=== PATIENT | female | born 1970 | race Caucasian/White ===

== ENCOUNTER 2018-08-15 09:43 | Outpatient (CLI) | payer BC, SELFPAY ==
[2018-08-15 10:06] LABS: HCT 43.2 % (36.0-46.0); HGB 13.8 g/dL (12.0-15.5); Mean Corp. HGB Concentration 31.9 g/dL (32.0-36.0); Mean Corpuscular Hemoglobin 27.9 pg (27.0-33.0); Mean Corpuscular Volume 87.3 fL (80-95); Mean Platelet Volume 9.8 fL (8.0-11.0); Platelet Count 294 x1000/uL (130-400); RBC 4.95 m/cumm (4.00-5.20); RBC Distribution Width 14.2 % (11.7-14.6); White Blood Cell Count 8.32 k/cumm (4.4-10.8)
[2018-08-15 11:05] LABS: TSH (W/Ref FT4) 0.53 uIU/mL (0.358-3.74)
[2018-08-16 06:18] LABS: Hemoglobin A1C 6.2 % (4.5-6.2)
[2018-08-16 16:43] LABS: ALT 24 U/L (12-78); AST 12 U/L (15-37); Albumin 3.7 g/dL (3.4-5.0); Alkaline Phosphatase 119 U/L (46-116); Anion Gap 8.4 mmol/L (3-11); BUN 14 mg/dL (7-18); Bilirubin, Total 0.4 mg/dL (0.2-1.0); CO2 31.6 mmol/L (21.0-32.0); CREATININE 0.66 mg/dL (0.55-1.02); Calcium 9.3 mg/dL (8.5-10.1); Chloride 101 mmol/L (98-107); Glucose 100 mg/dL (70-100); Potassium 4.5 mmol/L (3.5-5.1); Sodium 141 mmol/L (136-145); Total Protein 7.5 g/dL (6.4-8.2)
== END 2018-08-15 10:03 ==
PROVIDERS: PCP Family Medicine; Visit Provider Family Medicine
DX: N92.1 Excessive and frequent menstruation with irregular cycle (principal); E03.9 Hypothyroidism, unspecified; E88.81 Metabolic syndrome and other insulin resistance
CPT/HCPCS: 36415; 80053; 85027; 83036; 84443

== ENCOUNTER 2018-08-25 13:15 | Outpatient (CLI) | payer BC, SELFPAY ==
--- NOTE | 2018-08-25 14:44 | DI.MAMMO_ITS ---
SYMPTOMS/DIAGNOSIS: SCREENING, PERSONAL H/O HODGKIN'S DISEASE MAMMOGRAMS: Mammograms were interpreted according to the usual protocol including computer analysis with CAD system, tomosynthesis and C view imaging. The breast tissue is primarily of fatty radiodensity. There is no dominant mass. There are no suspicious calcifications and there has been no significant interval change when compared with the prior images. SUMMARY: No evidence of malignancy, category 1. Yearly screening mammography is recommended. Breast density category A. MQSA ASSESSMENT OF FINDINGS: Negative. Category 1. Patient will receive a letter notifying them of these results. BI-RAD category A. The breasts are almost entirely fatty.
--- NOTE | 2018-08-25 14:58 | DI.RAD_ITS ---
SYMPTOMS/DIAGNOSIS: RIGHT HIP PAIN, H/O HODGKIN'S DISEASE S/P CHEMO, Z85.71 PA AND LATERAL CHEST: The heart is normal in size. The lungs are clear. The mediastinal structures and pleura appear intact. CONCLUSION: Normal chest. RIGHT HIP AND PELVIS: Two views were obtained. There are mild degenerative changes of both hips. There is a question of a very subtle, poorly defined lucency of the right femoral head and neck, possible cortical abnormality noted on the AP view. The patient reportedly has a history of Hodgkin's disease and chemotherapy. The possibility of a neoplastic lesion or avascular necrosis not excluded on the basis of this examination. Additional evaluation with right hip MRI recommended. No other significant findings.
== END 2018-08-25 13:35 ==
PROVIDERS: PCP Family Medicine; Visit Provider Family Medicine
DX: M25.551 Pain in right hip (principal); M16.0 Bilateral primary osteoarthritis of hip; Z92.21 Personal history of antineoplastic chemotherapy; Z85.71 Personal history of Hodgkin lymphoma; Z12.31 Encounter for screening mammogram for malignant neoplasm of breast
CPT/HCPCS: 77063; 77067; 71046; 73502

== ENCOUNTER 2019-08-25 09:04 | Outpatient (CLI) | payer BC, SELFPAY ==
[2019-08-25 09:58] LABS: HCT 42.6 % (36.0-46.0); HGB 13.6 g/dL (12.0-15.5); Mean Corp. HGB Concentration 31.9 g/dL (32.0-36.0); Mean Corpuscular Hemoglobin 28.5 pg (27.0-33.0); Mean Corpuscular Volume 89.1 fL (80-95); Mean Platelet Volume 9.8 fL (8.0-11.0); Platelet Count 319 x1000/uL (130-400); RBC 4.78 m/cumm (4.00-5.20); RBC Distribution Width 14.4 % (11.7-14.6); White Blood Cell Count 8.08 k/cumm (4.4-10.8)
[2019-08-25 10:32] LABS: ALT 36 U/L (14-59); AST 16 U/L (15-37); Albumin 3.8 g/dL (3.4-5.0); Alkaline Phosphatase 124 U/L (46-116); Anion Gap 7.5 mmol/L (3-11); BUN 14 mg/dL (7-18); Bilirubin, Total 0.6 mg/dL (0.2-1.0); CO2 31.5 mmol/L (21.0-32.0); Calcium 9.1 mg/dL (8.5-10.1); Chloride 103 mmol/L (98-107); Glucose 94 mg/dL (74-106); Potassium 4.7 mmol/L (3.5-5.1); Sodium 142 mmol/L (136-145); Total Protein 7.4 g/dL (6.4-8.2)
[2019-08-27 10:20] LABS: TSH (W/Ref FT4) 0.81 uIU/mL (0.36-3.74)
== END 2019-08-25 09:24 ==
PROVIDERS: PCP Family Medicine; Visit Provider Family Medicine
DX: E88.81 Metabolic syndrome and other insulin resistance (principal); E03.9 Hypothyroidism, unspecified; Z85.71 Personal history of Hodgkin lymphoma; R73.03 Prediabetes
CPT/HCPCS: 36415; 80053; 85027; 83036; 84443

== ENCOUNTER 2019-08-30 01:21 | Outpatient (CLI) | payer BC, SELFPAY ==
--- NOTE | 2019-08-30 12:40 | DI.RAD_ITS ---
EXAM: XR CHEST 2V PA LATERAL CLINICAL HISTORY: HX HODGKINS DISEASE STAGE S/P CHEMO 2Z85.71 TECHNIQUE: COMPARISON: CHEST 2 VIEWS PA,LAT from 05/18/2017 XR CHEST 2V PA LATERAL from 08/25/2018 FINDINGS: Patient reportedly has a history Hodgkin's disease. There are multiple calcified mediastinal lymph nodes. Lungs are grossly clear and well expanded. No pleural effusion seen. IMPRESSION: No evidence of acute change.
--- NOTE | 2019-08-30 13:00 | DI.MAMMO_ITS ---
EXAM: MAMMO SCREENING CLINICAL HISTORY: SCREENING Z12.31 TECHNIQUE: Mammograms were interpreted according to the usual protocol including computer analysis w [employer] CAD system, tomosynthesis and C-view imaging. COMPARISON: Current examination is compared with previous examinations including July 2018 FINDINGS: The breasts are of moderate density with fairly symmetrical distribution of fibroglandular tissue. N o dominant mass or clumped microcalcification is identified in either breast. Current examination is compared with previous examinations including July 2018 and there has been no gross interval taryn nge in appearance in comparison with previous studies. IMPRESSION: No specific evidence of malignancy at this time. Routine screening examinations are suggested at year ly intervals in this age group according the ACS/ACR guidelines. Category 1, breast density category B. BI-RADS Cat 1 - Negative Breast Density - Category B - Scattered areas of fibroglandular density
== END 2019-08-30 01:41 ==
PROVIDERS: PCP Family Medicine; Visit Provider Family Medicine
DX: Z12.31 Encounter for screening mammogram for malignant neoplasm of breast (principal); R59.0 Localized enlarged lymph nodes; Z85.71 Personal history of Hodgkin lymphoma; Z92.21 Personal history of antineoplastic chemotherapy
CPT/HCPCS: 77063; 77067; 71046

== ENCOUNTER 2019-10-13 02:22 | Outpatient (CLI) | payer BC, SELFPAY ==
--- NOTE | 2019-10-13 07:30 | DI.US_ITS ---
APPROVED REPORT EXAM: Comprehensive 2D, Doppler, and color-flow Echocardiogram Patient Location: Out-Patient Personal Care Worker: Sarahi Kerr RDCS (AE) Rhythm: NSR Indications: mitral valve regurgitation I34.0 aortic valve regurgitation ( MOD) and I35.1 Conclusion Left Ventricle : The left ventricle is normal size. The left ventricular systolic function is normal. The left ventricular ejection fraction is within the normal range. There is normal left ventricular wall thickness. There is normal LV segmental wall motion. There is grade 2 diastolic dysfunction. LVE F is estimated to be 60-65%. Right Ventricle : The right ventricle appears normal size. The right ventricular systolic function ap pears normal. Atria : Left atrium is mildly dilated. The right atrium size is normal. Aortic Valve : The Aortic valve is sclerotic. Aortic valve appears trileaflet. Aortic valve has calci fied nodular thickening. Mild to moderate aortic stenosis. Moderate aortic regurgitation. Mitral Valve : Mitral valve leaflets are mildly thickened. Mild mitral annular calcification. Mild to moderate mitral regurgitation. No evidence of mitral valve stenosis. IVC: IVC is normal in size and collapses >50% with inspiration. Estimated RVSP is 15-20 mmHg. Compared to echocardiogram dated 08/13/2017: There is no significant change. Wall motion Left Ventricle The left ventricle is normal size. The left ventricular systolic function is normal. The left ventric ular ejection fraction is within the normal range. There is normal left ventricular wall thickness. T here is normal LV segmental wall motion. There is grade 2 diastolic dysfunction. LVEF is estimated to be 60-65%. Right Ventricle The right ventricle appears normal size. The right ventricular systolic function appears normal. Atria Left atrium is mildly dilated. The right atrium size is normal. Aortic Valve The Aortic valve is sclerotic. Aortic valve appears trileaflet. Aortic valve has calcified nodular th ickening. Mild to moderate aortic stenosis. Moderate aortic regurgitation. Mitral Valve Mitral valve leaflets are mildly thickened. Mild mitral annular calcification. No evidence of mitral valve stenosis. Mild to moderate mitral regurgitation. Tricuspid Valve Tricuspid valve is not well visualized. Mild tricuspid regurgitation. Pulmonic Valve Pulmonic valve is not well visualized. Mild pulmonic regurgitation. Great Vessels The aortic root is normal in size. The ascending aorta is normal in size. IVC is normal in size and c ollapses >50% with inspiration. Estimated RVSP is 15-20 mmHg. Pericardium There is no pericardial effusion. 2D Dimensions IVSD d PLAX 0.99 cm F: 0.6-1.0 LV Vol A2C d MOD 114.5 mL LVPW d PLAX 0.89 cm F: 0.6 - 1.0 LV Vol A4C d MOD 100.1 mL LVID d PLAX 4.67 cm F: 3.8 - 5.2 LA vol/ BSA A2C s A-L 29.5 mL/m2 LVDs 2.80 cm F: 2.2 - 3.5 LA vol/ BSA A4C s A-L 39.2 mL/m2 Ao Root d 3.21 cm F: 2.7 - 3.3 LA Vol/ BSA Biplane s A-L 34.9 mL/m2 RA Area A4C 13.07 cm2 LA Area A4C s MOD 23.24 cm2 RA Vol/ BSA A4C s A-L 15.2 mL/m2 LA Area A2C s MOD 19.67 cm2 Ao Asc Diam d 3.19 cm F: 2.3 - 3.1 LV EF A4C MOD 63.1 % LV EF Teichholz 69.5 % LV EF A2C MOD 64.5 % LVEF (Alonzo's) 64.20 % F: 54 - 74 LV EF Biplane MOD 64.2 % LV Volume 84.12 mL F: 46 - 106 IVC Diam exp d SLAX 1.40 cm LV Volume Index 39.49 mL/m2 F: 29 - 61 LV Vol Biplane MOD 114.6 mL FS 39.05 % M-Mode TAPSE 2.71 cm (M/F) <1.7 LV Diastology MV E' medial 0.064 (>0.07 m/s) E/A Ratio 1.2 LV E/e MED 25.30 (<14) PV S/D Ratio 0.80 MV E' lateral 0.055 (>0.1 m/s) MV E Vmax 1.63 (0.4-1.3 m/s) LV E/e LAT 29.70 (<14) MV A Vmax 1.40 (0.4-1.3 m/s) MV E/E' medial 25.32 MV E/A Ratio 1.13 MV E/E' lateral 29.70 Aortic Valve LVOT Area 3.05 cm2 AoV Area Vmax 1.14 cm2 LVOT Vmax 0.91 m/s AoV Area/ BSA (Vmax) 0.53 cm2/m2 LVOT Mean Artis. 0.69 m/s VALARIE Mean Artis. 1.15 cm2 LVOT Peak Grad 3.3 mmHg VALARIE Mean Artis. Index 0.54 cm2/m2 LVOT Mean Grad 2.0 mmHg AR DT 838 msec LVOT VTI 0.212 m AR PHT 243 msec LVOT Diam s 1.95 cm (M/F) 1.5-2.5 AoV Vmax 2.44 (0.5-1.3 m/s) Velocity Ratio 0.37 AoV Mean Artis. 1.81 m/s AoV Peak Grad 23.9 mmHg LVOT SV 64.65 mL AoV Mean Grad 14.4 (<5 mmHg) AoV VTI 0.568 (0.18-0.25 m) VTI Ratio 0.37 AoV Area VTI 1.14 (2.5-4.5 cm2) AoV Area/ BSA (VTI) 0.53 cm/m2 Mitral Valve MV DT 215 (160-240 msec) MR Vmax 5.61 m/s MV PHT 62 msec MR VTI 1.746 m MV Area PHT 3.53 cm2 MR Peak Grad 125.7 mmHg MV VTI 0.129 m MR Mean Grad 84.0 mmHg MV VTI Annulus 0.129 m MV Regurg Vol 57.67 mL MV Area VTI 4.97 (4.0-6.0 cm2) MV RF 47.15 % MV Diam AP 3.48 cm MR VC 0.41 (0-0.3 cm) MV SV 122.31 mL RUPV S Vmax 0.60 m/s Pulm Vein s 0.60 m/s RUPV D Vmax 0.76 m/s Pulm Vein d 0.76 m/s Pulmonary Valve PV Vmax 1.07 (0.5-1.5 m/s) RVOT Peak Gr. 2.17 mmHg PV Peak Grad 4.6 mmHg RVOT Mean Gr. 1.30 mmHg PV Mean Grad 2.7 mmHg RVOT VTI 0.172 m PV VTI 0.217 m RVOT Vmax 0.74 m/s Tricuspid Valve TR Peak Grad 15.8 mmHg TR Vmax 1.99 m/s RA Pressure 3.00 mmHg RVSP (TR) 18.8 mmHg
== END 2019-10-13 02:42 ==
PROVIDERS: PCP Family Medicine; Visit Provider Family Medicine
DX: I34.0 Nonrheumatic mitral (valve) insufficiency (principal); I35.2 Nonrheumatic aortic (valve) stenosis with insufficiency; I50.1 Left ventricular failure, unspecified; E03.9 Hypothyroidism, unspecified; E88.81 Metabolic syndrome and other insulin resistance
CPT/HCPCS: 93306

== ENCOUNTER 2020-08-20 19:11 | Outpatient (REF) | payer BC, SELFPAY ==
[2020-08-20 13:54] LABS: HCT 40.8 % (36.0-46.0); HGB 13.2 g/dL (11.2-15.7); MCH 28.6 pg (27.0-33.0); MCHC 32.4 % (32.0-36.0); MCV 88.5 fL (80-95); MPV 10.8 fL (8.0-11.0); Platelet Count 319 10^3/uL (130-400); RBC 4.61 10^6/uL (3.93-5.22); RDW 13.6 % (11.7-14.6); RDW-SD 43.8 fL; WBC 8.53 10^3/uL (4.4-10.8)
[2020-08-20 14:18] LABS: TSH (W/Ref FT4) 0.33 uIU/mL (0.36-3.74)
[2020-08-20 14:37] LABS: FREE T4 1.46 ng/dL (0.76-1.46)
[2020-08-20 14:40] LABS: Hemoglobin A1C 5.9 % (<5.7)
== END 2020-08-20 19:31 ==
LOC: NCHCN 19:11
PROVIDERS: PCP Family Medicine; Visit Provider Family Medicine
DX: E03.9 Hypothyroidism, unspecified (principal); R73.03 Prediabetes
CPT/HCPCS: 85027; 83036; 84439; 84443

== ENCOUNTER 2020-09-13 01:15 | Outpatient (CLI) | payer BC, SELFPAY ==
--- NOTE | 2020-09-13 | DI.MAMMO_ITS ---
EXAM: MAMMO SCREENING CLINICAL HISTORY: SCREENING, Z12.31 TECHNIQUE: Mammograms were interpreted according to the usual protocol including computer analysis w [employer] system, tomosynthesis and C-view imaging. COMPARISON: FINDINGS: Breasts are of moderate density with fairly symmetrical distribution of fibroglandular tissue. No do minant mass or clumped microcalcification is identified in either breast. Current examination is com pared with previous examinations including July 2019 and there has been no gross interval change in appearance in comparison with the prior studies. IMPRESSION: No specific evidence of malignancy at this time. Routine screening examinations are suggested at yea rly intervals in this age group according to the ACS ACR guidelines. BI-RADS Category 1 - Negative Breast Density - Category B - Scattered areas of fibroglandular density
== END 2020-09-13 01:35 ==
PROVIDERS: PCP Family Medicine; Visit Provider Family Medicine
DX: Z12.31 Encounter for screening mammogram for malignant neoplasm of breast (principal)
CPT/HCPCS: 77063; 77067

== ENCOUNTER 2020-11-22 22:38 | Outpatient (REF) | payer BC, SELFPAY ==
[2020-11-22 18:49] LABS: TSH (W/Ref FT4) 0.51 uIU/mL (0.36-3.74)
== END 2020-11-22 22:39 | disposition home or self-care (01) ==
LOC: NCHCN 22:38
PROVIDERS: PCP Family Medicine; Visit Provider Family Medicine
DX: E03.9 Hypothyroidism, unspecified (principal)
CPT/HCPCS: 84443

== ENCOUNTER 2021-07-10 20:52 | Outpatient (REF) | payer BC, SELFPAY ==
[2021-07-10 21:35] LABS: Abs Immature Grans 0.04 10^3/uL (0.0-0.06); Absolute Basophil Count 0.05 10^3/uL (0.0-0.2); Absolute Eosinophil Count 0.11 10^3/uL (0.0-0.7); Absolute Lymphocyte Count 1.46 10^3/uL (1.2-3.4); Absolute Neutrophil Count 7.95 10^3/uL (1.2-6.7); Basophils % 0.5; Eosinophils % 1.1; HCT 42.6 % (36.0-46.0); HGB 13.3 g/dL (11.2-15.7); Immature Grans % 0.4; MCH 28.5 pg (27.0-33.0); MCHC 31.2 % (32.0-36.0); MCV 91.2 fL (80-95); MPV 11.1 fL (8.0-11.0); Monocytes % 7.7; Neutrophils % 76.3; Nucleated RBC 0 %; Platelet Count 345 10^3/uL (130-400); RBC 4.67 10^6/uL (3.93-5.22); RDW 13.8 % (11.7-14.6); RDW-SD 46.5 fL; WBC 10.41 10^3/uL (4.4-10.8)
[2021-07-11 00:44] LABS: Hemoglobin A1C 5.8 % (<5.7)
[2021-07-11 08:42] LABS: TSH (W/Ref FT4) 1.07 uIU/mL (0.36-3.74)
== END 2021-07-10 20:53 | disposition home or self-care (01) ==
LOC: NCHCN 20:52
PROVIDERS: PCP Family Medicine; Visit Provider Family Medicine
DX: R73.03 Prediabetes (principal); E03.9 Hypothyroidism, unspecified; Z00.00 Encounter for general adult medical examination without abnormal findings
CPT/HCPCS: 83036; 84443; 85025

== ENCOUNTER 2021-09-20 00:36 | Outpatient (CLI) | payer BC, SELFPAY ==
--- NOTE | 2021-09-20 08:49 | DI.MAMMO_ITS ---
Exam(s) MAMMO SCREENING EXAM: MAMMO SCREENING CLINICAL HISTORY: SCREENING, Z12.31 TECHNIQUE: Mammograms were interpreted according to the usual protocol including computer analysis w [employer] CAD system, tomosynthesis and C-view imaging. COMPARISON: 2011 through 2020 FINDINGS: The breasts are composed of scattered fibroglandular densities, Breast Density category B. No suspicious masses or suspicious microcalcifications are seen. No skin thickening or abnormal axillary lymph nodes are seen. There has been no significant change from prior exams. IMPRESSION: BI-RADS Category 1, Negative mammogram Yearly screening mammography is recommended. Breast Density - Category B, scattered fibroglandular densities. A negative radiographic report should not delay biopsy if a dominant or clinically suspicious mass is present. Up to ten percent of cancers are not identified on mammography. A negative report may reinforce clinical impression. Adenosis and dense breasts may obscure an underlying neoplasm. False positive reports average 6 to 10%. Patient will receive a letter notifying them of these results.
== END 2021-09-20 00:56 ==
PROVIDERS: PCP Family Medicine; Visit Provider Family Medicine
DX: Z12.31 Encounter for screening mammogram for malignant neoplasm of breast (principal)
CPT/HCPCS: 77063; 77067

== ENCOUNTER 2022-03-18 10:48 | Emergency (ER) | payer BC, SELFPAY ==
--- NOTE | 2022-03-18 11:00 | RT.EKG_ITS ---
APPROVED REPORT Exam: Resting ECG Reason for Exam: chest pressure for last week Patient Location: E HR:96 bpm ECG Measurements Heart Rate 96 AXIS MO 144 P 33 QRSd 92 QRS 38 QT 372 T 69 QTc 471 Conclusion Sinus rhythm...normal P axis, V-rate 60- 99. Sinus. Normal axis. No STEMI. I have reviewed and interpreted ECG and agree with software generated interpretation.
[2022-03-18 11:06] VITALS: BP 156/53; PULSE 100; RESP 18; TEMP 37.1; O2SAT 96
--- NOTE | 2022-03-18 11:50 | ED.GENADUL_ITS ---
Discharge Plan Disposition Patient Disposition: HOME Condition: Improving Discharge Details Clinical Impression: Left upper lobe pneumonia Primary Care Provider: Any Pennington ED Provider: Shun Bryant Home Meds and New Rx's Prescriptions: New doxycycline hyclate 100 mg capsule 100 mg PO BID Qty: 20 0RF Continued fluticasone propion-salmeterol [Advair Diskus] 1 EACH blister with device 1 puff Inhalation DAILY levothyroxine [Synthroid] 200 MCG tablet 200 mcg PO DAILY montelukast 10 mg tablet 10 tab PO DAILY Label Comments: TAKE 1 TABLET BY MOUTH EVERY DAY Discharge Instructions Instructions: Pneumonia (ED) Additional Instructions: Doxycycline as directed. Continue using your inhalers as directed. Please watch for new or worsening symptoms and return to the ER for any concerns. Lastly, please contact your primary care provider later today or tomorrow to discuss your ER visit and need for outpatient reevaluation. Medical Decision Making 51-year-old female, never a smoker, past medical history of asthma presents to the ER for cough, sore throat, chest tightness over the past few days, positive COVID exposure about 1 week ago. Clinically she appears well, nontoxic, afebrile, O2 sat 96% on room air. Plan is to obtain a CBC and CMP in case she requires antiviral. Will obtain x-ray as well as a COVID swab. White blood cell count of 13.07 electrolytes unremarkable COVID-negative Chest x-ray reveals a left upper lobe infiltrate. Patient reports mild improvement with DuoNeb, she has no butyryl inhaler at home already. We will provide first dose of doxycycline now and provide a prescription Standard discharge and return precautions were provided. Patient understands, is agreeable to this plan, and has no additional questions or concerns upon discharge. This documentation was generated using [employer] system, please disregard any oddities of phrase or misspellings. Medical Records Medical records reviewed: Yes I reviewed the patient's medical records. Imaging Data Radiologic Study: Attestation: I personally reviewed and interpreted this imaging study as follows: Imaging: X-Ray Radiologist's impression: This report is currently processing and HAS NOT BEEN OFFICIALLY SIGNED BY THE PHYSICIAN - ESTIMATED TIME OF APPROVAL IS 03/18/2022 13:28. Exam(s) XR CHEST 2V PA LATERAL EXAM: XR CHEST 2V PA LATERAL CLINICAL HISTORY: cough. TECHNIQUE: 2D digital imaging was performed. COMPARISON: No exams were available for comparison FINDINGS: 2 views: Heart size is normal. The mediastinum is not widened. Calcified lymph nodes are noted on the left side Right lung is clear. There is some infiltrate in the left upper lobe, specifically in the apical posterior segment.. No pleural effusions. IMPRESSION: Left upper lobe infiltrate. Lab Data Lab results reviewed: Yes I reviewed the patient's lab results. Labs: 03/18/22 11:52 Tonsil - Not Specified Group A Streptococcus Culture - Pending Laboratory Tests Range/Units 03/18/22 03/18/22 03/18/22 11:57 11:57 11:57 WBC (4.4-10.8) 10^3/uL 13.07 H RBC (3.93-5.22) 10^6/uL 4.66 Hgb (11.2-15.7) g/dL 13.0 Hct (36.0-46.0) % 41.0 MCV (80-95) fL 88 MCH (27.0-33.0) pg 27.9 MCHC (32.0-36.0) % 31.7 L RDW (11.7-14.6) % 14.0 Plt Count (130-400) 10^3/uL 346 MPV (8.0-11.0) fL 10.1 Immature Gran % 0.7 Neutrophils % 75.6 Lymphocytes % 12.4 Monocytes % 10.5 Eosinophils % 0.3 Basophils % 0.5 Nucleated RBC % (0.0-0.3) % 0.0 Absolute Neutrophils (1.2-6.7) 10^3/uL 9.88 H Absolute Lymphocytes (1.2-3.4) 10^3/uL 1.62 Absolute Monocytes (0.1-0.8) 10^3/uL 1.37 H Absolute Eosinophils (0.0-0.7) 10^3/uL 0.04 Absolute Basophils (0.0-0.2) 10^3/uL 0.07 Sodium (136-145) mmol/L 137 Potassium (3.5-5.1) mmol/L 3.7 Chloride (98-107) mmol/L 98 Carbon Dioxide (21.0-32.0) mmol/L 31.0 Anion Gap (3-11) mmol/L 8.0 BUN (7-18) mg/dL 8 Creatinine (0.55-1.02) mg/dL 0.8 Estimated GFR/1.73 m2 (mL/min/1.73m2) >= 60.00 Glucose (74-106) mg/dL 93 Calcium (8.5-10.1) mg/dL 9.2 Total Bilirubin (0.2-1.0) mg/dL 0.9 AST (15-37) U/L 10 L ALT (14-59) U/L 23 Alkaline Phosphatase (46-116) U/L 107 Total Protein (6.4-8.2) g/dL 8.2 Albumin (3.4-5.0) g/dL 3.6 COVID-19 Source Nasal/Nares SARS-CoV-2 (PCR) (Negative) Negative HPI General Mode of arrival: ambulatory . Date/Time Provider Initiated Documentation: 03/18/22 11:15 . Limitations to Documentation: no limitations . Information obtained by: patient . HPI Narrative: This is a 51-year-old female, past medical history of asthma, thyroid disease, presenting to the ER for evaluation of a cough with green sputum, sore throat, chest tightness over the past 4 days, positive COVID exposure 7 or 8 days ago. Patient denies smoking or history of smoking. She has not taken any [id number] medication for her symptoms. She denies any headache, neck pain, chest pain, fever, abdominal pain, nausea, vomiting, pain or swelling in her legs. She has not taken any lagk-cgm-[id number] medications for her symptoms. She does state that she is vaccinated against COVID. Related Data Home Medications Medication Instructions Recorded Confirmed fluticasone 250 mcg-salmeterol 50 1 puff inhalation DAILY 04/14/13 03/18/22 mcg/dose blistr powdr for inhalation (Advair Diskus) levothyroxine 200 mcg tablet 200 mcg PO DAILY 04/14/13 03/18/22 (Synthroid) doxycycline hyclate 100 mg capsule 100 mg PO BID #20 caps 03/18/22 montelukast 10 mg tablet 10 tab PO DAILY 03/18/22 03/18/22 Previous Rx's Medication Instructions Recorded doxycycline hyclate 100 mg capsule 100 mg PO BID #20 caps 03/18/22 Allergies Allergy/AdvReac Type Severity Reaction Status Date / Time Sulfa (Sulfonamide AdvReac Intermediate upset Unverified 03/18/22 11:10 Antibiotics) stomach General Stated Complaint: Sorethroat SUSAN: 3 Review of Systems Constitutional Constitutional: Denies fatigue, Denies fever(s) and Denies headache(s) ENT Ears, Nose, Mouth, and Throat: Denies headache(s) and Reports sore throat Cardiovascular Cardiovascular: Denies chest pain and Reports other (Tightness with coughing) Respiratory Respiratory: Reports cough Gastrointestinal Gastrointestinal: Denies abdominal pain, Denies nausea and Denies vomiting Musculoskeletal Musculoskeletal: Denies back pain Integumentary/Breasts Skin/Breast: Denies rash Neurologic Neurologic: Denies headache(s) Endocrine Endocrine: Denies fatigue PFSH All Active Problems (Updated 03/18/22 @ 13:45 by ASHIA Petersen) Left upper lobe pneumonia (Acute) Trochanteric bursitis of right hip (Acute) Abnormal uterine bleeding (Acute 07/25/15) Acquired hypothyroidism (Acute 07/25/15) BMI 40.0-44.9, adult (Acute 07/25/15) Hx of Hodgkins lymphoma (Acute 07/25/15) Metabolic syndrome (Acute 07/25/15) Mild persistent asthma without complication (Acute 07/25/15) Obstructive sleep apnea syndrome (Acute 07/25/15) Unspecified slipped upper femoral epiphysis (nontraumatic), right hip (Acute 07/25/15) Medical History (Updated 03/18/22 @ 13:45 by ASHIA Petersen) Abnormal uterine bleeding Rx with DepoProvera x9yrs. Resumed after stopping Depo in 2003. Worsening in 2013. 10/2015 Mirena IUD. Asthma, mild persistent BMI 40.0-44.9, adult Hx of Hodgkins lymphoma Hypothyroidism Metabolic syndrome Obstructive sleep apnea Unspecified slipped upper femoral epiphysis (nontraumatic), right hip Family History Mother Heart disease heart beats too fast Son Personal history of malignant neoplasm Social History Smoking/Tobacco Use Status: Never Smoking risk assessment performed?: Yes Alcohol Intake: never Drug use: Never Substance use type: does not use Do you feel safe at home: Yes Do you feel safe in your relationship?: Yes Exam Const General: cooperative, healthy appearing, comfortable and no acute distress Orientation: alert, awake and oriented x3 HENMT Head: normal to inspection, normocephalic and atraumatic General nose exam: external nose normal Face and sinus: normal facial exam Mouth: moist mucous membranes Eyes Visual Allen: normal visual allen by confrontation Conjunctivae: conjunctivae normal Neck Neck: normal visual inspection, full ROM, no lymphadenopathy, no meningeal signs, trachea midline, supple and nontender Resp Effort & Inspection: normal respiratory effort, able to speak in complete sent ences and cough Auscultation: wheezes scattered wheezes (Primary left upper lobe, partially clear with cough) Cardio Rate: regular rate Rhythm: regular rhythm GI Palpation: soft and nontender Back/Spine/Pelvis Back: no CVA tenderness and No back tenderness Skin General skin exam: no rashes or lesions noted Neuro General: patient alert, patient awake, moves all extremities and no focal motor deficits Sensory Exam: no sensory deficits noted Extrem General: normal to inspection, full ROM, capillary refill normal, no pedal edema and no calf tenderness Psych Appearance: grossly normal Mental Status: mental status grossly normal Course Vital Signs Vital signs: Vital Signs Temperature 37.1 C 03/18/22 11:06 Pulse 100 H 03/18/22 11:06 Respiratory Rate 18 03/18/22 11:06 Blood Pressure 156/53 H 03/18/22 11:06 Pulse Oximetry 96 03/18/22 11:06 Temperature 37.1 C 03/18/22 11:06 Pulse 100 H 03/18/22 11:06 Respiratory Rate 18 03/18/22 11:06 Respiratory Effort Non-Labored 03/18/22 11:18 Blood Pressure 156/53 H 03/18/22 11:06 Pulse Oximetry 96 03/18/22 11:06 Pain Level 5 03/18/22 11:06
[2022-03-18 12:04] LABS: Source Nasal/Nares
[2022-03-18 12:08] LABS: Abs Immature Grans 0.09 10^3/uL (0.0-0.06); Absolute Eosinophil Count 0.04 10^3/uL (0.0-0.7); Absolute Lymphocyte Count 1.62 10^3/uL (1.2-3.4); Absolute Monocyte Count 1.37 10^3/uL (0.1-0.8); Basophils % 0.5; Eosinophils % 0.3; Immature Grans % 0.7; Lymphocytes % 12.4; MCH 27.9 pg (27.0-33.0); MCHC 31.7 % (32.0-36.0); MCV 88 fL (80-95); MPV 10.1 fL (8.0-11.0); Monocytes % 10.5; Neutrophils % 75.6; Platelet Count 346 10^3/uL (130-400); RBC 4.66 10^6/uL (3.93-5.22); RDW-SD 45.1 fL; WBC 13.07 10^3/uL (4.4-10.8)
[2022-03-18 12:10] LABS: Absolute Basophil Count 0.07 10^3/uL (0.0-0.2); Absolute Neutrophil Count 9.88 10^3/uL (1.2-6.7)
[2022-03-18 12:24] LABS: ALT 23 U/L (14-59); AST 10 U/L (15-37); Albumin 3.6 g/dL (3.4-5.0); Alkaline Phosphatase 107 U/L (46-116); BUN 8 mg/dL (7-18); Bilirubin, Total 0.9 mg/dL (0.2-1.0); CREATININE 0.8 mg/dL (0.55-1.02); Calcium 9.2 mg/dL (8.5-10.1); Chloride 98 mmol/L (98-107); Glucose 93 mg/dL (74-106); Potassium 3.7 mmol/L (3.5-5.1); Sodium 137 mmol/L (136-145); Total Protein 8.2 g/dL (6.4-8.2)
[2022-03-18 12:57] LABS: COVID-19 PCR Negative (Negative)
--- NOTE | 2022-03-18 13:00 | DI.RAD_ITS ---
Exam(s) XR CHEST 2V PA LATERAL EXAM: XR CHEST 2V PA LATERAL CLINICAL HISTORY: cough. TECHNIQUE: 2D digital imaging was performed. COMPARISON: No exams were available for comparison FINDINGS: 2 views: Heart size is normal. The mediastinum is not widened. Calcified lymph nodes are noted on the left side Right lung is clear. There is some infiltrate in the left upper lobe, specifically in the apical pos terior segment.. No pleural effusions. IMPRESSION: Left upper lobe infiltrate. DATA REPOSITORY: RADIATION DOSE DELIVERED:
[2022-03-18 13:33] VITALS: RESP 8
[2022-03-18] MEDS: Albuterol/Ipratropium 3 ML UPD VIAL UPD (13:33)
[2022-03-18 13:47] VITALS: BP 149/65; PULSE 98; RESP 16; TEMP 37.6; O2SAT 95
[2022-03-18] MEDS: Doxycycline Hyclate 100 MG CAP PO (13:52)
[2022-03-18 14:00] VITALS: BP 149/65; PULSE 98; RESP 16; TEMP 37.6; O2SAT 95
== END 2022-03-18 13:58 | disposition home or self-care (01) ==
PROVIDERS: Emergency Provider Physician Assistant; PCP Family Medicine
DX: J18.9 Pneumonia, unspecified organism (principal); Z20.822 Contact with and (suspected) exposure to COVID-19; R07.89 Other chest pain; R05.1 Acute cough
CPT/HCPCS: 36415; 80053; 87635; 87880; 93005; 94640; 99284; 71046; 85025; 87081; 93010; J7620

== ENCOUNTER → 2022-04-08 21:46 | Outpatient (CLI) | payer BC, SELFPAY ==
--- NOTE | 2022-04-08 | DI.RAD_ITS ---
Exam(s) XR CHEST 2V PA LATERAL EXAM: XR CHEST 2V PA LATERAL CLINICAL HISTORY: UPPER RESPIRATORY SYMPTOMS, R09.89 TECHNIQUE: 2D digital imaging was performed. COMPARISON: CR CHEST 2 VIEWS PA,LAT from 06/21/2014 CR XR CHEST 2V PA LATERAL from 08/25/2018 CR XR CHEST 2V PA LATERAL from 08/30/2019 CR XR CHEST 2V PA LATERAL from 03/18/2022 FINDINGS: Heart size is within normal limits. Calcification is again noted at the aorta. There are calcified mediastinal lymph nodes related to prior granulomatous infection. There is a new patchy infiltrate s een at the left lower lobe, above the diaphragm. There is also question of a additional smaller infi ltrate above the right diaphragm. No effusion or pneumothorax is seen. There is a stable area of no dularity in the posterior left upper lobe. This could represent an area of scarring versus mass. A chest CT is recommended following treatment for pneumonia. IMPRESSION: Bilateral lower lobe infiltrates. Question of a 8 area of atelectasis versus mass in the posterior l eft upper lobe. CT recommended for further evaluation. DATA REPOSITORY: RADIATION DOSE DELIVERED:
== END ==
PROVIDERS: PCP Family Medicine; Visit Provider Nurse Practitioner Family
DX: R91.8 Other nonspecific abnormal finding of lung field (principal); R09.89 Other specified symptoms and signs involving the circulatory and respiratory systems
CPT/HCPCS: 71046

== ENCOUNTER 2022-05-11 09:43 | Outpatient (REF) | payer BC, SELFPAY | END 2022-05-11 09:44 | disposition home or self-care (01) | LOC: NCHCN 09:43 | PROVIDERS: PCP Family Medicine; Visit Provider Family Medicine | DX: J18.9 Pneumonia, unspecified organism (principal) | CPT/HCPCS: 87077; 87070; 87205 ==

== ENCOUNTER 2022-06-02 17:48 | Outpatient (REF) | payer BC, SELFPAY | END 2022-06-02 17:49 | disposition home or self-care (01) | LOC: LBN 17:48 | PROVIDERS: PCP Family Medicine; Visit Provider Nurse Practitioner Family | DX: N39.0 Urinary tract infection, site not specified (principal) | CPT/HCPCS: 87086 ==

== ENCOUNTER → 2022-06-09 15:04 | Outpatient (CLI) | payer BC, SELFPAY ==
--- NOTE | 2022-06-09 | DI.RAD_ITS ---
Exam(s) XR CHEST 2V PA LATERAL EXAM: XR CHEST 2V PA LATERAL CLINICAL HISTORY: COMMUNITY ACQUIRED PNEUMONIA--J18.9 TECHNIQUE: 2D digital imaging was performed. COMPARISON: CR XR CHEST 2V PA LATERAL from 03/18/2022 CR XR CHEST 2V PA LATERAL from 04/08/[address] CHEST WO from 05/08/2022 FINDINGS: HEART: Normal size. Aorta: Calcified. PULMONARY VASCULATURE: Main pulmonary arteries prominent. LUNGS: Small focus is scarring or atelectasis is noted in the posterior left upper lobe. This appear s similar to prior. No new infiltrate. Calcified AP window lymph nodes are again noted. PLEURAL SPACE: No pleural effusion or pneumothorax. BONE:Unremarkable for age. IMPRESSION: Focal density in the posterior left upper lobe presumably represents scarring. Mass not and excluded on this exam.. DATA REPOSITORY: RADIATION DOSE DELIVERED:
== END ==
PROVIDERS: PCP Family Medicine; Visit Provider Family Medicine
DX: J18.9 Pneumonia, unspecified organism (principal); R91.8 Other nonspecific abnormal finding of lung field
CPT/HCPCS: 71046

== ENCOUNTER 2022-06-09 15:06 | Outpatient (REF) | payer BC, SELFPAY ==
[2022-06-09 18:28] LABS: Hemoglobin A1C 5.8 % (<5.7)
[2022-06-09 18:55] LABS: Calculated LDL 89 mg/dL (<100); Cholesterol 155 mg/dL (<200); HDL Cholesterol 50 mg/dL (40-60); Triglyceride 84 mg/dL (<150)
== END 2022-06-09 15:07 | disposition home or self-care (01) ==
LOC: NCHCN 15:06
PROVIDERS: PCP Family Medicine; Visit Provider Family Medicine
DX: R73.03 Prediabetes (principal); E66.01 Morbid (severe) obesity due to excess calories; Z00.00 Encounter for general adult medical examination without abnormal findings
CPT/HCPCS: 80061; 83036

== ENCOUNTER 2022-07-02 15:38 | Outpatient (REF) | payer BC, SELFPAY ==
--- OUTSIDE RECORDS SUMMARY | 2022-07-02 15:40 | XMS_ITS | Encounter Summary ---
:1970 Author Organization [facility] [place] [address] Care Team Providers Name Role Phone Any Pennington MD Primary Care Provider Encounter Details Date Type Department Care Team Description 06/30/2022 Travel Social History Tobacco Use Types Packs/Day Years Used Date Never Assessed Sex Assigned at Date Recorded Not on file documented as of this encounter Plan of Treatment Not on filedocumented as of this encounter Visit Diagnoses Not on filedocumented in this encounter Care Teams Spike Maker Relationship Specialty Start Date End Date Any Pennington MD PCP - General 07/23/10 Darrel [address] [place] [address] documented as of this encounter
--- OUTSIDE RECORDS SUMMARY | 2022-07-02 15:40 | XMS_ITS | Clinical Summary ---
:1970 Author Organization [facility] [place] [address] Care Team Providers Name Role Phone Any Pennington MD Primary Care Provider Allergies No known active allergies Medications Medication Sig Dispensed Refills Start Date End Date Status CIS Free Text Med - 0 10/12/2006 Active Albuterol levothyroxine (SYNTHROID) 200mcg, PO, QD 0 7 Active 175 mcg tablet FLUTICASONE/SALMETEROL 0 10/12/2006 Active (ADVAIR DISKUS INHL) Encounters Date Type Specialty Care Team Description 06/30/2022 Hospital Encounter Radiology Any Pennington MD Arri jose 06/30/2022 Hospital Encounter Radiology Any Pennington MD Aide tarkeysha pulmonary nodule; Personal histor y of Hodgkin's disease 06/30/2022 Travel from Last 3 Months Social History Tobacco Use Types Packs/Day Years Used Date Never Assessed Sex Assigned at Date Recorded Not on file Plan of Treatment Health Maintenance Due Date Last Done Comments Covid-19 Vaccine (#1) 06/06/1970 HIV screen 12/06/1987 Hepatitis C Screening 12/06/1987 Tdap adult 1988 Tetanus vaccine 1988 HPV test 12/06/1999 PAP Smear 12/06/1999 Breast Cancer Share Decision Needed 2009 Colonoscopy 2014 Breast Cancer screening 12/06/2019 Zoster vaccine (1 of 2) 12/06/2019 Influenza (Flu) vaccine (1 of 1 - Influenza standard 05/01/2022 series) Procedures Procedure Name Priority Date/Time Associated Diagnosis Comme nts NM PET CT SKULL Routine 06/30/2022 10:35 AM Solitary pulmonary Results for this BASE TO MID-THIGH EDT nodule procedure are in (LCSR) Personal history of the resu lts Hodgkin's disease section. POCT GLUCOSE Routine 06/30/2022 9:05 AM Results f or this EDT procedure are i n the results section. ORDS - PROVIDER 05/22/2022 12:00 AM Resul ts for this CARE SCAN EDT procedure are i n the results section. ORDS - PROVIDER 05/14/2022 12:00 AM Resul ts for this CARE SCAN EDT procedure are i n the results section. from Last 3 Months Results NM PET CT Skull Base to Mid-thigh (06/30/2022 10:35 AM EDT) Anatomical Region Laterality Modality Positron Emission To mography (PET) Specimen (Source) Anatomical Location Collection Method / Collectio n Time Received Time / Laterality Volume Impressions 07/01/2022 9:59 AM EDT 1. ??No evidence of active lymphoma. No pulmonary mass identified. 2. ??Calcified axillary, mediastinal, le ft hilar adenopathy most consistent with treated lymphoma. 3. ??Enlarged pulmonary artery (4.5 cm). This can be seen in pulmonary artery hypertension. Preliminary report signed by: Chelle Lozano at 07/01/2022 9:17 AM I have personally reviewed the image(s) and the resident's interpretation and agree with the findings, Isidro Martini MD at 07/01/2022 9:59 AM Thank you for letting us participate in the care of this patient. ??If you are a health care provider and have any questi ons regarding this report, please contact the number below. ??For patients who have questions please contact the health acute care physician that requested your imaging first. ? Narrative 07/01/2022 9:59 AM EDT EXAMINATION: NM PET CT STANDARD SKULL BASE TO MID-THIGH CLINICAL HISTORY: pt with h/o hodkins s/p chemo/radiation 1995 - clarify if pulmonary mass is benign TECHNIQUE: Following IV injection of 18- sevqsr-2-eypuivqtyfhm (FDG) a standard uptake of approximately 60 minutes, a no ncontrast CT scan followed by a PET scan were acquired from the base of the skull to mid thighs. The noncontrast CT was used for anatomic localization and photo n attenuation correction of the PET scan. Blood glucose level: 87 (mg/dL) FDG dose: 15.9 mCi COMPARISON: Chest radiograph 10/12/2006 FINDINGS: HEAD/NECK: Normal activity in all soft tissue regio ns of the neck and visualized lower head. No adenopathy. CHEST: Normal activity in all soft tissue regio ns. Calcified lymph nodes in the left axilla , anterior mediastinum, and left hilum. No nodules identified. Scarring versus a telectasis of the left lower lobe. Moderate to severe coronary artery and a ortic arch calcifications. The pulmonary artery measures approximately 4.5 cm in diameter. Small pericardial effusion. ABDOMEN/PELVIS: Normal activity in all soft tissue regio ns. No FDG avid lymph nodes. Several small p eriaortic and aortocaval lymph nodes, the largest of these is an 8 mm lymph no de in the region of the left common iliac artery (axial series 4, image 156) , favored to be benign based on morphology and degree of metabolic activ ity. Status post cholecystectomy. Accessory s plenule is noted. SKELETON/EXTREMITIES: Normal activity in all regions of the ax ial and visualized appendicular skeleton. Procedure Note Isidro Martini MD - 07/01/2022 EXAMINATION: NM PET CT STANDARD SKULL BA SE TO MID-THIGH CLINICAL HISTORY: pt with h/o hodkins s/p chemo/radiation 1995 - clarify if pulmonary mass is benign TECHNIQUE: Following IV injection of 18- lbofid-7-fhnhqbhguhog (FDG) a standard uptake of approximately 60 minutes, a no ncontrast CT scan followed by a PET scan were acquired from the base of the skull to mid thighs. The noncontrast CT was used for anatomic localization and photo n attenuation correction of the PET scan. Blood glucose level: 87 (mg/dL) FDG dose: 15.9 mCi COMPARISON: Chest radiograph 10/12/2006 FINDINGS: HEAD/NECK: Normal activity in all soft tissue regio ns of the neck and visualized lower head. No adenopathy. CHEST: Normal activity in all soft tissue regio ns. Calcified lymph nodes in the left axilla , anterior mediastinum, and left hilum. No nodules identified. Scarring versus a telectasis of the left lower lobe. Moderate to severe coronary artery and a ortic arch calcifications. The pulmonary artery measures approximately 4.5 cm in diameter. Small pericardial effusion. ABDOMEN/PELVIS: Normal activity in all soft tissue regio ns. No FDG avid lymph nodes. Several small p eriaortic and aortocaval lymph nodes, the largest of these is an 8 mm lymph no de in the region of the left common iliac artery (axial series 4, image 156) , favored to be benign based on morphology and degree of metabolic activ ity. Status post cholecystectomy. Accessory s plenule is noted. SKELETON/EXTREMITIES: Normal activity in all regions of the ax ial and visualized appendicular skeleton. IMPRESSION 1. No evidence of active lymphoma. No pu lmonary mass identified. 2. Calcified axillary, mediastinal, left hilar adenopathy most consistent with treated lymphoma. 3. Enlarged pulmonary artery (4.5 cm). T his can be seen in pulmonary artery hypertension. Preliminary report signed by: Chelle Lozano at 07/01/2022 9:17 AM I have personally reviewed the image(s) and the resident's interpretation and agree with the findings, Isidro Martiin MD at 07/01/2022 9:59 AM Thank you for letting us participate in the care of this patient. If you are a health care provider and have any questi ons regarding this report, please contact the number below. For patients w ho have questions please contact the health acute care physician that requested your imaging first. Any Pennington MD IMG PET ORDERABLES POCT Glucose (06/30/2022 9:05 AM EDT) P athologist Signature POC Glucose 87 65 - 199 EZEQUIEL HAWKINS mg/dL [facility] Comment: Supplemental ranges: <140 mg/dL before meals <180 mg/dL all other times of the day Specimen Anatomical Collection Method Collection Time Receive d Time (Source) Location / / Volume Laterality Blood 06/30/2022 9:05 AM 9:05 EDT AM EDT Any Pennington MD POINT OF CARE TEST ORDERABLE S Performing Organization Address City/State/ZIP Code Phon e Number [facility] [place] [address] SCAN DOC: ORDS - PROVIDER CARE (05/22/2022 12:00 AM EDT)Only the most recent of2 resultswithin the time period is included. Narrative 05/22/2022 12:00 AM EDT This result has an attachment that is no t available. Ordered by an unspecified provider. Scanning Provider MEDIA MGR SCAN EXT ORDR/RSLT from Last 3 Months Insurance Payer Benefit Plan / Subscriber ID Effective Dates Phone Addre ss Type Group [facility] [id number] 2013-Presen [phone] [address] [facility] OOS PPO t 3 [place], [place] [address] Care Teams Machine Preservative Filler Relationship Specialty Start Date End Date Any Pennington MD PCP - General 07/23/10 [address] [place], [place] [id number]
--- OUTSIDE RECORDS SUMMARY | 2022-07-02 15:40 | XMS_ITS | Encounter Summary ---
:1970 Author Organization [facility] [place] [address] Care Team Providers Name Role Phone Any Pennington MD Primary Care Provider Reason for Referral Diagnostic Test (Routine) - Closed Specialty Diagnoses / Procedures Referred By Contact Refer red To Contact Radiology Diagnoses Solitary pulmonary nodule Personal history of Hodgkin's disease Any Pennington MD [facility] Rad Nuclear Med Procedures NM PET CT Skull Base to Mid-thigh [address] [place] [id number] Referral ID Status Reason Start Date Expiration Date Visits V isits Requested Authorized [id number] Closed Specialty 05/14/2022 07/12/2022 1 1 Service Requested Reason for Visit Diagnostic Test (Routine) - Closed Specialty Diagnoses / Procedures Referred By Contact Refer red To Contact Radiology Diagnoses Solitary pulmonary nodule Personal history of Hodgkin's disease Any Pennington MD [facility] Rad Nuclear Med Procedures NM PET CT Skull Base to Mid-thigh [address] [place] [id number] Referral ID Status Reason Start Date Expiration Date Visits V isits Requested Authorized [id number] Closed Specialty 05/14/2022 07/12/2022 1 1 Service Requested Encounter Details Date Type Department Care Team Description 06/30/2022 Hospital Encounter Nuclear Medicine at [facility], Any Avelar, Solitary pulmonary nodule; Teresa Mchugh MD Personal history of Hodgkin's disease [address] [place], [place], [address] [place] [address] Social History Tobacco Use Types Packs/Day Years Used Date Never Assessed Sex Assigned at Date Recorded Not on file documented as of this encounter Medications at Time of Discharge Medication Sig Dispensed Refills Start Date End Date CIS Free Text Med - Albuterol 0 2006 levothyroxine (SYNTHROID) 175 200mcg, PO, QD 0 mcg tablet FLUTICASONE/SALMETEROL (ADVAIR 0 10/12 DISKUS INHL) documented as of this encounter Plan of Treatment Not on filedocumented as of this encounter Procedures Procedure Name Priority Date/Time Associated Diagnosis Comme nts NM PET CT SKULL Routine 06/30/2022 10:35 AM Solitary pulmonary Results for this BASE TO MID-THIGH EDT nodule procedure are in (LCSR) Personal history of the resu lts Hodgkin's disease section. documented in this encounter Results NM PET CT Skull Base to [...] who have questions please contact the health director day care center that requested your imaging first. ? Narrative 07/01/2022 9:59 AM EDT EXAMINATION: NM PET CT STANDARD SKULL BASE TO MID-THIGH CLINICAL HISTORY: pt with h/o hodkins s/p chemo/radiation 1995 - clarify if pulmonary mass is benign TECHNIQUE: Following IV injection of 18- ylnhqm-3-zdbahhfhdeeq (FDG) a standard uptake of approximately 60 [...] benign TECHNIQUE: Following IV injection of 18- twvxya-2-vbzaaoaaestr (FDG) a standard uptake of approximately 60 [...] ho have questions please contact the health director day care center that requested your imaging first. Any Pennington MD IMG PET ORDERABLES documented in this encounter Visit Diagnoses Diagnosis Solitary pulmonary nodule Personal history of Hodgkin's disease documented in this encounter Administered Medications Inactive Administered Medications - up to 3 most recent administrations Medication Order MAR Action Action Date Dose Rate Site fludeoxyglucose (F-18) FDG Given 06/30/2022 9:20 AM 15.9 mCi Right Arm injection 0-20 mCi EDT 0-20 mCi, Intravenous, ONCE PRN, 1 dose, Starting on Thu06/30/22 at 0932, Until Thu06/30/22 at 0920, Per Protocol, Radiology Contrast, Routine documented in this encounter Care Teams Content Development Specialist Relationship Specialty Start Date End Date Any Pennington MD PCP - General 07/23/10 [address] [place] [address] documented as of this encounter
--- OUTSIDE RECORDS SUMMARY | 2022-07-02 15:40 | XMS_ITS | Encounter Summary ---
:1970 Author Organization [facility] [place] [address] Care Team Providers Name Role Phone Any Pennington MD Primary Care Provider Reason for Visit Diagnostic Test (Routine) - Closed Specialty Diagnoses / Procedures Referred By Contact Refer red To Contact Radiology Diagnoses Solitary pulmonary nodule Personal history of Hodgkin's disease Any Pennington MD [facility] Rad Nuclear Med Procedures NM PET CT Skull Base to Mid-thigh [address] [place] [id number] Referral ID Status Reason Start Date Expiration Date Visits V isits Requested Authorized [id number] Closed Specialty 05/14/2022 07/12/2022 1 1 Service Requested Encounter Details Date Type Department Care Team Description 06/30/2022 Hospital Encounter Nuclear Medicine at [facility] Pennington MD [facility] [address] [facility] [address] [place] [address] [phone] Social History Tobacco Use Types Packs/Day Years [...] procedure are i n the results section. documented in this encounter Results POCT Glucose (06/30/2022 9:05 AM EDT) athologist Signature POC Glucose 87 65 - 199 [facility] mg/dL [facility] Comment: Supplemental ranges: <140 mg/dL before meals <180 mg/dL all other times of the day Specimen Anatomical Collection Method Collection Time Receive d Time (Source) Location / / Volume Laterality Blood 06/30/2022 9:05 AM 9:05 EDT AM EDT Any Pennington MD POINT OF CARE TEST ORDERABLE S Performing Organization Address City/State/[place] [address] documented in this encounter Visit Diagnoses Not on filedocumented in this encounter Care Teams Salesperson Surgical Appliances Relationship Specialty Start Date End Date Any Pennington MD PCP - General 07/23/10 [address] [place] [address] documented as of this encounter
== END 2022-07-02 15:39 | disposition home or self-care (01) ==
LOC: LBN 15:38
PROVIDERS: PCP Family Medicine; Visit Provider Student in an Organized Health Care Education/Training Program
DX: R93.89 Abnormal findings on diagnostic imaging of other specified body structures (principal)
CPT/HCPCS: 87070; 87205

== ENCOUNTER → 2022-07-04 16:40 | Outpatient (CLI) | payer BC, SELFPAY ==
--- NOTE | 2022-07-04 | DI.RAD_ITS ---
Exam(s) XR ANKLE LT COMPLETE EXAM: XR ANKLE LT COMPLETE CLINICAL HISTORY: LEFT ANKLE PAIN-M25.572. TECHNIQUE: 2D digital imaging was performed. COMPARISON: No exams were available for comparison FINDINGS: 3 views Prominent soft tissue swelling both sides of the ankle. No evidence acute fracture nor diastasis the ankle mortise. Talar dome appears unremarkable. Os trigonum incidentally noted. Small inferior ca lcaneal spur noted. Bone density normal. No osseous lesions. Incidentally noted is calcification in the subcutaneous soft tissues. IMPRESSION: No significant osseous findings. Multilevel soft tissue calcifications. DATA REPOSITORY: RADIATION DOSE DELIVERED:
== END ==
PROVIDERS: PCP Family Medicine; Visit Provider Nurse Practitioner Family
DX: M25.572 Pain in left ankle and joints of left foot (principal); M79.89 Other specified soft tissue disorders
CPT/HCPCS: 73610

== ENCOUNTER 2022-07-14 15:30 | Outpatient (REF) | payer BC, SELFPAY ==
[2022-07-14 11:37] LABS: Source Nasal/Nares
[2022-07-14 12:19] LABS: COVID-19 PCR Negative (Negative)
== END 2022-07-14 15:31 | disposition home or self-care (01) ==
LOC: LBN 15:30
PROVIDERS: PCP Family Medicine; Visit Provider Student in an Organized Health Care Education/Training Program
DX: Z11.52 Encounter for screening for COVID-19 (principal)
CPT/HCPCS: 87635

== ENCOUNTER 2022-07-15 06:55 | Day surgery (SDC) | payer BC, SELFPAY ==
[2022-07-15] VITALS (10 sets, daily range): BP systolic 114–190; BP diastolic 32–74; PULSE 87–108; RESP 18–26; TEMP 36.4–36.8; O2SAT 91–98; BMI 41.2
--- NOTE | 2022-07-15 07:12 | W.ANESPRE ---
General Info Date of Service Date Performed: 07/15/22 Height: 5 ft 2.5 in Weight: 104 kg Body Mass Index (BMI): 41.2 Surgical Procedure: Operation Date: 07/15/22 08:10 Proposed Procedure Side Surgeon p Bronchoscopy w/BAL Tierra Khalil MD Meds Allergies and Home Medications Allergies Allergy/AdvReac Type Severity Reaction Status Date / Time Sulfa (Sulfonamide AdvReac Intermediate upset Unverified 07/15/22 07:38 Antibiotics) stomach Home Medication Medication Instructions Recorded fluticasone 250 mcg-salmeterol 50 1 puff inhalation DAILY 04/14/13 mcg/dose blistr powdr for inhalation (Advair Diskus) levothyroxine 200 mcg tablet 200 mcg PO DAILY 04/14/13 (Synthroid) albuterol sulfate 90 mcg/actuation 2 puff inhalation Q4H PRN 06/13/22 aerosol inhaler ketoconazole 2 % topical cream 1 applic topical BID PRN 06/13/22 montelukast 10 mg tablet 10 mg PO DAILY 06/13/22 Current Visit Medications: Current Medications Generic Name Dose Route Start Last Admin Trade Name Freq PRN Reason Stop Dose Admin Ringer's Solution 1,000 mls @ 30 mls/hr 07/15/22 06:00 IV 07/15/22 16:00 [facility] Active Problems Active Problems: Problem Status Onset Code Unspecified slipped upper femoral epiphysis (nontraumatic), right hip 07/25/15 M93.001 Obstructive sleep apnea syndrome 07/25/15 G47.33 Mild persistent asthma without complication 07/25/15 J45.30 Metabolic syndrome 07/25/15 E88.81 Hx of Hodgkins lymphoma 07/25/15 Z85.71 BMI 40.0-44.9, adult 07/25/15 Z68.41 Acquired hypothyroidism 07/25/15 E03.9 Abnormal uterine bleeding 07/25/15 N93.9 Trochanteric bursitis of right hip M70.[address] R93.89 Left leg swelling M79.89 Encounter for screening for COVID-19 Z11.52 Medical History Medical History (Updated 07/02/22 @ 14:55 by Tierra Khalil MD) Abnormal uterine bleeding Rx with DepoProvera x9yrs. Resumed after stopping Depo in 2003. Worsening in 2013. 10/2015 Mirena IUD. Asthma, mild persistent BMI 40.0-44.9, adult Hx of Hodgkins lymphoma Hypothyroidism Metabolic syndrome Obstructive sleep apnea Unspecified slipped upper femoral epiphysis (nontraumatic), right hip Surgical History Surgical History (Updated 07/14/22 @ 09:28 by Georgette Pastrana RN) History of cholecystectomy History of hip surgery pin placement History of removal of Port-a-Cath placement and removal Tobacco Smoking/Tobacco Use Status: Never Alcohol Alcohol Intake: never Substance Use Substance use: Never Substance use type: does not use Vital Signs and Lab Results Vital Signs Most Recent Vital Signs in EMR: Temp Pulse Resp BP Pulse Ox 36.8 C 87 22 146/74 H 98 07/15/22 07:33 07/15/22 07:33 07/15/22 07:33 07/15/22 07:33 07/15/22 07:33 Lab Results Blood Type / Crossmatch: No Data to Display Complete Blood Count: No Data to Display Complete Metabolic Panel: No Data to Display Liver Function Panel: No Data to Display Coagulation Panel: No Data to Display Cardiac Panel: No Data to Display Arterial Blood Gas: No Data to Display Venous Blood Gas: No Data to Display Pancreas Panel: No Data to Display Thyroid Panel: No Data to Display Infectious Disease: Coronavirus (COVID-19)(PCR) Negative (Negative) 07/14/22 10:12 Coronavirus 2019 Source Nasal/Nares 07/14/22 10:12 Blood Cultures: No Data to Display Toxicology Panel: No Data to Display Panel: No Data to Display Imaging and Studies Imaging and Studies Study information below may be from another EMR and interpreted by another provider. Please see original notes in EMR for more complete details. EKG Summary: DATE/TIME OF SERVICE: 03/18/22 1115 : 1970PERFORMING LOCATION: ER APPROVED REPORT Exam: Resting ECG Reason for Exam: chest pressure for last week Patient Location: E HR:96 bpm ECG Measurements Heart Rate 96 AXIS SD 144 P 33 QRSd 92 QRS 38 QT 372 T69 QTc 471 Conclusion Sinus rhythm...normal P axis, V-rate 60- 99. Sinus. Normal axis. No STEMI. Echocardiogram Summary: Date of Exam: 10/13/19ex: F Admission Date: 10/13/19 : 1970 Age: 48 Exam(s) a US:US echocardiogram APPROVED REPORT EXAM: Comprehensive 2D, Doppler, and color-flow Echocardiogram Patient Location: Out-Patient Food Photographer: Sarahi Kerr RDCS (AE) Rhythm: NSR Indications: mitral valve regurgitation I34.0 aortic valve regurgitation ( MOD) and I35.1 Conclusion Left Ventricle : The left ventricle is normal size. The left ventricular systolic function is normal. The left ventricular ejection fraction is within the normal range. There is normal left ventricular wall thickness. There is normal LV segmental wall motion. There is grade 2 diastolic dysfunction. LVEF is estimated to be 60-65%. Right Ventricle : The right ventricle appears normal size. The right ventricular systolic function appears normal. Atria : Left atrium is mildly dilated. The right atrium size is normal. Aortic Valve : The Aortic valve is sclerotic. Aortic valve appears trileaflet. Aortic valve has calcified nodular thickening. Mild to moderate aortic stenosis. Moderate aortic regurgitation. Mitral Valve : Mitral valve leaflets are mildly thickened. Mild mitral annular calcification. Mild to moderate mitral regurgitation. No evidence of mitral valve stenosis. IVC: IVC is normal in size and collapses >50% with inspiration. Estimated RVSP is 15-20 mmHg. Compared to echocardiogram dated 08/13/2017: There is no significant change. Anesthesia Assessment and Plan Anesthesia History Personal History: No History of Anesthesia Complications Family History: No Family History of Anesthesia Complications Exercise Tolerance Exercise Tolerance: Metabolic Equivalents>4 Pertinent Negatives Pertinent Negatives: No Symptoms of GERD Cardiac & Pulmonary Exam Cardiac Exam: Heart Murmur Present Pulmonary Exam: Clear Bilateral Breath Sounds Implantable Cardiac Device Does patient have a Pacemaker or an ICD?: No Airway Exam Known Difficult Airway: No Mallampati Class: 2 Mouth Opening: Normal (> 3cm) Thyromental Distance: Greater than 3 cm Neck Range of Motion: Full ROM Neck Circumference: Normal Teeth Condition: Normal Dentition ASA Classification ASA Score: ASA 3 Emergency Case?: No NPO Status NPO Status: NPO Clears >2 hours, Solids >8 hours Status Status: Negative HCG Anesthesia Plan Resuscitation Status: Full Code Anesthesia Technique: General Anesthesia Airway Planned: Endotracheal Tube Monitors Used: Standard Monitors
[2022-07-15] MEDS: Lactated Ringers 1,000 ML 30 ML IV (07:54)
--- NOTE | 2022-07-15 08:50 | PAPNONF_PTH ---
PATIENT: Karla Quiles LOC: [facility] U#:[id number] AGE/SX: 51/F ROOM: RE07/15/[address]: Tierra Khalil MD : 1970 BED: DIS: 07/15/2022 SPEC #: [id number] RECD: 07/15/22 12:51 STATUS: YAJAIRA REQ #: [id number] [place]: 07/15/22 08:[address]: Tierra Khalil DEPT: [facility] Cytology RECD BY: Renetta Bosch ENTERED: 07/15/22 12:52 SP TYPE: KARRIE POLO DR: Any Pennington Tissues: 1 - BODY FLUID CYTO(NOT S/U/N/EM)[facility] Procedures: BODY FLUID CYTO(NOT SPU/UR/NIP/ENDOM)[facility] Comments: [id number] (TOTAL VOLUME = <10 ml) (REFRIDERATED)
[2022-07-15] MEDS: Lidocaine 1% Pres-Free 5 ML VIAL (09:00)
[2022-07-15] MEDS: Albuterol 2.5 MG/3 ML INH SOLN VIAL UPD (10:13)
--- NOTE | 2022-07-15 10:24 | W.PM.OP ---
Date of service: 07/15/22 Time of Service: 08:15 Operative Note Operative Note PRE-OP DIAGNOSIS: Abnormal Chest CT Refer to Anesthesia Record Procedure Description: Bronchoscopy Date:07/15/22 Time:814 Indication:Abnormal chest CT Procedure performed: Flexible bronchoscopy with BAL and bronchial washings Sedation plan: General Medications used: see anesthesia record Informed consent was obtained after the risks and benefits or the procedure were discussed. Anesthesia provided anesthesia. I intubated the patient using Glydescope 3 and an 8.0 ETT. First attempt intubation with redundant soft tissue and narrow upper airway observed. A proper and complete OR compliant time out was performed. The therapeutic 6.2mm Olympus bronchoscope was inserted through the endotracheal tube. The bronchoscope was inserted into the airways, where 3cc in total of 1% topical lidocaine was used the anesthetize the airways. The trachea was midline and without lesion or injury. The tracheal mucosa appeared normal. The suad was sharp. All bronchial subsegments were visualized within each lobe and showed white, thick secretions in the left main bronchus that were suctioned. The left upper take off and lingula was narrowed with signs of chronic irritation/inflammation in the way of erythema. A bronchoalveolar lavage was performed in the ELOY. A total of 120cc of saline was administered with a return of 5cc due to highly collapsible airways with application of any degree of negative pressure. The fluid was clear in appearance. I then obtained bronchial washings in this area given the poor return on the BAL. There was irritation to the airway mucosa following this with a mild amount of bleeding which was self limited. The bronchoscope was then removed and the case terminated. The patient was taken to PACU in stable condition. Samples collected:ELOY BAL, bronchial washings Testing ordered:Cell diff, bacterial, fungal, AFB cultures, cytology Complications:None Tierra Khalil MD Pulmonary & Critical Care Medicine
[2022-07-15] MEDS: Acetaminophen 500 MG TAB 1000 MG PO (10:58)
--- NOTE | 2022-07-15 16:14 | W.ANESPOSTOP ---
Postoperative Evaluation Date, Time and Location Date Performed: 07/15/22 Time Performed: 16:15 Patient Location: Day Surgery Unit (earlier in the day. ) Vital Signs Most Recent Imported Vital Signs: Most Recent Vital Signs Temp Pulse Resp BP Pulse Ox 36.4 C L 93 H 18 131/71 96 07/15/22 11:05 07/15/22 11:05 07/15/22 11:05 07/15/22 11:05 07/15/22 11:05 Pain Score Most Recent Pain Score: Most Recent Pain Score Pain Level 5 07/15/22 11:05 Assessment Mental Status: Awake (Alert & Oriented to Patient Baseline) Airway and Respiratory Function: Patent airway with normal (patient baseline) respiratory exam Cardiovascular Function: Hemodynamically Stable Hydration Status: Adequately Hydrated Nausea & Vomiting: No Nausea or Vomiting Pain: Pain is tolerable per patient Peripheral Nerve Block: Patient did not receive a nerve block
[2022-07-17 14:35] LABS: Lymphocytes Fluid Relative 15 %; Mono/Macrophage Fluid Relative 41 %; Neutrophils Fluid Relative 32 %
[2022-07-17 14:36] LABS: Other Cells Fluid Relative 12 %
[2022-08-12 12:02] LABS: Fungus Smear No Fungi Seen
== END 2022-07-15 12:00 | disposition home or self-care (01) ==
PROVIDERS: PCP Family Medicine; Visit Provider Student in an Organized Health Care Education/Training Program
PROC: 0BJ08ZZ Inspection of Tracheobronchial Tree, Via Natural or Artificial Opening Endoscopic (ICD-10-PCS; CPT 31622; principal; 2022-07-15 08:00)
DX: R91.8 Other nonspecific abnormal finding of lung field (principal); J45.30 Mild persistent asthma, uncomplicated; Z85.72 Personal history of non-Hodgkin lymphomas; Z79.899 Other long term (current) drug therapy
CPT/HCPCS: 31624; 80162; 81025; 87070; 87102; 87116; 87205; 87206; 88104; J2405; J2704; J7613

== ENCOUNTER 2022-07-24 19:07 | Inpatient (IN) | payer BC, SELFPAY ==
[2022-07-24] VITALS (10 sets, daily range): BP systolic 132–160; BP diastolic 58–73; PULSE 98–134; RESP 18–31; TEMP 36.7; O2SAT 92–96
--- NOTE | 2022-07-24 19:15 | DI.CT_ITS ---
Exam(s) CT CHEST PE CTA EXAM: CT CHEST PE CTA CLINICAL HISTORY: Shortness of breath, hemoptysis. TECHNIQUE: Imaging Protocol: Axial CT angiography was performed with multi-slice acquisition and mu lti-planar and/or 3D reconstructions. CONTRAST MATERIAL: Intravenous: Omnipaque 350 Contrast volume:structured data in ml COMPARISON: CT CT CHEST WO from 05/08/2022 FINDINGS: CT angiography of the chest was performed with intravenous infusion of 100 cc of Omnipaque 350. Note is made of coronary artery calcification. There are areas of consolidation predominantly involving left lower lobe but also present to lesser d egree in right lower lobe and left upper lobe. Small left pleural effusion noted. Tracheobronchial tree appears intact. No evidence of pulmonary embolic disease. Central pulmonary arterial vessels are enlarged consistent with chronic pulmonary artery hypertension thoracic aorta is of normal diameter, no thoracic aortic aneurysm or dissection, major branch vessels appear intact. No mediastinal or hilar adenopathy. Images obtained through the upper abdomen show probable hepatic steatosis and a prior cholecystectomy . Visualized portions of spleen, pancreas, adrenals, and kidneys are unremarkable.. IMPRESSION: Multifocal pneumonia predominantly involving left lower lobe. No evidence of pulmonary embolic disea se. RADIATION DOSE DELIVERED: Total DLP Total DLP DATA REPOSITORY: All CT scans at this facility are submitted to the National Radiology Data Registry (NRDR) Dose Index Registry (DIR) with the [employer] (A[employer]). RADIATION OPTIMIZATION: All CT scans at this facility use at least one of these dose optimization te chniques: automated exposure control; mA and/or kV adjustment per patient size (includes targeted exa ms where dose is matched to clinical indication); or iterative reconstruction.
--- NOTE | 2022-07-24 19:15 | RT.EKG_ITS ---
APPROVED REPORT Exam: Resting ECG Reason for Exam: shortnest of Breath Patient Location: E HR:122 bpm ECG Measurements Heart Rate 122 AXIS CO 145 P 34 QRSd 85 QRS 39 QT 315 T 122 QTc 449 Conclusion Sinus tachycardia...rate> 99 Abnormal T, consider ischemia, lateral leads...T <-0.20mV, I aVL V5 V6 sinus tachycardia, normal axis, normal intervals
--- NOTE | 2022-07-24 19:32 | ED.GENADUL_ITS ---
Discharge Plan Disposition Patient Disposition: Admit to [facility] Condition: Stable Discharge Details Clinical Impression: Pneumonia, Abnormal chest CT Admit Date/Time: 07/24/22 22:28 Admit Provider: Mukesh Gordon Attending Provider: Mukesh Gordon Primary Care Provider: Any [facility] ED Provider: Ihsan Gu Discharge Data Discharge Date/Time-TO BE ENTERED AT DEPARTURE: 07/25/22 00:20 Medical Decision Making Patient presenting to the emergency department for chief complaint of shortness of breath and hemoptysis. She states she has had mild little blood-tinged streaking since she had a bronchoscopy on 07/15 but today she had acute worsening of symptoms, shortness of breath, perceived wheezing, and difficulty breathing. She did try use of her home inhalers but is not getting any better. She attributes symptoms to her asthma exacerbations which she has had in the past. States chills but denies any fever or other cold symptoms. Patient also denies any chest pain or discomfort. Physical exam shows 51-year-old female patient with mild respiratory distress and tachypnea with diffuse rhonchi on auscultation and not moving a lot of air making it difficult to appreciate wheezing at this time. Patient is on antibiotics for lung infection that was sensitive to clindamycin that was found during her bronchoscopy. Exam is otherwise unremarkable. Patient is tachycardic with slight hypoxia of O2 satting of 92% on room air. We will plan on checking labs and performing CT imaging given that patient is tachycardic, having hemoptysis, and slight hypoxia otherwise we will treat patient for her perceived asthma exacerbation with steroids and DuoNeb. Please see physician interpretation for full interpretation of EKG. Upon my review patient appears to be in sinus tachycardia and does not meet acute criter ia for STEMI. Review of labs show a significant elevation of WBC with white count of 18.31, also elevated neutrophils at 16.26, lymphocytes low at 0.79 and monocytes high at 1.6. CMP is overall unremarkable with noted slight elevation of glucose at 140, AST is low at 12, alk phos is slightly elevated at 137, initial troponin is negative. Patient is negative for COVID flu and RSV and viral pathogen panel. CT imaging shows no pulmonary embolism but there is a presumed left lower pneumonia with trace parapneumonic effusion. There is right basilar opacity that is very minimal. I did review these imaging versus recent PET scan that occurred on at the end of May. It does seem like the left lower lobe infiltrate is significantly worsened. Given white count that is significant elevated along with worsening findings on CT scan I do feel that patient should be admitted for IV antibiotics and further consultation with pulmonology on a urgent basis. We will perform blood cultures, ESR CRP and procalcitonin. will start on broad-spectrum antibiotics to cover for hospital acquired pneumonia possibly secondary to procedure or antibiotic failure. Spoke with hospitalist who agreed to have patient admitted for continuation of IV antibiotics and monitoring along with pulmonary consultation. Sign Out No HPI General Mode of arrival: ambulatory . Date/Time Provider Initiated Documentation: 07/24/22 19:10 . Limitations to Documentation: no limitations . Information obtained by: patient, family and RN notes reviewed . History of Present Illness 51 year old F presents to the emergency department with the chief complaint of Hemoptysis, difficulty breathing/shortness of breath, described as moderate and similar to prior episodes, Quality is described as other (Denies pain or discomfort), and is localized to the chest. Patient started experiencing this hour(s) (6) and it has been constant. No relieving factors improve symptom(s), No exacerbating factors reported . Patient did receive the following treatments prior to arrival, other (Home inhalers) Related Data Home Medications Medication Instructions Recorded Confirmed ketoconazole 2 % topical cream 1 applic topical BID PRN 06/13/22 07/15/22 montelukast 10 mg tablet 10 mg PO DAILY 06/13/22 07/24/22 albuterol sulfate 90 mcg/actuation 2 puff inhalation Q6H PRN 07/15/22 aerosol inhaler (Proventil HFA) shortness of breath or wheezing #8.5 grams levothyroxine 175 mcg tablet 175 mcg PO DAILY 07/27/22 07/27/22 albuterol sulfate 2.5 mg/3 mL 2.5 mg (3 mL) UPD Q6H PRN PRN #90 07/28/22 (0.083 %) solution for nebulization mL clindamycin HCl 300 mg capsule 300 mg PO TID #15 caps 07/28/22 fluticasone propionate 230 2 puff inhalation BID #12 grams 07/28/22 mcg-salmeterol 21 mcg/actuation HFA inhaler (Advair HFA) prednisone 10 mg tablet See Taper PO DAILY #81 tabs 07/28/22 Previous Rx's Medication Instructions Recorded albuterol sulfate 90 mcg/actuation 2 puff inhalation Q6H PRN 07/15/22 aerosol inhaler (Proventil HFA) shortness of breath or wheezing #8.5 grams albuterol sulfate 2.5 mg/3 mL 2.5 mg (3 mL) UPD Q6H PRN PRN #90 07/28/22 (0.083 %) solution for nebulization mL clindamycin HCl 300 mg capsule 300 mg PO TID #15 caps 07/28/22 fluticasone propionate 230 2 puff inhalation BID #12 grams 07/28/22 mcg-salmeterol 21 mcg/actuation HFA inhaler (Advair HFA) prednisone 10 mg tablet See Taper PO DAILY #81 tabs 07/28/22 Allergies Allergy/AdvReac Type Severity Reaction Status Date / Time Sulfa (Sulfonamide AdvReac Intermediate upset Unverified 07/15/22 07:38 Antibiotics) stomach General Stated Complaint: [facility]Medical SUSAN: 3 Review of Systems Constitutional Constitutional: Reports chills, Denies fever(s), Denies headache(s) and Reports malaise ENT Ears, Nose, Mouth, and Throat: Denies headache(s), Denies nasal congestion and Denies sore throat Cardiovascular Cardiovascular: Denies chest pain, Denies syncope and Reports dyspnea Respiratory Respiratory: Reports as per HPI, Reports chest congestion, Reports cough, Reports hemoptysis, Reports dyspnea and Reports wheezing Gastrointestinal Gastrointestinal: Denies abdominal pain, Denies diarrhea, Denies nausea and Denies vomiting Genitourinary Genitourinary: Reports system reviewed and no additional complaints, except as documented Musculoskeletal Musculoskeletal: Denies back pain Integumentary/Breasts Skin/Breast: Denies rash Neurologic Neurologic: Denies syncope and Denies headache(s) Allergic/Immunologic Allergic/Immunologic: Reports wheezing PFSH All Active Problems (Updated 07/29/22 @ 00:08 by MIGUEL ANGEL OLIVAS) Hypothyroidism (Chronic) Unspecified slipped upper femoral epiphysis (nontraumatic), right hip (Acute 07/25/15) Obstructive sleep apnea syndrome (Chronic 07/25/15) Mild persistent asthma without complication (Chronic 07/25/15) Metabolic syndrome (Acute 07/25/15) Hx of Hodgkins lymphoma (Acute 07/25/15) BMI 40.0-44.9, adult (Acute 07/25/15) Acquired hypothyroidism (Acute 07/25/15) Abnormal uterine bleeding (Acute 07/25/15) Trochanteric bursitis of right hip (Acute) Left leg swelling (Acute) Encounter for screening for COVID-19 (Acute) Medical History Abnormal uterine bleeding Rx with DepoProvera x9yrs. Resumed after stopping Depo in 2003. Worsening in 2013. 10/2015 Mirena IUD. Asthma, mild persistent BMI 40.0-44.9, adult Hx of Hodgkins lymphoma Hypothyroidism Metabolic syndrome Obstructive sleep apnea Unspecified slipped upper femoral epiphysis (nontraumatic), right hip Surgical History History of cholecystectomy History of hip surgery pin placement History of removal of Port-a-Cath placement and removal Family History Mother Heart disease heart beats too fast Asthma Allergies Son Personal history of malignant neoplasm Father COPD (chronic obstructive pulmonary disease) Social History Smoking/Tobacco Use Status: Never Smoking risk assessment performed?: Yes Alcohol Intake: never Drug use: Never Substance use type: does not use Do you feel safe at home: Yes (unable to assess privately) Do you feel safe in your relationship?: Yes Exam Const General: cooperative, acute distress respiratory, not diaphoretic and ill appearing acutely Nutritional Appearance: average body habitus Orientation: alert, awake and oriented x3 Limitations: mental status not altered Neck Neck: normal visual inspection, full ROM, trachea midline, supple and no anterior neck swelling Resp Effort & Inspection: labored, respiratory distress (mild) and tachypneic Auscultation: rhonchi (Diffuse) Cardio Jugular venous pressure: no JVD Palpation: normal PMI Rate: tachycardic Rhythm: regular rhythm Heart Sounds: S1 normal, S2 normal, no murmurs and no rubs Pulses: radial pulses present bilaterally 2+ Skin General skin exam: no rashes or lesions noted Neuro General: patient alert, patient awake, patient oriented x3, tone normal and moves all extremities Course Vital Signs Vital signs: Vital Signs Temperature 36.7 C 07/24/22 19:11 Pulse 134 H 07/24/22 19:11 Respiratory Rate 24 07/24/22 19:11 Blood Pressure 160/73 H 07/24/22 19:11 Pulse Oximetry 96 07/24/22 19:11 Temperature 36.7 C 07/24/22 19:11 Temperature Source Tympanic 07/24/22 19:11 Pulse 134 H 07/24/22 19:11 Respiratory Rate 24 07/24/22 19:22 Respiratory Effort 07/24/22 19:22 Respiratory Depth Normal 07/24/22 19:22 Respiratory Pattern Normal 07/24/22 19:22 Blood Pressure 160/73 H 07/24/22 19:11 Blood Pressure Position Sitting 07/24/22 19:11 Pulse Oximetry 96 07/24/22 19:11 Oxygen Delivery Method Room Air 07/24/22 19:11 Oxygen Flow Rate 0 07/24/22 19:11 Pain Level 0 07/24/22 19:11
[2022-07-24 19:40] LABS: Abs Immature Grans 0.07 10^3/uL (0.0-0.06); Absolute Basophil Count 0.07 10^3/uL (0.0-0.2); Absolute Eosinophil Count 0.05 10^3/uL (0.0-0.7); Basophils % 0.4; Eosinophils % 0.3; HCT 43.1 % (36.0-46.0); Immature Grans % 0.4; Lymphocytes % 4.3; MCH 28.4 pg (27.0-33.0); MCHC 32.5 % (32.0-36.0); MCV 87 fL (80-95); Monocytes % 5.8; Neutrophils % 88.8; Platelet Count 340 10^3/uL (130-400); RBC 4.93 10^6/uL (3.93-5.22); RDW 13.6 % (11.7-14.6); RDW-SD 43.8 fL; WBC 18.31 10^3/uL (4.4-10.8)
[2022-07-24 19:42] LABS: Absolute Lymphocyte Count 0.79 10^3/uL (1.2-3.4); Absolute Monocyte Count 1.06 10^3/uL (0.1-0.8); Absolute Neutrophil Count 16.26 10^3/uL (1.2-6.7)
[2022-07-24] MEDS: Albuterol/Ipratropium 3 ML UPD VIAL UPD ×2 (19:52→21:37)
[2022-07-24] MEDS: methylPREDNISolone SUCC 125 MG VIAL IVP (19:53)
[2022-07-24] MEDS: Normal Saline 1,000 ML 1000 ML IV (19:53)
[2022-07-24 19:55] LABS: PTT Activated 27.9 sec (21.0-27.5); Prothrombin Time 10.1 sec (9.3-11.0)
[2022-07-24 19:56] LABS: ALT 30 U/L (14-59); AST 12 U/L (15-37); Albumin 3.8 g/dL (3.4-5.0); Alkaline Phosphatase 137 U/L (46-116); Anion Gap 6.5 mmol/L (3-11); BUN 15 mg/dL (7-18); Bilirubin, Total 0.4 mg/dL (0.2-1.0); CO2 30.5 mmol/L (21.0-32.0); Calcium 9.1 mg/dL (8.5-10.1); Chloride 99 mmol/L (98-107); Estimated GFR 67.78 (mL/min/1.73m2); Glucose 140 mg/dL (74-106); Sodium 136 mmol/L (136-145); Total Protein 8.2 g/dL (6.4-8.2)
[2022-07-24] MEDS: Normal Saline - Diluent 50 ML VIAL IJ (20:01)
[2022-07-24 20:02] LABS: Magnesium 1.9 mg/dL (1.8-2.4); NT-proBNP 162 pg/mL (<300); Troponin I < 50 ng/L (<or=60)
[2022-07-24] MEDS: Normal Saline Flush 10 ML SYR IVP (20:02)
[2022-07-24] MEDS: Omnipaque 350 MG/ML 100 ML BTL IJ (20:02)
--- NOTE | 2022-07-24 20:17 | DI.VRAD_ITS ---
PROCEDURE INFORMATION: Exam: CTA Chest With Contrast Exam date and time: 07/24/2022 7:54 PM Age: 51 years old Clinical indication: Other: Shortness of breath, hemoptysis TECHNIQUE: Imaging protocol: Computed tomographic angiography of the chest with contrast. 3D rendering (Not supervised by radiologist): MIP and/or 3D reconstructed images were created by the technologist. Contrast material: OMNIPAQUE 350; Contrast volume: 100 ml; Contrast route: INTRAVENOUS (IV); COMPARISON: OT NM PET CT STANDARD SKULL BASE TO MID-THIGH 06/30/2022 9:29 AM FINDINGS: Pulmonary arteries: Enlarged main pulmonary arteries No pulmonary emboli. Aorta: No aortic aneurysm. No aortic dissection. Lungs: Dense consolidation left lower lobe and mild interstitial thickening. Minimal right lower lobe opacities Small blebs on the right. Pleural spaces: No pneumothorax. Minimal left pleural effusion. Heart: Mild cardiomegaly. No pericardial effusion. Lymph nodes: No enlarged lymph nodes. Calcified mediastinal lymph nodes Bones/joints: Unremarkable. No acute fracture. Soft tissues: Unremarkable. Fatty infiltration of the liver. Prior cholecystectomy IMPRESSION: No pulmonary emboli. Question pulmonary arterial hypertension Presumed left lower lobe pneumonia and trace left parapneumonic effusion. Minimal right basilar opacity presumed infectious/inflammatory. Follow-up with plain films to resolution is recommended. Dictated and Authenticated by: Giovanny Mann MD. Ordering:OVIDIO Champagne MD
[2022-07-24 20:23] LABS: COVID-19 PCR Negative (Negative); Influenza A PCR Negative (Negative); Influenza B PCR Negative (Negative); RSV PCR Negative (Negative)
[2022-07-24 20:25] LABS: Source Nasopharynx
[2022-07-24 21:08] LABS: Lactate 1.7 mmol/L (0.6-1.4)
[2022-07-24 21:16] LABS: ESR 38 mm/hr (0-30)
[2022-07-24 21:22] LABS: C-Reactive Protein 1.32 mg/dL (0.0-0.3)
[2022-07-24] MEDS: CEFEPIME 2 GM in Normal Saline 100 ML IVPB (21:44)
[2022-07-24 21:48] LABS: Procalcitonin 0.1 ng/mL
[2022-07-24] MEDS: AZITHROMYCIN 500 MG in Normal Saline 250 ML 250 MG IVPB (22:11)
--- NOTE | 2022-07-24 22:26 | HPE_ITS ---
Date of service: 07/24/22 Time of Service: 22:26 Assessment and Plan Assessment and plan (1) Pneumonia: Start date: 07/24/22 Status: Acute Assessment and plan: This is a 51-year-old lady with persistent left lower lobe pneumonia now worsening by imaging and symptoms. She also has history of asthma. She was started on Solu-Medrol which will be continued along with aggressive nebulizer treatments and expansion of IV antibiotic therapy from oral clindamycin. She will be placed on vancomycin, Zithromax and cefepime. Consider pulmonary consultation status post bronchoscopy to review imaging and treatment plan. She is having slight increase peripheral edema with standing and this may be right- sided heart failure with her pulmonary process. Consider updating echocardiogram. (2) Mild persistent asthma without complication: Status: Chronic Assessment and plan: Continue outpatient medical therapy and more aggressive nebulizer treatments as well as IV Solu-Medrol. Pulmonary consultation as mentioned. Physical exam upon admission did not reveal significant expiratory wheeze though in the ED that were more findings of asthma exacerbation. (3) Obstructive sleep apnea: Assessment and plan: Patient did not mention wearing CPAP at night but she is obese and does have a history of obstructive sleep apnea which needs to be monitored and treated. Update outpatient treatment and continue inpatient if needed. (4) Hypothyroidism: Assessment and plan: Check lab and adjust supplement as needed. History of Present Illness History of Present Illness Chief Complaint: Increasing shortness of breath and cough with blood-tinged sputum Narrative: This is a 51-year-old female patient has been treated for pneumonia in the left lower lobe now status post bronchoscopy with culture revealing Staph aureus and patient on clindamycin. She did feel somewhat better on oral therapy and states that she has been fighting this for weeks and not clearing. She does also have bronchospasm at times and in the ED had bronchospasm prompting initiation of IV Solu-Medrol and more aggressive nebulizer treatments. She did have an elevated WBC with progressive changes on CT of the chest prompting expansion of IV antibiotic therapy to vancomycin, Zithromax and cefepime for possible hospital- acquired pneumonia being status post recent procedure. She stated that she was having increased cough and shortness of breath for at least 1 day if not 3 days. She is on IV normal saline for hydration and is tolerating this well. At the time I saw the patient she was comfortable and not coughing. She was not tachypneic and not tachycardic. She did not complain of shortness of breath or chest discomfort at rest. Review of Systems Narrative: 13 point review of systems otherwise unrevealing or stable. Patient denies any weight lossand is obese chronically, slight increased peripheral edema with standing all day at work. She does have a history of asthma. PFSH All Active Problems (Updated 07/25/22 @ 17:11 by Mukesh Gordon) Unspecified slipped upper femoral epiphysis (nontraumatic), right hip (Acute 07/25/15) Obstructive sleep apnea syndrome (Acute 07/25/15) Mild persistent asthma without complication (Chronic 07/25/15) Metabolic syndrome (Acute 07/25/15) Hx of Hodgkins lymphoma (Acute 07/25/15) BMI 40.0-44.9, adult (Acute 07/25/15) Acquired hypothyroidism (Acute 07/25/15) Abnormal uterine bleeding (Acute 07/25/15) Trochanteric bursitis of right hip (Acute) Abnormal chest CT (Acute) Left leg swelling (Acute) Encounter for screening for COVID-19 (Acute) Pneumonia (Acute) Medical History Abnormal uterine bleeding Rx with DepoProvera x9yrs. Resumed after stopping Depo in 2003. Worsening in 2013. 10/2015 Mirena IUD. Asthma, mild persistent BMI 40.0-44.9, adult Hx of Hodgkins lymphoma Hypothyroidism Metabolic syndrome Obstructive sleep apnea Unspecified slipped upper femoral epiphysis (nontraumatic), right hip Surgical History History of cholecystectomy History of hip surgery pin placement History of removal of Port-a-Cath placement and removal Family History Mother Heart disease heart beats too fast Asthma Allergies Son Personal history of malignant neoplasm Father COPD (chronic obstructive pulmonary disease) Social History Smoking/Tobacco Use Status: Never Smoking risk assessment performed?: Yes Alcohol Intake: never Drug use: Never Substance use type: does not use Do you feel safe at home: Yes (unable to assess privately) Do you feel safe in your relationship?: Yes Meds Allergies and Home Medications Allergies Allergy/AdvReac Type Severity Reaction Status Date / Time Sulfa (Sulfonamide AdvReac Intermediate upset Unverified 07/15/22 07:38 Antibiotics) stomach Home Medications Medication Instructions Recorded Confirmed Type levothyroxine 200 mcg tablet 200 mcg PO DAILY 04/14/13 07/24/22 History (Synthroid) albuterol sulfate 90 mcg/actuation 2 puff inhalation Q4H PRN 06/13/22 07/24/22 History aerosol inhaler ketoconazole 2 % topical cream 1 applic topical BID PRN 06/13/22 07/15/22 History montelukast 10 mg tablet 10 mg PO DAILY 06/13/22 07/24/22 History albuterol sulfate 90 mcg/actuation 2 puff inhalation Q6H PRN 07/15/22 Rx aerosol inhaler (Proventil HFA) shortness of breath or wheezing #8.5 grams Saccharomyces boulardii 250 mg 20,000 mmu cells PO DAILY #10 caps 07/18/22 07/18/22 Rx capsule (Daily Probiotic (S. boulardii)) clindamycin HCl 300 mg capsule 300 mg PO TID #21 caps 07/18/22 07/24/22 Rx fluticasone 100 mcg-salmeterol 50 1 inh inhalation BID 07/25/22 07/25/22 History mcg/dose blistr powdr for inhalation (Advair Diskus) Exam Narrative Exam Narrative: General: Patient appears slightly older than stated age, moderately obese with pannus but able to move in bed comfortably. She is in no acute distress. She is not tachypneic. She is alert and oriented x3. HEENT: Normocephalic, slightly coarsened facial features. Eyes with pupils equal and react to light symmetrically, extraocular movement tact and sclera anicteric. Oropharynx with moist mucosa. Neck: Supple without JVD. Back: Stooped posture without CVA tenderness. Lungs: Bronchovesicular breath sounds diffusely with fair aeration and no focalizing rales or rhonchi. Slightly decreased aeration of the left base without dullness to percussion. No egophony. Breast: Exam deferred. Heart: Regular rate and rhythm with no appreciable murmur or gallop. Abdomen: Obese contour, soft and nontender to palpation with no palpable hepatosplenomegaly. Genitalia/rectal: Exam deferred. Extremities: Without clubbing, cyanosis or grossly pitting edema with some nonp itting edema both lower extremities. No ulcerations over the legs. Skin: Normal color, warm and dry. Neuro: Cranial nerves II through XII gross intact, no focalized motor deficits. No tremor. Psych: Flattened affect with depressed mood. No abnormal thought processes. Remote and recent memory grossly intact. Results Imaging Imaging Studies: Exam: CTA Chest With Contrast Exam date and time: 07/24/2022 7:54 PM Age: 51 years old Clinical indication: Other: Shortness of breath, hemoptysis TECHNIQUE: Imaging protocol: Computed tomographic angiography of the chest with contrast. 3D rendering (Not supervised by radiologist): MIP and/or 3D reconstructed images were created by the technologist. Contrast material: OMNIPAQUE 350; Contrast volume: 100 ml; Contrast route: INTRAVENOUS (IV);? COMPARISON: OT NM PET CT STANDARD SKULL BASE TO MID-THIGH 06/30/2022 9:29 AM FINDINGS: Pulmonary arteries:? Enlarged main pulmonary arteries No pulmonary emboli. Aorta: No aortic aneurysm. No aortic dissection. Lungs:? Dense consolidation left lower lobe and mild interstitial thickening.? Minimal right lower lobe opacities Small blebs on the right. Pleural spaces: No pneumothorax.? Minimal left pleural effusion. Heart:? Mild cardiomegaly. No pericardial effusion. Lymph nodes:? No enlarged lymph nodes.? Calcified mediastinal lymph nodes Bones/joints: Unremarkable. No acute fracture. Soft tissues: Unremarkable. Fatty infiltration of the liver.? Prior cholecystectomy IMPRESSION: No pulmonary emboli.? Question pulmonary arterial hypertension Presumed left lower lobe pneumonia and trace left parapneumonic effusion.? Minimal right basilar opacity presumed infectious/inflammatory.? Follow-up with plain films to resolution is recommended. Labs Result diagrams: 07/25/22 06:01 07/25/22 06:01 Labs: Laboratory Results - last 24 hr 07/24/22 07/24/22 07/24/22 19:30 19:30 19:30 WBC RBC Hgb Hct MCV MCH MCHC RDW Plt Count MPV Immature Gran % Neutrophils % Lymphocytes % Monocytes % Eosinophils % Basophils % Nucleated RBC % Absolute Neutrophils Absolute Lymphocytes Absolute Monocytes Absolute Eosinophils Absolute Basophils ESR PT 10.1 INR 1.0 APTT 27.9 H VBG Lactate Sodium 136 Potassium 4.0 Chloride 99 Carbon Dioxide 30.5 Anion Gap 6.5 BUN 15 Creatinine 1.0 Est GFR (CKD-EPI 2020) 67.78 Glucose 140 H Calcium 9.1 Magnesium 1.9 Total Bilirubin 0.4 AST 12 L ALT 30 Alkaline Phosphatase 137 H Troponin I < 50 C-Reactive Protein NT-Pro-B Natriuret Pep 162 Total Protein 8.2 Albumin 3.8 Procalcitonin COVID-19 Source SARS-CoV-2 (PCR) Influenza Type A (PCR) Influenza Type B (PCR) RSV (PCR) 07/24/22 07/24/22 07/24/22 19:30 19:40 21:03 WBC 18.31 H RBC 4.93 Hgb 14.0 Hct 43.1 MCV 87 MCH 28.4 MCHC 32.5 RDW 13.6 Plt Count 340 MPV 10.0 Immature Gran % 0.4 Neutrophils % 88.8 Lymphocytes % 4.3 Monocytes % 5.8 Eosinophils % 0.3 Basophils % 0.4 Nucleated RBC % 0.0 Absolute Neutrophils 16.26 H Absolute Lymphocytes 0.79 L Absolute Monocytes 1.06 H Absolute Eosinophils 0.05 Absolute Basophils 0.07 ESR PT INR APTT VBG Lactate Sodium Potassium Chloride Carbon Dioxide Anion Gap BUN Creatinine Est GFR (CKD-EPI 2020) Glucose Calcium Magnesium Total Bilirubin AST ALT Alkaline Phosphatase Troponin I C-Reactive Protein 1.32 H NT-Pro-B Natriuret Pep Total Protein Albumin Procalcitonin COVID-19 Source Nasopharynx SARS-CoV-2 (PCR) Negative Influenza Type A (PCR) Negative Influenza Type B (PCR) Negative RSV (PCR) Negative 07/24/22 07/24/22 07/24/22 21:03 21:03 21:03 WBC RBC Hgb Hct MCV MCH MCHC RDW Plt Count MPV Immature Gran % Neutrophils % Lymphocytes % Monocytes % Eosinophils % Basophils % Nucleated RBC % Absolute Neutrophils Absolute Lymphocytes Absolute Monocytes Absolute Eosinophils Absolute Basophils ESR 38 H PT INR APTT VBG Lactate 1.7 H Sodium Potassium Chloride Carbon Dioxide Anion Gap BUN Creatinine Est GFR (CKD-EPI 2020) Glucose Calcium Magnesium Total Bilirubin AST ALT Alkaline Phosphatase Troponin I C-Reactive Protein NT-Pro-B Natriuret Pep Total Protein Albumin Procalcitonin 0.1 COVID-19 Source SARS-CoV-2 (PCR) Influenza Type A (PCR) Influenza Type B (PCR) RSV (PCR) Last Vital Signs Temp 36.7 C 07/24/22 19:11 Pulse 98 H 07/24/22 21:55 Resp 18 07/24/22 21:55 BP 132/64 07/24/22 21:55 Pulse Ox 94 07/24/22 21:55
[2022-07-25] VITALS (13 sets, daily range): BP systolic 105–151; BP diastolic 55–68; PULSE 96–113; RESP 4–20; TEMP 36.3–37.1; O2SAT 91–99
[2022-07-25] MEDS: Benzonatate 100 MG CAP (01:23)
[2022-07-25] MEDS: Normal Saline 1,000 ML 125 ML IV (01:33)
[2022-07-25] MEDS: VANCOMYCIN 1,500 MG in Normal Saline 250 ML 166.667 MG IVPB (02:20)
[2022-07-25] MEDS: methylPREDNISolone SUCC 125 MG VIAL 80 MG IVP (03:58)
[2022-07-25] MEDS: CEFEPIME 2 GM in Normal Saline 100 ML IVPB ×3 (05:27→21:54)
[2022-07-25] MEDS: Albuterol/Ipratropium 3 ML UPD VIAL UPD ×4 (05:53→20:26)
[2022-07-25 06:12] LABS: BE (Venous) -2 mmol/L (-2-3); HCO3 (Venous) 24 mmol/L (23-28); O2 Sat (Venous) 93 %; TCO2 (Venous) 22 mmol/L (24-29); pCO2 (Venous) 44 mmHg (41-51); pH (Venous) 7.34 (7.31-7.41); pO2 (Venous) 66 mmHg
[2022-07-25] MEDS: Levothyroxine 200 MCG TAB PO (06:12)
[2022-07-25 06:22] LABS: HCT 41.5 % (36.0-46.0); HGB 13.3 g/dL (11.2-15.7); MCH 27.9 pg (27.0-33.0); MCV 87 fL (80-95); MPV 10.4 fL (8.0-11.0); Platelet Count 331 10^3/uL (130-400); RBC 4.77 10^6/uL (3.93-5.22); RDW 13.8 % (11.7-14.6); RDW-SD 44.2 fL
[2022-07-25 06:26] LABS: WBC 25.53 10^3/uL (4.4-10.8)
[2022-07-25 06:53] LABS: ALT 24 U/L (14-59); AST 13 U/L (15-37); Albumin 3.5 g/dL (3.4-5.0); Alkaline Phosphatase 106 U/L (46-116); Anion Gap 9.8 mmol/L (3-11); BUN 12 mg/dL (7-18); Bilirubin, Total 0.6 mg/dL (0.2-1.0); CO2 23.2 mmol/L (21.0-32.0); Calcium 8.7 mg/dL (8.5-10.1); Chloride 102 mmol/L (98-107); Estimated GFR 67.78 (mL/min/1.73m2); Glucose 214 mg/dL (74-106); Magnesium 1.9 mg/dL (1.8-2.4); Potassium 3.8 mmol/L (3.5-5.1); Sodium 135 mmol/L (136-145); Total Protein 7.9 g/dL (6.4-8.2)
[2022-07-25 06:55] LABS: TSH (W/Ref FT4) 0.04 uIU/mL (0.36-3.74)
[2022-07-25 07:16] LABS: FREE T4 1.44 ng/dL (0.76-1.46)
[2022-07-25] MEDS: predniSONE 20 MG TAB 60 MG PO (08:37)
[2022-07-25] MEDS: Montelukast 10 MG TAB PO (08:37)
[2022-07-25] MEDS: Enoxaparin 40 MG/0.4 ML SYR SC (08:37)
[2022-07-25] MEDS: Budesonide/Formoterol 80/4.5 6.9 GM 60 PUFF INH IH ×2 (09:09→20:26)
--- NOTE | 2022-07-25 09:47 | RESPIRATORY ---
RT spoke with patient concerning listed history of TUCKER to see if she uses a device to sleep at night. Patient stated she has a recalled Respironic's device and believes it's the SystemOne which has not yet been replaced due to it being recalled. RT instructed her if the device is over five years old, her best option might be to get a new RX for a difference device. Patient believes she's used this same device for over ten years now and feels she really likes it but it may also be time for a new device. Patient was instructed if she stays the night tonight in the hospital, to see if anyone can bring the device in. Patient is going to work on getting the device into hospital sometime today.
--- NOTE | 2022-07-25 10:26 | PDOC.CMIN ---
- If Service Date Differs Date of service: 07/25/22 Time of Service: 10:26 Care Management Initial Assess REASON FOR HOSPITALIZATION:: Pneumonia and asthma PAST MEDICAL HISTORY/PAST SURGICAL HISTORY:: All Active Problems (Updated 07/24/22 @ 21:30 by Ihsan Gu NP). Unspecified slipped upper femoral epiphysis (nontraumatic), right hip (Acute 07/25/15). Obstructive sleep apnea syndrome (Acute 07/25/15). Mild persistent asthma without complication (Acute 07/25/15). Metabolic syndrome (Acute 07/25/15). Hx of Hodgkins lymphoma (Acute 07/25/15). BMI 40.0-44.9, adult (Acute 07/25/15). Acquired hypothyroidism (Acute 07/25/15). Abnormal uterine bleeding (Acute 07/25/15). Trochanteric bursitis of right hip (Acute). Abnormal chest CT (Acute). Left leg swelling (Acute). Encounter for screening for COVID-19 (Acute). Pneumonia (Acute). Medical History . Abnormal uterine bleeding. Rx with DepoProvera x9yrs. Resumed after stopping Depo in 2003. Worsening in 2013. 10/2015 Mirena IUD. Asthma, mild persistent. BMI 40.0-44.9, adult. Hx of Hodgkins lymphoma. Hypothyroidism. Metabolic syndrome. Obstructive sleep apnea. Unspecified slipped upper femoral epiphysis (nontraumatic), right hip. Surgical History . History of cholecystectomy. History of hip surgery. pin placement. History of removal of Port-a-Cath. placement and removal PREVIOUS FUNCTIONAL STATUS/SOCIAL/FAMILY SUPPORTS:: Karla lives in a single family farmhouse in [place] with her Ranjit. She and Ranjit had 5 sons but one 3 years ago from cancer. One son lives with them at home two of the others live in [place] and her oldest lives in [facility]. 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 She is independent at baseline. CURRENT FUNCTIONAL STATUS:: Michelle was sitting up in bed visiting with her when CM met with her. She was pleasant in interaction and agreeable to conversation. Michelle stated that she was feeling much better this morning and felt like she could go home but as the day progressed, began coughing more and felt really drained. She does not anticipate the need for any services at discharge. ADVANCE DIRECTIVES:: none on file Has patient been provided with info about the portal/API?: Yes Did the patient sign up for the portal?: No CODE STATUS:: Full Code INSURANCE COVERAGE / FINANCIAL ISSUES:: [employer] CURRENT HOME/COMMUNITY SERVICES/EQUIPMENT:: none PRIMARY CARE PHYSICIAN:: Any [place] POTENTIAL DISCHARGE NEEDS:: follow up with PCP and plan of care PATIENT/FAMILY EDUCATION NEEDS:: Review of discharge instructions, activity, limitations, medications, follow up plan, Ask Me Three TRANSPORTATION:: via private vehicle with family PLAN:: Anticipate Karla will be discharged home with no new services. She will follow up with her community providers and plan of care and transport with family. CM will support Karla and her discharge needs.
[2022-07-25 13:07] LABS: HCG Qual (Urine) Negative
--- NOTE | 2022-07-25 13:56 | CHAPLAIN ---
Karla was resting in bed when I visit. Her , Ranjit, was with her. She came to the ED yesterday evening but didn't get admitted until after midnight, she said. She spent yesterday hosting Thanksgiving dinner. I left as Karla was getting ready to take a shower. Her father, Darrin Olivares, here about a month ago.
[2022-07-25] MEDS: VANCOMYCIN/WATER (PEG) 1.25 GM/250 ML BAG IV (14:41)
[2022-07-25] MEDS: Albuterol 2.5 MG/3 ML INH SOLN VIAL UPD (14:54)
--- NOTE | 2022-07-25 16:51 | W.PM.PROGNOT ---
Date of Service Date of service: 07/25/22 Time of Service: 16:51 Assessment and Plan Assessment and plan (1) Pneumonia: Status: Acute Assessment and plan: continue day 2 vanco, cefepime and azithromycin and steroid burst add mucinex and continue pulmonary toileting, acapella pulmonary consult, followed by Dr Khalil and s/p bronchoscopy (2) Obstructive sleep apnea syndrome: Status: Acute Assessment and plan: home cpap (3) Hypothyroidism: Status: Chronic Assessment and plan: TSH 0.04 (4) DVT prophylaxis: Status: Acute Assessment and plan: continue enoxaparin (5) Discharge planning issues: Status: Acute Assessment and plan: home with no services once medically stable discussed with DR Nunes Subjective Subjective Patient reports: no new complaints, feels better, tolerating liquids well, tolerating a regular diet, voiding w/o difficulty, shortness of breath (with activity but improved. ) and afebrile Interval history since last seen: speaking in full sentences. oxygenating well on room air Exam Const General: cooperative, comfortable, no acute distress and ill appearing (older appearing than stated age) chronically Nutritional Appearance: obese Orientation: alert, awake and oriented x3 HENMT Head: normal to inspection, normocephalic and atraumatic Mouth: oral mucosae normal Resp Effort & Inspection: normal respiratory effort and able to speak in complete sentences Auscultation: rhonchi left lower and no wheezes Cardio Rate: regular rate Rhythm: regular rhythm GI Inspection: normal to inspection and obesity Palpation: soft Skin General skin exam: no rashes or lesions noted Neuro General: patient alert, patient awake, patient oriented x3 and no focal motor deficits Extrem General: normal to inspection and full ROM Psych Appearance: disheveled Mental Status: mental status grossly normal Speech and Movement: speech and movement normal Affect: sad (appears depressed, negative outlook) Attitude: cooperative Thought Process: normal Thought Content: normal Insight: limited Judgment: limited Objective Last Vital Signs Temp 36.6 C 07/25/22 15:34 Pulse 112 H 07/25/22 15:34 Resp 16 07/25/22 15:34 BP 151/68 H 07/25/22 15:34 Pulse Ox 95 07/25/22 15:34 Laboratory Results - last 24 hr 07/24/22 07/24/22 07/24/22 19:30 19:30 19:30 WBC RBC Hgb Hct MCV MCH MCHC RDW Plt Count MPV Immature Gran % Neutrophils % Lymphocytes % Monocytes % Eosinophils % Basophils % Nucleated RBC % Absolute Neutrophils Absolute Lymphocytes Absolute Monocytes Absolute Eosinophils Absolute Basophils ESR PT 10.1 INR 1.0 APTT 27.9 H VBG pH VBG pCO2 VBG pO2 VBG HCO3 VBG Total CO2 VBG O2 Saturation VBG Base Excess VBG Lactate Sodium 136 Potassium 4.0 Chloride 99 Carbon Dioxide 30.5 Anion Gap 6.5 BUN 15 Creatinine 1.0 Est GFR (CKD-EPI 2020) 67.78 Glucose 140 H Calcium 9.1 Magnesium 1.9 Total Bilirubin 0.4 AST 12 L ALT 30 Alkaline Phosphatase 137 H Troponin I < 50 C-Reactive Protein NT-Pro-B Natriuret Pep 162 Total Protein 8.2 Albumin 3.8 Procalcitonin TSH Free T4 Urine HCG, Qual COVID-19 Source SARS-CoV-2 (PCR) Influenza Type A (PCR) Influenza Type B (PCR) RSV (PCR) 07/24/22 07/24/22 07/24/22 19:30 19:40 21:03 WBC 18.31 H RBC 4.93 Hgb 14.0 Hct 43.1 MCV 87 MCH 28.4 MCHC 32.5 RDW 13.6 Plt Count 340 MPV 10.0 Immature Gran % 0.4 Neutrophils % 88.8 Lymphocytes % 4.3 Monocytes % 5.8 Eosinophils % 0.3 Basophils % 0.4 Nucleated RBC % 0.0 Absolute Neutrophils 16.26 H Absolute Lymphocytes 0.79 L Absolute Monocytes 1.06 H Absolute Eosinophils 0.05 Absolute Basophils 0.07 ESR PT INR APTT VBG pH VBG pCO2 VBG pO2 VBG HCO3 VBG Total CO2 VBG O2 Saturation VBG Base Excess VBG Lactate Sodium Potassium Chloride Carbon Dioxide Anion Gap BUN Creatinine Est GFR (CKD-EPI 2020) Glucose Calcium Magnesium Total Bilirubin AST ALT Alkaline Phosphatase Troponin I C-Reactive Protein 1.32 H NT-Pro-B Natriuret Pep Total Protein Albumin Procalcitonin TSH Free T4 Urine HCG, Qual COVID-19 Source Nasopharynx SARS-CoV-2 (PCR) Negative Influenza Type A (PCR) Negative Influenza Type B (PCR) Negative RSV (PCR) Negative 07/24/22 07/24/22 07/24/22 21:03 21:03 21:03 WBC RBC Hgb Hct MCV MCH MCHC RDW Plt Count MPV Immature Gran % Neutrophils % Lymphocytes % Monocytes % Eosinophils % Basophils % Nucleated RBC % Absolute Neutrophils Absolute Lymphocytes Absolute Monocytes Absolute Eosinophils Absolute Basophils ESR 38 H PT INR APTT VBG pH VBG pCO2 VBG pO2 VBG HCO3 VBG Total CO2 VBG O2 Saturation VBG Base Excess VBG Lactate 1.7 H Sodium Potassium Chloride Carbon Dioxide Anion Gap BUN Creatinine Est GFR (CKD-EPI 2020) Glucose Calcium Magnesium Total Bilirubin AST ALT Alkaline Phosphatase Troponin I C-Reactive Protein NT-Pro-B Natriuret Pep Total Protein Albumin Procalcitonin 0.1 TSH Free T4 Urine HCG, Qual COVID-19 Source SARS-CoV-2 (PCR) Influenza Type A (PCR) Influenza Type B (PCR) RSV (PCR) 07/25/22 07/25/22 07/25/22 06:01 06:01 06:01 WBC 25.53 H* RBC 4.77 Hgb 13.3 Hct 41.5 MCV 87 MCH 27.9 MCHC 32.0 RDW 13.8 Plt Count 331 MPV 10.4 Immature Gran % Neutrophils % Lymphocytes % Monocytes % Eosinophils % Basophils % Nucleated RBC % Absolute Neutrophils Absolute Lymphocytes Absolute Monocytes Absolute Eosinophils Absolute Basophils ESR PT INR APTT VBG pH VBG pCO2 VBG pO2 VBG HCO3 VBG Total CO2 VBG O2 Saturation VBG Base Excess VBG Lactate Sodium 135 L Potassium 3.8 Chloride 102 Carbon Dioxide 23.2 Anion Gap 9.8 BUN 12 Creatinine 1.0 Est GFR (CKD-EPI 2020) 67.78 Glucose 214 H Calcium 8.7 Magnesium 1.9 Total Bilirubin 0.6 AST 13 L ALT 24 Alkaline Phosphatase 106 Troponin I C-Reactive Protein NT-Pro-B Natriuret Pep Total Protein 7.9 Albumin 3.5 Procalcitonin TSH 0.04 L Free T4 1.44 Urine HCG, Qual COVID-19 Source SARS-CoV-2 (PCR) Influenza Type A (PCR) Influenza Type B (PCR) RSV (PCR) 07/25/22 07/25/22 06:01 12:46 WBC RBC Hgb Hct MCV MCH MCHC RDW Plt Count MPV Immature Gran % Neutrophils % Lymphocytes % Monocytes % Eosinophils % Basophils % Nucleated RBC % Absolute Neutrophils Absolute Lymphocytes Absolute Monocytes Absolute Eosinophils Absolute Basophils ESR PT INR APTT VBG pH 7.34 VBG pCO2 44 VBG pO2 66 VBG HCO3 24 VBG Total CO2 22 L VBG O2 Saturation 93 VBG Base Excess -2 VBG Lactate Sodium Potassium Chloride Carbon Dioxide Anion Gap BUN Creatinine Est GFR (CKD-EPI 2020) Glucose Calcium Magnesium Total Bilirubin AST ALT Alkaline Phosphatase Troponin I C-Reactive Protein NT-Pro-B Natriuret Pep Total Protein Albumin Procalcitonin TSH Free T4 Urine HCG, Qual Negative COVID-19 Source SARS-CoV-2 (PCR) Influenza Type A (PCR) Influenza Type B (PCR) RSV (PCR)
[2022-07-25] MEDS: AZITHROMYCIN 500 MG in Normal Saline 250 ML 250 MG IVPB (21:54)
[2022-07-25] MEDS: Normal Saline Flush 10 ML SYR IVP (21:55)
[2022-07-26] VITALS (7 sets, daily range): BP systolic 126–165; BP diastolic 66–74; PULSE 90–118; RESP 1–20; TEMP 35.6–37.6; O2SAT 90–96
[2022-07-26] MEDS: Albuterol/Ipratropium 3 ML UPD VIAL UPD ×6 (00:12→23:48)
[2022-07-26] MEDS: VANCOMYCIN/WATER (PEG) 1.25 GM/250 ML BAG IV ×3 (02:15→22:28)
[2022-07-26] MEDS: Levothyroxine 200 MCG TAB PO (05:20)
[2022-07-26] MEDS: CEFEPIME 2 GM in Normal Saline 100 ML IVPB ×3 (05:21→22:27)
[2022-07-26] MEDS: Normal Saline Flush 10 ML SYR IVP ×2 (05:21→22:27)
[2022-07-26] MEDS: Enoxaparin 40 MG/0.4 ML SYR SC (07:57)
[2022-07-26] MEDS: Montelukast 10 MG TAB PO (07:57)
[2022-07-26] MEDS: predniSONE 20 MG TAB 60 MG PO (07:57)
[2022-07-26] MEDS: Budesonide/Formoterol 80/4.5 6.9 GM 60 PUFF INH IH ×2 (08:07→20:20)
--- NOTE | 2022-07-26 10:37 | W.PM.PROGNOT ---
Date of Service Date of service: 07/26/22 Time of Service: 10:37 Assessment and Plan Assessment and plan (1) Pneumonia: Status: Acute Assessment and plan: continue day 3 vanco, cefepime and azithromycin and steroid burst add mucinex and continue pulmonary toileting, acapella pulmonary consult, followed by Dr Khalil and s/p bronchoscopy (2) Obstructive sleep apnea syndrome: Status: Acute Assessment and plan: home cpap (3) Hypothyroidism: Status: Chronic Assessment and plan: TSH 0.04 reduce synthroid dose after holding 2 days, will need recheck in 6 weeks. (4) DVT prophylaxis: Status: Acute Assessment and plan: continue enoxaparin (5) Discharge planning issues: Status: Acute Assessment and plan: home with no services once medically stable discussed with DR Nunes Subjective Subjective Patient reports: tolerating liquids well, shortness of breath (coughing non prod, ) and afebrile; denies feels better (reports feeling worse today), tolerating a regular diet (reports poor appetite) or nausea Interval history since last seen: is oxygenating in the low to mid 90's on room air Exam Const General: cooperative, comfortable, no acute distress and ill appearing (older appearing than stated age) chronically Nutritional Appearance: obese Orientation: alert, awake and oriented x3 HENMT Head: normal to inspection, normocephalic and atraumatic Mouth: oral mucosae normal Resp Effort & Inspection: normal respiratory effort and able to speak in complete sentences Auscultation: rhonchi left lower and no wheezes Cardio Rate: regular rate Rhythm: regular rhythm GI Inspection: normal to inspection and obesity Palpation: soft Skin General skin exam: no rashes or lesions noted Neuro General: patient alert, patient awake, patient oriented x3 and no focal motor deficits Extrem General: normal to inspection and full ROM Psych Appearance: disheveled Mental Status: mental status grossly normal Speech and Movement: speech and movement normal Affect: sad (appears depressed, negative outlook) Attitude: cooperative Thought Process: normal Thought Content: normal Insight: limited Judgment: limited Objective Last Vital Signs Temp 37.1 C 07/26/22 07:00 Pulse 102 H 07/26/22 08:10 Resp 15 07/26/22 08:10 BP 151/74 H 07/26/22 07:00 Pulse Ox 96 07/26/22 08:10 Laboratory Results - last 24 hr 11/25/22 12:46 Urine HCG, Qual Negative
[2022-07-26 11:21] LABS: Abs Immature Grans 0.23 10^3/uL (0.0-0.06); Absolute Basophil Count 0.05 10^3/uL (0.0-0.2); Basophils % 0.2; HCT 40.7 % (36.0-46.0); HGB 12.9 g/dL (11.2-15.7); Immature Grans % 0.9; Lymphocytes % 3.7; MCHC 31.7 % (32.0-36.0); MCV 88 fL (80-95); MPV 10.4 fL (8.0-11.0); Monocytes % 4.9; Neutrophils % 90.3; Platelet Count 383 10^3/uL (130-400); RBC 4.61 10^6/uL (3.93-5.22); RDW-SD 44.9 fL; WBC 24.62 10^3/uL (4.4-10.8)
[2022-07-26] MEDS: guaiFENesin 600 MG TABCR PO ×2 (11:26→20:20)
[2022-07-26 11:32] LABS: Absolute Lymphocyte Count 0.91 10^3/uL (1.2-3.4); Absolute Monocyte Count 1.21 10^3/uL (0.1-0.8); Absolute Neutrophil Count 22.23 10^3/uL (1.2-6.7)
[2022-07-26 11:35] LABS: Anion Gap 8.4 mmol/L (3-11); BUN 14 mg/dL (7-18); CO2 26.6 mmol/L (21.0-32.0); CREATININE 0.9 mg/dL (0.55-1.02); Chloride 102 mmol/L (98-107); Estimated GFR 76.92 (mL/min/1.73m2); Glucose 165 mg/dL (74-106); Potassium 3.8 mmol/L (3.5-5.1); Sodium 137 mmol/L (136-145)
[2022-07-26 11:46] LABS: Diff Comment Agrees w/ Instrument; RBC Morphology Normal
[2022-07-26 13:18] LABS: Vancomycin, Trough 9.7 ug/mL (10.0-20.0)
[2022-07-26] MEDS: AZITHROMYCIN 500 MG in Normal Saline 250 ML 250 MG IVPB (22:28)
[2022-07-27] VITALS (10 sets, daily range): BP systolic 116–161; BP diastolic 56–78; PULSE 97–110; RESP 4–20; TEMP 36.1–37.2; O2SAT 91–100
[2022-07-27] MEDS: Albuterol/Ipratropium 3 ML UPD VIAL UPD ×5 (04:14→19:59)
[2022-07-27] MEDS: Acetaminophen 325 MG TAB PO (05:35)
[2022-07-27] MEDS: CEFEPIME 2 GM in Normal Saline 100 ML IVPB ×3 (05:36→22:01)
[2022-07-27] MEDS: Normal Saline Flush 10 ML SYR IVP ×2 (05:36→22:01)
[2022-07-27] MEDS: VANCOMYCIN/WATER (PEG) 1.25 GM/250 ML BAG IV (06:15)
[2022-07-27 06:50] LABS: Abs Immature Grans 0.24 10^3/uL (0.0-0.06); Absolute Basophil Count 0.05 10^3/uL (0.0-0.2); Absolute Eosinophil Count 0.03 10^3/uL (0.0-0.7); Absolute Lymphocyte Count 2.19 10^3/uL (1.2-3.4); Absolute Neutrophil Count 12.58 10^3/uL (1.2-6.7); Basophils % 0.3; Eosinophils % 0.2; HGB 11.9 g/dL (11.2-15.7); Immature Grans % 1.5; Lymphocytes % 13.4; MCH 28.1 pg (27.0-33.0); MCHC 31.3 % (32.0-36.0); MCV 90 fL (80-95); MPV 10.6 fL (8.0-11.0); Monocytes % 7.6; Platelet Count 339 10^3/uL (130-400); RBC 4.24 10^6/uL (3.93-5.22); RDW 14.2 % (11.7-14.6); RDW-SD 46.1 fL; WBC 16.34 10^3/uL (4.4-10.8)
[2022-07-27 06:52] LABS: Absolute Monocyte Count 1.24 10^3/uL (0.1-0.8)
[2022-07-27] MEDS: Budesonide/Formoterol 80/4.5 6.9 GM 60 PUFF INH IH ×2 (07:20→19:59)
[2022-07-27 07:28] LABS: ALT 46 U/L (14-59); AST 26 U/L (15-37); Albumin 3.2 g/dL (3.4-5.0); Alkaline Phosphatase 94 U/L (46-116); Anion Gap 6.4 mmol/L (3-11); BUN 11 mg/dL (7-18); Bilirubin, Total 0.9 mg/dL (0.2-1.0); CO2 27.6 mmol/L (21.0-32.0); CREATININE 0.7 mg/dL (0.55-1.02); Calcium 8.6 mg/dL (8.5-10.1); Chloride 103 mmol/L (98-107); Glucose 117 mg/dL (74-106); Potassium 3.4 mmol/L (3.5-5.1); Sodium 137 mmol/L (136-145); Total Protein 7.3 g/dL (6.4-8.2)
[2022-07-27] MEDS: predniSONE 20 MG TAB 60 MG PO (09:13)
[2022-07-27] MEDS: Montelukast 10 MG TAB PO (09:14)
[2022-07-27] MEDS: Enoxaparin 40 MG/0.4 ML SYR SC (09:14)
[2022-07-27] MEDS: guaiFENesin 600 MG TABCR PO ×2 (09:14→19:59)
[2022-07-27] MEDS: Potassium Chloride 20 MEQ TABCR 40 MEQ PO (09:14)
--- NOTE | 2022-07-27 09:53 | PGE_ITS ---
Date of Service Date of service: 07/27/22 Time of Service: 09:54 Assessment and Plan Assessment and plan (1) Pneumonia: Status: Acute Assessment and plan: continue day 4 vanco, cefepime and azithromycin and steroid burst add mucinex and continue pulmonary toileting, acapella SPO2 90-97% on 1 LPM [place] pulmonary consult, followed by Dr Khalil and s/p bronchoscopy Dr Khalil to see 07/28/2022 in pt (2) Obstructive sleep apnea syndrome: Status: Chronic Assessment and plan: home cpap (3) Hypothyroidism: Status: Chronic Assessment and plan: TSH 0.04 dose was incorrect when reconciled, however should not have affected result - will continue home dose of 175 mcg and have PCP manage outpt (4) DVT prophylaxis: Status: Acute Assessment and plan: continue enoxaparin (5) Discharge planning issues: Status: Acute Assessment and plan: home with no services once medically stable discussed with Dr Nunes Subjective Subjective Patient reports: no new complaints, voiding w/o difficulty, bowel movement and afebrile; denies diarrhea, nausea or vomiting Exam Const General: cooperative, comfortable, no acute distress and ill appearing (older appearing than stated age) chronically Nutritional Appearance: obese Orientation: alert, awake and oriented x3 HENMT Head: normal to inspection, normocephalic and atraumatic Mouth: oral mucosae normal Resp Effort & Inspection: normal respiratory effort and able to speak in complete sentences Auscultation: rhonchi left lower and no wheezes Cardio Rate: regular rate Rhythm: regular rhythm GI Inspection: normal to inspection and obesity Palpation: soft Skin General skin exam: no rashes or lesions noted Neuro General: patient alert, patient awake, patient oriented x3 and no focal motor d eficits Extrem General: normal to inspection and full ROM Psych Appearance: disheveled Mental Status: mental status grossly normal Speech and Movement: speech and movement normal Affect: sad (appears depressed, negative outlook) Attitude: cooperative Thought Process: normal Thought Content: normal Insight: limited Judgment: limited Objective Last Vital Signs Temp 36.6 C 07/27/22 07:22 Pulse 101 H 07/27/22 07:22 Resp 20 07/27/22 07:22 BP 143/78 H 07/27/22 07:22 Pulse Ox 95 07/27/22 07:22 Laboratory Results - last 24 hr 07/26/22 07/26/22 07/26/22 11:08 11:08 12:55 WBC 24.62 H RBC 4.61 Hgb 12.9 Hct 40.7 MCV 88 MCH 28.0 MCHC 31.7 L RDW 14.0 Plt Count 383 MPV 10.4 Immature Gran % 0.9 Neutrophils % 90.3 Lymphocytes % 3.7 Monocytes % 4.9 Eosinophils % 0.0 Basophils % 0.2 Nucleated RBC % 0.0 Absolute Neutrophils 22.23 H Absolute Lymphocytes 0.91 L Absolute Monocytes 1.21 H Absolute Eosinophils 0.00 Absolute Basophils 0.05 RBC Morphology Normal Sodium 137 Potassium 3.8 Chloride 102 Carbon Dioxide 26.6 Anion Gap 8.4 BUN 14 Creatinine 0.9 Est GFR (CKD-EPI 2020) 76.92 Glucose 165 H Calcium 9.0 Total Bilirubin AST ALT Alkaline Phosphatase C-Reactive Protein Total Protein Albumin Vancomycin Trough 9.7 L 07/27/22 07/27/22 06:15 06:15 WBC 16.34 H RBC 4.24 Hgb 11.9 Hct 38.0 MCV 90 MCH 28.1 MCHC 31.3 L RDW 14.2 Plt Count 339 MPV 10.6 Immature Gran % 1.5 Neutrophils % 77.0 Lymphocytes % 13.4 Monocytes % 7.6 Eosinophils % 0.2 Basophils % 0.3 Nucleated RBC % 0.0 Absolute Neutrophils 12.58 H Absolute Lymphocytes 2.19 Absolute Monocytes 1.24 H Absolute Eosinophils 0.03 Absolute Basophils 0.05 RBC Morphology Sodium 137 Potassium 3.4 L Chloride 103 Carbon Dioxide 27.6 Anion Gap 6.4 BUN 11 Creatinine 0.7 Est GFR (CKD-EPI 2020) 104.00 Glucose 117 H Calcium 8.6 Total Bilirubin 0.9 AST 26 ALT 46 Alkaline Phosphatase 94 C-Reactive Protein 6.10 H Total Protein 7.3 Albumin 3.2 L Vancomycin Trough
[2022-07-27 13:33] LABS: Vancomycin, Trough 20.6 ug/mL (10.0-20.0)
[2022-07-27] MEDS: VANCOMYCIN 1,250 MG in Normal Saline 250 ML 166.667 MG IV (14:33)
[2022-07-27] MEDS: AZITHROMYCIN 500 MG in Normal Saline 250 ML 250 MG IVPB (22:01)
[2022-07-28] MEDS: VANCOMYCIN 1,250 MG in Normal Saline 250 ML 166.6 MG IV (00:01)
[2022-07-28] MEDS: Albuterol/Ipratropium 3 ML UPD VIAL UPD ×3 (00:58→08:35)
[2022-07-28 03:54] VITALS: BP 114/64; PULSE 98; RESP 18; TEMP 37.1; O2SAT 97
[2022-07-28] MEDS: Levothyroxine 175 MCG TAB PO (05:54)
[2022-07-28] MEDS: CEFEPIME 2 GM in Normal Saline 100 ML IVPB (05:54)
[2022-07-28] MEDS: Normal Saline Flush 10 ML SYR IVP ×2 (05:54→10:55)
[2022-07-28 06:29] LABS: Anion Gap 8.2 mmol/L (3-11); BUN 9 mg/dL (7-18); CO2 28.8 mmol/L (21.0-32.0); CREATININE 0.6 mg/dL (0.55-1.02); Calcium 8.9 mg/dL (8.5-10.1); Chloride 103 mmol/L (98-107); Estimated GFR 107.93 (mL/min/1.73m2); Glucose 100 mg/dL (74-106); Potassium 3.4 mmol/L (3.5-5.1); Sodium 140 mmol/L (136-145)
--- NOTE | 2022-07-28 07:03 | PUCON_ITS ---
General Date Of Service Date of service: 07/28/22 Time of Service: 07:03 Reason for Consult: Staph Aureus Pneumonia Asthma Exacerbation Assessment and Plan Assessment and plan (1) Mild persistent asthma without complication: Status: Chronic (2) Pneumonia: Status: Acute Assessment and plan: This is a 51 yo woman with asthma who has staph aureus pneumonia diagnosed by bronchoscopy who failed outpatient clindamycin therapy. She has been on vancomycin, cefepime and azithromycin since being admitted on 07/24/22 out of concern for a possible HAP. She is also being treated for an asthma exacerbation. She has improved with these therapies. I think the infection should be cleared by now, however it is possible she now has an organizing pneumonia due to the subacute infection. She can be given clinda on discharge and complete a total 10 day course (including vanco days). I will recommend a steroid taper and will repeat a chest CT in 6 weeks to assess for improvement in the LLL. I will also increase her Symbicort while she is admitted and will send Advair 230 to her pharmacy. I will ask the hospitalist team to work on getting her a nebulizer with albuterol meds for it. Staph aureus pneumonia - can D/C azithromycin and cefepime - has received 5 days of vancomycin - can discharge on clindamycin to complete a 10 day total course (including in hospital vanc) - will get Chest CT in 6 weeks to follow up infiltrate Asthma Exacerbation - decreased prednisone to 50mg today and complete the following taper: - 50mg for 7 days, 40mg for 5 days, 30mg for 5 days, 20mg for 3 days, 10mg for 3 days, 5mg for 3 days - recommend increasing Symbicort to 160 2 puff bid while admitted and will change her outpatient inhaler to Advair 230 HFA 2 puff bid - recommend getting a nebulizer with albuterol only for neb - already has f/u with me in early Aug - f/u PCP in 2 weeks History of Present Illness Narrative: This is a 51 yo woman whom I see as an outpatient for asthma as well as a lung mass that was found to be a staph aureus pneumonia by bronchoscopy. She had a negative PET/CT completed and no malignant cells were seen on bronchoscopy cytopath. I started her on clindamycin as she has a Bactrim allergy. She had been improving initially, however her respiratory symptoms worsened so she presented to the ER. A CT scan was completed that did show worsening of the infiltrate and so she was admitted for IV antibiotics given her outpatient treatment failure. She has been on vancomycin, cefepime and azithromycin out of concern for a possible HAP. She is not requiring oxygen and her white count has improved dramatically. She is also being treated for an asthma exacerbation with 60mg prednisone. BAL results 07/15/22: Neutrophils 32%, Lymphs 15%, Daggett/Macro 41%, bronchial lining cells 12% Cytology: rare alveolar macrophages, rare small groups with crush artifact Culture: Few staph aureus, reduced sensitivity against cefazolin, susceptible to: clindamycin, erythromycin, oxacillin, tetracycline, Bactrim, vancomycin Today she says she is feeling better than when she first came in, but is quite anxious about going home for a few reasons including a who is sick as well as not having a nebulizer. She is tired of feeling sick. Review of Systems All systems reviewed & are unremarkable except as noted in HPI and below PFSH All Active Problems (Updated 07/27/22 @ 13:58 by Cata Hoffman NP) Discharge planning issues (Acute) DVT prophylaxis (Acute) Hypothyroidism (Chronic) Unspecified slipped upper femoral epiphysis (nontraumatic), right hip (Acute 07/25/15) Obstructive sleep apnea syndrome (Chronic 07/25/15) Mild persistent asthma without complication (Chronic 07/25/15) Metabolic syndrome (Acute 07/25/15) Hx of Hodgkins lymphoma (Acute 07/25/15) BMI 40.0-44.9, adult (Acute 07/25/15) Acquired hypothyroidism (Acute 07/25/15) Abnormal uterine bleeding (Acute 07/25/15) Trochanteric bursitis of right hip (Acute) Abnormal chest CT (Acute) Left leg swelling (Acute) Encounter for screening for COVID-19 (Acute) Pneumonia (Acute) Medical History Abnormal uterine bleeding Rx with DepoProvera x9yrs. Resumed after stopping Depo in 2003. Worsening in 2013. 10/2015 Mirena IUD. Asthma, mild persistent BMI 40.0-44.9, adult Hx of Hodgkins lymphoma Hypothyroidism Metabolic syndrome Obstructive sleep apnea Unspecified slipped upper femoral epiphysis (nontraumatic), right hip Surgical History History of cholecystectomy History of hip surgery pin placement History of removal of Port-a-Cath placement and removal Family History Mother Heart disease heart beats too fast Asthma Allergies Son Personal history of malignant neoplasm Father COPD (chronic obstructive pulmonary disease) Social History Smoking/Tobacco Use Status: Never Smoking risk assessment performed?: Yes Alcohol Intake: never Drug use: Never Substance use type: does not use Do you feel safe at home: Yes (unable to assess privately) Do you feel safe in your relationship?: Yes Visit Medication and Allergies Active Medications Generic Name Dose Route Start Last Admin Trade Name Freq PRN Reason Stop Dose Admin Acetaminophen 325 - 650 mg 07/24/22 22:33 07/27/22 05:35 Acetaminophen 325 Mg Tab PO 650 mg Q4H PRN PRN Administration Al Hydrox/Mg Hydrox/Simethicone 30 ml 07/24/22 22:33 Mylanta Suspension 30 Ml Cup PO Q2H PRN PRN Albuterol Sulfate 2.5 mg 07/24/22 22:27 07/25/22 14:54 Albuterol 2.5 Mg/3 Ml Inh Soln Vial UPD 2.5 mg Q2H PRN PRN Administration Albuterol/Ipratropium 3 ml 07/25/22 20:00 07/28/22 04:05 Albuterol/Ipratropium 3 Ml Upd Vial UPD 3 ml Q4H LIN Administration Budesonide/Formoterol Fumarate 0 puff 07/25/22 08:30 07/27/22 19:59 Budesonide/Formoterol 80/4.5 6.9 Gm 60 Puff Inh IH 2 puffs BID LIN Administration Dimethicone/Zinc Oxide 0 gm 07/24/22 22:27 Manjula Protect Cream 142 Gm Tube TP PRN PRN Docusate Sodium 100 mg 07/24/22 22:27 Docusate Sodium 100 Mg Cap PO TID PRN PRN Enoxaparin Sodium 40 mg 07/25/22 08:00 07/27/22 09:14 Enoxaparin 40 Mg/0.4 Ml Syr SC 40 mg Q24H LIN Administration Guaifenesin 600 mg 07/26/22 10:35 07/27/22 19:59 Guaifenesin 600 Mg Tabcr PO 600 mg BID LIN Administration Sodium Chloride 500 mls @ 0 mls/hr 07/24/22 22:27 Saline 500ml Bag IV PRN PRN As Directed Cefepime HCl 2 gm/ Sodium 100 mls @ 200 mls/hr 07/25/22 06:00 07/28/22 05:54 Chloride IVPB 200 mls/hr Q8H LIN Administration Azithromycin 500 mg/ Sodium 250 mls @ 250 mls/hr 07/25/22 22:00 07/27/22 22 :01 Chloride IVPB 250 mls/hr Q24H LIN Administration Vancomycin HCl 1,250 mg/ 250 mls @ 166.667 mls/hr 07/27/22 14:00 07/28/22 00:01 Sodium Chloride IV 166.6 mls/hr Q10H LIN Administration Protocol IV Miscellaneous Supplies 1 each 07/24/22 22:30 Iv Access IV DIRECTED LIN Levothyroxine Sodium 175 mcg 07/28/22 06:00 07/28/22 05:54 Levothyroxine 175 Mcg Tab PO 175 mcg DAILY@0600 LIN Administration Magnesium Hydroxide 30 ml 07/24/22 22:33 Milk Of Magnesia 30 Ml Cup PO DAILY PRN PRN Montelukast Sodium 10 mg 07/25/22 08:30 07/27/22 09:14 Montelukast 10 Mg Tab PO 10 mg DAILY LIN Administration Pt's Own S. 1 each 07/25/22 08:30 07/27/22 09:15 Boulardii [Probiotic PO Not Given ] Capsule DAILY LIN Polyethylene Glycol 17 gm 07/24/22 22:27 Polyethylene Glycol 3350 17 Gm Packet PO DAILY PRN PRN Constipation Prednisone 60 mg 07/25/22 08:30 07/27/22 09:13 Prednisone 20 Mg Tab PO 60 mg DAILY LIN Administration Sodium Chloride 0 ml 07/24/22 22:27 07/28/22 05:54 Normal Saline Flush 10 Ml Syr IVP 10 ml PRN PRN Administration Allergies Sulfa (Sulfonamide Antibiotics) Adverse Reaction (Intermediate, Unverified 07/15/22 07:38) upset stomach Exam Narrative Exam Narrative: Gen: NAD, normal respiratory effort, well-nourished HENT: PERRL, nasal turbinates normal without erythema or inflammation, moist oral mucosa, Mallampati 2, No LAD or JVD Chest: No respiratory distress, normal appearance of chest, clear to auscultation bilaterally, left basilar crackles, no wheezes, normal inspiratory effort Heart: regular rate and rhythym, no murmurs, rubs or gallops Abdomen: Non-distended, soft, non tender Extremities: No clubbing, edema, cyanosis, rashes Neuro: AAOx3 , non focal Psych: cooperative, appropriate mental affect Results Last Vital Signs Temp 37.1 C 07/28/22 03:54 Pulse 98 H 07/28/22 03:54 Resp 18 07/28/22 03:54 BP 114/64 07/28/22 03:54 Pulse Ox 97 07/28/22 03:54 Labs Result diagrams: 07/27/22 06:15 07/28/22 05:53 Labs: Laboratory Results - last 24 hr 07/27/22 07/27/22 07/28/22 06:15 13:00 05:53 Sodium 137 140 Potassium 3.4 L 3.4 L Chloride 103 103 Carbon Dioxide 27.6 28.8 Anion Gap 6.4 8.2 BUN 11 9 Creatinine 0.7 0.6 Est GFR (CKD-EPI 2020) 104.00 107.93 Glucose 117 H 100 Calcium 8.6 8.9 Total Bilirubin 0.9 AST 26 ALT 46 Alkaline Phosphatase 94 C-Reactive Protein 6.10 H Total Protein 7.3 Albumin 3.2 L Vancomycin Trough 20.6 H*
[2022-07-28 07:14] VITALS: BP 148/76; PULSE 94; RESP 16; TEMP 36.9; O2SAT 94
[2022-07-28] MEDS: predniSONE 20 MG TAB 60 MG PO (08:30)
[2022-07-28] MEDS: Montelukast 10 MG TAB PO (08:30)
[2022-07-28] MEDS: Enoxaparin 40 MG/0.4 ML SYR SC (08:30)
[2022-07-28] MEDS: guaiFENesin 600 MG TABCR PO (08:30)
[2022-07-28 08:35] VITALS: PULSE 99; RESP 1; RESP 12; RESP 8; O2SAT 95
[2022-07-28] MEDS: Budesonide/Formoterol 80/4.5 6.9 GM 60 PUFF INH IH (08:43)
[2022-07-28 08:45] VITALS: PULSE 93; RESP 1; RESP 12; RESP 4; O2SAT 99
[2022-07-28] MEDS: Potassium Chloride Liquid 20 MEQ PKT 40 MEQ PO (10:21)
[2022-07-28] MEDS: Normal Saline 500 ML 30 ML IV (10:54)
[2022-07-28] MEDS: VANCOMYCIN 1,250 MG in Normal Saline 250 ML 166.67 MG IV (10:55)
[2022-07-28 11:23] VITALS: BP 129/67; PULSE 103; RESP 20; TEMP 36.6; O2SAT 92
--- NOTE | 2022-07-28 14:28 | DSE_ITS ---
Date of service: 08/27/22 Time of Service: 15:00 DS: Diagnosis Discharge Diagnosis (1) Mild persistent asthma without complication: Status: Chronic (2) Pneumonia: Status: Resolved Discharge Plan Disposition Patient Disposition: Home Condition: Good Discharge Details Reason For Visit: Left Lower Lobe Pneumonia,Failed Outpatient,Asthma Admit Date/Time: 07/24/22 22:28 Admit Provider: Mukesh Gordon Attending Provider: Mukesh Gordon Primary Care Provider: Any [facility] Course Hospital Course: This is a 51-year-old female patient with past medical history of asthma that was treated for pneumonia in the left lower lobe now status post bronchoscopy with culture revealing Staph aureus and patient on clindamycin.? She did feel somewhat better on oral therapy and states she has been fighting this for weeks and not clearing.? She does also have bronchospasm at times and in the ED had bronchospasm prompting initiation of IV Solu-Medrol and more aggressive nebulizer treatments.? She did have an elevated WBC with progressive changes on CT of the chest prompting expansion of IV antibiotic therapy to vancomycin, Zithromax and cefepime for possible hospital-acquired pneumonia being status post recent procedure.? She stated that she was having increased cough and shortness of breath for at least 1 day if not 3 days.? She was put on IV normal saline for hydration. She was not short of breath and denied chest pain. She was admitted to the hospital on the med floor for IV antibiotics to be treated for pneumonia. She had a small amount of peripheral edema. She was seen by pulmonology and discharged to home on clindamycin to complete a 10 day total course, prednisone taper, and recommendation for a nebulizer at home. She will have a follow up chest CT in [address] Posada Home Meds and New Rx's Prescriptions: New albuterol sulfate 2.5 mg /3 mL (0.083 %) Solution For Nebulization 2.5 mg UPD Q6H PRN PRNQty: 90 0RF prednisone 10 mg tablet See Taper PO DAILY Qty: 81 0RF Taper: Prednisone 10mg taper 50 mg Daily for 7 Days and 0 Hour 40 mg Daily for 5 Days and 0 Hour 30 mg Daily for 5 Days and 0 Hour 20 mg Daily for 3 Days and 0 Hour 10 mg Daily for 3 Days and 0 Hour 5 mg Daily for 3 Days clindamycin HCl 300 mg capsule 300 mg PO TID Qty: 15 0RF Continued ketoconazole 2 % cream 1 applic topical BID PRN montelukast 10 mg tablet 10 mg PO DAILY albuterol sulfate [Proventil HFA] 90 mcg/actuation HFA aerosol inhaler 2 puff inhalation Q6H PRN (Reason: shortness of breath or wheezing) Qty: 8.5 12RF Advair HFA 230-21 mcg/actuation HFA aerosol inhaler 2 puff inhalation BID Qty: 12 12RF Rx Instructions: administer with spacer levothyroxine 175 mcg tablet 175 mcg PO DAILY Label Comments: TAKE 1 TABLET BY MOUTH EVERY DAY Discontinued clindamycin HCl 300 mg capsule 300 mg PO TID Qty: 21 0RF Saccharomyces boulardii [Daily Probiotic (S. boulardii)] 250 mg capsule 20,000 mmu cells PO DAILY Qty: 10 0RF albuterol sulfate 90 mcg/actuation HFA aerosol inhaler 2 puff inhalation Q4H PRN Discharge Instructions Instructions: Clindamycin (By mouth), Albuterol (By breathing), Probiotic (By mouth), How to Use a Nebulizer (DC) Additional Instructions: Take Clindamycin three times a day for 5 days. Start a probiotic. Stand Alone Forms: Nursing Discharge Form Referrals: Tierra Khalil MD [ [facility]FF [facility]YSICIAN] - 09/02/22 11:30 am (Follow up as planned in early August) Any Pennington MD [Primary Care Provider] - 08/15/22 10:40 am (1-2 weeks) Activity:: Activity as Tolerated Equipment/Supplies:: Nebulizer Diet:: As Tolerated Discharge Orders Discharge Orders: Discharge Order (Routine); Ordered 07/28/22 Ordered By: Cata Hoffman Other Ambulatory Orders: TSH (W/Ref FT4) (Routine) Timeframe: 6 Weeks Location: None Selected Ordered By: Bambi Salter Discharge Data Discharge Date/Time-TO BE ENTERED AT DEPARTURE: 07/28/22 16:18 DS: Summary Time Spent with Patient providing and/or coordinating discharge services: Greater than 30 minutes Status at Discharge Functional status at discharge: independent ambulation Overall status at discharge: patient is back to baseline Mental Status: mental status grossly normal Speech and Movement: speech and movement normal Mood: congruent mood Affect: normal affect Exam Psych Mental Status: mental status grossly normal Speech and Movement: speech and movement normal Mood: congruent mood Affect: normal affect DS: Data Vitals/I&O Vitals and I&O: Vital Signs Temperature 36.6 C 07/28/22 11:23 Temperature Source Tympanic 07/28/22 11:23 Pulse 103 H 07/28/22 11:23 Pulse Rhythm Regular 07/28/22 07:45 Pulse 121 H 07/24/22 19:50 Respiratory Rate 20 07/28/22 11:23 Respiratory Effort Non-Labored 07/28/22 07:45 Respiratory Depth Normal 07/28/22 07:45 Respiratory Pattern Normal 07/28/22 07:45 Blood Pressure 129/67 07/28/22 11:23 Blood Pressure Mean 78 07/24/22 19:46 Blood Pressure Position Sitting 07/24/22 19:11 Pulse Oximetry 92 07/28/22 11:23 Oxygen Delivery Method Room Air 07/28/22 08:35 Oxygen Flow Rate 0 07/28/22 08:35 Fraction of Inspired Oxygen (FIO2) 25 07/27/22 12:32 Pain Level 0 07/28/22 03:54 Intake & Output 07/27/22 07/28/22 07/28/22 23:59 11:59 23:59 Intake Total 450 / 1750 1213.891 / 1213.891 Output Total 400 / 700 2250 / 3150 900 / 3150 Balance 50 / 1050 -1036.109 / -1936.109 -900 / -1936.109 Intake: IV 450 / 1050 713.891 / 713.891 Oral 500 / 500 Output: Urine 400 / 700 2250 / 3150 900 / 3150 Other: Urine Color Yellow Yellow Pale Urine Appearance Clear Clear Clear Urine Odor Normal Normal None Stool Size Moderate Stool Characteristics Formed Voiding Methods Toilet Toilet Data Completed and Pending Labs on day of discharge: Labs from last 24 hours 07/28/22 05:53 Sodium 140 Potassium 3.4 L Chloride 103 Carbon Dioxide 28.8 Anion Gap 8.2 BUN 9 Creatinine 0.6 Est GFR (CKD-EPI 2020) 107.93 Glucose 100 Calcium 8.9 Preliminary micro results at discharge 07/26/22 14:30 Sputum Culture - Preliminary Sputum - Expectorated Karolina Albicans Normal Rose 07/24/22 21:22 Blood Culture - Preliminary Blood NO GROWTH 72 HOURS 07/24/22 21:15 Blood Culture - Preliminary Blood NO GROWTH 72 HOURS PFSH All Active Problems (Updated 07/29/22 @ 00:08 by MIGUEL ANGEL OLIVAS) Hypothyroidism (Chronic) Unspecified slipped upper femoral epiphysis (nontraumatic), right hip (Acute 07/25/15) Obstructive sleep apnea syndrome (Chronic 07/25/15) Mild persistent asthma without complication (Chronic 07/25/15) Metabolic syndrome (Acute 07/25/15) Hx of Hodgkins lymphoma (Acute 07/25/15) BMI 40.0-44.9, adult (Acute 07/25/15) Acquired hypothyroidism (Acute 07/25/15) Abnormal uterine bleeding (Acute 07/25/15) Trochanteric bursitis of right hip (Acute) Left leg swelling (Acute) Encounter for screening for COVID-19 (Acute) Medical History Abnormal uterine bleeding Rx with DepoProvera x9yrs. Resumed after stopping Depo in 2003. Worsening in 2013. 10/2015 Mirena IUD. Asthma, mild persistent BMI 40.0-44.9, adult Hx of Hodgkins lymphoma Hypothyroidism Metabolic syndrome Obstructive sleep apnea Unspecified slipped upper femoral epiphysis (nontraumatic), right hip Surgical History History of cholecystectomy History of hip surgery pin placement History of removal of Port-a-Cath placement and removal Family History Mother Heart disease heart beats too fast Asthma Allergies Son Personal history of malignant neoplasm Father COPD (chronic obstructive pulmonary disease) Social History Smoking/Tobacco Use Status: Never Smoking risk assessment performed?: Yes Alcohol Intake: never Drug use: Never Substance use type: does not use Do you feel safe at home: Yes (unable to assess privately) Do you feel safe in your relationship?: Yes
--- NOTE | 2022-07-28 17:51 | PDOC.CMDIS ---
- If Service Date Differs Date of service: 07/28/22 Time of Service: 17:51 LACE Index Scoring Tool - Questions: Length of Stay (in days): 4 - 6 Acuity (Admit via E.D.?): Yes Comorbidities: Any Tumor E.D. Visits: 2 - Answers: Total Score: 11 Risk of Readmission: High Risk Care Management Discharge Reason for Hospitalization: Pneumonia and asthma Discharge Plan: Karla returned home today with no new services. She was driven home via private vehicle by a friend. She will follow up with her PCP, Pulmonology, and discharge plan of care. Patient/Family Education Needs: Review discharge instructions and limitations, discussion of self care needs including ask me three.
== END 2022-07-28 16:18 | disposition home or self-care (01) | DRG 202 ==
LOC: ER 21:30 → MS 07-25 00:26
PROVIDERS: Internal Medicine; Nurse Practitioner Acute Care; Nurse Practitioner Family; Admitting Provider Family Medicine; Emergency Provider Nurse Practitioner Family; PCP Family Medicine; Visit Provider Family Medicine
DX: J45.31 Mild persistent asthma with (acute) exacerbation (principal); J18.9 Pneumonia, unspecified organism; Z68.41 Body mass index [BMI] 40.0-44.9, adult; G47.33 Obstructive sleep apnea (adult) (pediatric); E03.9 Hypothyroidism, unspecified; E88.81 Metabolic syndrome and other insulin resistance; E66.9 Obesity, unspecified; Z85.71 Personal history of Hodgkin lymphoma
CPT/HCPCS: 36410; 36415; 71275; 80048; 80053; 82805; 84145; 85027; 85652; 87040; 87637; 93005; 94640; 96361; 96365; 96375; 99285; J1650; 80202; 81025; 83605; 83735; 83880; 84439; 84443; 84484; 85025; 85610; 85730; 86140; 87070; 87205; 93010; 94667; 99223; 99232; 99233; 99239; J0456; J2930; J3490; J7512; J7613; J7620

== ENCOUNTER → 2022-08-12 01:18 | Outpatient (CLI) | payer BC, SELFPAY ==
--- NOTE | 2022-08-12 10:30 | DI.US_ITS ---
APPROVED REPORT EXAM: Comprehensive 2D, Doppler, and color-flow Echocardiogram Patient Location: Out-Patient Ug Designer: She Valdovinos RDCS (AE) Indications: MVR Other Information Study Quality: Adequate Conclusion Normal left ventricular wall thickness and chamber size. Estimated ejection fraction is 55 to 60%. Wall motion is normal Right ventricle is normal in size and systolic function Both atria are normal in size Aortic valve is calcified and probably trileaflet. There is mild to moderate aortic stenosis. Peak gradient is 32, mean is 21 mmHg calculated aortic valve area is 1.7 cm??. There is moderate aortic r egurgitation Thickened mitral leaflets. Mitral annular calcification. Mild to moderate mitral regurgitation Normal tricuspid valve with trace regurgitation. Estimated right ventricular systolic pressure is 26 mmHg Wall motion Left Ventricle The left ventricle is normal size. The left ventricular systolic function is normal. The left ventric ular ejection fraction is within the normal range. Mild to moderate concentric left ventricular hyper trophy. There is normal LV segmental wall motion. There is no ventricular septal defect visualized. L VEF is 57%. Right Ventricle The right ventricle is normal size. The right ventricular systolic function is normal. The RVSP is 26 .0mmHg. Atria The left atrium size is normal. The right atrium size is normal. The interatrial septum is intact wit h no evidence for an atrial septal defect. Aortic Valve Aortic valve is calcified. Aortic valve is probably trileaflet. Mild to moderate aortic stenosis. Pe ak aortic valve gradient is 32.4mmHg. Highest mean aortic valve gradient is20.9mmHg. Calculated VALARIE b y the continuity equation is 1.7cm2. Moderate aortic regurgitation. Mitral Valve Mitral valve leaflets are thickened. Mild mitral annular calcification. No evidence of mitral valve s tenosis. Mild to moderate mitral regurgitation. Tricuspid Valve The tricuspid valve is normal in structure. There is no tricuspid valve stenosis. Trace tricuspid reg urgitation. Pulmonic Valve The pulmonary valve is normal in structure. There is no pulmonic valvular stenosis. Mild pulmonic reg urgitation. Great Vessels The aortic root is normal in size. The ascending aorta is normal in size. Aortic arch is normal in ca liber. IVC is normal in size and collapses >50% with inspiration. Pericardium There is no pericardial effusion. 2D Dimensions IVSD d PLAX 1.33 cm F: 0.6-1.0 LV Vol A2C d MOD 147.0 mL LVPW d PLAX 1.30 cm F: 0.6 - 1.0 LV Vol A4C d MOD 139.7 mL LVID d PLAX 4.11 cm F: 3.8 - 5.2 LA vol/ BSA A2C s A-L 29.1 mL/m2 LVDs 2.85 cm F: 2.2 - 3.5 LA vol/ BSA A4C s A-L 23.7 mL/m2 Ao Root d 2.90 cm F: 2.7 - 3.3 LA Vol/ BSA Biplane s A-L 26.6 mL/m2 RA Area A4C 15.68 cm2 LA Area A4C s MOD 16.86 cm2 RA Vol/ BSA A4C s A-L 21.9 mL/m2 LA Area A2C s MOD 18.91 cm2 Ao Asc Diam d 3.08 cm F: 2.3 - 3.1 LV EF A4C MOD 57.3 % LV EF Teichholz 57.8 % LV EF A2C MOD 55.3 % LVEF (Alonzo's) 56.27 % F: 54 - 74 LV EF Biplane MOD 56.3 % LV Volume 108.77 mL F: 46 - 106 SV 82.56 mL LV Volume Index 52.54 mL/m2 F: 29 - 61 SV Index 39.86 mL/m2 LV Vol Biplane MOD 146.7 mL FS 30.05 % M-Mode TAPSE 2.64 cm (M/F) >1.7 LV Diastology MV E' medial 0.052 (>0.07 m/s) E/A Ratio 1.1 LV E/e MED 33.85 (<14) MV E Vmax 1.76 (0.4-1.3 m/s) MV E' lateral 0.056 (>0.1 m/s) MV A Vmax 1.65 (0.4-1.3 m/s) LV E/e LAT 31.45 (<14) MV E/A Ratio 1.06 MV E/E' medial 33.87 MV E/E' lateral 31.49 Aortic Valve LVOT Area 3.41 cm2 AoV Area Vmax 1.71 cm2 LVOT Vmax 1.42 m/s AoV Area/ BSA (Vmax) 0.82 cm2/m2 LVOT Mean Artis. 1.09 m/s VALARIE Mean Artis. 1.69 cm2 LVOT Peak Grad 8.1 mmHg VALARIE Mean Artis. Index 0.81 cm2/m2 LVOT Mean Grad 5.0 mmHg AR DT 1083 msec LVOT VTI 0.281 m AR PHT 314 msec LVOT Diam s 2.05 cm AoV Vmax 2.85 m/s Velocity Ratio 0.50 AoV Mean Artis. 2.22 m/s AoV Peak Grad 32.4 mmHg LVOT SV 95.97 mL AoV Mean Grad 20.9 mmHg AoV VTI 0.580 m AoV Area VTI 1.65 cm2 AoV Area/ BSA (VTI) 0.80 cm/m2 Mitral Valve MV DT 253 (160-240 msec) MV PHT 73 msec MV Area PHT 3.00 cm2 MV VTI 0.534 m MV Area VTI 1.80 (4.0-6.0 cm2) Pulmonary Valve PV Vmax 0.96 (0.5-1.5 m/s) RVOT Peak Gr. 2.49 mmHg PV Peak Grad 3.7 mmHg RVOT Mean Gr. 1.25 mmHg PV Mean Grad 1.9 mmHg RVOT VTI 0.155 m PV VTI 0.172 m RVOT Vmax 0.79 m/s Tricuspid Valve TR Peak Grad 22.9 mmHg TR Vmax 2.40 m/s RA Pressure 3.00 mmHg RVSP (TR) 26.0 mmHg
== END ==
PROVIDERS: PCP Family Medicine; Visit Provider Family Medicine
DX: I34.0 Nonrheumatic mitral (valve) insufficiency (principal)
CPT/HCPCS: 93306

== ENCOUNTER 2022-08-15 13:02 | Outpatient (REF) | payer BC, SELFPAY ==
[2022-08-15 19:08] LABS: Abs Immature Grans 0.15 10^3/uL (0.0-0.06); Absolute Eosinophil Count 0.03 10^3/uL (0.0-0.7); Absolute Lymphocyte Count 1.16 10^3/uL (1.2-3.4); Absolute Monocyte Count 0.59 10^3/uL (0.1-0.8); Basophils % 0.5; Eosinophils % 0.2; HCT 45.7 % (36.0-46.0); HGB 14.3 g/dL (11.2-15.7); Lymphocytes % 7.5; MCH 28.1 pg (27.0-33.0); MCHC 31.3 % (32.0-36.0); MCV 90 fL (80-95); MPV 10.1 fL (8.0-11.0); Monocytes % 3.8; Platelet Count 306 10^3/uL (130-400); RBC 5.09 10^6/uL (3.93-5.22); RDW 14.6 % (11.7-14.6); RDW-SD 48.2 fL
[2022-08-15 19:13] LABS: Absolute Basophil Count 0.08 10^3/uL (0.0-0.2); Absolute Neutrophil Count 13.49 10^3/uL (1.2-6.7)
[2022-08-15 19:28] LABS: Anion Gap 10.2 mmol/L (3-11); BUN 16 mg/dL (7-18); CO2 29.8 mmol/L (21.0-32.0); CREATININE 0.7 mg/dL (0.55-1.02); Calcium 9.5 mg/dL (8.5-10.1); Chloride 99 mmol/L (98-107); Glucose 133 mg/dL (74-106); Potassium 4.8 mmol/L (3.5-5.1); Sodium 139 mmol/L (136-145); TSH (W/Ref FT4) 0.14 uIU/mL (0.36-3.74)
[2022-08-15 19:46] LABS: FREE T4 1.45 ng/dL (0.76-1.46)
== END 2022-08-15 13:03 | disposition home or self-care (01) ==
LOC: NCHCN 13:02
PROVIDERS: PCP Family Medicine; Visit Provider Family Medicine
DX: R05.8 Other specified cough (principal); J18.9 Pneumonia, unspecified organism; R06.02 Shortness of breath; E03.9 Hypothyroidism, unspecified; Z85.71 Personal history of Hodgkin lymphoma; Z92.21 Personal history of antineoplastic chemotherapy
CPT/HCPCS: 80048; 84439; 84443; 85025; 87070; 87205

== ENCOUNTER 2022-09-12 01:38 | Outpatient (CLI) | payer BC, SELFPAY ==
[2022-09-15 08:57] LABS: IgE 115 IU/mL (<158)
[2022-09-15 10:03] LABS: IgA 374 mg/dL (85-499); IgG 1014 mg/dL (610-1616); IgM 293 mg/dL (35-242)
[2022-09-15 10:51] LABS: HIV-1/2 Ag & Ab Screen Negative (Negative)
[2022-09-16 12:38] LABS: Fungitell Qualitative Negative (Negative); Fungitell Quantitative Value <31 pg/mL (<60 pg/mL)
[2022-09-17 15:02] LABS: Blastomyces Ag Result Not Detected; Blastomyces Ag Value Not Detected
== END 2022-09-12 01:39 | disposition home or self-care (01) ==
LOC: LBO 01:38
PROVIDERS: PCP Family Medicine; Visit Provider Student in an Organized Health Care Education/Training Program
DX: R93.89 Abnormal findings on diagnostic imaging of other specified body structures (principal)
CPT/HCPCS: 36415; 82784; 87389; 87449; 82785; 82787; 87070; 87205; 87385

== ENCOUNTER 2022-09-19 15:58 | Outpatient (REF) | payer BC, SELFPAY ==
--- NOTE | 2022-09-19 15:30 | PAPFT_PTH ---
PATIENT: Karla Quiles LOC: [facility]#:[id number] AGE/SX: 51/F ROOM: RE09/19/[address]: Any Pennington : 1970 BED: DIS: 09/19/2022 SPEC #: [id number] RECD: 09/19/22 18:17 STATUS: YAJAIRA REQ #: [id number] [place]: 09/19/22 15:[address]: Any Pennington DEPT: COUNT INCLUDES THE [facility] Cytology RECD BY: Renetta Bosch Tissues: 1 - CX/ENDOCX FOR PAP SMEARS Procedures: PAP THIN PREP/UVM Screening HPV DNA PROBE Comments: [id number]
== END 2022-09-19 15:59 | disposition home or self-care (01) ==
LOC: NCHCN 15:58
PROVIDERS: PCP Family Medicine; Visit Provider Family Medicine
DX: Z12.4 Encounter for screening for malignant neoplasm of cervix (principal); Z11.51 Encounter for screening for human papillomavirus (HPV)
CPT/HCPCS: 88142; 87624

== ENCOUNTER 2022-09-22 01:30 | Outpatient (CLI) | payer BC, SELFPAY ==
--- NOTE | 2022-09-22 | DI.MAMMO_ITS ---
Exam(s) MAMMO SCREENING EXAM: MAMMO SCREENING CLINICAL HISTORY: SCREENING MAMMO FOR BREAST CANCER Z12.31 TECHNIQUE: Mammograms were interpreted according to the usual protocol including computer analysis w [employer] CAD system, tomosynthesis and C-view imaging. COMPARISON: 2012 through 2021 FINDINGS: The breasts are composed of mainly fatty density , Breast Density category A. No suspicious masses or suspicious microcalcifications are seen. No skin thickening or abnormal axillary lymph nodes are seen. There has been no significant change from prior exams. IMPRESSION: BI-RADS Category 1, Negative mammogram Yearly screening mammography is recommended. Breast Density - Category A, fatty density. A negative radiographic report should not delay biopsy if a dominant or clinically suspicious mass is present. Up to ten percent of cancers are not identified on mammography. A negative report may reinforce clinical impression. Adenosis and dense breasts may obscure an underlying neoplasm. False positive reports average 6 to 10%. Patient will receive a letter notifying them of these results.
== END 2022-09-22 01:50 ==
PROVIDERS: PCP Family Medicine; Visit Provider Family Medicine
DX: Z12.31 Encounter for screening mammogram for malignant neoplasm of breast (principal); R92.8 Other abnormal and inconclusive findings on diagnostic imaging of breast
CPT/HCPCS: 77063; 77067

== ENCOUNTER 2022-11-10 03:25 | Outpatient (CLI) | payer BC, SELFPAY ==
[2022-11-10] MEDS: Albuterol HFA 18 GM 200 PUFF INH IH (15:13)
[2022-11-10] MEDS: Inhaler, Assist Device 1 EACH MC (15:13)
--- NOTE | 2022-11-19 12:17 | W.PFT ---
Date of service: 11/10/22 Time of Service: 13:19 Pulmonary Function Test Result Requesting Provider Simran Indications: Asthma Interpretation Spirometry: There is no airflow limitation. No bronchodilator response. Lung Volumes: Normal lung volumes Diffusion Capacity: Normal diffusion Airway Pressure: Increased resistance Impression Increased airways resistance that may be consistent with asthma. Clinical Correlation therefore is recommended.
== END 2022-11-10 03:26 | disposition home or self-care (01) ==
LOC: RT 03:25
PROVIDERS: PCP Family Medicine; Visit Provider Student in an Organized Health Care Education/Training Program
DX: J45.30 Mild persistent asthma, uncomplicated (principal); R93.89 Abnormal findings on diagnostic imaging of other specified body structures
CPT/HCPCS: 94060; 94726; 94729

== ENCOUNTER 2022-11-21 18:41 | Outpatient (REF) | payer BC, SELFPAY ==
[2022-11-21 19:42] LABS: HCT 44.2 % (36.0-46.0); HGB 13.8 g/dL (11.2-15.7); MCHC 31.2 % (32.0-36.0); MCV 90 fL (80-95); MPV 10.8 fL (8.0-11.0); Platelet Count 339 10^3/uL (130-400); RBC 4.92 10^6/uL (3.93-5.22); RDW 14.1 % (11.7-14.6); RDW-SD 46.3 fL; WBC 10.56 10^3/uL (4.4-10.8)
[2022-11-21 20:38] LABS: Anion Gap 5.5 mmol/L (3-11); BUN 10 mg/dL (7-18); CO2 34.5 mmol/L (21.0-32.0); CREATININE 0.9 mg/dL (0.55-1.02); Calcium 9.3 mg/dL (8.5-10.1); Chloride 98 mmol/L (98-107); Estimated GFR 76.92 (mL/min/1.73m2); Glucose 158 mg/dL (74-106); Potassium 3.8 mmol/L (3.5-5.1); Sodium 138 mmol/L (136-145); TSH (W/Ref FT4) 0.81 uIU/mL (0.36-3.74)
== END 2022-11-21 18:42 | disposition home or self-care (01) ==
LOC: NCHCN 18:41
PROVIDERS: PCP Family Medicine; Visit Provider Family Medicine
DX: E03.9 Hypothyroidism, unspecified (principal); I10 Essential (primary) hypertension; R06.00 Dyspnea, unspecified
CPT/HCPCS: 80048; 85027; 84443

== ENCOUNTER 2022-12-02 14:00 | Outpatient (REF) | payer BC, SELFPAY ==
[2022-12-02 22:18] LABS: Rheumatoid Factor <8.6 IU/mL (<12.0)
[2022-12-03 09:13] LABS: Cyclic Citrullinated Peptide <2.5 U/mL (<5.0)
[2022-12-03 13:19] LABS: ANA Interpretation Positive (Negative); ANA Titer Pattern 1:160 Speckled
[2022-12-03 17:30] LABS: Myeloperoxidase Ab IgG <0.2 U; Proteinase 3 Ab (PR3) <0.2 U
== END 2022-12-02 14:01 | disposition home or self-care (01) ==
LOC: LBN 14:00
PROVIDERS: PCP Family Medicine; Visit Provider Student in an Organized Health Care Education/Training Program
DX: R91.8 Other nonspecific abnormal finding of lung field (principal); J45.30 Mild persistent asthma, uncomplicated
CPT/HCPCS: 86200; 83516; 86038; 86431

== ENCOUNTER 2023-02-12 15:00 | Outpatient (REF) | payer BC, SELFPAY ==
[2023-02-12 19:35] LABS: Hemoglobin A1C 5.9 % (<5.7)
[2023-02-12 19:58] LABS: BUN 10 mg/dL (7-18); Chloride 104 mmol/L (98-107); Estimated GFR 67.36 (mL/min/1.73m2); Glucose 122 mg/dL (74-106); NT-proBNP 295 pg/mL (<300); Potassium 4.3 mmol/L (3.5-5.1); Sodium 144 mmol/L (136-145)
[2023-02-13 12:44] LABS: HCT 40.2 % (36.0-46.0); HGB 12.9 g/dL (11.2-15.7); MCH 28.4 pg (27.0-33.0); MCHC 32.1 % (32.0-36.0); MCV 89 fL (80-95); MPV 11.3 fL (8.0-11.0); Platelet Count 338 10^3/uL (130-400); RBC 4.54 10^6/uL (3.93-5.22); RDW 14.6 % (11.7-14.6); RDW-SD 47.3 fL; WBC 10.95 10^3/uL (4.4-10.8)
[2023-02-17 13:28] LABS: dsDNA Ab, IgG <12.3 IU/mL (<30.0)
[2023-02-17 14:50] LABS: RNP Ab, IgG 1.4 Units (<20.0); SS-A Antibody 1.2 Units (<20.0); SS-B (La) Ab, IgG 2.3 Units (<20.0); Sm (Smith) Ab, IgG 1.9 Units (<20.0)
== END 2023-02-12 15:01 | disposition home or self-care (01) ==
LOC: NCHCN 15:00
PROVIDERS: PCP Family Medicine; Visit Provider Family Medicine
DX: R91.8 Other nonspecific abnormal finding of lung field (principal); R79.89 Other specified abnormal findings of blood chemistry; I10 Essential (primary) hypertension; R73.03 Prediabetes; B19.20 Unspecified viral hepatitis C without hepatic coma
CPT/HCPCS: 80048; 85027; 83036; 83880; 86225; 86235

== ENCOUNTER 2023-10-09 15:44 | Outpatient (REF) | payer BC, SELFPAY ==
[2023-10-09 15:58] LABS: ALT 19 U/L (14-59); AST 10 U/L (15-37); Albumin 3.8 g/dL (3.4-5.0); Alkaline Phosphatase 116 U/L (46-116); Anion Gap 5.6 mmol/L (3-11); BUN 12 mg/dL (7-18); Bilirubin, Total 1.6 mg/dL (0.2-1.0); CO2 34.4 mmol/L (21.0-32.0); CREATININE 0.7 mg/dL (0.55-1.02); Calcium 9.8 mg/dL (8.5-10.1); Chloride 97 mmol/L (98-107); Estimated GFR 103.35 (mL/min/1.73m2); Glucose 111 mg/dL (74-106); Potassium 4.1 mmol/L (3.5-5.1); Sodium 137 mmol/L (136-145); TSH (W/Ref FT4) 1.24 uIU/mL (0.36-3.74); Total Protein 8.1 g/dL (6.4-8.2)
[2023-10-09 16:51] LABS: Hemoglobin A1C 5.8 % (<5.7)
== END 2023-10-09 15:45 | disposition home or self-care (01) ==
LOC: NCHCN 15:44
PROVIDERS: PCP Family Medicine; Visit Provider Family Medicine
DX: I10 Essential (primary) hypertension (principal); E03.9 Hypothyroidism, unspecified; R73.03 Prediabetes
CPT/HCPCS: 80053; 83036; 84443

== ENCOUNTER → 2023-11-18 02:43 | Outpatient (CLI) | payer BC, SELFPAY ==
--- NOTE | 2023-11-18 | DI.MAMMO_ITS ---
Exam(s) MAMMO SCREENING EXAM: MAMMO SCREENING CLINICAL HISTORY: SCREENING,Z12.31 TECHNIQUE: Mammograms were interpreted according to the usual protocol including computer analysis w [employer] CAD system, tomosynthesis and C-view imaging. COMPARISON: 2013 through 2022 FINDINGS: The breasts are composed of mainly fatty density , Breast Density category A. No suspicious masses or suspicious microcalcifications are seen. No skin thickening or abnormal axillary lymph nodes are seen. There has been no significant change from prior exams. IMPRESSION: BI-RADS Category 1, Negative mammogram Yearly screening mammography is recommended. Breast Density - Category A, fatty density. A negative radiographic report should not delay biopsy if a dominant or clinically suspicious mass is present. Up to ten percent of cancers are not identified on mammography. A negative report may reinforce clinical impression. Adenosis and dense breasts may obscure an underlying neoplasm. False positive reports average 6 to 10%. Patient will receive a letter notifying them of these results.
--- NOTE | 2023-11-18 08:30 | DI.US_ITS ---
APPROVED REPORT EXAM: Comprehensive 2D, Doppler, and color-flow Echocardiogram Patient Location: Out-Patient Toy Painter: She Valdovinos RDCS (AE) Indications: Aortic Valve regurgitation, Nonrheumatic aortic insufficiency Other Information Study Quality: Adequate. Technically limited study due to body habitus, patient unable to tolerate co mpression with probe. Conclusion Mild concentric left ventricular hypertrophy. EF is 55%. Wall motion is normal Normal right ventricular size and function Mildly enlarged left atrium. Right atrial size is normal Aortic valve is sclerotic, may be bicuspid. There is moderate aortic stenosis with a peak gradient o f 39, mean of 30 mmHg. calculated aortic valve area is 1 cm??. There is mild aortic regurgitation Thickened mitral leaflets, calcified mitral annulus, moderate mitral regurgitation Normal tricuspid valve with mild regurgitation. Estimated right ventricular systolic pressure is 30 mmHg Wall motion Left Ventricle The left ventricle is normal size. The left ventricular systolic function is normal. The left ventric ular ejection fraction is within the normal range. Mild concentric left ventricular hypertrophy. Ther e is normal LV segmental wall motion. There is no ventricular septal defect visualized. LVEF is 55%. Right Ventricle Right ventricle is grossly normal in size. Right ventricular systolic function is grossly normal. Atria The left atrium is mildly dilated The right atrium size is normal. The interatrial septum is intact w ith no evidence for an atrial septal defect. Aortic Valve Aortic valve is calcified. Aortic valve may be bicuspid Moderate aortic stenosis. Peak aortic valve g radient is 38.62mmHg. Highest mean aortic valve gradient is 30.32mmHg. Calculated VALARIE by the continui ty equation is 1.0cm2. Mild aortic regurgitation. Mitral Valve Mitral valve leaflets are moderately thickened. There is mitral annular calcification. Mitral valve l eaflets have restricted excursion. No evidence of mitral valve stenosis. Moderate mitral regurgitatio n. Mitral regurgitation jet is eccentrically directed. Tricuspid Valve The tricuspid valve is normal in structure. There is no tricuspid valve stenosis. Mild tricuspid regu rgitation. The RVSP is 30.1mmHg. Pulmonic Valve The pulmonary valve is normal in structure. There is no pulmonic valvular stenosis. Mild pulmonic reg urgitation. Great Vessels The aortic root is normal in size. The ascending aorta is normal in size. Aortic arch is normal in ca liber. IVC is normal in size and collapses >50% with inspiration. Pericardium Trace to mild pericardial effusion. 2D Dimensions IVSD d PLAX 1.20 cm F: 0.6-1.0 Ao Root d 3.13 cm F: 2.7 - 3.3 LVPW d PLAX 1.20 cm F: 0.6 - 1.0 Ao Asc Diam d 2.96 cm F: 2.3 - 3.1 LVID d PLAX 4.36 cm F: 3.8 - 5.2 LVDs 3.12 cm F: 2.2 - 3.5 LV EF Teichholz 55.2 % FS 28.48 % LV EDV (Teich) 85.6 mL LV ESV (Teich) 38.4 mL M-Mode TAPSE 2.38 cm (M/F) >1.7 Auto EF LV EDV A4C 116.1 mL LV EDV A2C 130.4 mL LV EDV BP 122.8 mL LV ESV A4C 52.0 mL LV ESV A2C 58.7 mL LV ESV BP 56.7 mL LVEF(%) A4C 55.2 % LVEF(%) A2C 55.0 % LVEF(%) BP 53.8 % LV SV A4C 64.0 ml LV SV A2C 71.7 ml LV SV BP 66.1 ml LV CO A4C 5.0 L/min LV CO A2C 5.8 L/min LV CO BP 5.4 L/min HR A4C 78.78 BPM HR A2C 80.72 BPM LV EDV Index (BP) LA Volume LA Length A4C 5.0 cm LA Length A2C 4.8 cm LA Area A4C s 17.55 cm2 LA Area A2C s 16.72 cm2 LA Vol A4C A-L 52.31 mL LA Vol A2C A-L 49.98 mL LA Vol Biplane A-L 52.4 mL LA Vol/BSA A4C A-L LA Vol/BSA A2C A-L LA Vol/BSA BP A-L 25.6 mL/m2 LA Vol A4C MOD 50.1 mL LA Vol A2C MOD 47.4 mL LA Vol BP MOD 49.8 mL LV Diastology MV E' medial 0.062 (>0.07 m/s) MV E Vmax 1.63 (0.4-1.3 m/s) MV E/E' MED 26.48 (<14) MV A Vmax 1.60 (0.4-1.3 m/s) MV E' lateral 0.056 (>0.1 m/s) E/A Ratio 1.0 MV E/E' LAT 29.00 (<14) MV E' Average 0.059 m/s MV E/E'(average) 27.68 Aortic Valve AoV Vmax 3.11 m/s LVOT Vmax 0.92 m/s AoV Peak Grad 57.5 mmHg LVOT Peak Grad 3.4 mmHg AoV Area (Vmax) 0.90 cm2 LVOT VTI 0.234 m AoV VTI 0.704 m LVOT Mean Grad 2.0 mmHg AoV Mean Artis. 2.68 m/s LVOT SV 71.17 mL AoV Mean Grad 30.3 mmHg LVOT Diam s 1.95 cm AoV Area (VTI) 1.01 cm2 AV Regurg Peak Gr. 76.45 mmHg Velocity Ratio 0.[address] [place] 4.3m/sec2 AR DT 1027 msec AR PHT 298 msec AR Vmax 4.37 m/s Mitral Valve MV DT 419 (160-240 msec) MV Vmax TIPS 2.28 m/s MV Mean Grad 9.9 (<2mmHg) MV PHT 67 msec MV Area PHT 3.28 cm2 MV VTI 0.575 m Pulmonary Valve PV Vmax 0.93 (0.5-1.5 m/s) RVOT Vmax 0.65 m/s PV Peak Grad 3.5 mmHg RVOT Peak Gr. 1.7 mmHg PV Mean Artis 0.59 m/s RVOT VTI 0.148 m PV Mean Grad 1.6 mmHg RVOT Mean Gr. 1.1 mmHg Tricuspid Valve RA Pressure 3.00 mmHg TR Vmax 2.60 m/s TV S' 0.14 m/s TR Peak Grad 27.1 mmHg RVSP (TR) 30.1 mmHg
== END ==
PROVIDERS: PCP Family Medicine; Visit Provider Family Medicine
DX: Z12.31 Encounter for screening mammogram for malignant neoplasm of breast (principal); I35.1 Nonrheumatic aortic (valve) insufficiency
CPT/HCPCS: 77063; 77067; 93306

== ENCOUNTER 2024-04-14 12:49 | Outpatient (REF) | payer BC, SELFPAY ==
[2024-04-14 16:10] LABS: Anion Gap 6.6 mmol/L (3-11); BUN 10 mg/dL (7-18); CO2 32.4 mmol/L (21.0-32.0); CREATININE 0.7 mg/dL (0.55-1.02); Calcium 9.5 mg/dL (8.5-10.1); Chloride 103 mmol/L (98-107); Estimated GFR 102.71 (mL/min/1.73m2); Glucose 91 mg/dL (74-106); Magnesium 2.2 mg/dL (1.8-2.4); NT-proBNP 338 pg/mL (<300); Potassium 4.9 mmol/L (3.5-5.1); Sodium 142 mmol/L (136-145)
== END 2024-04-14 12:50 | disposition home or self-care (01) ==
LOC: NCHCN 12:49
PROVIDERS: PCP Family Medicine; Visit Provider Family Medicine
DX: I10 Essential (primary) hypertension (principal); E03.9 Hypothyroidism, unspecified
CPT/HCPCS: 80048; 83735; 83880; 84443

== ENCOUNTER 2024-07-21 14:07 | Outpatient (CLI) | payer BC, SELFPAY ==
[2024-07-21 14:22] LABS: Ferritin 132 ng/mL (8-252)
[2024-07-21 14:43] LABS: Iron 49 ug/dL (50-170); Total Iron Binding Capacity 333 ug/dL (250-450); Transferrin Sat 15 % (15-50)
== END 2024-07-21 14:08 | disposition home or self-care (01) ==
LOC: LBO 14:09
PROVIDERS: PCP Family Medicine; Visit Provider Family Medicine
DX: D64.9 Anemia, unspecified (principal)
CPT/HCPCS: 36415; 82728; 83540; 83550

== ENCOUNTER 2024-08-15 18:39 | Outpatient (REF) | payer BC, SELFPAY ==
[2024-08-15 16:59] LABS: Abs Immature Grans 0.14 10^3/uL (0.0-0.06); Absolute Eosinophil Count 0.05 10^3/uL (0.0-0.7); Absolute Lymphocyte Count 1.11 10^3/uL (1.2-3.4); Absolute Monocyte Count 0.79 10^3/uL (0.1-0.8); Absolute Neutrophil Count 10.35 10^3/uL (1.2-6.7); Basophils % 0.6 %; Eosinophils % 0.4 %; HCT 40.7 % (36.0-46.0); HGB 13.1 g/dL (11.2-15.7); Immature Grans % 1.1 %; Lymphocytes % 8.9 %; MCH 28.4 pg (27.0-33.0); MCHC 32.2 % (32.0-36.0); MCV 88 fL (80-95); MPV 10.6 fL (8.0-11.0); Monocytes % 6.3 %; Neutrophils % 82.7 %; Platelet Count 407 10^3/uL (130-400); RBC 4.62 10^6/uL (3.93-5.22); RDW 14.4 % (11.7-14.6); RDW-SD 45.7 fL; WBC 12.51 10^3/uL (4.4-10.8)
[2024-08-15 17:03] LABS: Absolute Basophil Count 0.08 10^3/uL (0.0-0.2)
[2024-08-15 17:21] LABS: ALT 18 U/L (14-59); AST 12 U/L (15-37); Albumin 3.6 g/dL (3.4-5.0); Alkaline Phosphatase 130 U/L (46-116); Anion Gap 9.2 mmol/L (3-11); BUN 15 mg/dL (7-18); Bilirubin, Total 0.44 mg/dL (0.2-1.0); CO2 31.8 mmol/L (21.0-32.0); CREATININE 0.9 mg/dL (0.55-1.02); Calcium 9.3 mg/dL (8.5-10.1); Chloride 100 mmol/L (98-107); Estimated GFR 75.97 (mL/min/1.73m2); Glucose 121 mg/dL (74-106); NT-proBNP 726 pg/mL (<300); Potassium 4.2 mmol/L (3.5-5.1); Sodium 141 mmol/L (136-145); Total Protein 7.7 g/dL (6.4-8.2)
== END 2024-08-15 18:40 | disposition home or self-care (01) ==
LOC: LBN 18:39
PROVIDERS: PCP Family Medicine; Visit Provider Physician Assistant Surgical
DX: J45.909 Unspecified asthma, uncomplicated (principal); R91.8 Other nonspecific abnormal finding of lung field; I27.20 Pulmonary hypertension, unspecified
CPT/HCPCS: 80053; 83880; 85025; 87070; 87205

== ENCOUNTER 2024-08-29 10:08 | Emergency (ER) | payer BC, SELFPAY ==
[2024-08-29 10:23] VITALS: BP 155/81; PULSE 102; RESP 24; TEMP 37.1; O2SAT 94
--- NOTE | 2024-08-29 12:00 | RT.EKG_ITS ---
APPROVED REPORT Exam: Resting ECG Reason for Exam: sob Patient Location: E HR:96 bpm ECG Measurements Heart Rate 96 AXIS [place] 154 P 53 QRSd 102 QRS 75 QT 368 T 18 QTc 466 Conclusion Sinus rhythm...normal P axis, V-rate 60- 99 Ventricular premature complex...V complex w/ short R-R interval Probable left ventricular hypertrophy...multiple LVH criteria I have reviewed and interpreted ECG and agree with software generated interpretation.
--- NOTE | 2024-08-29 12:00 | DI.RAD_ITS ---
Exam(s) XR CHEST 2V PA LATERAL EXAM: XR CHEST 2V PA LATERAL CLINICAL HISTORY: SOB, right lower crackles. TECHNIQUE: 2D digital imaging was performed. COMPARISON: CR XR CHEST 2V PA LATERAL from 06/09/[address] CHEST WO from 11/18/2023 FINDINGS: 2 views: Heart size is normal. The mediastinum is not widened. Multiple calcified lymph nodes are noted in the left upper mediastinum, similar to previous and also seen on prior CT scan of 11/18/2023. Again noted is difference in density of the lung wilson but this is unchanged from at least June 01. There are no new focal left lung findings no new focal right lung findings. No pleural effusio ns. No pulmonary edema. No pneumothorax. No fractures. IMPRESSION: Findings as above but with minimal if any significant change compared to prior studies. DATA REPOSITORY: RADIATION DOSE DELIVERED:
[2024-08-29 12:18] LABS: BE (Venous) 11 mmol/L (-2-3); HCO3 (Venous) 35 mmol/L (23-28); O2 Sat (Venous) 58 %; TCO2 (Venous) 32 mmol/L (24-29); pCO2 (Venous) 57 mmHg (41-51); pO2 (Venous) 31 mmHg
[2024-08-29 12:19] LABS: Abs Immature Grans 0.07 10^3/uL (0.0-0.06); Absolute Basophil Count 0.06 10^3/uL (0.0-0.2); Absolute Monocyte Count 0.88 10^3/uL (0.1-0.8); Basophils % 0.5 %; Eosinophils % 0.6 %; HCT 43.1 % (36.0-46.0); HGB 13.6 g/dL (11.2-15.7); Immature Grans % 0.6 %; Lymphocytes % 7.7 %; MCH 28.3 pg (27.0-33.0); MCHC 31.6 % (32.0-36.0); MCV 90 fL (80-95); MPV 9.8 fL (8.0-11.0); Monocytes % 7.1 %; Neutrophils % 83.5 %; Platelet Count 390 10^3/uL (130-400); RDW 14.6 % (11.7-14.6); RDW-SD 47.6 fL; WBC 12.39 10^3/uL (4.4-10.8)
[2024-08-29 12:21] LABS: Absolute Eosinophil Count 0.07 10^3/uL (0.0-0.7); Absolute Lymphocyte Count 0.95 10^3/uL (1.2-3.4); Absolute Neutrophil Count 10.35 10^3/uL (1.2-6.7)
[2024-08-29] MEDS: methylPREDNISolone SUCC 125 MG VIAL IVP (12:28)
[2024-08-29] MEDS: Albuterol/Ipratropium 3 ML UPD VIAL UPD (12:28)
[2024-08-29 12:31] VITALS: BP 119/63; PULSE 97; RESP 18; O2SAT 94
[2024-08-29 12:51] LABS: ALT 17 U/L (14-59); AST 11 U/L (15-37); Albumin 3.8 g/dL (3.4-5.0); Alkaline Phosphatase 127 U/L (46-116); Anion Gap 7.6 mmol/L (3-11); BUN 15 mg/dL (7-18); Bilirubin, Total 0.91 mg/dL (0.2-1.0); CO2 33.4 mmol/L (21.0-32.0); CREATININE 0.8 mg/dL (0.55-1.02); Calcium 9.4 mg/dL (8.5-10.1); Chloride 97 mmol/L (98-107); Glucose 97 mg/dL (74-106); NT-proBNP 680 pg/mL (<300); Potassium 4.3 mmol/L (3.5-5.1); Sodium 138 mmol/L (136-145); TSH (W/Ref FT4) 1.51 uIU/mL (0.36-3.74); Total Protein 8.9 g/dL (6.4-8.2); Troponin I 14 ng/L (<or=51)
[2024-08-29 12:55] LABS: Procalcitonin < 0.10 ng/mL
[2024-08-29 13:05] LABS: COVID-19 PCR Negative (Negative); Influenza A PCR Negative (Negative); Influenza B PCR Negative (Negative); RSV PCR Negative (Negative); Source Nasopharynx
[2024-08-29 13:18] VITALS: BP 119/63; PULSE 94; RESP 18; TEMP 37.1; O2SAT 94
[2024-08-29 13:39] LABS: Troponin I 14 ng/L (<or=51)
--- NOTE | 2024-08-29 13:39 | ED.GENADUL_ITS ---
Discharge Plan Disposition Patient Disposition: Home Condition: Good Discharge Details Clinical Impression: Dyspnea Primary Care Provider: Any Pennington ED Provider: Tamir Hernandez Home Meds and New Rx's Prescriptions: New prednisone 50 mg tablet 50 mg PO DAILY Qty: 4 0RF ipratropium-albuterol 0.5 mg-3 mg(2.5 mg base)/3 mL solution for nebulization 3 ml IH Q6H Qty: 180 0RF No Action furosemide 20 mg tablet 20 mg PO DAILY Patient Comments: currently taking 40mg hydrochlorothiazide 25 mg tablet 25 mg PO DAILY albuterol sulfate 2.5 mg /3 mL (0.083 %) solution for nebulization 2.5 mg UPD Q6H PRN PRN (Reason: shortness of breath or wheezing) Qty: 90 6RF ketoconazole 2 % cream 1 applic topical BID PRN albuterol sulfate [Proventil HFA] 90 mcg/actuation HFA aerosol inhaler 2 puff inhalation Q6H PRN (Reason: shortness of breath or wheezing) Qty: 8.5 12RF fluticasone propion-salmeterol [Advair HFA] 230-21 mcg/actuation HFA aerosol inhaler 2 puff inhalation BID Qty: 12 12RF Rx Instructions: administer with spacer montelukast 10 mg tablet 10 mg PO DAILY Qty: 60 6RF levothyroxine 150 mcg capsule 150 mcg PO DAILY Tezspire 210 mg/1.91 mL (110 mg/mL) pen injector 210 mg subcut Q4W Qty: 1.91 6RF Discharge Instructions Instructions: Shortness of Breath, Adult ED Additional Instructions: At this time your laboratory workup has returned relatively stable. There are no signs of significant heart attack, new pneumonia, or severe acute respiratory disease. However as we discussed together I am concerned that there is continued mild reactivity in your lungs causing your persistent mild hypoxemia and oxygen need. For the next 5 days please take the nebulizer every 6 hours. I have sent refills to your pharmacy. Please continue to take your normal Advair inhaler as prescribed. For the next 4 days please take the steroid as prescribed. Is been sent to your pharmacy on file. If you still do not have an improvement of your symptoms after this conservative therapy, or you develop worsening symptoms you may need further evaluation with pulmonary function testing and CT imaging as we had previously discussed. Please continue to avoid any salty foods in the meantime to help reduce your fluid burden. If you notice any worsening of your symptoms, or any new symptoms such as vomiting, diarrhea, fever, chills, shortness of breath, chest pain, numbness, weakness, or fainting , please return immediately to the emergency department for reevaluation. Please follow up with your primary care provider as soon as possible for reassessment and reevaluation. As always, it was a pleasure participating in your medical care today. Referrals: Any Pennington MD [Primary Care Provider] - Discharge Data Discharge Date/Time-TO BE ENTERED AT DEPARTURE: 08/29/24 14:54 HPI General Date/Time Provider Initiated Documentation: 08/29/24 10:28 . HPI Narrative: This is a very pleasant 53-year-old female with a past medical history of pulmonary nodules, on a baseline of 1 to 2 L of oxygen at night or as needed diabetes, severe asthma, severe pulmonary hypertension, severe aortic stenosis, mitral regurgitation, hypothyroidism, previous history of Hodgkin's lymphoma with subsequent chemotherapy years ago, sleep apnea, who presents today for evaluation of shortness of breath. Patient states that on the 10th of this month which was 20 days ago she went to [facility] emergency department was diagnosed with suspicion for potential pneumonia. She was started on doxycycline and completed a 10-day treatment of this. She has been taking her Advair as prescribed and occasional nebulizer treatments. After she completed the 10-day course she had slight improvement for a day or so after that, but then her oxygen need and symptoms continued so that she is continuously using the 2 L of oxygen at most all times with any activity. She notes that her oxygen will get down to the 80s if she stops using her supplemental O2. She has been doubled up on her furosemide taking 40 mg daily for the last week or so per recommendations by her medical providers. She has had some weight gain recently. She denies any pleuritic chest pain. She denies any hemoptysis. She denies any focal acute cough. No other complaints at this time. No recent long trips surgeries or procedures. No current fever or chills. Related Data Home Medications ?Medication ?Instructions ?Recorded ?Confirmed ketoconazole 2 % topical cream 1 applic topical BID PRN 06/13/22 08/29/24 albuterol sulfate 90 mcg/actuation 2 puff inhalation Q6H PRN 07/15/22 08/29/24 aerosol inhaler (Proventil HFA) shortness of breath or wheezing #8.5 grams hydrochlorothiazide 25 mg tablet 25 mg PO DAILY 12/02/22 08/29/24 fluticasone propionate 230 2 puff inhalation BID #12 grams 12/08/22 08/29/24 mcg-salmeterol 21 mcg/actuation HFA inhaler (Advair HFA) montelukast 10 mg tablet 10 mg PO DAILY #60 tabs 09/22/23 08/29/24 levothyroxine 150 mcg capsule 150 mcg PO DAILY 11/23/23 08/29/24 albuterol sulfate 2.5 mg/3 mL 2.5 mg (3 mL) UPD Q6H PRN PRN 03/15/24 08/29/24 (0.083 %) solution for nebulization shortness of breath or wheezing #90 mL tezepelumab-ekko 210 mg/1.91 mL 210 mg (1.91 mL) subcut Q4W #1.91 05/10/24 08/29/24 (110 mg/mL) subcutaneous pen mL injector (Tezspire) furosemide 20 mg tablet 20 mg PO DAILY 08/15/24 08/29/24 ipratropium 0.5 mg-albuterol 3 mg 3 ml inhalation Q6H #180 mL 08/29/24 (2.5 mg base)/3 mL nebulization soln prednisone 50 mg tablet 50 mg PO DAILY #4 tabs 08/29/24 Previous Rx's ?Medication ?Instructions ?Recorded albuterol sulfate 90 mcg/actuation 2 puff inhalation Q6H PRN 07/15/22 aerosol inhaler (Proventil HFA) shortness of breath or wheezing #8.5 grams fluticasone propionate 230 2 puff inhalation BID #12 grams 12/08/22 mcg-salmeterol 21 mcg/actuation HFA inhaler (Advair HFA) montelukast 10 mg tablet 10 mg PO DAILY #60 tabs 09/22/23 albuterol sulfate 2.5 mg/3 mL 2.5 mg (3 mL) UPD Q6H PRN PRN 03/15/24 (0.083 %) solution for nebulization shortness of breath or wheezing #90 mL tezepelumab-ekko 210 mg/1.91 mL 210 mg (1.91 mL) subcut Q4W #1.91 05/10/24 (110 mg/mL) subcutaneous pen mL injector (Tezspire) ipratropium 0.5 mg-albuterol 3 mg 3 ml inhalation Q6H #180 mL 08/29/24 (2.5 mg base)/3 mL nebulization soln prednisone 50 mg tablet 50 mg PO DAILY #4 tabs 08/29/24 Allergies Allergy/AdvReac Type Severity Reaction Status Date / Time Sulfa (Sulfonamide AdvReac Intermediate upset Unverified 08/29/24 10:25 Antibiotics) stomach General Stated Complaint: RespSymp SUSAN: 3 Exam Narrative Exam Narrative: 1.Const: Well-nourished, Well-developed, appearing stated age 2.Eyes: PERRL, no conjunctival injection, and symmetrical lids. 3.ENT: Atraumatic external nose and ears. Moist MM. Neck: Symmetric, trachea midline, No thyromegaly. 4.CVS: +S1/S2, Peripheral pulses 2+ and equal in all extremities. Brisk capillary refill in all extremities. 5.RESP: Unlabored respiratory effort. Clear to auscultation bilaterally. No wheezes rales or rhonchi 6.GI: Soft, Nontender/Nondistended, No hepatosplenomegaly. No guarding or rebound. 7.MSK: Normocephalic/Atraumatic, Extremities w/o deformity or ttp No cyanosis or clubbing, Normal movement of all extremities. Trace pitting edema is noted bilaterally. No calf tenderness. 8.Skin: Warm, Dry. No rashes or lesions. 9.Neuro: family law paralegal II-XII grossly intact. Sensation grossly intact, no focal neurologic deficits. 10.Psych: (AAO) x3. Appropriate mood and affect Course Vital Signs Vital signs: Vital Signs Temperature 37.1 C 08/29/24 10:23 Pulse 102 H 08/29/24 10:23 Respiratory Rate 24 08/29/24 10:23 Blood Pressure 155/81 H 08/29/24 10:23 Pulse Oximetry 94 08/29/24 10:23 Temperature 37.1 C 08/29/24 13:18 Temperature Source Oral 08/29/24 13:18 Pulse 94 H 08/29/24 13:18 Respiratory Rate 18 08/29/24 13:18 Respiratory Effort Short of Breath 08/29/24 13:19 Respiratory Depth Normal 08/29/24 13:19 Blood Pressure 119/63 08/29/24 13:18 Blood Pressure Mean 81 08/29/24 12:31 Blood Pressure Position Sitting 08/29/24 10:23 Pulse Oximetry 94 08/29/24 13:18 Oxygen Delivery Method Nasal Cannula 08/29/24 13:18 Oxygen Flow Rate 2 08/29/24 13:18 Lab/Test Results Lab/Test Results: Laboratory Tests Range/Units 08/29/24 08/29/24 12:10 12:19 WBC (4.4-10.8) 10^3/uL 12.39 H RBC (3.93-5.22) 10^6/uL 4.80 Hgb (11.2-15.7) g/dL 13.6 Hct (36.0-46.0) % 43.1 MCV (80-95) fL 90 MCH (27.0-33.0) pg 28.3 MCHC (32.0-36.0) % 31.6 L RDW (11.7-14.6) % 14.6 Plt Count (130-400) 10^3/uL 390 MPV (8.0-11.0) fL 9.8 Immature Gran % % 0.6 Neutrophils % % 83.5 Lymphocytes % % 7.7 Monocytes % % 7.1 Eosinophils % % 0.6 Basophils % % 0.5 Nucleated RBC % (0.0-0.3) % 0.0 Absolute Neutrophils (1.2-6.7) 10^3/uL 10.35 H Absolute Lymphocytes (1.2-3.4) 10^3/uL 0.95 L Absolute Monocytes (0.1-0.8) 10^3/uL 0.88 H Absolute Eosinophils (0.0-0.7) 10^3/uL 0.07 Absolute Basophils (0.0-0.2) 10^3/uL 0.06 VBG pH (7.31-7.41) 7.40 VBG pCO2 (41-51) mmHg 57 H VBG pO2 mmHg 31 VBG HCO3 (23-28) mmol/L 35 H VBG Total CO2 (24-29) mmol/L 32 H VBG O2 Saturation % 58 VBG Base Excess (-2-3) mmol/L 11 H Sodium (136-145) mmol/L 138 Potassium (3.5-5.1) mmol/L 4.3 Chloride (98-107) mmol/L 97 L Carbon Dioxide (21.0-32.0) mmol/L 33.4 H Anion Gap (3-11) mmol/L 7.6 BUN (7-18) mg/dL 15 Creatinine (0.55-1.02) mg/dL 0.8 Est GFR (CKD-EPI 2020) (mL/min/1.73m2) 87.50 Glucose (74-106) mg/dL 97 Calcium (8.5-10.1) mg/dL 9.4 Total Bilirubin (0.2-1.0) mg/dL 0.91 AST (15-37) U/L 11 L ALT (14-59) U/L 17 Alkaline Phosphatase (46-116) U/L 127 H Troponin I (<or=51) ng/L 14 NT-Pro-B Natriuret Pep (<300) pg/mL 680 H Total Protein (6.4-8.2) g/dL 8.9 H Albumin (3.4-5.0) g/dL 3.8 Procalcitonin ng/mL < 0.10 TSH (0.36-3.74) uIU/mL 1.51 COVID-19 Source Nasopharynx SARS-CoV-2 (PCR) (Negative) Negative Influenza Type A (PCR) (Negative) Negative Influenza Type B (PCR) (Negative) Negative RSV (PCR) (Negative) Negative Medical Decision Making This is a very pleasant 53-year-old female with a past medical history of pulmonary nodules, on a baseline of 1 to 2 L of oxygen at night or as needed diabetes, severe asthma, severe pulmonary hypertension, severe aortic stenosis, mitral regurgitation, hypothyroidism, previous history of Hodgkin's lymphoma with subsequent chemotherapy years ago, sleep apnea, who presents today for evaluation of shortness of breath. Patient states that on the 10th of this month which was 20 days ago she went to [facility] emergency department was diagnosed with suspicion for potential pneumonia. She was started on doxycycline and completed a 10-day treatment of this. She has been taking her Advair as prescribed and occasional nebulizer treatments. After she completed the 10-day course she had slight improvement for a day or so after that, but then her oxygen need and symptoms continued so that she is continuously using the 2 L of oxygen at most all times with any activity. She notes that her oxygen will get down to the 80s if she stops using her supplemental O2. She has been doubled up on her furosemide taking 40 mg daily for the last week or so per recommendations by her medical providers. She has had some weight gain recently. She denies any pleuritic chest pain. She denies any hemoptysis. She denies any focal acute cough. No other complaints at this time. No recent long trips surgeries or procedures. No current fever or chills. Physical exam demonstrates a well-appearing female, lung sounds are relatively clear. Trace pitting edema of the lower extremities. Symptoms appear inconsistent for PE, no pleuritic chest pain, no recent long trips surgeries or procedures. Cardiac etiology/ACS is unlikely. CHF is on the differential. Chronic COPD/asthma is highest. Persistent pneumonia is of concern as well. Will evaluate for these etiologies, given breathing treatment and Solu-Medrol, monitor closly reassess 4 PM Laboratory workup has returned, minimal white count, no bandemia. VBG demonstrates stability with pH of 7.4, and a mildly elevated pCO2 of 57. Electrolytes are stable, renal function normal. Troponins are normal/stable. proBNP mildly elevated at 680. Thyroid function normal, procalcitonin less than 0.1, symptoms appear inconsistent with sepsis or severe pneumonia. COVID flu and RSV negative. Chest x-ray shows no acute change, certain densities are noted throughout but these appear consistent with prior imaging. After the breathing treatment, patient continues to remain hemodynamically stable. On her 2 L of home oxygen she demonstrates no acute hypoxemia. We did discuss CT imaging and further evaluation, which the patient has politely declined at this time. Symptoms appear inconsistent with PE or ACS. Suspect continued chronic lung disease with perhaps a mild component of heart failure and potential volume excess may be a component of the persistent respiratory oxygen demand. Patient did request discharge home, which I do feel is reasonable however I do feel that slight alteration in therapy is indicated. We will recommend serial DuoNebs every 6 hours for the next 5 days while on the prednisone. Will do a short 5- day course of prednisone with first dose given here. We will recommend her continued inhaled Advair as prescribed. I discussed the case with Dr. Quan as well, and she will be transitioning the patient from her Lasix to turosemide and will call in a prescription from that. If the patient does not have clinical improvement after 5 to 6 days of conservative therapy she will require further evaluation, potential further pulmonary function testing, and potential further CT imaging. Patient understands this. Dr. Quan will be following up closely with the patient. At this time there is no evidence of significant pneumonia requiring antibiotic therapy. I have extensively reviewed the treatment plan and discharge instructions with the patient and their family. I have addressed all patient concerns at this time. The patient and family was made aware of what symptoms to monitor for that would warrant a return to the emergency department. Discussed the plan with the patient and family, they demonstrate verbal understanding and agreement with our assessment and plan at this time. The documentation in this chart was dictated using ERN dictation software. Ple ase excuse any dictation errors. FINDINGS: 2 views: Heart size is normal. The mediastinum is not widened. Multiple calcified lymph nodes are noted in the left upper mediastinum, similar to previous and also seen on prior CT scan of 11/18/2023. Again noted is difference in density of the lung wilson but this is unchanged from at least May 2022. There are no new focal left lung findings no new focal right lung findings. No pleural effusions. No pulmonary edema. No pneumothorax. No fractures. IMPRESSION: Findings as above but with minimal if any significant change compared to prior studies. Quality:SDOH Health Related Social Needs: No Data to Display PFSH All Active Problems (Updated 08/29/24 @ 14:41 by Tamir Hernandez DO) Dyspnea (Acute) Severe pulmonary hypertension (Acute) Prediabetes (Acute) Severe asthma (Acute) Pulmonary nodules (Acute) Hypothyroidism (Chronic) Unspecified slipped upper femoral epiphysis (nontraumatic), right hip (Acute 07/25/15) Obstructive sleep apnea syndrome (Chronic 07/25/15) Metabolic syndrome (Acute 07/25/15) Hx of Hodgkins lymphoma (Acute 07/25/15) BMI 40.0-44.9, adult (Acute 07/25/15) Acquired hypothyroidism (Acute 07/25/15) Abnormal uterine bleeding (Acute 07/25/15) Trochanteric bursitis of right hip (Acute) Left leg swelling (Acute) Encounter for screening for COVID-19 (Acute) Medical History (Updated 08/29/24 @ 14:41 by Tamir Hernandez DO) Abnormal chest CT Mild persistent asthma without complication (07/25/15) Abnormal uterine bleeding Rx with DepoProvera x9yrs. Resumed after stopping Depo in 2003. Worsening in 2013. 10/2015 Mirena IUD. Unspecified slipped upper femoral epiphysis (nontraumatic), right hip Metabolic syndrome Asthma, mild persistent Hx of Hodgkins lymphoma BMI 40.0-44.9, adult Obstructive sleep apnea Surgical History History of hip surgery pin placement History of removal of Port-a-Cath placement and removal History of cholecystectomy Family History Mother Heart disease heart beats too fast Asthma Allergies Son Personal history of malignant neoplasm Father COPD (chronic obstructive pulmonary disease) Social History Smoking/Tobacco Use Status: Never Smoking risk assessment performed?: Yes Alcohol Intake: never Drug use: Never Substance use type: does not use Do you feel safe at home: Yes (unable to assess privately) Do you feel safe in your relationship?: Yes
[2024-08-29 14:29] LABS: Troponin I 14 ng/L (<or=51)
[2024-08-29 14:43] VITALS: BP 112/56; PULSE 94; RESP 18; TEMP 36.7; O2SAT 94
== END 2024-08-29 14:54 | disposition home or self-care (01) ==
PROVIDERS: Emergency Provider Student in an Organized Health Care Education/Training Program; PCP Family Medicine
DX: R06.09 Other forms of dyspnea (principal); I27.20 Pulmonary hypertension, unspecified; E11.9 Type 2 diabetes mellitus without complications; Z79.84 Long term (current) use of oral hypoglycemic drugs; Z85.72 Personal history of non-Hodgkin lymphomas
CPT/HCPCS: 36415; 80053; 82805; 84145; 87637; 93005; 94640; 96374; 99285; 71046; 83880; 84443; 84484; 85025; 93010; J2919; J7620

== ENCOUNTER 2024-09-14 16:05 | Outpatient (REF) | payer BC, SELFPAY ==
[2024-09-14 15:48] LABS: BUN 15 mg/dL (7-18); Calcium 9.1 mg/dL (8.5-10.1); Chloride 99 mmol/L (98-107); Estimated GFR 66.95 (mL/min/1.73m2); Glucose 129 mg/dL (74-106); NT-proBNP 558 pg/mL (<300); Potassium 3.8 mmol/L (3.5-5.1); Sodium 140 mmol/L (136-145)
== END 2024-09-14 16:06 | disposition home or self-care (01) ==
LOC: NCHCN 16:05
PROVIDERS: PCP Family Medicine; Visit Provider Family Medicine
DX: I50.9 Heart failure, unspecified (principal)
CPT/HCPCS: 80048; 83880

== ENCOUNTER 2024-09-16 07:16 | Inpatient (IN) | payer BC, SELFPAY ==
[2024-09-16] VITALS (94 sets, daily range): BP systolic 62–143; BP diastolic 26–117; PULSE 13–135; RESP 3–43; TEMP 36.1–39.1; O2SAT 79–98
--- NOTE | 2024-09-16 07:00 | RT.EKG_ITS ---
APPROVED REPORT Exam: Resting ECG Reason for Exam: SOB Patient Location: E HR:117 bpm ECG Measurements Heart Rate 117 AXIS VA 151 P 57 QRSd 94 QRS 69 QT 313 T -89 QTc 436 Conclusion Sinus tachycardia...rate> 99 Probable left atrial enlargement...P >50mS, <-0.10mV V1 Probable inferior infarct, old...Q>35mS, II III aVF Nonspecific T abnormalities, lateral leads...T <-0.10mV, I aVL V5 V6 There are no significant changes compared to prior EKG performed on 08/29/2024 at 12:17. LVH strain pattern
--- NOTE | 2024-09-16 07:15 | DI.RAD_ITS ---
Exam(s) XR PORTABLE CHEST AP EXAM: XR PORTABLE CHEST AP CLINICAL HISTORY: sob TECHNIQUE: 2D digital imaging was performed. COMPARISON: CR XR CHEST 2V PA LATERAL from 08/29/2024 FINDINGS: The exam is limited by patient body habitus. LUNGS: Patchy infiltrate is noted in the right upper lobe. Basilar infiltrates are not excluded due to under penetration. No pleural abnormality seen. HEART: Normal size. Calcified mediastinal lymph nodes. AORTA: Normal diameter. Calcified. Prominent main pulmonary artery. BONES: Unremarkable for age. Soft tissues: Unremarkable. IMPRESSION: Right upper lobe infiltrate. DATA REPOSITORY: RADIATION DOSE DELIVERED:
--- NOTE | 2024-09-16 07:19 | W.ED.GENAD ---
Discharge Plan Disposition Patient Disposition: Admit to [facility] Condition: Fair Discharge Details Clinical Impression: Pneumonia, Sepsis, Aortic stenosis, severe Primary Care Provider: Any [facility] Provider: Blas Trujillo Home Meds and New Rx's Prescriptions: No Action albuterol sulfate 2.5 mg /3 mL (0.083 %) solution for nebulization 2.5 mg UPD Q6H PRN PRN (Reason: shortness of breath or wheezing) Qty: 90 6RF ketoconazole 2 % cream 1 applic topical BID PRN albuterol sulfate [Proventil HFA] 90 mcg/actuation HFA aerosol inhaler 2 puff inhalation Q6H PRN (Reason: shortness of breath or wheezing) Qty: 8.5 12RF fluticasone propion-salmeterol [Advair HFA] 230-21 mcg/actuation HFA aerosol inhaler 2 puff inhalation BID Qty: 12 12RF Rx Instructions: administer with spacer montelukast 10 mg tablet 10 mg PO DAILY Qty: 60 6RF levothyroxine 150 mcg capsule 150 mcg PO DAILY Tezspire 210 mg/1.91 mL (110 mg/mL) pen injector 210 mg subcut Q4W Qty: 1.91 6RF ipratropium-albuterol 0.5 mg-3 mg(2.5 mg base)/3 mL solution for nebulization 3 ml IH Q6H Qty: 180 0RF metoprolol tartrate 37.5 mg tablet 37.5 mg PO BID atorvastatin 80 mg tablet 80 mg PO DAILY spironolactone 25 mg tablet 25 mg PO DAILY Patient Comments: TAKE 1 TABLET BY MOUTH DAILY aspirin 81 mg tablet,delayed release (DR/EC) 81 mg PO DAILY clopidogrel 75 mg tablet 75 mg PO DAILY Discharge Data Discharge Physician: Blas Trujillo HPI General Date/Time Provider Initiated Documentation: 09/16/24 07:19. HPI Narrative: Patient presents emergency department complaining of increased shortness of breath for last 2 days some orthopnea who has severe aortic stenosis and recently discharged from [facility] where they did a transesophageal echocardiogram showing an aortic valve with a aortic valve area of 0.9 cm? and a mean gradient of 35 mmHg. Patient also has pulmonary fibrosis. Patient states that her physician told her to increase her furosemide but she has been also using albuterol for her lungs. Patient came by EMS who gave her another albuterol treatment the patient is only tachycardic and states that she is still short of breath. Oxygen saturation in the ambulance is 93% on 0.5 L nasal cannula which he uses regularly. Denies any chest pain reports mild cough denies any fever denies any chills. Patient is a candidate for TAVR procedure and will go back to [facility] for that procedure soon. Patient states that she has been short of breath for the last 3 days and has been restricting her fluids and they told her to increase her torsemide. Yesterday she started getting short of breath but she has been coughing for the last 3 days now is productive yellow sputum. Denies any fever denies any chills denies lower extremity swelling Related Data Home Medications ?Medication ?Instructions ?Recorded ?Confirmed ketoconazole 2 % topical cream 1 applic topical BID PRN 06/13/22 09/16/24 albuterol sulfate 90 mcg/actuation 2 puff inhalation Q6H PRN 07/15/22 08/29/24 aerosol inhaler (Proventil HFA) shortness of breath or wheezing #8.5 grams fluticasone propionate 230 2 puff inhalation BID #12 grams 12/08/22 09/16/24 mcg-salmeterol 21 mcg/actuation HFA inhaler (Advair HFA) montelukast 10 mg tablet 10 mg PO DAILY #60 tabs 09/22/23 09/16/24 levothyroxine 150 mcg capsule 150 mcg PO DAILY 11/23/23 09/16/24 albuterol sulfate 2.5 mg/3 mL 2.5 mg (3 mL) UPD Q6H PRN PRN 03/15/24 09/16/24 (0.083 %) solution for nebulization shortness of breath or wheezing #90 mL tezepelumab-ekko 210 mg/1.91 mL 210 mg (1.91 mL) subcut Q4W #1.91 05/10/24 09/16/24 (110 mg/mL) subcutaneous pen mL injector (Tezspire) ipratropium 0.5 mg-albuterol 3 mg 3 ml inhalation Q6H #180 mL 08/29/24 09/16/24 (2.5 mg base)/3 mL nebulization soln aspirin 81 mg tablet,delayed 81 mg PO DAILY 09/16/24 09/16/24 release atorvastatin 80 mg tablet 80 mg PO DAILY 09/16/24 09/16/24 clopidogrel 75 mg tablet 75 mg PO DAILY 09/16/24 09/16/24 metoprolol tartrate 37.5 mg tablet 37.5 mg PO BID 09/16/24 09/16/24 spironolactone 25 mg tablet 25 mg PO DAILY 09/16/24 09/16/24 Previous Rx's ?Medication ?Instructions ?Recorded albuterol sulfate 90 mcg/actuation 2 puff inhalation Q6H PRN 07/15/22 aerosol inhaler (Proventil HFA) shortness of breath or wheezing #8.5 grams fluticasone propionate 230 2 puff inhalation BID #12 grams 12/08/22 mcg-salmeterol 21 mcg/actuation HFA inhaler (Advair HFA) montelukast 10 mg tablet 10 mg PO DAILY #60 tabs 09/22/23 albuterol sulfate 2.5 mg/3 mL 2.5 mg (3 mL) UPD Q6H PRN PRN 03/15/24 (0.083 %) solution for nebulization shortness of breath or wheezing #90 mL tezepelumab-ekko 210 mg/1.91 mL 210 mg (1.91 mL) subcut Q4W #1.91 05/10/24 (110 mg/mL) subcutaneous pen mL injector (Tezspire) ipratropium 0.5 mg-albuterol 3 mg 3 ml inhalation Q6H #180 mL 08/29/24 (2.5 mg base)/3 mL nebulization soln Allergies Allergy/AdvReac Type Severity Reaction Status Date / Time Sulfa (Sulfonamide AdvReac Intermediate upset Unverified 09/16/24 07:45 Antibiotics) stomach General SUSAN: 3 Review of Systems Narrative: Review of Systems: Constitutional: No fevers, chills, sweats Eye: No recent visual problems ENT: No ear pain, nasal congestion, sore throat Cardiovascular: No Chest pain, palpitations, syncope Gastrointestinal: No nausea, vomiting, diarrhea Genitourinary: No hematuria Hermilo/Lymph: Negative for bruising tendency, swollen lymph glands Endocrine: Negative for excessive thirst, excessive hunger Musculoskeletal: No back pain, neck pain, joint pain, muscle pain, decreased range of motion Integumentary: No rash, pruritus, abrasions Neurologic: Alert & oriented X 4 Psychiatric: No anxiety, depression All systems reviewed & are unremarkable except as noted in HPI and below Exam Narrative Exam Narrative: Exam; vitals signs as reported above normal Constitutional; In mild distress, afebrile General: cooperative, healthy appearing, comfortable and no acute distress HEENT: Head: normal to inspection, no palpable skull fracture and normocephalic atraumatic Eyes: : appearance normal, both eyes and all related structures EOM intact bilaterally Pupils: PERRL : conjunctiva normal Direct ophthalmoscopy: normal light reflex, normal conjunctiva, normal visual acuity Ears: Normal TM, normal external canal Nose: normal no rhinorreha Neck no JVD, supple non tender Neck: normal visual inspection, full ROM and no lymphadenopathy Chest: normal inspection of the chest Respiratory : normal respiratory effort and able to speak in complete sentences rales heard most on the right base Cardio tachycardic rate: r rhythm: regular rhythm normal heart sounds S1 and S2 3/6 midsystolic ejection murmur, gallops, or rubs GI : normal to inspection, normal bowel sounds, soft, non tender, non distended, no organomegaly Back/Spine/ no CVA tenderness Thoracic/Lumbar Spine: no tenderness or deformities Skin no rashes or lesions Neuro: patient alert oriented x 4 and no meningeal signs, Cranial Nerves: CN's II-XI intact bilaterally, Cognition: normal cognition, Speech: speech normal, Gait: normal gait, Depp tendon reflexes normal 2+ muscle strength 5/5 bilaterally Extremities, no edema, full range of motion, normal strength Just just left Course Patient with shortness of breath coughing sputum who has severe a stenosis in his hypotensive and tachycardic. POCUS evaluation of her heart and lung shows a hyperdynamic heart with a collapsed IVC and B-lines on the right hemithorax compatible with hypovolemia probably from pneumonia and sepsis. Patient was started at 30 cc/kg's of IV fluids blood cultures sputum cultures antibiotics were started in the emergency department. Initial lactic acid was 2.7 Reevaluation(s) Time: 08:45 Reevaluation: States that she feels much better and now is coughing more sputum Consultations Time: 09:17 Consultation #2: Spoke with Dr. Yonatan Salgado will admit the patient to the hospital for pneumonia and sepsis Medical Decision Making MDM: Summary: Patient presents emerged department complaining of cough for the last 2 to 3 days shortness of breath who has a history of severe aortic stenosis and has been using her diuretic and restricting her fluids. Initially she came tachycardic hypotensive and hypoxic. POCUS ultrasound revealed hyperdynamic left ventricle and hypovolemia and a right side infiltrate which prompted a sepsis workup and initiation of IV fluids at 30 cc/kg blood cultures and a lactic acid. Lactic acid came up high at 2.7 and her white count is 25,000 with a left shift and x-ray confirms the right sided pneumonia. Patient was treated with antibiotics after blood cultures IV fluids and is improving her heart rate has decreased significantly to 103 her blood pressure remained stable she will be admitted to the hospital for early sepsis and pneumonia. Data Review Analysis All the data on this patient was reviewed by me including laboratory and imaging studies as well as bedside studies performed by me Independent review of Studies Imaging As described above chest x-ray shows right-sided infiltrate as well as a POCUS exam Lab: As described above leukocytosis with a left shift mild ovation of the BUN to creatinine ratio and elevated lactic acid Risk Stratification: Patient with community-acquired pneumonia and early sepsis with an underlying base of tight aortic stenosis will need to be admitted to the hospital for IV fluid hydration antibiotics and oxygen Differential Diagnosis: 1. Sepsis 2. Pneumonia 3. Congestive heart failure 4. Hypovolemic shock 5. Septic shock Consultants: Have consulted with Dr. Yonatan Salgado who agrees to admit the patient to the hospital Shared disposition: I explained to the patient and her and they understand and agree Impression: Medical Records Medical records reviewed: Yes I reviewed the patient's medical records. Imaging Data Radiologic Study: Attestation: I personally reviewed and interpreted this imaging study as follows: Imaging: X-Ray Radiologist's impression: FINDINGS: The exam is limited by patient body habitus. LUNGS: Patchy infiltrate is noted in the right upper lobe. Basilar infiltrates are not excluded due to under penetration. No pleural abnormality seen. HEART: Normal size. Calcified mediastinal lymph nodes. AORTA: Normal diameter. Calcified. Prominent main pulmonary artery. BONES: Unremarkable for age. Soft tissues: Unremarkable. IMPRESSION: Right upper lobe infiltrate. Lab Data Lab results reviewed: Yes I reviewed the patient's lab results. ECG Data Attestation: I personally reviewed and interpreted this ECG (s) as follows: Prior ECG tracings: available for review Interpretation: Nonspecific T abnormalities, lateral leads...T <-0.10mV, I aVL V5 V6 There are no significant changes compared to prior EKG performed on 08/29/2024 at 12:17. LVH strain pattern Quality:SDOH Health Related Social Needs: No Data to Display Critical Care Time Critical Care Time Critical Care Time: Yes Total Critical Care Time: 40 Attestation: 40 minutes of critical time with penetration of the cardiovascular system due to hypovolemia and sepsis [facility] All Active Problems Aortic stenosis, severe (Acute) Sepsis (Acute) Pneumonia (Acute) Dyspnea (Acute) Severe pulmonary hypertension (Acute) Prediabetes (Acute) Severe asthma (Acute) Pulmonary nodules (Acute) Hypothyroidism (Chronic) Unspecified slipped upper femoral epiphysis (nontraumatic), right hip (Acute 07/25/15) Obstructive sleep apnea syndrome (Chronic 07/25/15) Metabolic syndrome (Acute 07/25/15) Hx of Hodgkins lymphoma (Acute 07/25/15) BMI 40.0-44.9, adult (Acute 07/25/15) Acquired hypothyroidism (Acute 07/25/15) Abnormal uterine bleeding (Acute 07/25/15) Trochanteric bursitis of right hip (Acute) Left leg swelling (Acute) Encounter for screening for COVID-19 (Acute) Medical History Abnormal chest CT Mild persistent asthma without complication (07/25/15) Abnormal uterine bleeding Rx with DepoProvera x9yrs. Resumed after stopping Depo in 2003. Worsening in 2013. 10/2015 Mirena IUD. Unspecified slipped upper femoral epiphysis (nontraumatic), right hip Metabolic syndrome Asthma, mild persistent Hx of Hodgkins lymphoma BMI 40.0-44.9, adult Obstructive sleep apnea Surgical History History of hip surgery pin placement History of removal of Port-a-Cath placement and removal History of cholecystectomy Family History Mother Heart disease heart beats too fast Asthma Allergies Son Personal history of malignant neoplasm Father COPD (chronic obstructive pulmonary disease) Social History Smoking/Tobacco Use Status: Never Smoking risk assessment performed?: Yes Alcohol Intake: never Drug use: Never Substance use type: does not use Do you feel safe at home: Yes (unable to assess privately) Do you feel safe in your relationship?: Yes POCUS Exam (ED) Limited Cardiac Exam DATE OF EXAM: 09/16/24 TIME OF EXAM: 08:00 PROVIDER THAT PERFORMED THE STUDY: Blas Trujillo IS THIS A REPEAT EXAM DURING THIS ENCOUNTER: no REASON FOR EXAM: Dyspnea VISUALIZED STRUCTURES: Four Chambers, Left atrium, Left ventricle, LVOT, Right atrium, Right ventricle, Aortic valve, Mitral valve, Interventricular septum and IVC VIEW OBTAINED: Apical 4-Chamber, Parasternal long-axis, Parasternal short-axis and Subxiphoid PERTINENT FINDINGS/IMPRESSION: IVC inspiratory collapsability (completely collapsed IVC and hepatic veins) and LV dysfunction (hyperdynamic) DIFFERENTIAL DIAGNOSES: Sepsis, hypovolemia INCIDENTAL FINDINGS: severe Vmax 3.7 m/s Exam complete Limited Thoracic Lung Exam DATE OF EXAM: 09/16/24 TIME OF EXAM: 08:10 PROVIDER THAT PERFORMED THE STUDY: Blas Trujillo REASON FOR EXAM: Hypotension and Hypoxia VISUALIZED STRUCTURES: right anterior (B lines), left anterior (A lines), right lateral (B lines) and left lateral (A llines) PERTINENT FINDINGS/IMPRESSION: B-lines/right side DIFFERENTIAL DIAGNOSES: pneumonia Exam complete
[2024-09-16 07:49] LABS: Abs Immature Grans 0.39 10^3/uL (0.0-0.06); Basophils % 0.4 %; HCT 39.7 % (36.0-46.0); HGB 12.9 g/dL (11.2-15.7); Immature Grans % 1.3 %; Lymphocytes % 2.3 %; MCH 28.4 pg (27.0-33.0); MCHC 32.5 % (32.0-36.0); MCV 87 fL (80-95); MPV 10.5 fL (8.0-11.0); Monocytes % 4.5 %; Neutrophils % 91.5 %; Platelet Count 371 10^3/uL (130-400); RBC 4.55 10^6/uL (3.93-5.22); RDW 14.5 % (11.7-14.6); RDW-SD 46.4 fL
[2024-09-16 07:52] LABS: Absolute Basophil Count 0.12 10^3/uL (0.0-0.2); Absolute Lymphocyte Count 0.67 10^3/uL (1.2-3.4); Absolute Monocyte Count 1.31 10^3/uL (0.1-0.8); Absolute Neutrophil Count 26.67 10^3/uL (1.2-6.7); WBC 29.15 10^3/uL (4.4-10.8)
[2024-09-16 08:07] LABS: BE (Venous) 5 mmol/L (-2-3); HCO3 (Venous) 29 mmol/L (23-28); O2 Sat (Venous) 94 %; TCO2 (Venous) 26 mmol/L (24-29); pCO2 (Venous) 43 mmHg (41-51); pH (Venous) 7.44 (7.31-7.41); pO2 (Venous) 67 mmHg
[2024-09-16 08:12] LABS: Diff Comment Agrees w/ Instrument; RBC Morphology Normal
[2024-09-16 08:12] LABS: Lactate 2.7 mmol/L (0.6-1.4)
[2024-09-16 08:20] LABS: INR 1.1 (0.9-1.1); Prothrombin Time 11.4 sec (9.1-11.1)
[2024-09-16 08:32] LABS: ALT 24 U/L (14-59); AST 14 U/L (15-37); Albumin 3.2 g/dL (3.4-5.0); Alkaline Phosphatase 126 U/L (46-116); Anion Gap 8.7 mmol/L (3-11); BUN 17 mg/dL (7-18); Bilirubin, Total 1.77 mg/dL (0.2-1.0); CO2 32.3 mmol/L (21.0-32.0); CREATININE 1.3 mg/dL (0.55-1.02); Calcium 9.1 mg/dL (8.5-10.1); Chloride 94 mmol/L (98-107); Estimated GFR 48.87 (mL/min/1.73m2); Glucose 135 mg/dL (74-106); Magnesium 1.4 mg/dL (1.8-2.4); NT-proBNP 1183 pg/mL (<300); Potassium 3.4 mmol/L (3.5-5.1); Sodium 135 mmol/L (136-145); Total Protein 7.7 g/dL (6.4-8.2); Troponin I 31 ng/L (<or=51)
[2024-09-16 08:44] LABS: Procalcitonin 7.36 ng/mL
[2024-09-16 08:53] LABS: COVID-19 PCR Negative (Negative); Influenza A PCR Negative (Negative); Influenza B PCR Negative (Negative); RSV PCR Negative (Negative)
[2024-09-16] MEDS: Normal Saline 1,000 ML 3000 ML IV (08:56)
[2024-09-16] MEDS: cefTRIAXone 2 GM/50 ML BAG IVPB (08:57)
[2024-09-16] MEDS: Normal Saline Flush 10 ML SYR IVP ×2 (08:57→21:07)
--- NOTE | 2024-09-16 09:09 | HPE_ITS ---
Date of service: 09/16/24 Time of Service: 10:52 Assessment and Plan Assessment and plan (1) Severe sepsis: Status: Acute Assessment and plan: - Patient currently meets criteria for severe sepsis with temperature of 102 ?F, heart rate in the 130s, lactic acid of 2.7, and presumed source of infection of right upper lobe pneumonia -Started on ceftriaxone azithromycin in the emergency department -Will switch to vancomycin and cefepime as patient appears clinically worse -Blood pressures have been labile systolically ranging from 70-110 on blood pressure cuff reads -Greatly appreciate anesthesia's assistance and placement of arterial line and midline (patient declined central line due to previous port placement) -If arterial line shows the patient has a persistent mean arterial pressure less than 65 will start Levophed (2) Right upper lobe pneumonia: Status: Acute Assessment and plan: Source of infection as noted above (3) Acute on chronic respiratory failure with hypoxia: Status: Acute Assessment and plan: - Normally on 1 to 2 L at bedtime, had required up to 3 L nasal cannula upon admission -Has since been weaned to 1 L nasal cannula -Continue to wean O2 with goal saturation greater than 92% (4) Aortic stenosis, severe: Status: Acute Assessment and plan: - Recently diagnosed that [facility] with aortic valve area of 0.9 cm? and mean gradient of 35 mmHg -Patient had recently increased her diuresis and was found to have collapsible IVC on POCUS -Will continue to gently rehydrate patient with very close concern for fluid overload in the setting of severe aortic stenosis (5) Obstructive sleep apnea syndrome: Status: Chronic History of Present Illness History of Present Illness Chief Complaint: SOB Narrative: 83-year-old female with a past medical history severe aortic stenosis aortic valve area 0.9 cm? and a mean gradient of 35 mmHg he is being set up for TAVR procedure [facility] next month, pulmonary fibrosis, coronary artery disease, hypothyroidism, presents emergency department complaints of worsening 2 days shortness of breath. Patient states that she was recently discharged from [facility] [place] where they did a transesophageal echocardiogram showing aortic valve area of 0.9 cm? as noted above. Her PCP also noted that patient was experiencing orthopnea recommended that she increase her Lasix dose as well as her frequency of albuterol for her shortness of breath. However, shortness of breath and orthopnea continued to worsen. Patient denies any fever, lightheadedness, dizziness, chest pain, nausea vomiting or diarrhea. In the emergency department patient was noted as being hypoxic but SpO2 of 91% requiring 3 L nasal cannula to maintain oxygen saturation greater than 92%. She is tachycardic with heart rate in the 110's, febrile with a temperature of 102.4 ?F, white blood cell count of 29. Chest x-ray showed right upper lobe infiltrate, and a POCUS exam done in the emergency department showed hyper collapsible IVC suggestive of overdiuresis. Additionally, while in the emergency department, patient initially had blood pressure of 112/56, but none was documented. Down as low as 60/35 though this was with positional change approach would be secondary to aortic stenosis as repeat blood pressure was improved to 101/56. However, she was started on IV fluids, ceftriaxone and azithromycin, and emergency room physician paged hospitalist for admission for patient with severe sepsis secondary to right upper lobe pneumonia. Review of Systems All systems reviewed & are unremarkable except as noted in HPI and below PFSH All Active Problems (Updated 09/16/24 @ 10:53 by Yonatan Salgado MD) Acute on chronic respiratory failure with hypoxia (Acute) Right upper lobe pneumonia (Acute) Severe sepsis (Acute) Aortic stenosis, severe (Acute) Sepsis (Acute) Pneumonia (Acute) Dyspnea (Acute) Severe pulmonary hypertension (Acute) Prediabetes (Acute) Severe asthma (Acute) Pulmonary nodules (Acute) Hypothyroidism (Chronic) Unspecified slipped upper femoral epiphysis (nontraumatic), right hip (Acute 07/25/15) Obstructive sleep apnea syndrome (Chronic 07/25/15) Metabolic syndrome (Acute 07/25/15) Hx of Hodgkins lymphoma (Acute 07/25/15) BMI 40.0-44.9, adult (Acute 07/25/15) Acquired hypothyroidism (Acute 07/25/15) Abnormal uterine bleeding (Acute 07/25/15) Trochanteric bursitis of right hip (Acute) Left leg swelling (Acute) Encounter for screening for COVID-19 (Acute) Medical History Abnormal chest CT Mild persistent asthma without complication (07/25/15) Abnormal uterine bleeding Rx with DepoProvera x9yrs. Resumed after stopping Depo in 2003. Worsening in 2013. 10/2015 Mirena IUD. Unspecified slipped upper femoral epiphysis (nontraumatic), right hip Metabolic syndrome Asthma, mild persistent Hx of Hodgkins lymphoma BMI 40.0-44.9, adult Obstructive sleep apnea Surgical History History of hip surgery pin placement History of removal of Port-a-Cath placement and removal History of cholecystectomy Family History Mother Heart disease heart beats too fast Asthma Allergies Son Personal history of malignant neoplasm Father COPD (chronic obstructive pulmonary disease) Social History Smoking/Tobacco Use Status: Never Smoking risk assessment performed?: Yes Alcohol Intake: never Drug use: Never Substance use type: does not use Housing: house Do you feel safe at home: Yes (unable to assess privately) Do you feel safe in your relationship?: Yes Meds Allergies and Home Medications Allergies Allergy/AdvReac Type Severity Reaction Status Date / Time Sulfa (Sulfonamide AdvReac Intermediate upset Unverified 09/16/24 07:45 Antibiotics) stomach Home Medications ?Medication ?Instructions ?Recorded ?Confirmed ?Type ketoconazole 2 % topical cream 1 applic topical BID PRN 06/13/22 09/16/24 History albuterol sulfate 90 mcg/actuation 2 puff inhalation Q6H PRN 07/15/22 08/29/24 Rx aerosol inhaler (Proventil HFA) shortness of breath or wheezing #8.5 grams fluticasone propionate 230 2 puff inhalation BID #12 grams 12/08/22 09/16/24 Rx mcg-salmeterol 21 mcg/actuation HFA inhaler (Advair HFA) montelukast 10 mg tablet 10 mg PO DAILY #60 tabs 09/22/23 09/16/24 Rx levothyroxine 150 mcg capsule 150 mcg PO DAILY 11/23/23 09/16/24 History albuterol sulfate 2.5 mg/3 mL 2.5 mg (3 mL) UPD Q6H PRN PRN 03/15/24 09/16/24 Rx (0.083 %) solution for nebulization shortness of breath or wheezing #90 mL tezepelumab-ekko 210 mg/1.91 mL 210 mg (1.91 mL) subcut Q4W #1.91 05/10/24 09/16/24 Rx (110 mg/mL) subcutaneous pen mL injector (Tezspire) ipratropium 0.5 mg-albuterol 3 mg 3 ml inhalation Q6H #180 mL 08/29/24 09/16/24 Rx (2.5 mg base)/3 mL nebulization soln aspirin 81 mg tablet,delayed 81 mg PO DAILY 09/16/24 09/16/24 History release atorvastatin 80 mg tablet 80 mg PO DAILY 09/16/24 09/16/24 History clopidogrel 75 mg tablet 75 mg PO DAILY 09/16/24 09/16/24 History metoprolol tartrate 37.5 mg tablet 37.5 mg PO BID 09/16/24 09/16/24 History spironolactone 25 mg tablet 25 mg PO DAILY 09/16/24 09/16/24 History Exam Narrative Exam Narrative: Acutely ill female laying in bed in mild respiratory distress, [address] cannula in place, heart rate tachycardic, regular, lungs with decreased breath sounds in right upper lobe, otherwise clear, abdomen soft, nontender, nondistended Results Labs 09/16/24 07:40 09/16/24 08:00 Labs: Laboratory Results - last 24 hr 09/16/24 09/16/24 09/16/24 07:40 07:52 08:00 WBC 29.15 H* RBC 4.55 Hgb 12.9 Hct 39.7 MCV 87 MCH 28.4 MCHC 32.5 RDW 14.5 Plt Count 371 MPV 10.5 Immature Gran % 1.3 Neutrophils % 91.5 Lymphocytes % 2.3 Monocytes % 4.5 Eosinophils % 0.0 Basophils % 0.4 Nucleated RBC % 0.0 Absolute Neutrophils 26.67 H Absolute Lymphocytes 0.67 L Absolute Monocytes 1.31 H Absolute Eosinophils 0.00 Absolute Basophils 0.12 RBC Morphology Normal PT 11.4 H INR 1.1 VBG pH 7.44 H VBG pCO2 43 VBG pO2 67 VBG HCO3 29 H VBG Total CO2 26 VBG O2 Saturation 94 VBG Base Excess 5 H VBG Lactate 2.7 H* Sodium Cancelled 135 L Potassium Cancelled 3.4 L Chloride Cancelled 94 L Carbon Dioxide Cancelled 32.3 H Anion Gap Cancelled 8.7 BUN Cancelled 17 Creatinine Cancelled 1.3 H Est GFR (CKD-EPI 2020) Cancelled 48.87 Glucose Cancelled 135 H Calcium Cancelled 9.1 Magnesium Cancelled 1.4 L Total Bilirubin Cancelled 1.77 H AST Cancelled 14 L ALT Cancelled 24 Alkaline Phosphatase Cancelled 126 H Troponin I Cancelled 31 NT-Pro-B Natriuret Pep Cancelled 1183 H Total Protein Cancelled 7.7 Albumin Cancelled 3.2 L Procalcitonin 7.36 COVID-19 Source Cancelled SARS-CoV-2 (PCR) Cancelled Last Vital Signs Temp 97.3 F L 09/16/24 07:15 Pulse 103 H 09/16/24 08:46 Resp 18 09/16/24 08:50 BP 92/44 L 09/16/24 08:46 Pulse Ox 95 09/16/24 08:46 Time Spent Time spent with Patient: >75 minutes Time was spent: preparing to see the patient(eg.review tests), obtaining and/or reviewing separately otained hiistory, ordering medications,tests, procedures, referring, communicating with other health patient care coordinator, indepentently interpreting results, counseling the patient and care coordination
[2024-09-16] MEDS: AZITHROMYCIN 500 MG in Normal Saline 250 ML 250 MG IVPB (09:16)
[2024-09-16] MEDS: Inhaler, Assist Device 1 EACH MC (09:16)
[2024-09-16 09:40] LABS: Source Nasopharynx
[2024-09-16 09:41] LABS: Bilirubin Negative (Negative); Blood Trace-intact (Negative); Clarity Cloudy (Clear); Glucose Negative (Negative); Ketones Trace mg/dL (Negative); Leukocyte Esterase Small (Negative); Nitrite Negative (Negative); Specific Gravity >= 1.030 (1.005-1.025); Urobilinogen 0.2 mg/dL (Up to 0.2); pH 5.5 (5-8)
[2024-09-16 09:46] LABS: Bacteria Many HPF (Negative); C & S Indicated? C&S Done As Ordered; Casts Negative LPF (Negative); Crystals Negative HPF (Negative); Epithelial Cells Many HPF (Negative); Mucus Negative (Negative)
[2024-09-16 09:58] LABS: Troponin I 35 ng/L (<or=51)
[2024-09-16] MEDS: LORazepam 2 MG/ML VIAL 0.5 MG IVP (11:32)
[2024-09-16] MEDS: Levalbuterol 1.25 MG/3 ML UPD VIAL ×2 (11:41→12:26)
[2024-09-16] MEDS: Acetaminophen 325 MG TAB PO (14:31)
[2024-09-16] MEDS: Levalbuterol 0.63 MG/3 ML UPD VIAL UPD ×2 (14:37→19:55)
[2024-09-16] MEDS: Ipratropium 0.5 MG/2.5 ML UPD VIAL UPD ×2 (14:37→19:54)
[2024-09-16] MEDS: Lactated Ringers 1,000 ML 75 ML IV (14:47)
--- NOTE | 2024-09-16 16:32 | W.ANESVAS ---
Arterial Line Placement Date Performed: 09/16/24 Procedure Time: 16:00 Procedure Location: Intensive Care Unit Requesting Provider: Yonatan Salgado Timeout Performed: Yes Sedation Given (Indicate Dose Given): No Sedation given Patient Mental Status: Awake Sterility: Hand Hygiene, Surgical Cap, Surgical Mask, Sterile Gloves, Sterile Drape/Sheet and Chlorhexidine Laterality: Right Insertion Site: Radial Arterial Line Catheter: 20G Arrow Arterial Line Procedure: 1% Lidocaine to skin and subcutaneous tissue with 25g needle, Vessel accessed with catheter over needle, Guidewire placed with ease, Catheter placed without resistance and Guidewire removed Dressing: Tegaderm Applied Ultrasound: Sterile probe cover and gel used Ultrasound Image Saved?: Yes Number of Attempts (See previous attempts in note section): 2 Procedure Tolerated: No Complications and Patient tolerated well Procedure Outcome: Successful Performed By: Mukesh Rowley
--- NOTE | 2024-09-16 16:36 | W.ANESVAS ---
Midline Placement Date Performed: 09/16/24 Procedure Time: 16:05 Requesting Provider: Yonatan Salgado Procedure Location: Intensive Care Unit Sedation Given (Indicate Dose Given): No Sedation given Patient Mental Status: Sedate with meaningful communication Sterility: Hand Hygiene, Surgical Cap, Surgical Mask, Sterile Gloves, Sterile Drape/Sheet (towels) and Chlorhexidine Laterality: Left Insertion Site: Basilic Midline Device: PowerGlide Pro 18G Catheter Length: 10 cm Midline Procedure Procedure: 1% Lidocaine to skin and subcutaneous tissue with 25g needle and Catheter placed without resistance Dressing: Tegaderm Applied Blood Return: Present Flushes: Easily Ultrasound: Sterile probe cover and gel used Ultrasound Image Saved?: Yes Number of Attempts (See previous attempts in note section): 1 Procedure Tolerated: No Complications Procedure Outcome: Successful Procedure Comment:: Discussed central line placement with pt. and family. Went over risks and benefits. She is not interested in a central line at this point but is willing for us to put a midline in. Discussed that if she changes her mind, or the ICU needs better access that we may have to consider central venous cath placement and she and her family understand this. Performed By: Dilan Islas
[2024-09-16] MEDS: Norepinephrine in D5W 8 MG/250 ML BAG 9.375 MG IV (16:43)
[2024-09-16] MEDS: CEFEPIME 2 GM in Normal Saline 100 ML IVPB (18:29)
[2024-09-16] MEDS: Budesonide/Formoterol 160/4.5 6 GM 60 PUFF INH IH (20:10)
[2024-09-16] MEDS: VANCOMYCIN/WATER (PEG) 2 GM/400 ML BAG IVPB (20:56)
[2024-09-16] MEDS: Levalbuterol 1.25 MG/3 ML UPD VIAL UPD (23:27)
[2024-09-17] VITALS (66 sets, daily range): BP systolic 88–92; BP diastolic 48–59; PULSE 90–118; RESP 2–42; TEMP 37.2–37.4; O2SAT 90–99
[2024-09-17] MEDS: Normal Saline Flush 10 ML SYR IVP ×6 (00:24→20:28)
[2024-09-17] MEDS: Acetaminophen 325 MG TAB PO ×4 (00:31→22:46)
[2024-09-17] MEDS: Ipratropium 0.5 MG/2.5 ML UPD VIAL UPD ×4 (02:08→20:20)
[2024-09-17] MEDS: Levalbuterol 0.63 MG/3 ML UPD VIAL UPD ×2 (02:11→07:06)
[2024-09-17] MEDS: Simethicone 80 MG CHEW PO (03:02)
[2024-09-17 03:12] LABS: BE 3 mmol/L (-2-3); HCO3 28 mmol/L (22-26); pCO2 45 mmHg (35-45); pO2 79 mmHg (80-105); sO2 97 % (95-98); tCO2 25 mmol/L (23-27)
[2024-09-17 03:15] LABS: Site Arterial Line
[2024-09-17] MEDS: CEFEPIME 2 GM in Normal Saline 100 ML IVPB ×3 (03:34→19:46)
[2024-09-17] MEDS: Lactated Ringers 1,000 ML 75 ML IV ×2 (03:43→17:02)
[2024-09-17] MEDS: Levothyroxine 150 MCG TAB PO (05:35)
[2024-09-17] MEDS: Miconazole 2% Topical Powder 85 GM BTL TP (06:19)
[2024-09-17 06:26] LABS: HCT 35.7 % (36.0-46.0); HGB 11.8 g/dL (11.2-15.7); MCH 28.4 pg (27.0-33.0); MCHC 33.1 % (32.0-36.0); MCV 86 fL (80-95); MPV 10.9 fL (8.0-11.0); Platelet Count 397 10^3/uL (130-400); RBC 4.15 10^6/uL (3.93-5.22); RDW 14.5 % (11.7-14.6); RDW-SD 45.8 fL
[2024-09-17 06:42] LABS: Anion Gap 6.9 mmol/L (3-11); BUN 19 mg/dL (7-18); CO2 30.1 mmol/L (21.0-32.0); CREATININE 0.9 mg/dL (0.55-1.02); Calcium 9.1 mg/dL (8.5-10.1); Chloride 99 mmol/L (98-107); Estimated GFR 75.97 (mL/min/1.73m2); Glucose 125 mg/dL (74-106); Magnesium 1.6 mg/dL (1.8-2.4); Potassium 3.2 mmol/L (3.5-5.1); Sodium 136 mmol/L (136-145)
[2024-09-17 06:53] LABS: Vancomycin, Random 13.9 ug/mL
[2024-09-17] MEDS: Budesonide/Formoterol 160/4.5 6 GM 60 PUFF INH IH ×2 (07:05→20:40)
--- NOTE | 2024-09-17 08:26 | PGE_ITS ---
Date of Service Date of service: 09/17/24 Time of Service: 08:27 Assessment and Plan Assessment and plan (1) Septic shock: Status: Acute Assessment and plan: - Patient currently meets criteria for severe sepsis with temperature of 102 ?F, heart rate in the 130s, lactic acid of 2.7, and presumed source of infection of right upper lobe pneumonia -Started on ceftriaxone azithromycin in the emergency department -Will switch to vancomycin and cefepime as patient appears clinically worse -Blood pressures have been labile systolically ranging from 70-110 on blood pressure cuff reads -Greatly appreciate anesthesia's assistance and placement of arterial line and midline (patient declined central line due to previous port placement) -After arterial line was placed on the afternoon of 09/16/2024, patient had acute arterial pressures consistently in the low 50s and was started on Levophed -Since that time patient has been weaned off of Levophed a few times overnight but required restarting at low-dose, currently off as of the morning of 09/17/2024 -Continue goal mean arterial pressure of 65 and will restart Levophed as needed -Additionally, preliminary blood cultures showing gram-positive cocci in clusters, f/u final culture results (2) Right upper lobe pneumonia: Status: Acute Assessment and plan: Source of infection as noted above (3) Acute on chronic respiratory failure with hypoxia: Status: Acute Assessment and plan: - Normally on 1 to 2 L at bedtime, had required up to 3 L nasal cannula upon admission -Has since been weaned to 2L nasal cannula -Continue to wean O2 with goal saturation greater than 92% (4) Aortic stenosis, severe: Status: Acute Assessment and plan: - Recently diagnosed that [facility] with aortic valve area of 0.9 cm? and mean gradient of 35 mmHg -Patient had recently increased her diuresis and was found to have collapsible IVC on POCUS -Will continue to gently rehydrate patient with very close concern for fluid overload in the setting of severe aortic stenosis (5) Obstructive sleep apnea syndrome: Status: Chronic Subjective Subjective Interval history since last seen: Patient is more awake and a little better but she is complaining 3 significant pleuritic chest pain and is encouraged to trial IV morphine for chest pain or dyspnea. 4 she understands that we are continuing IV antibiotic therapy with metoprolol appears to be improving. Otherwise she has no other complaints concerns at this time. Exam Narrative Exam Narrative: Acutely ill female laying in bed in mild respiratory distress, 2L nasal cannula in place, heart rate tachycardic, regular, lungs with decreased breath sounds in right upper lobe, otherwise clear, abdomen soft, nontender, nondistended Objective Last Vital Signs Temp 99.0 F 09/17/24 02:45 Pulse 100 H 09/17/24 07:06 Resp 34 H 09/17/24 07:06 BP 72/54 L 09/16/24 16:19 Pulse Ox 94 09/17/24 07:06 Laboratory Results - last 24 hr 09/16/24 09/16/24 09/16/24 08:00 08:10 08:53 WBC RBC Hgb Hct MCV MCH MCHC RDW Plt Count MPV PT 11.4 H INR 1.1 ABG Sample Site ABG pH ABG pCO2 ABG pO2 ABG HCO3 ABG Total CO2 ABG O2 Saturation ABG Base Excess VBG pH VBG pCO2 VBG pO2 VBG HCO3 VBG Total CO2 VBG O2 Saturation VBG Base Excess Sodium 135 L Potassium 3.4 L Chloride 94 L Carbon Dioxide 32.3 H Anion Gap 8.7 BUN 17 Creatinine 1.3 H Est GFR (CKD-EPI 2020) 48.87 Glucose 135 H Calcium 9.1 Magnesium 1.4 L Total Bilirubin 1.77 H AST 14 L ALT 24 Alkaline Phosphatase 126 H Troponin I 31 35 NT-Pro-B Natriuret Pep 1183 H Total Protein 7.7 Albumin 3.2 L Procalcitonin 7.36 Urine Color Urine Clarity Urine pH Ur Specific [place] Urine Protein Urine Ketones Urine Blood Urine Nitrite Urine Bilirubin Urine Urobilinogen Ur Leukocyte Esterase Urine RBC Urine WBC Ur Epithelial Cells Urine Crystals Urine Bacteria Urine Casts Urine Mucus Ur Culture Indicated? Urine Glucose Random Vancomycin COVID-19 Source Nasopharynx SARS-CoV-2 (PCR) Negative Influenza Type A (PCR) Negative Influenza Type B (PCR) Negative RSV (PCR) Negative 09/16/24 09/17/24 09/17/24 09:23 02:31 03:05 WBC RBC Hgb Hct MCV MCH MCHC RDW Plt Count MPV PT INR ABG Sample Site Arterial Line ABG pH 7.40 ABG pCO2 45 ABG pO2 79 L ABG HCO3 28 H ABG Total CO2 25 ABG O2 Saturation 97 ABG Base Excess 3 VBG pH Cancelled VBG pCO2 Cancelled VBG pO2 Cancelled VBG HCO3 Cancelled VBG Total CO2 Cancelled VBG O2 Saturation Cancelled VBG Base Excess Cancelled Sodium Potassium Chloride Carbon Dioxide Anion Gap BUN Creatinine Est GFR (CKD-EPI 2020) Glucose Calcium Magnesium Total Bilirubin AST ALT Alkaline Phosphatase Troponin I NT-Pro-B Natriuret Pep Total Protein Albumin Procalcitonin Urine Color Yellow Urine Clarity Cloudy Urine pH 5.5 Ur Specific [place] >= 1.030 H Urine Protein 100 H Urine Ketones Trace H Urine Blood Trace-intact H Urine Nitrite Negative Urine Bilirubin Negative Urine Urobilinogen 0.2 Ur Leukocyte Esterase Small H Urine RBC 5-10 H Urine WBC 10-20 H Ur Epithelial Cells Many Urine Crystals Negative Urine Bacteria Many Urine Casts Negative Urine Mucus Negative Ur Culture Indicated? C&S Done As Ordered Urine Glucose Negative Random Vancomycin COVID-19 Source SARS-CoV-2 (PCR) Influenza Type A (PCR) Influenza Type B (PCR) RSV (PCR) 09/17/24 05:39 WBC 34.50 H* RBC 4.15 Hgb 11.8 Hct 35.7 L MCV 86 MCH 28.4 MCHC 33.1 RDW 14.5 Plt Count 397 MPV 10.9 PT INR ABG Sample Site ABG pH ABG pCO2 ABG pO2 ABG HCO3 ABG Total CO2 ABG O2 Saturation ABG Base Excess VBG pH VBG pCO2 VBG pO2 VBG HCO3 VBG Total CO2 VBG O2 Saturation VBG Base Excess Sodium 136 Potassium 3.2 L Chloride 99 Carbon Dioxide 30.1 Anion Gap 6.9 BUN 19 H Creatinine 0.9 Est GFR (CKD-EPI 2020) 75.97 Glucose 125 H Calcium 9.1 Magnesium 1.6 L Total Bilirubin AST ALT Alkaline Phosphatase Troponin I NT-Pro-B Natriuret Pep Total Protein Albumin Procalcitonin Urine Color Urine Clarity Urine pH Ur Specific [place] Urine Protein Urine Ketones Urine Blood Urine Nitrite Urine Bilirubin Urine Urobilinogen Ur Leukocyte Esterase Urine RBC Urine WBC Ur Epithelial Cells Urine Crystals Urine Bacteria Urine Casts Urine Mucus Ur Culture Indicated? Urine Glucose Random Vancomycin 13.9 COVID-19 Source SARS-CoV-2 (PCR) Influenza Type A (PCR) Influenza Type B (PCR) RSV (PCR) Time Spent with Patient Time Spent with Patient: >50 minutes Time was spent: preparing to see the patient(eg.review tests), obtaining and/or reviewing separately otained hiistory, ordering medications,tests, procedures, referring, communicating with other health intensive care specialist, indepentently interpreting results, counseling the patient and care coordination
[2024-09-17] MEDS: Atorvastatin 40 MG TAB 80 MG PO (08:30)
[2024-09-17] MEDS: Aspirin E.C. 81 MG TABEC PO (08:30)
[2024-09-17] MEDS: Clopidogrel 75 MG TAB PO (08:30)
[2024-09-17] MEDS: Spironolactone 25 MG TAB PO (08:31)
[2024-09-17] MEDS: Montelukast 10 MG TAB PO (08:31)
[2024-09-17] MEDS: Enoxaparin 40 MG/0.4 ML SYR SC (08:31)
[2024-09-17] MEDS: POTASSIUM CHLORIDE 10 MEQ/100 ML BAG 100 MEQ IV_INF (09:50)
[2024-09-17] MEDS: Potassium Chloride 20 MEQ TABCR 40 MEQ PO (10:29)
[2024-09-17] MEDS: VANCOMYCIN 1,000 MG in Normal Saline 250 ML 166.667 MG IVPB ×2 (10:53→21:48)
[2024-09-17] MEDS: Levalbuterol 1.25 MG/3 ML UPD VIAL UPD ×3 (11:18→20:19)
--- NOTE | 2024-09-17 12:38 | PHA.REVIEW2 ---
Pharmacy Admission Review Admission Clinical Review Admission Pharmacy Review: Septic shock (Acute) Acute on chronic respiratory failure with hypoxia (Acute) Right upper lobe pneumonia (Acute) Severe sepsis (Acute) Aortic stenosis, severe (Acute) Sulfa (Sulfonamide Antibiotics) Adverse Reaction (Intermediate, Unverified 09/16/24 07:45) upset stomach Resuscitation Status Full Code Height 5 ft 3 in Weight 104.5 kg Pharmacy Admission Review Renal Dosing Renal Dosing: BUN 19 mg/dL (7-18) H 09/17/24 05:39 Creatinine 0.9 mg/dL (0.55-1.02) 09/17/24 05:39 Medications needing adjustments: Intervened (CrCl 82.62 mL/min, BUN increased from 17 and SCr decreased from 1.3) List of meds needing interventions: Changed cefepime back to q8h (from q12h) - provider is aware Anticoagulation Anticoagulation: Hgb 11.8 g/dL (11.2-15.7) 09/17/24 05:39 Hct 35.7 % (36.0-46.0) L 09/17/24 05:39 Plt Count 397 10^3/uL (130-400) 09/17/24 05:39 INR 1.1 (0.9-1.1) 09/16/24 08:00 Creatinine 0.9 mg/dL (0.55-1.02) 09/17/24 05:39 DVT Prophylaxis: Reviewed Medications: Enoxaparin (40mg daily) Relevant Labs Relevant Labs: Sodium 136 mmol/L (136-145) 09/17/24 05:39 Potassium 3.2 mmol/L (3.5-5.1) L 09/17/24 05:39 Chloride 99 mmol/L (98-107) 09/17/24 05:39 Magnesium 1.6 mg/dL (1.8-2.4) L 09/17/24 05:39 Electrolytes, C-Reactive P, ESR: Reviewed (K 3.2 - repleted with 40 mEq PO today) Cardiac Review Cardiac Review: Troponin I 35 ng/L (<or=51) 09/16/24 08:53 NT-Pro-B Natriuret Pep 1183 pg/mL (<300) H 09/16/24 08:00 BP, HR, EF%: Reviewed (HR 100 - has ranged in high 90s to low 100s all morning. Currently no BP reported for today, RR 34 on flow rate 1) List meds needing interventions: has order for metoprolol 37.5mg BID (on hold), norepinephrine infusion - running at 2.5mcg/min, and spironolactone 25mg daily QTc Review QTc: Reviewed (436 from 09/15/24) IV to PO Switch IV Medications: Reviewed (cefepime, lorazepam, norepinephrine infusion and vancomycin) Home Meds Home Med List reviewed: Intervened Relevent Home Meds Not ordered & why?: Advair (substituted with Symbicort per pharmacy protocol) and Tezspire (monthly injection) Not on home med list but recently filled: isosorbide and torsemide. Called nurse who confirmed with patient that they took that these at home. Added to home med list and informed provider. Currently no orders put in. Current Meds Current Medication Order Review: Intervened Comments: Reached out to provider for a frequency on miconazole order. Currently order just says PRN PRN. Waiting to hear back. Pharmacy Antibiotic Review Relevant Labs: WBC 34.50 10^3/uL (4.4-10.8) H* 09/17/24 05:39 Procalcitonin 7.36 ng/mL 09/16/24 08:00 Temperature 37.2 C Temperature 37.4 C Temperature 37.2 C Temperature 37.2 C Microbiology 09/16/24 08:20 Blood Culture - Preliminary Blood Gram positive cocci 09/16/24 09:23 Urine Culture - Preliminary Urine - Clean Catch Gram positive kristy, mixed 09/16/24 09:47 Sputum Culture - Preliminary Sputum Staphylococcus aureus Gram Stain - Final 09/16/24 08:30 Blood Culture - Preliminary Blood Gram positive cocci Pharmacy Antibiotic Activity: C/S review and Renal function adjustment (changed cefepime back to q8h from q12h) Comments: Patient is on cefepime and vancomycin, day 1, for severe sepsis/CAP. Vancomycin level was 13.9 today at 0539. Based on level dose entered as 1000mg q12h with predicted AUC of 442 and trough of 14. Level ordered for tomorrow at 0600 with morning labs, will adjust dose as needed based on results. Last elevated temperature was 37.6 yesterday at 2330. WBC increased from 29.15 and blood/urine/sputum cultures are coming back as gram positive cocci. Sputum coming back as Staph aureus.
[2024-09-17] MEDS: LORazepam 2 MG/ML VIAL 0.5 MG IVP (13:09)
[2024-09-17] MEDS: MORPHine 2 MG/ML SYR 1 MG IVP ×2 (14:05→17:31)
--- NOTE | 2024-09-17 15:08 | PDOC.CMIN ---
Date of service: 09/17/24 Time of Service: 12:30 Care Management Initial Assmt Initial Assessment Reason for Hospitalization: sever sepsis, RUL community acquired pneumonia Functional Status/Living Situation Patient Presentation: Karla was admitted through the ER yesterday when she came in with a fever, tacchycardia and difficulty breathing. Her offered to take her to [facility], but iMchelle didn't think she could make it, and EMS was called. She had been feeling increasingly SOB over the last couple of days. Michelle has a history of severe aortic stenosis. She is scheduled for an valve replacement on 10/12. Michelle also has a hx Hodgkins lymphoma for which she received radiation treatment. Ranjit thinks this is the root of many of Michelle's problems. Michelle was found to be septic with likely cause of pneumonia. When met with her today, she was noted to be tacchypneic, and could not really talk in complete sentences. She was friendly. Michelle's , Ranjit, was present and answered most of the questions. Michelle is independent at home, although she does stated that she does not have enough energy to work outside of the home, and she requires help with big chores. Town of Residence: [place] Resides with: Spouse (, Ranjit and their youngest son) Significant Other/Family: Local (4 living sons. Son, a twin, passed in 2019. 5 grandchildren and [address]) Natural Supports: family Employment Status: Unemployed (Is working on getting disability paperwork completed. [employer] contacted to see if they can help.) Instrumental Activities of Daily Living (ADLs): Independent Medications Medication Management: No Issues/Barriers identified Advance Directives Advance Directives: Do you have an Advance Directive: N 06/17/22 10:16 AD On File at [facility]: N 06/17/22 10:16 Date Asked 09/16/24 09/16/24 07:26 AD Date Reviewed COLST On File at [facility] COLST Date Scanned Code Status Resuscitation Status Full Code Insurance Coverage/Financial Issues Insurance: BCBS out of state Financial Issues: denies Care Team Visit Care Team Role Provider Type Any Pennington MD Primary Care Provider [facility] STAFF PHYSICIAN Blas Trujillo MD Emergency Provider [facility] STAFF PHYSICIAN Yonatan Salgado MD Admit Provider [facility] STAFF PHYSICIAN Attending Provider Discharge Potential Discharge Needs: PT Evaluation, PCP F/U Appt and Other (scheduled for total aortic valve replacement on 10/12/24) Anticipated Barriers to Discharge: None Identified Patient/Family Education Needs: Review discharge instructions, discuss Ask Me Three Transportation: Private vehicle Plan: Anticipate that Karla will be discharged home with no new services. CM will discuss [facility] through to see if she may be interested. Michelle will f/u with her community providers and continue per her plan of care. CM will continue to follow and update the plan as needed. Social Determinants of Health Screening Social Determinants of Health last assessed: 09/17/24 Will the Patient Participate in the Screening?: Yes Do you worry about having a steady place to live?: no Problems where you live: no known problems In the past 12 months, have you had to go without electric, gas, oil or water in your home?: no Have you or anyone in your house had to go without enough food to eat?: no Has lack of transportation kept you from medical appointments or from doing things needed for daily living?: no Has anyone in your life made you feel unsafe or unsupported?: no How hard is it for you to pay for the very basics like food, housing, medical care, and heating? Would you say it is:: Not hard at all Do you want help finding or keeping work or a job?: I do not need or want help If for any reason you need help with day-to-day activities such as bathing, preparing meals, shopping, managing finances, etc., do you get the help you need?: I don?t need any help How often do you feel lonely or isolated from those around you?: Never Do you speak a language other than [place] at home?: No Does the patient want assistance with any of the above?: No PFSH All Active Problems (Updated 09/17/24 @ 08:27 by Yonatan Salgado MD) Septic shock (Acute) Acute on chronic respiratory failure with hypoxia (Acute) Right upper lobe pneumonia (Acute) Severe sepsis (Acute) Aortic stenosis, severe (Acute) Sepsis (Acute) Pneumonia (Acute) Dyspnea (Acute) Severe pulmonary hypertension (Acute) Prediabetes (Acute) Severe asthma (Acute) Pulmonary nodules (Acute) Hypothyroidism (Chronic) Unspecified slipped upper femoral epiphysis (nontraumatic), right hip (Acute 07/25/15) Obstructive sleep apnea syndrome (Chronic 07/25/15) Metabolic syndrome (Acute 07/25/15) Hx of Hodgkins lymphoma (Acute 07/25/15) BMI 40.0-44.9, adult (Acute 07/25/15) Acquired hypothyroidism (Acute 07/25/15) Abnormal uterine bleeding (Acute 07/25/15) Trochanteric bursitis of right hip (Acute) Left leg swelling (Acute) Encounter for screening for COVID-19 (Acute) Medical History Abnormal chest CT Mild persistent asthma without complication (07/25/15) Abnormal uterine bleeding Rx with DepoProvera x9yrs. Resumed after stopping Depo in 2003. Worsening in 2013. 10/2015 Mirena IUD. Unspecified slipped upper femoral epiphysis (nontraumatic), right hip Metabolic syndrome Asthma, mild persistent Hx of Hodgkins lymphoma BMI 40.0-44.9, adult Obstructive sleep apnea Surgical History History of hip surgery pin placement History of removal of Port-a-Cath placement and removal History of cholecystectomy Family History Mother Heart disease heart beats too fast Asthma Allergies Son Personal history of malignant neoplasm Father COPD (chronic obstructive pulmonary disease) Social History Smoking/Tobacco Use Status: Never Smoking risk assessment performed?: Yes Alcohol Intake: never Drug use: Never Substance use type: does not use Housing: house Do you feel safe at home: Yes (unable to assess privately) Do you feel safe in your relationship?: Yes Readmission Within the Past 30 Days Yes or No: No
[2024-09-17] MEDS: MAGNESIUM SULFATE 2 GM/50 ML BAG IV_INF (23:24)
[2024-09-18] VITALS (69 sets, daily range): BP systolic 91–120; BP diastolic 46–65; PULSE 87–116; RESP 2–43; TEMP 36.7–38.1; O2SAT 88–99
[2024-09-18] MEDS: MORPHine 2 MG/ML SYR 1 MG IVP (01:22)
[2024-09-18] MEDS: Normal Saline Flush 10 ML SYR IVP ×4 (01:23→19:29)
[2024-09-18] MEDS: CEFEPIME 2 GM in Normal Saline 100 ML IVPB ×3 (04:35→19:28)
[2024-09-18] MEDS: Levalbuterol 1.25 MG/3 ML UPD VIAL UPD ×5 (04:37→19:57)
[2024-09-18 06:20] LABS: HCT 34.4 % (36.0-46.0); MCV 88 fL (80-95); MPV 10.8 fL (8.0-11.0); Platelet Count 336 10^3/uL (130-400); RBC 3.93 10^6/uL (3.93-5.22); RDW 14.6 % (11.7-14.6); RDW-SD 46.9 fL; WBC 20.03 10^3/uL (4.4-10.8)
[2024-09-18] MEDS: Levothyroxine 150 MCG TAB PO (06:29)
[2024-09-18 06:36] LABS: BUN 14 mg/dL (7-18); CO2 29.9 mmol/L (21.0-32.0); CREATININE 0.8 mg/dL (0.55-1.02); Chloride 99 mmol/L (98-107); Glucose 143 mg/dL (74-106)
[2024-09-18 06:41] LABS: Anion Gap 4.1 mmol/L (3-11); Potassium 4.3 mmol/L (3.5-5.1); Sodium 133 mmol/L (136-145)
[2024-09-18 06:43] LABS: Vancomycin, Random 11.4 ug/mL
[2024-09-18] MEDS: Budesonide/Formoterol 160/4.5 6 GM 60 PUFF INH IH ×2 (08:06→19:55)
[2024-09-18] MEDS: Ipratropium 0.5 MG/2.5 ML UPD VIAL UPD ×3 (08:06→19:56)
[2024-09-18] MEDS: Enoxaparin 40 MG/0.4 ML SYR SC (08:16)
[2024-09-18] MEDS: Clopidogrel 75 MG TAB PO (08:17)
[2024-09-18] MEDS: Spironolactone 25 MG TAB PO (08:17)
[2024-09-18] MEDS: Lactated Ringers 1,000 ML 75 ML IV (08:17)
[2024-09-18] MEDS: Montelukast 10 MG TAB PO (08:17)
[2024-09-18] MEDS: Aspirin E.C. 81 MG TABEC PO (08:18)
[2024-09-18] MEDS: Atorvastatin 40 MG TAB 80 MG PO (08:18)
[2024-09-18] MEDS: VANCOMYCIN 1,250 MG in Normal Saline 250 ML 166.667 MG IVPB ×2 (08:52→16:02)
[2024-09-18] MEDS: Furosemide 20 MG/2 ML VIAL 10 MG IVP ×2 (09:50→15:05)
[2024-09-18] MEDS: LORazepam 2 MG/ML VIAL 0.5 MG IVP (10:52)
--- NOTE | 2024-09-18 12:01 | PGE_ITS ---
Date of Service Date of service: 09/18/24 Time of Service: 12:01 Assessment and Plan Assessment and plan (1) Septic shock: Status: Acute Assessment and plan: - Patient currently meets criteria for severe sepsis with temperature of 102 ?F, heart rate in the 130s, lactic acid of 2.7, and presumed source of infection of right upper lobe pneumonia -Started on ceftriaxone azithromycin in the emergency department -Will switch to vancomycin and cefepime as patient appears clinically worse -Blood pressures have been labile systolically ranging from 70-110 on blood pressure cuff reads -Greatly appreciate anesthesia's assistance and placement of arterial line and midline (patient declined central line due to previous port placement) -After arterial line was placed on the afternoon of 09/16/2024, patient had acute arterial pressures consistently in the low 50s and was started on Levophed -Since that time patient has been weaned off of Levophed a few times overnight but required restarting at low-dose, currently off as of the morning of 09/17/2024 -Continue goal mean arterial pressure of 65 and will restart Levophed as needed -Additionally, preliminary blood cultures showing gram-positive cocci in clusters, f/u final culture results (2) Right upper lobe pneumonia: Status: Acute Assessment and plan: Source of infection as noted above (3) Acute on chronic respiratory failure with hypoxia: Status: Acute Assessment and plan: - Normally 0.5-1L at rest during xena day, 1 to 2 L at bedtime, had required up to 3 L nasal cannula upon admission -Has since been weaned to 2L nasal cannula -Continue to wean O2 with goal saturation greater than 92% (4) Aortic stenosis, severe: Status: Acute Assessment and plan: - Recently diagnosed that [facility] with aortic valve area of 0.9 cm? and mean gradient of 35 mmHg -Patient had recently increased her diuresis and was found to have collapsible IVC on POCUS -Signs of early pitting edema in bilateral lower extremities, continuous LR has been discontinued, patient ordered for low-dose 10 mg of IV Lasix to help with lower extremity edema and prevent worsening/pulmonary edema -Will continue to gently rehydrate patient with very close concern for fluid overload in the setting of severe aortic stenosis (5) Obstructive sleep apnea syndrome: Status: Chronic Subjective Subjective Interval history since last seen: Patient is more awake and alert as compared to previous days, but understandably continues to complain of some shortness of breath secondary to pleuritic and intercostal muscle discomfort from coughing and pneumonia. She was also concerned about the edema in her lower extremities and it was explained that she will be given a variable dose of Lasix in addition to discontinuing IV fluids that were continued overnight. Otherwise she has no other complaints concerns at this time. Exam Narrative Exam Narrative: Acutely ill female laying in bed in mild respiratory distress, 2L nasal cannula in place, heart rate tachycardic, regular, lungs with decreased breath sounds in right upper lobe, otherwise clear, abdomen soft, nontender, nondistended, +1 pitting edema bilateral lower extremities so just proximal to the ankles Objective Last Vital Signs Temp 98.6 F 09/18/24 11:34 Pulse 104 H 09/18/24 08:06 Resp 35 H 09/18/24 10:00 BP 100/65 09/18/24 07:05 Pulse Ox 91 L 09/18/24 10:00 Laboratory Results - last 24 hr 09/18/24 09/18/24 05:03 05:23 WBC 20.03 H RBC 3.93 Hgb 11.0 L Hct 34.4 L MCV 88 MCH 28.0 MCHC 32.0 RDW 14.6 Plt Count 336 MPV 10.8 Sodium 133 L Potassium 4.3 D Chloride 99 Carbon Dioxide 29.9 Anion Gap 4.1 BUN 14 Creatinine 0.8 Est GFR (CKD-EPI 2020) 87.50 Glucose 143 H Calcium 9.0 Random Vancomycin 11.4 Time Spent with Patient Time Spent with Patient: >50 minutes Time was spent: preparing to see the patient(eg.review tests), obtaining and/or reviewing separately otained hiistory, ordering medications,tests, procedures, referring, communicating with other health adult care provider, indepentently interpreting results, counseling the patient and care coordination
[2024-09-18] MEDS: Acetaminophen 325 MG TAB PO (19:30)
[2024-09-19] VITALS (34 sets, daily range): BP systolic 101–131; BP diastolic 54–67; PULSE 89–110; RESP 3–161; TEMP 36.4–37.2; O2SAT 81–100
[2024-09-19] MEDS: Normal Saline Flush 10 ML SYR IVP ×6 (00:05→20:00)
[2024-09-19] MEDS: VANCOMYCIN 1,250 MG in Normal Saline 250 ML 166.667 MG IVPB (00:06)
[2024-09-19] MEDS: Acetaminophen 325 MG TAB PO ×2 (00:54→05:12)
[2024-09-19] MEDS: Ipratropium 0.5 MG/2.5 ML UPD VIAL UPD ×4 (02:00→21:15)
[2024-09-19] MEDS: Levalbuterol 1.25 MG/3 ML UPD VIAL UPD ×4 (02:01→21:13)
[2024-09-19] MEDS: Levothyroxine 150 MCG TAB PO (05:13)
[2024-09-19] MEDS: CEFEPIME 2 GM in Normal Saline 100 ML IVPB ×3 (05:13→21:09)
[2024-09-19 06:09] LABS: HCT 36.2 % (36.0-46.0); HGB 11.4 g/dL (11.2-15.7); MCH 28.5 pg (27.0-33.0); MCHC 31.5 % (32.0-36.0); MCV 91 fL (80-95); MPV 11.1 fL (8.0-11.0); Platelet Count 320 10^3/uL (130-400); RDW 14.5 % (11.7-14.6); RDW-SD 48.4 fL; WBC 15.08 10^3/uL (4.4-10.8)
[2024-09-19 06:20] LABS: Anion Gap 4.7 mmol/L (3-11); BUN 11 mg/dL (7-18); CO2 31.3 mmol/L (21.0-32.0); CREATININE 0.9 mg/dL (0.55-1.02); Calcium 8.4 mg/dL (8.5-10.1); Chloride 98 mmol/L (98-107); Estimated GFR 75.97 (mL/min/1.73m2); Glucose 145 mg/dL (74-106); Potassium 4.1 mmol/L (3.5-5.1); Sodium 134 mmol/L (136-145)
[2024-09-19 06:25] LABS: Vancomycin, Random 23.3 ug/mL
[2024-09-19] MEDS: Montelukast 10 MG TAB PO (07:43)
[2024-09-19] MEDS: Clopidogrel 75 MG TAB PO (07:43)
[2024-09-19] MEDS: Aspirin E.C. 81 MG TABEC PO (07:43)
[2024-09-19] MEDS: Atorvastatin 40 MG TAB 80 MG PO (07:43)
[2024-09-19] MEDS: Spironolactone 25 MG TAB PO (07:44)
[2024-09-19] MEDS: Enoxaparin 40 MG/0.4 ML SYR SC (08:25)
--- NOTE | 2024-09-19 08:35 | CMPROGNOTE_ITS ---
Date of service: 09/19/24 Time of Service: 08:36 Care Management Progress Note Progress Note Text Progress Note Text: Karla was transferred out to the med surg floor today. She stated that she is feeling mildly better, but she is very tired. She is not sleeping well. She stated that she doesn't sleep well at home, either. Miranda has been OOB to the chair most of the day, she stated that she walked in the halls today, but didn't get very far. Miranda has some paperwork that she is asking for some help with. CM provided Michelle with an email to send to, but it has not yet been received. CM spoke with Miranda about this and she had the wrong email address. She will resend. Unsure if CM can help, but will review. Miranda has a room full of visitors at the time. Discharge Potential Discharge Needs: PCP F/U Appt and Other (Is scheduled for aortic valve replacement on 10[place]12 at [facility] [place] Anticipated Barriers to Discharge: None Identified Patient/Family Education Needs: Review discharge instructions, discuss Ask Me Three Transportation: Private vehicle Plan: Anticipate that Karla will be discharged home with no new services. Miranda will f/u with her community providers and continue per her plan of care. She will transport home with her . Miranda is scheduled for aortic valve replacement on 10/12/24. CM will continue to follow and update the plan as needed. Social Determinants of Health Screening Social Determinants of Health last assessed: 09/19/24 Will the Patient Participate in the Screening?: Yes Do you worry about having a steady place to live?: no Problems where you live: no known problems In the past 12 months, have you had to go without electric, gas, oil or water in your home?: no Have you or anyone in your house had to go without enough food to eat?: no Has lack of transportation kept you from medical appointments or from doing things needed for daily living?: no Has anyone in your life made you feel unsafe or unsupported?: no How hard is it for you to pay for the very basics like food, housing, medical care, and heating? Would you say it is:: Not hard at all Do you want help finding or keeping work or a job?: I do not need or want help If for any reason you need help with day-to-day activities such as bathing, preparing meals, shopping, managing finances, etc., do you get the help you need?: I don?t need any help How often do you feel lonely or isolated from those around you?: Never Do you speak a language other than Comoran at home?: No Does the patient want assistance with any of the above?: No
[2024-09-19] MEDS: Furosemide 20 MG/2 ML VIAL 10 MG IVP (09:04)
[2024-09-19] MEDS: Budesonide/Formoterol 160/4.5 6 GM 60 PUFF INH IH ×2 (09:48→21:21)
[2024-09-19] MEDS: VANCOMYCIN 1,500 MG in Normal Saline 250 ML 166.667 MG IVPB ×2 (10:47→22:18)
--- NOTE | 2024-09-19 12:41 | W.PC.ACHO ---
Registration Status: Primary Language: Preferred Language: ED Information & Data Chief Complaint SOB 09/16/24 07:53 Chief Complaint SOB 09/16/24 07:15 Triage Note pt called ems with c/o 09/16/24 07:15 difficulty breathing. has not felt well pat 3-4 days. uses home oxygen but usually only at night. has needed oxygen during the day. intermittent chest pain. significant cardiac history. Medical / Surgical History (Last Reviewed 09/16/24 @ 09:14 by Blas Trujillo MD) Abnormal chest CT Mild persistent asthma without complication (07/25/15) Abnormal uterine bleeding Unspecified slipped upper femoral epiphysis (nontraumatic), right hip Metabolic syndrome Asthma, mild persistent Hx of Hodgkins lymphoma BMI 40.0-44.9, adult Obstructive sleep apnea (Last Reviewed 09/16/24 @ 09:14 by Blas Trujillo MD) History of hip surgery History of removal of Port-a-Cath History of cholecystectomy Most Recent Vital Signs Temperature 36.5 C 09/19/24 11:37 Temperature Source Temporal Artery Scan 09/19/24 11:37 Pulse 101 H 09/19/24 11:37 Pulse 98 H 09/19/24 10:01 Respiratory Rate 25 H 09/19/24 10:01 Respiratory Effort Short of Breath, Labored, Accessory Muscle Use 09/16/24 10:50 Respiratory Depth Normal 09/16/24 10:50 Respiratory Pattern Tachypnea 09/16/24 10:50 Blood Pressure 120/58 L 09/19/24 10:01 Blood Pressure Mean 76 09/19/24 10:01 Blood Pressure Position Sitting 09/16/24 10:50 Pulse Oximetry 92 09/19/24 11:37 Oxygen Delivery Method Nasal Cannula 09/19/24 11:37 Oxygen Flow Rate 1 09/19/24 11:37 Pain Level 8 09/19/24 05:12 Comment R sided CP 09/16/24 07:15 Arterial Systolic 125 09/18/24 04:30 Arterial Diastolic 52 09/18/24 04:30 Arterial Mean 75 09/18/24 04:30 Allergies Sulfa (Sulfonamide Antibiotics) Adverse Reaction (Intermediate, Unverified 09/16/24 07:45) upset stomach Precautions Isolation Standard precaution 09/16/24 07:53 Active Medications Generic Name Dose Route Start Last Admin Trade Name Freq PRN Reason Stop Dose Admin Acetaminophen 0 mg 09/16/24 13:57 09/19/24 05:12 Acetaminophen 325 Mg Tab PO 650 mg Q4H PRN PRN Administration Aspirin 81 mg 09/17/24 08:30 09/19/24 07:43 Aspirin E.C. 81 Mg Tabec PO 81 mg DAILY LIN Administration Atorvastatin Calcium 80 mg 09/17/24 08:30 09/19/24 07:43 Atorvastatin 40 Mg Tab PO 80 mg DAILY LIN Administration Budesonide/Formoterol Fumarate 2 puff 09/16/24 20:00 09/19/24 09:48 Budesonide/Formoterol 160/4.5 6 Gm 60 Puff Inh IH 2 puffs BID LIN Administration Clopidogrel Bisulfate 75 mg 09/17/24 08:30 09/19/24 07:43 Clopidogrel 75 Mg Tab PO 75 mg DAILY LIN Administration Enoxaparin Sodium 40 mg 09/17/24 08:30 09/19/24 08:25 Enoxaparin 40 Mg/0.4 Ml Syr SC 40 mg DAILY LIN Administration Norepinephrine Bitartrate 8 mg in 250 mls @ 9.375 mls/hr 09/16/24 16:30 09/17/24 14:40 IV 0 mcg/min INFUSION LIN 0 mls/hr Titration Protocol 5 MCG/MIN Cefepime HCl 2 gm/ Sodium 100 mls @ 200 mls/hr 09/17/24 12:00 09/19/24 06:07 Chloride IVPB Infused Q8H LIN Infusion Vancomycin HCl 1,500 mg/ 250 mls @ 166.667 mls/hr 09/19/24 10:00 09/19/24 10:47 Sodium Chloride IVPB 166.667 mls/hr Q12H LIN Administration Ipratropium Wallace 0.5 mg 09/16/24 14:00 09/19/24 09:49 Ipratropium 0.5 Mg/2.5 Ml Upd Vial UPD 0.5 mg Q6H LIN Administration Levalbuterol HCl 1.25 mg 09/16/24 12:25 09/18/24 18:07 Levalbuterol 1.25 Mg/3 Ml Upd Vial UPD 1.25 mg Q4H PRN PRN Administration Levalbuterol HCl 1.25 mg 09/17/24 20:00 09/19/24 09:48 Levalbuterol 1.25 Mg/3 Ml Upd Vial UPD 1.25 mg Q6H LIN Administration Levothyroxine Sodium 150 mcg 09/17/24 06:00 09/19/24 05:13 Levothyroxine 150 Mcg Tab PO 150 mcg DAILY@0600 LIN Administration Lorazepam 0.5 mg 09/16/24 10:50 09/18/24 10:52 Lorazepam 2 Mg/Ml Vial IVP 0.5 mg Q4H PRN PRN Administration Metoprolol Tartrate 37.5 mg 09/16/24 20:00 09/16/24 21:04 Metoprolol 25 Mg Tab PO Not Given BID LIN Miconazole Nitrate 0 gm 09/16/24 23:05 09/17/24 06:19 Miconazole 2% Topical Powder 85 Gm Btl TP 09/30/24 23:59 1 applic PRN PRN Administration Montelukast Sodium 10 mg 09/17/24 08:30 09/19/24 07:43 Montelukast 10 Mg Tab PO 10 mg DAILY LIN Administration Sodium Chloride 0 ml 09/16/24 13:57 09/19/24 07:45 Normal Saline Flush 10 Ml Syr IVP 40 ml PRN PRN Administration Sodium Chloride 0 ml 09/16/24 20:00 09/19/24 07:45 Normal Saline Flush 10 Ml Syr IVP 10 ml BID LIN Administration Spironolactone 25 mg 09/17/24 08:30 09/19/24 07:44 Spironolactone 25 Mg Tab PO 25 mg DAILY LIN Administration IV IV Catheter Type [Left midline IVAD ] IV Catheter Type [Right Saline Lock Forearm] IV Catheter Type [Left Forearm Saline Lock ] IV Catheter Type [Right Saline Lock Antecubital] IV Catheter Type [Right Hand] Saline Lock IV Catheter Gauge [Right 20 Forearm] IV Catheter Gauge [Left 22 Forearm] IV Catheter Gauge [Right 20 Antecubital] IV Catheter Gauge [Right Hand] 20 Diagnostics 09/19/24 Range/Units 05:34 WBC 15.08 H (4.4-10.8) 10^3/uL RBC 4.00 (3.93-5.22) 10^6/uL Hgb 11.4 (11.2-15.7) g/dL Hct 36.2 (36.0-46.0) % MCV 91 (80-95) fL MCH 28.5 (27.0-33.0) pg MCHC 31.5 L (32.0-36.0) % RDW 14.5 (11.7-14.6) % Plt Count 320 (130-400) 10^3/uL MPV 11.1 H (8.0-11.0) fL Sodium 134 L (136-145) mmol/L Potassium 4.1 (3.5-5.1) mmol/L Chloride 98 (98-107) mmol/L Carbon Dioxide 31.3 (21.0-32.0) mmol/L Anion Gap 4.7 (3-11) mmol/L BUN 11 (7-18) mg/dL Creatinine 0.9 (0.55-1.02) mg/dL Est GFR (CKD-EPI 2020) 75.97 (mL/min/1.73m2) Glucose 145 H (74-106) mg/dL Calcium 8.4 L (8.5-10.1) mg/dL Random Vancomycin 23.3 ug/mL 09/16/24 09:47 Sputum Culture - Final Sputum Staphylococcus aureus Gram Stain - Final 09/16/24 08:30 Blood Culture - Final Blood Staphylococcus aureus 09/16/24 08:20 Blood Culture - Final Blood Staphylococcus aureus 09/19/24 07:17 Blood Culture - Pending Blood 09/19/24 07:08 Blood Culture - Pending Blood 09/16/24 09:23 Urine Culture - Final Urine - Clean Catch Gram positive kristy, mixed [id number] Documentation Fingerstick Glucose Start: 09/16/24 09:30 Freq: Status: Complete Protocol: Activity Type Activity Date Activity User E-sign Co-sign Detail Recorded Client Recorded Date Recorded By Document 09/16/24 09:29 BKG DAEMON(7) [id number] 09/16/24 09:30 BKG DAEMON(8) Fingerstick Glucose Start: 09/17/24 02:20 Freq: Status: Complete Protocol: Activity Type Activity Date Activity User E-sign Co-sign Detail Recorded Client Recorded Date Recorded By Document 09/17/24 02:19 BKG DAEMON(9) [id number] 09/17/24 02:20 BKG DAEMON(10) Fingerstick Glucose Start: 09/19/24 11:52 Freq: Status: Active Protocol: Activity Type Activity Date Activity User E-sign Co-sign Detail Recorded Client Recorded Date Recorded By Document 09/19/24 11:51 BKG DAEMON(10) [id number] 09/19/24 11:52 BKG DAEMON(10) Intake and Output - 24 Hour Total 09/16/24 07:07 thru 09/19/24 09:44 Intake Total 48589.033 Output Total 3815 Balance 7429.033 Weight 106.254 kg Intake: IV 7684.033 Oral 3560 Output: Urine 3815 Other: Urine Color Yellow Urine Appearance Clear Urine Odor Normal Comment By end of shift, patient has toileted three more times and voided only 25 total between those times. Stool Size Moderate Stool Characteristics Soft Formed [place] Risk Assessment History of Falls No History 09/16/24 10:50 Contributing Factors No Factors 09/16/24 10:50 Ambulatory Aids Independent 09/16/24 10:50 Tubes/Lines W/no contributing factors 09/16/24 10:50 Gait Evaluation No gait disturbance 09/16/24 10:50 Cognition No cognitive impairment 09/16/24 10:50 Fall Total Score 10 09/16/24 10:50 Level of Risk Standard/Low Risk 09/16/24 10:50 Problems (Last Reviewed 09/16/24 @ 09:14 by Blas Trujillo MD) Septic shock (Acute) Acute on chronic respiratory failure with hypoxia (Acute) Right upper lobe pneumonia (Acute) Severe sepsis (Acute) Aortic stenosis, severe (Acute) Obstructive sleep apnea syndrome (Chronic 07/25/15) v v v v v v v v v Sending and/or Receiving Nurses: Please use comment section below to note any information pertinent to the patient hand-off not included above. Information / Comments: Report received from: Claudette, GUIDE SETTER. Carolyn heredia.
[2024-09-19] MEDS: Furosemide 20 MG/2 ML VIAL IVP ×2 (12:44→18:15)
--- NOTE | 2024-09-19 13:09 | PGE_ITS ---
Date of Service Date of service: 09/19/24 Time of Service: 13:09 Assessment and Plan Assessment and plan (1) Septic shock: Status: Acute Assessment and plan: - Patient currently meets criteria for severe sepsis with temperature of 102 ?F, heart rate in the 130s, lactic acid of 2.7, and presumed source of infection of right upper lobe pneumonia -Started on ceftriaxone azithromycin in the emergency department -Will switch to vancomycin and cefepime as patient appears clinically worse -Blood pressures have been labile systolically ranging from 70-110 on blood pressure cuff reads -Greatly appreciate anesthesia's assistance and placement of arterial line and midline (patient declined central line due to previous port placement) -After arterial line was placed on the afternoon of 09/16/2024, patient had acute arterial pressures consistently in the low 50s and was started on Levophed -Since that time patient has been weaned off of Levophed a few times overnight but required restarting at low-dose, currently off as of the morning of 09/17/2024 -Additionally, admission blood cultures growing Staph aureus, will continue vancomycin -Repeat blood cultures ordered on the morning 09/19/2024, once 24 to 48 hours negative will discuss duration of antibiotic therapy and IV access (2) Right upper lobe pneumonia: Status: Acute Assessment and plan: Source of infection as noted above (3) Acute on chronic respiratory failure with hypoxia: Status: Acute Assessment and plan: - Normally 0.5-1L at rest during xena day, 1 to 2 L at bedtime, had required up to 3 L nasal cannula upon admission -Has since been weaned to 1L nasal cannula -Continue to wean O2 with goal saturation greater than 92% (4) Aortic stenosis, severe: Status: Acute Assessment and plan: - [place] [facility] [place] area of 0.9 cm? and mean gra dient of 35 mmHg -Patient had recently increased her diuresis and was found to have collapsible IVC on POCUS -on AM 09/18 Signs of early pitting edema in bilateral lower extremities, continuous LR has been discontinued, patient ordered for low-dose 10 mg of IV Lasix to help with lower extremity edema and prevent worsening/pulmonary edema -Patient was given additional 10 mg of IV Lasix on the afternoon of 09/18/2024, and an additional 10 mg on the morning of 09/19/2024 -Patient blood pressures are tolerating IV Lasix well and actually systolics in the 120s, therefore additional 20 mg of IV Lasix was ordered late morning 09/19/2024 patient will be reassessed for potential additional dose of 20 mg IV Lasix in the afternoon (5) Obstructive sleep apnea syndrome: Status: Chronic Subjective Subjective Interval history since last seen: Patient states that she is overall happy that she apears to be improving, but is still concerned about potential fluid overload. Decision was made and she will receive additional 20 mg of IV Lasix and will be reassessed in the afternoon for additional doses as needed. Exam Narrative Exam Narrative: Acutely ill female laying in bed in mild respiratory distress, 2L nasal cannula in place, heart rate tachycardic, regular, lungs with decreased breath sounds in right upper lobe, otherwise clear, abdomen soft, nontender, nondistended, +1 pitting edema bilateral lower extremities so just proximal to the ankles Objective Last Vital Signs Temp 97.7 F 09/19/24 11:37 Pulse 101 H 09/19/24 11:37 Resp 25 H 09/19/24 10:01 BP 120/58 L 09/19/24 10:01 Pulse Ox 92 09/19/24 11:37 Laboratory Results - last 24 hr 09/19/24 05:34 WBC 15.08 H RBC 4.00 Hgb 11.4 Hct 36.2 MCV 91 MCH 28.5 MCHC 31.5 L RDW 14.5 Plt Count 320 MPV 11.1 H Sodium 134 L Potassium 4.1 Chloride 98 Carbon Dioxide 31.3 Anion Gap 4.7 BUN 11 Creatinine 0.9 Est GFR (CKD-EPI 2020) 75.97 Glucose 145 H Calcium 8.4 L Random Vancomycin 23.3 Time Spent with Patient Time Spent with Patient: >50 minutes Time was spent: preparing to see the patient(eg.review tests), obtaining and/or reviewing separately otained hiistory, ordering medications,tests, procedures, referring, communicating with other health care transitions nurse, indepentently interpreting results, counseling the patient and care coordination
[2024-09-19] MEDS: Docusate Sodium 100 MG CAP PO (13:38)
[2024-09-19] MEDS: Lidocaine 2% Viscous 15 ML CUP PO (18:14)
[2024-09-19] MEDS: Metoprolol 25 MG TAB 37.5 MG PO (21:10)
[2024-09-20] VITALS (20 sets, daily range): BP systolic 92–127; BP diastolic 52–62; PULSE 43–97; RESP 8–40; TEMP 36.2–37.6; O2SAT 88–100
[2024-09-20] MEDS: Levalbuterol 1.25 MG/3 ML UPD VIAL UPD ×4 (02:55→20:30)
[2024-09-20] MEDS: Ipratropium 0.5 MG/2.5 ML UPD VIAL UPD ×4 (02:58→20:35)
[2024-09-20] MEDS: CEFEPIME 2 GM in Normal Saline 100 ML IVPB ×2 (04:01→12:24)
[2024-09-20 06:21] LABS: HCT 34.9 % (36.0-46.0); HGB 11.1 g/dL (11.2-15.7); MCH 28.4 pg (27.0-33.0); MCHC 31.8 % (32.0-36.0); MCV 89 fL (80-95); MPV 10.6 fL (8.0-11.0); Platelet Count 387 10^3/uL (130-400); RBC 3.91 10^6/uL (3.93-5.22); RDW 14.5 % (11.7-14.6); RDW-SD 46.8 fL; WBC 18.39 10^3/uL (4.4-10.8)
[2024-09-20 06:31] LABS: Anion Gap 2.6 mmol/L (3-11); BUN 11 mg/dL (7-18); CO2 32.4 mmol/L (21.0-32.0); CREATININE 0.9 mg/dL (0.55-1.02); Calcium 8.9 mg/dL (8.5-10.1); Chloride 98 mmol/L (98-107); Estimated GFR 75.97 (mL/min/1.73m2); Glucose 143 mg/dL (74-106); Potassium 4.2 mmol/L (3.5-5.1); Sodium 133 mmol/L (136-145)
[2024-09-20] MEDS: Levothyroxine 150 MCG TAB PO (06:39)
[2024-09-20] MEDS: Budesonide/Formoterol 160/4.5 6 GM 60 PUFF INH IH ×2 (08:29→20:30)
[2024-09-20] MEDS: Clopidogrel 75 MG TAB PO (08:59)
[2024-09-20] MEDS: Spironolactone 25 MG TAB PO (08:59)
[2024-09-20] MEDS: Metoprolol 25 MG TAB 37.5 MG PO ×2 (08:59→21:25)
[2024-09-20] MEDS: Montelukast 10 MG TAB PO (08:59)
[2024-09-20] MEDS: Atorvastatin 40 MG TAB 80 MG PO (09:00)
[2024-09-20] MEDS: Aspirin E.C. 81 MG TABEC PO (09:01)
[2024-09-20] MEDS: Normal Saline Flush 10 ML SYR IVP ×2 (09:01→21:27)
[2024-09-20] MEDS: Enoxaparin 40 MG/0.4 ML SYR SC (09:02)
--- NOTE | 2024-09-20 09:12 | PDOC.CMPRO ---
Date of service: 09/20/24 Time of Service: 09:13 Care Management Progress Note Progress Note Text Progress Note Text: Karla was sitting in a recliner when CM met with her, she is accompanied by her Ranjit. Karla feels too weak to walk and a PT consult was ordered. Per PT, pt is limited by dyspnea and may benefit from [facility] until her TAVR which is scheduled for 10/12/24. Discharge Potential Discharge Needs: PCP F/U Appt Anticipated Barriers to Discharge: None Identified Patient/Family Education Needs: Review discharge instructions, discuss Ask Me Three Transportation: Private vehicle Plan: Anticipate, Krala will be discharged home with a referral to the [facility]. Miranda will f/u with her community providers and continue per her plan of care. She will transport home with her . Miranda is scheduled for aortic valve replacement on 10/12/24. CM will continue to follow and update the plan as needed. Social Determinants of Health Screening Social Determinants of Health last assessed: 09/20/24 Will the Patient Participate in the Screening?: Yes Do you worry about having a steady place to live?: no Problems where you live: no known problems In the past 12 months, have you had to go without electric, gas, oil or water in your home?: no Have you or anyone in your house had to go without enough food to eat?: no Has lack of transportation kept you from medical appointments or from doing things needed for daily living?: no Has anyone in your life made you feel unsafe or unsupported?: no How hard is it for you to pay for the very basics like food, housing, medical care, and heating? Would you say it is:: Not hard at all Do you want help finding or keeping work or a job?: I do not need or want help If for any reason you need help with day-to-day activities such as bathing, preparing meals, shopping, managing finances, etc., do you get the help you need?: I don?t need any help How often do you feel lonely or isolated from those around you?: Never Do you speak a language other than [place] at home?: No Does the patient want assistance with any of the above?: No
[2024-09-20] MEDS: VANCOMYCIN 1,500 MG in Normal Saline 250 ML 166.667 MG IVPB (09:43)
--- NOTE | 2024-09-20 13:31 | PGE_ITS ---
Date of Service Date of service: 09/20/24 Time of Service: 13:00 Assessment and Plan Assessment and plan (1) Staphylococcus aureus bacteremia: Status: Acute Assessment and plan: -Started on ceftriaxone azithromycin in the emergency department -Switched to vancomycin and cefepime upon admission as patient appeared clinically worse -Admission blood cultures growing MSSA, will narrow to oxacillin -Repeat blood cultures ordered on the morning 09/19/2024, 48 hours negative 09/21, will consider duration of antibiotic therapy and IV access (2) Septic shock: Status: Acute Assessment and plan: Resolved. Initially met criteria for severe sepsis with temperature of 102 ?F, heart rate in the 130s, lactic acid of 2.7, and presumed source of infection of right upper lobe pneumonia, required norepinephrine drip. (3) Right upper lobe pneumonia: Status: Acute Assessment and plan: Source of infection as noted above. Encouraged to participate in chest PT despite the discomfort. (4) Aortic stenosis, severe: Status: Acute Assessment and plan: - Recently diagnosed [place] [facility] [place] valve area of 0.9 cm? and mean gradient of 35 mmHg -Patient had recently increased her diuresis and was found to have collapsible IVC on POCUS -Edema noted AM 09/18, has increased despite 10mg-20mg doses 09/18 and 09/19 -She is tolerating these lower doses, but not much diuresis. Will give 40mg IV dose (equivalent to her outpatient 40mg oral torsemide), continue to monitor. Re-POCUS 09/[address] Trujillo is here to help. (5) DVT prophylaxis: Status: Acute Assessment and plan: enoxaparin (6) Hyperbilirubinemia: Status: Acute Assessment and plan: mild on admission, stable from prior year (7) Hypomagnesemia: Status: Acute Assessment and plan: supplemented, recheck in AM Subjective Subjective Patient reports: tolerating a regular diet and voiding w/o difficulty; denies diarrhea, nausea, vomiting or fever Interval history since last seen: Feels okay now, but has been up and down. She still feels like there is fluid in her lungs and more swelling in her feet. She wants IV Lasix rather than oral torsemide for now. The 10mg and 20mg made her urinate a little, but not much. Her cough is less productive but still getting some thick sputum out. She doesn't like the chest PT because it hurts to breath deeply. Exam Narrative Exam Narrative: Uncomfortable appearing female sitting up in chair, speaking in short sentances with mild increased WOB, 2L nasal cannula in place, heart rate regular, 3/6 systolic murmur, lungs with decreased breath sounds in right upper lobe, otherwise clear with no basilar rales, abdomen soft, nontender, nondistended, +2 pitting edema bilateral lower extremities so just proximal to the ankles, not tender Objective Last Vital Signs Temp 37.3 C 09/20/24 11:17 Pulse 83 09/20/24 11:17 Resp 24 09/20/24 11:17 BP 107/62 09/20/24 11:17 Pulse Ox 92 09/20/24 11:17 Laboratory Results - last 24 hr 09/20/24 09/20/24 06:10 14:00 WBC 18.39 H RBC 3.91 L Hgb 11.1 L Hct 34.9 L MCV 89 MCH 28.4 MCHC 31.8 L RDW 14.5 Plt Count 387 MPV 10.6 Sodium 133 L Potassium 4.2 Chloride 98 Carbon Dioxide 32.4 H Anion Gap 2.6 L BUN 11 Creatinine 0.9 Est GFR (CKD-EPI 2020) 75.97 Glucose 143 H Calcium 8.9 Random Vancomycin Cancelled Time Spent with Patient Time Spent with Patient: >50 minutes Time was spent: preparing to see the patient(eg.review tests), obtaining and/or reviewing separately otained hiistory, ordering medications,tests, procedures, referring, communicating with other health memory care program resident, indepentently interpreting results, counseling the patient and care coordination
[2024-09-20] MEDS: Furosemide 40 MG/4 ML VIAL IVP (14:31)
--- NOTE | 2024-09-20 14:35 | IN_ITS ---
PT Notes Visit Reasons: Severe Sepsis RUL CAP Inpatient Physical Therapy Evaluation Date: 09/20/2024 Referring Doctor: Dr. Singleton PT Orders: PT CONSULT: Fall safety assessment Precautions: Oxygen currently at 1 L monitor saturations, standard precautions, telemetry Patient Profile/Admitting Diagnosis: Patient is 53-year-old female presented to the emergency room with increased shortness of breath few days after discharge from [facility]. Patient diagnosed with sepsis, RUL pneumonia, acute on chronic respiratory failure with hypoxia. Patient treated with IV antibiotics initially transferred to ICU for medical management then transition to MedSurg unit. PT consult placed PMHX: Acute on chronic respiratory failure with hypoxia (Acute) Right upper lobe pneumonia (Acute) Severe sepsis (Acute) Aortic stenosis, severe (Acute) Sepsis (Acute) Pneumonia (Acute) Dyspnea (Acute) Severe pulmonary hypertension (Acute) Prediabetes (Acute) Severe asthma (Acute) Pulmonary nodules (Acute) Hypothyroidism (Chronic) Unspecified slipped upper femoral epiphysis (nontraumatic), right hip (Acute 07/25/15) Obstructive sleep apnea syndrome (Chronic 07/25/15) Metabolic syndrome (Acute 07/25/15) Hx of Hodgkins lymphoma (Acute 07/25/15) BMI 40.0-44.9, adult (Acute 07/25/15) Acquired hypothyroidism (Acute 07/25/15) Abnormal uterine bleeding (Acute 07/25/15) Trochanteric bursitis of right hip (Acute) Left leg swelling (Acute) Encounter for screening for COVID-19 (Acute) Medical History Abnormal chest CT Mild persistent asthma without complication (07/25/15) Abnormal uterine bleeding Rx with DepoProvera x9yrs. Resumed after stopping Depo in 2003. Worsening in 2013. 10/2015 Mirena IUD.Unspecified slipped upper femoral epiphysis (nontraumatic), right hip Metabolic syndrome Asthma, mild persistent Hx of Hodgkins lymphoma BMI 40.0-44.9, adult Obstructive sleep apnea Surgical History History of hip surgery pin placementHistory of removal of Port-a-Cath placement and removalHistory of cholecystectomy Social History/Home Situation: [] Patient reports she resides with her in single-family home with 3 steps to enter without a rail. She reports independent with all ADL, ambulation, IADLs, meal prep, homemaking, laundry, driving, shopping until recently. Equipment Owned/DME: None Subjective: [Patient reports she is scheduled for a TAVR on 10/12/2024 at [facility]. She reports swelling is limiting her ability to breathe and move. Patient reports she is currently sleeping in recliner since transition to [facility] unit. She notes she was sleeping in the bed when in ICU. At this time she declines to attempt bed mobility due to level of dyspnea when lying down. Objective: [] General Observation: Patient presented seated in bedside chair with forehead resting on arms on her over bed table. O2 in place at 1 L. Patient noted with increased respiratory rate 18. 2+ edema noted bilateral lower extremities dorsum of feet included. Mental Status: Alert and oriented x 4, patient frustrated by level of swelling she has in her legs agreeable to participate in short distance ambulation however declined bed level tasks secondary to dyspnea when she lies down Pain: Denies Vital Signs: Monitored via telemetry throughout O2 sat 1 L at rest 93 with activity 91%; respiratory rate with activity 24 ROM: Right Upper Extremity: Within functional limits Left Upper Extremity: [] Within functional limits Right Lower Extremity: Within functional limits limited by body habitus soft tissue approximation Left Lower Extremity: Within functional limits, limited by body habitus soft tissue approximation Strength: Right Upper Extremity: Grossly able to move through full active range of motion no MMT secondary to cardiac status Left Upper Extremity: Grossly able to move through full active range of motion no MMT secondary to cardiac status Right Lower Extremity: Hip flexion: 3 -/5; hip abduction: 3 -/5; hip extension: 3/5; knee extension: 3/5; knee flexion: 3 -/5 ankle DF: 3/5 ; ankle PF: 3/5 Left Lower Extremity:Hip flexion: 3 -/5; hip abduction: 3 -/5; hip extension: 3/5; knee extension: 3/5; knee flexion: 3 -/5 ankle DF: 3/5 ; ankle PF: 3/5 Sensation: Intact Bed Mobility/Transfers: Supine to and from sit: Deferred patient declined to participate in bed tasks due to level of dyspnea when lying down Sit to stand independent Step turn transfers surface to surface standby assist without assistive device Gait: [] Patient ambulated 30 feet without assistive device standby assist on 1 L oxygen. Patient demonstrates excessive lateral weight shift, wide base of support, decreased step length bilaterally, adequate foot clearance. Stairs: Unable to perform at this time secondary to dyspnea Balance: Static Sitting: Normal Dynamic Sitting: Good Static Standing: Good Dynamic Standing: Fair Special Tests: Mobility Limitations Standardized Measure [facility] AM-PAC 6 clicks Basic Mobility Inpatient Short Form: Raw Score 16 CMS Score: 54.16% Informed Consent/Education: Patient instructed in purpose of PT consult and plan of care. Assessment: Patient is a 53year old female referred to physical therapy services with the diagnosis of sepsis, right upper lobe pneumonia. Patient presents with clinical signs and symptoms consistent with admitting diagnosis, as demonstrated by the following impairment level findings: 1. Decreased strength BUE LE major muscle groups 2. Impaired standing balance 3. Impaired activity tolerance 4. Impaired breath control and pacing strategies Impairments are contributing to the following functional limitations: 1. AMPAC score. 2. Decline in bed mobility skills 3. Difficulty with ambulation without assistive device and physical assistance 4. Increased risk for falls 5. Increased time to complete mobility/ADL tasks 6. Difficulty with managing steps safely independently Patient is assessed as a Moderate 16410 complexity based on the following: History: 53-year-old female with complex past medical history as indicated above Examination: Demonstratable impairments in strength balance and mobility level with underlying impairments and functional limitations as exhibited above Presentation: Evolving Decision Making: Moderate Goals: Goals X1 week 1. Supine-Sit independent 2. Sit-Supine independent 3. Independent transfers 4. Supervised ambulation greater than 150 feet with standing rest with least restrictive device maintaining saturations greater than 91% 5. Supervised 3 steps without a rail to safely enter and exit home 6. Independent breath control and pacing during functional tasks Plan of Care/Treatment Plan: 1-2x/day, 7 days/week x 1 week. Plan of care has been reviewed with the MACHINE STACKER providing the service under Physical Therapy direction. Initiate Physical Therapy intervention for strengthening, bed mobility, transfers, gait, stairs, balance training, use of assistive device. DISCHARGE RECOMMENDATIONS: [] [] Home with no services [] X Home with PT services, better breather program [] Home with outpatient PT [] [] SNF for continued rehabilitation [] [] [employer] [] [] SNF versus LTC based on ability to participate and progress [] TREATMENT CODE/TIME: 48200/1330?2727
--- NOTE | 2024-09-20 15:37 | CHAPLAIN ---
Karla was up in the chair and had her head resting on the bedside table, resting her head on her arms. I introduced myself, explained my role and offered support. I will visit another time when she is feeling better.
[2024-09-20] MEDS: Acetaminophen 325 MG TAB PO (21:24)
[2024-09-21] VITALS (14 sets, daily range): BP systolic 100–117; BP diastolic 41–74; PULSE 85–98; RESP 2–22; TEMP 36.5–37; O2SAT 82–99
[2024-09-21] MEDS: Levalbuterol 1.25 MG/3 ML UPD VIAL UPD ×2 (02:25→08:15)
[2024-09-21] MEDS: Normal Saline Flush 10 ML SYR IVP ×6 (02:26→20:46)
[2024-09-21] MEDS: Ipratropium 0.5 MG/2.5 ML UPD VIAL UPD ×2 (02:30→08:10)
[2024-09-21] MEDS: Levothyroxine 150 MCG TAB PO (05:58)
[2024-09-21 06:23] LABS: Anion Gap 7.2 mmol/L (3-11); BUN 14 mg/dL (7-18); CO2 30.8 mmol/L (21.0-32.0); CREATININE 1.2 mg/dL (0.55-1.02); Calcium 9.3 mg/dL (8.5-10.1); Chloride 93 mmol/L (98-107); Estimated GFR 53.79 (mL/min/1.73m2); Glucose 142 mg/dL (74-106); Magnesium 1.8 mg/dL (1.8-2.4); Sodium 131 mmol/L (136-145)
[2024-09-21] MEDS: Budesonide/Formoterol 160/4.5 6 GM 60 PUFF INH IH ×2 (08:10→20:45)
[2024-09-21] MEDS: Aspirin E.C. 81 MG TABEC PO (09:12)
[2024-09-21] MEDS: Clopidogrel 75 MG TAB PO (09:12)
[2024-09-21] MEDS: Metoprolol 25 MG TAB 37.5 MG PO ×2 (09:12→20:45)
[2024-09-21] MEDS: Atorvastatin 40 MG TAB 80 MG PO (09:12)
[2024-09-21] MEDS: Spironolactone 25 MG TAB PO (09:12)
[2024-09-21] MEDS: Montelukast 10 MG TAB PO (09:12)
[2024-09-21] MEDS: Enoxaparin 40 MG/0.4 ML SYR SC (09:13)
--- NOTE | 2024-09-21 12:02 | PTTR_ITS ---
PT Notes Visit Reasons: Severe Sepsis RUL CAP Inpatient Physical Therapy Treatment Note [facility] Date: 09/21/2024 PRECAUTIONS:Telemetry, monitor oxygen sats with ear probe, SUBJECTIVE: Pt reports she no longer needs oxygen per the RT. She stated she still feels SOB with activity though OBJECTIVE:Pt presented seated in chair watching videos on her phone. She was aggreeable to participate ? PAIN: denied VITALS: ?monitored via telemetry throughout, oxygen sat on RA 89-95% Therapeutic Activities (32726x3): Direct one-on-one instruction in dynamic activities to improve functional performance. ? BED MOBILITY/TRANSFERS? Rolling L/R:deferred Supine-sit: deferred? Sit-supine: deferred ? Sit-stand: Independent ? Stand-sit: Independent? Bed-Chair: independent? Chair-bed: independent Provided skilled cues and instruction on performance and technique throughout. [X] Patient education regarding pacing and breathing techniques to maximize activity tolerance? Ambulation : Facilitated safe and correct performance of level surface ambulation covering a distance of 50 feet using no AD then 100 feet with front wheeled walker with SBA and wheelchair follow for safety. Did not report of any increased pain. Denied headache, chest pain, and lightheadedness throughout activity. Minimal verbal cueing provided for AD management, directional changes, and posture. ? Deviation: reciprocal pattern with reduced lateral weight shift as compared to a mbulation without FWW? ASSESSMENT:? Pt limited by cardiac status with increased HR. Pt with poor perfusion B hands. recommending use of ear pulse ox to monitor saturation. Pt reports dyspnea and utilizes PLB to reduce RR and HR. Pt demonstrates improved stability and increased step length with FWW for ambulation. Pt resistive to strategies to improve functional activity tolerance at this time PLAN: 1-2x/day, 7 days/week x 1 week. Plan of care has been reviewed with the LIFE INSURANCE UNDERWRITER providing the service under Physical Therapy direction. Initiate Physical Therapy intervention for strengthening, bed mobility, transfers, gait, stairs, balance training, use of assistive device. TREATMENT CODE/TIME: 29744 / [id number], [id number] DISCHARGE RECOMMENDATION: Home with HHPT , Cardiac rehab program after TAVR on 08/11/25
--- NOTE | 2024-09-21 14:37 | PT.INTREAT ---
PT Notes Visit Reasons: Severe Sepsis RUL CAP Inpatient Physical Therapy Treatment Note [facility] Date: 09/21/24 PRECAUTIONS:Telemetry, monitor oxygen sats with ear probe, SUBJECTIVE: Pt reports that she just started to feel better so she does not want to go for a walk. OBJECTIVE: Therapeutic Activities (19850v[]): Direct one-on-one instruction in dynamic activities to improve functional performance. ? Therapeutic Exercises (62644t[1]): Direct one-on-one instruction in therapeutic exercises to develop strength, endurance, range of motion and flexibility. ? Exercises ? Shoulder horz abd x 10 Shoulder flexion x 10 Shoulder circles x 5 eac LAQ x 10 Seated marching x 10 Seated hip abd x 10 ASSESSMENT:? Pt refused ambulation due to just feeling better and not being so SOB. Pt required frequent rest periods with SOB. PLAN: Cont as per PT POC. TREATMENT CODE/TIME: TEx1 2:20-2:35 DISCHARGE RECOMMENDATION: []
--- NOTE | 2024-09-21 15:27 | CMPROGNOTE_ITS ---
Date of service: 09/21/24 Time of Service: 09:00 Care Management Progress Note Progress Note Text Progress Note Text: CM has visited with Michelle several times today. She is very down. She does not feel that she is really making any progress, and this is very discouraging. She does not even feel that she can walk to the bathroom at this point due to her severe fatigue, and is using the bedside commode. Ranjit, Michelle's , feels that she is taking much longer to bounce back than she has in the past. They asked to speak to the provider, and CM notified him of this. Michelle asked CM to fill out some disability paperwork today, that was done for her. Discharge Potential Discharge Needs: PCP F/U Appt and Other (scheduled for aortic valve replacement on 10/12.) Anticipated Barriers to Discharge: Medical Status Patient/Family Education Needs: Review discharge instructions, discuss [facility] [employer] Transportation: Private vehicle Plan: Anticipate that Miranda will be discharged home with new services of PT for the [facility]. She will f/u with her community providers and contin ue per her plan of care. CM will continue to follow and to update the plan as needed. Social Determinants of Health Screening Social Determinants of Health last assessed: 09/21/24 Will the Patient Participate in the Screening?: Yes Do you worry about having a steady place to live?: no Problems where you live: no known problems In the past 12 months, have you had to go without electric, gas, oil or water in your home?: no Have you or anyone in your house had to go without enough food to eat?: no Has lack of transportation kept you from medical appointments or from doing thin gs needed for daily living?: no Has anyone in your life made you feel unsafe or unsupported?: no How hard is it for you to pay for the very basics like food, housing, medical care, and heating? Would you say it is:: Not hard at all Do you want help finding or keeping work or a job?: I do not need or want help If for any reason you need help with day-to-day activities such as bathing, preparing meals, shopping, managing finances, etc., do you get the help you need?: I don?t need any help How often do you feel lonely or isolated from those around you?: Never Do you speak a language other than Faroese at home?: No Does the patient want assistance with any of the above?: No
--- NOTE | 2024-09-21 16:39 | PGE_ITS ---
Date of Service Date of service: 09/21/24 Time of Service: 16:40 Assessment and Plan Assessment and plan (1) Staphylococcus aureus bacteremia: Status: Acute Assessment and plan: -Started on ceftriaxone azithromycin in the emergency department -Switched to vancomycin and cefepime upon admission as patient appeared clinically worse -Admission blood cultures growing MSSA, will narrow to oxacillin -Repeat blood cultures ordered on the morning 09/19/2024, 48 hours negative 09/21 at 48 hours. -Will need prolonged therapy, will reach out to ID and CT surgery about plan. (2) Septic shock: Status: Acute Assessment and plan: Resolved. Initially met criteria for severe sepsis with temperature of 102 ?F, heart rate in the 130s, lactic acid of 2.7, and presumed source of infection of right upper lobe pneumonia, required norepinephrine drip. (3) Right upper lobe pneumonia: Status: Acute Assessment and plan: Pneumonia is source of infection, though with abnormal valves we can't be sure these aren't seeded. CXR shows RUL pneumonia, but more sensitive POCUS clearly shows a LLL infiltrate and effusion. With the complicated looking parapneumonic effusion with staph infection, I am concerned for developing empyema. Will monitor closely. If she needs a chest tube, she would be best served at tertiary care center. Encouraged to participate in chest PT despite the discomfort. (4) Aortic stenosis, severe: Status: Acute Assessment and plan: - Recently diagnosed that [facility] with aortic valve area of 0.9 cm? and mean gradient of 35 mmHg -Patient had recently increased her diuresis and was found to have collapsible IVC on POCUS, diuresis held on admission. -Edema noted AM 09/18, has increased despite 10mg-20mg doses 09/18 and 09/19 -She tolerated lower doses, but not much diuresis, 40mg IV dose (equivalent to her outpatient 40mg oral torsemide) given 09/20 and not clearly improved and Cr up, POCUS with Dr. Trujillo today confirms her IVC is collaspable c/w dry status. (5) DVT prophylaxis: Status: Acute Assessment and plan: enoxaparin (6) Hypomagnesemia: Status: Acute Assessment and plan: supplemented, recheck in AM improved. Subjective Subjective Patient reports: voiding w/o difficulty and shortness of breath; denies nausea, vomiting or fever Interval history since last seen: Feeling a little better this morning, but neb treatment took a lot out of her, finally recovering this afternoon. She isn't eating much. SOB is better than when she came in but she is still quite fatigued. She got a dose of IV furosemide yesterday and feels like it helped but she needs more. Exam Narrative Exam Narrative: Comfortable appearing female sitting up in chair, speaking in full sentences with mild increased WOB with moving around, 1L nasal cannula in place, heart rate regular, 3/6 systolic murmur, lungs with breath sounds audible throughout, no basilar rales, abdomen soft, nontender, nondistended, +1-2 pitting edema bilateral lower extremities so just proximal to the ankles, not tender Objective Last Vital Signs Temp 36.5 C 09/21/24 15:07 Pulse 90 09/21/24 15:07 Resp 22 09/21/24 15:07 BP 116/64 09/21/24 15:07 Pulse Ox 93 09/21/24 15:07 Laboratory Results - last 24 hr 09/21/24 05:44 Sodium 131 L Potassium 4.0 Chloride 93 L Carbon Dioxide 30.8 Anion Gap 7.2 BUN 14 Creatinine 1.2 H Est GFR (CKD-EPI 2020) 53.79 Glucose 142 H Calcium 9.3 Magnesium 1.8 Objective Narrative Objective Narrative: POCUS demonstrated collapsing IVC, grossly normal LV function, no pericardial effusion. Few scattered b-lines bilaterally but A lines superiorly. Left base with significant effusion with hyperecoic speckles and bands within, consolidated lower lung visible floating in effusion with bronchograms. Time Spent with Patient Time Spent with Patient: >50 minutes Time was spent: preparing to see the patient(eg.review tests), obtaining and/or reviewing separately otained hiistory, ordering medications,tests, procedures, referring, communicating with other health progressive care unit registered nurse, indepentently interpreting results, counseling the patient and care coordination
[2024-09-21] MEDS: Acetaminophen 325 MG TAB PO (20:45)
[2024-09-21] MEDS: Normal Saline 250 ML IV (23:51)
[2024-09-22] VITALS (8 sets, daily range): BP systolic 90–124; BP diastolic 46–70; PULSE 76–96; RESP 19–24; TEMP 36.5–37.7; O2SAT 91–97
--- NOTE | 2024-09-22 | DI.CT_ITS ---
Exam(s) CT CHEST W EXAM: CT CHEST W CLINICAL HISTORY: LLL pneumonia with effusion/empyema on POCUS. [facility] TECHNIQUE: Imaging Protocol: Axial computed tomography images with coronal and sagittal reformatted images were created and reviewed. Computer aided detection (CAD) was utilized. CONTRAST MATERIAL: Intravenous: Omnipaque 350 Contrast volume:70 ml. COMPARISON: CT CT CHEST WO from 09/10/[address] CHEST WO from 05/29/[address] CHEST WO from 11/18/2023 CR XR PORTABLE CHEST AP from 09/16/2024 US POCUS EXAM from 09/21/2024 US POCUS EXAM from 09/22/2024 FINDINGS: Exam is limited by respiratory motion and poor pulmonary inflation. Pulmonary parenchyma: Severe atelectasis/consolidation of the left lower lobe and a large portion of the left upper lobe. Additional area of consolidation is noted in the medial right lower lobe, infra hilar region. Additional patchy densities are noted in the right upper and left upper lobes. Tracheobronchial tree: Occlusion of the majority of the left lower lobe bronchi as well as majority o f left upper lobe bronchi. No bronchiectasis. Mediastinum and Olimpia: Adenopathy noted in this right paratracheal and subcarinal regions, increasing from prior. Pleura: Large loculated left pleural effusion with loculation seen inferior to the left lung as well as laterally. Additional loculation seen near the apex. Tiny right pleural effusion. No pneumothor ax. Heart: The heart is not dilated. Severe coronary artery calcifications are seen. Tiny pericardial e ffusion. Aorta: Thoracic aorta non-dilated. Moderate to severe atherosclerotic changes. Pulmonary arteries: Prominent, similar to prior exam. This could indicate pulmonary hypertension. N o gross evidence of emboli. Upper abdomen: No acute findings. Enlarged liver. Status post cholecystectomy. Bones: Degenerative changes in the spine. No destructive lesions identified. Soft tissues: Unremarkable. IMPRESSION: Multiloculated left pleural effusion versus empyema with complete atelectasis/consolidation of the le ft lower lobe. Area of consolidation and infiltrates as well as loculated pleural collections noted in the left upper lobe. Area of consolidation seen medially in the right lower lobe. Patchy infiltrates are present in the r ight upper lobe. Findings called to Dr. Singleton. RADIATION DOSE DELIVERED: Total DLP DATA REPOSITORY: All CT scans at this facility are submitted to the National Radiology Data Registry (NRDR) Dose Index Registry (DIR) with the [employer] [place] [employer] [employer] (ACR). RADIATION OPTIMIZATION: All CT scans at this facility use at least one of these dose optimization te chniques: automated exposure control; mA and/or kV adjustment per patient size (includes targeted exa ms where dose is matched to clinical indication); or iterative reconstruction.
[2024-09-22] MEDS: Levothyroxine 150 MCG TAB PO (06:25)
[2024-09-22 07:28] LABS: Abs Immature Grans 1.78 10^3/uL (0.0-0.06); HCT 30.5 % (36.0-46.0); HGB 9.6 g/dL (11.2-15.7); MCH 27.8 pg (27.0-33.0); MCHC 31.5 % (32.0-36.0); MCV 88 fL (80-95); MPV 10.3 fL (8.0-11.0); Platelet Count 410 10^3/uL (130-400); RBC 3.45 10^6/uL (3.93-5.22); RDW 14.6 % (11.7-14.6); RDW-SD 47.1 fL
[2024-09-22 07:43] LABS: Magnesium 1.5 mg/dL (1.8-2.4)
[2024-09-22 07:45] LABS: Anion Gap 16.6 mmol/L (3-11); BUN 13 mg/dL (7-18); CO2 29.4 mmol/L (21.0-32.0); Calcium 7.6 mg/dL (8.5-10.1); Chloride 98 mmol/L (98-107); Estimated GFR 66.95 (mL/min/1.73m2); Glucose 100 mg/dL (74-106); Potassium 3.4 mmol/L (3.5-5.1); Sodium 144 mmol/L (136-145)
[2024-09-22 07:50] LABS: Absolute Lymphocyte Count 2.02 10^3/uL (1.2-3.4); Absolute Monocyte Count 2.02 10^3/uL (0.1-0.8); Absolute Neutrophil Count 16.16 10^3/uL (1.2-6.7); Atypical Lymphocytes % 0 %; Bands % 0 %
[2024-09-22 07:51] LABS: Diff Comment Manual Differential
[2024-09-22] MEDS: Acetaminophen 325 MG TAB PO ×2 (08:03→20:02)
[2024-09-22] MEDS: Budesonide/Formoterol 160/4.5 6 GM 60 PUFF INH IH ×2 (08:12→20:48)
[2024-09-22] MEDS: Atorvastatin 40 MG TAB 80 MG PO (08:52)
[2024-09-22] MEDS: Montelukast 10 MG TAB PO (08:52)
[2024-09-22] MEDS: Aspirin E.C. 81 MG TABEC PO (08:53)
[2024-09-22] MEDS: Clopidogrel 75 MG TAB PO (08:53)
[2024-09-22] MEDS: Spironolactone 25 MG TAB PO (08:53)
[2024-09-22] MEDS: Metoprolol 25 MG TAB 37.5 MG PO ×2 (08:54→20:03)
[2024-09-22] MEDS: Enoxaparin 40 MG/0.4 ML SYR SC (08:55)
[2024-09-22] MEDS: MAGNESIUM SULFATE 2 GM/50 ML BAG IV_INF (09:51)
--- NOTE | 2024-09-22 10:58 | W.NUTRFU ---
Date of service: 09/21/24 Time of Service: 12:20 Nutrition Note NOTE: met with pt breifly yesterday - reports fair appetite/intake - denies unintentional weight changes. albumin low, total protein lab wnl 09/16/24. prediabetes hx - glucose 100fasting this morning. Pt denies nutrition concerns will follow for any changes. Time Spent in Nutritional Counseling and Treatment: 5 min
--- NOTE | 2024-09-22 13:46 | PT.INTREAT ---
PT Notes Visit Reasons: Severe Sepsis RUL CAP Inpatient Physical Therapy Treatment Note [facility] Date: 09/22/2024 PRECAUTIONS:Telemetry, monitor oxygen sats with ear probe, SUBJECTIVE: Pt reports that sheis feeling worse than she did 2 days ago. She reports her WBC is going in the wrong direction. She stated she would participate in PT but only going short distance. She also states the doctor told her she may be transferred to another hospital. OBJECTIVE: Pt presented seated in chair with oxygen on at 2 L/Min via NC. dyspneia noted. Pt bracing B UE on bedside table to allow for accessory muscle use. present. Therapeutic Activities (18248): Direct one-on-one instruction in dynamic activities to improve functional performance. ?? pt perform 3 surface to surface transfers including the following : chair to bed, bed to commode and commode to chair without AD SBA for tubing mgmt. Each transfer 10-15 feet apart. pt sat drop to 84%with 2L/min Pt requires seated rest between transfers for recovery to 92%. Education and instruction in breath control techniques for PLB and diaphragmatic breathing to increase volume exchange ? ASSESSMENT:?Pt declined to ambulate in the augustin and exercises today. She reports the more she does the worse she feels and it takes her 4 hours to recover. She demonstrates increased RR and work of breathing during functional tasks as well as talking. Pt unable to tolerate any recline position therefore she sleeps with her head forward on her over bed table. She has attempted to sleep sitting up in the chair however she wakes coughing and heavy feeling on her chest. Pt session shortened by need for Nursing to insert PICC line. PLAN: Cont as per PT POC. TREATMENT CODE/TIME: 10811 x 33 mins / [id number] DISCHARGE RECOMMENDATION: Home with PT and then cardiac rehab after TAVR in October
--- NOTE | 2024-09-22 16:34 | CHAPLAIN ---
Karla was sitting up in the chair when I visited this morning. She said things have been very up and down lately. She is a member of the [facility] and said her multiple effect evaporator operator has been into visit. Today, Júnior a lay leader from the [employer] was here to visit with her. I will continue to visit.
--- NOTE | 2024-09-22 16:48 | SCONE_ITS ---
Date of service: 09/22/24 Time of Service: 16:48 Assessment and Plan Assessment and plan (1) Abscess of lung with pneumonia: Status: Acute (2) Severe pulmonary hypertension: Status: Acute (3) Aortic stenosis, severe: Status: Deleted Assessment and plan: On her echo in February, her aortic valve surface area was 1.1 cm giving her severe aortic stenosis moderate mitral stenosis and pulmonary hypertension. 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 She may need multiple drains for infection control. Ultimately she is going to need a VATS at some point. She has a high probability of winding up with a trapped lung further exacerbating her lung issues. She did have staph in her bloodstream and is going to need at minimum a 2-week course of IV antibiotics to clear this up prior to having the TAVR. I am certain that is going to want to do a HUGO or some type of other imaging to ensure that there is no vegetation She was scheduled for a TAVR on 10/12 and they have canceled this because of the infection I did personally review all her labs and CT scans. I did extensively review her [facility] chart. I spent at least 90 minutes in examining and talking to the patient and reviewing her medical history (4) Metabolic syndrome: Status: Acute (5) Hypothyroidism: Status: Deleted (6) BMI 40.0-44.9, adult: Status: Acute (7) Hx of Hodgkins lymphoma: Status: Acute (8) Staphylococcus aureus bacteremia: Status: Acute (9) Severe asthma: Status: Acute (10) Obstructive sleep apnea syndrome: Status: Chronic (11) Obstructive sleep apnea: (12) History of heart artery stent: Status: Chronic (13) Moderate mitral stenosis: Status: Acute (14) Severe aortic stenosis: Status: Acute (15) Prediabetes: Status: Acute (16) Hyponatremia: Status: Acute (17) Acquired hypothyroidism: Status: Acute (18) Dyspnea: Status: Acute (19) Pleural effusion associated with pulmonary infection: Status: Acute (20) Multifocal pneumonia: Status: Acute (21) Acute on chronic respiratory failure with hypoxia: Status: Acute (22) Aortic calcification: Status: Acute (23) Pulmonary fibrosis: Status: Acute (24) Bronchiectasis: Status: Acute (25) Lung disease, restrictive: Status: Acute History of Present Illness Narrative: [facility] 53[facility] chest [facility]. At the time I was requested to see her they had not done a CT yet. I did order a CT of the chest. But this could not be done because we did not have IV access. By the time we got a CT scan and I was able to view it is after 9:00 last night. I did discuss the findings with Dr. Gregory. She is not a good candidate for surgery and [facility] due to her severe aortic stenosis and pulmonary hypertension. I did discuss the case with anesthesia. At this point she is septic and infected. I think she does have an empyema. We do need to get this fluid drained out of her. I think the best option in her situation is to do some type IR drainage procedure to clear up the infection. She is going to need either a TAVR or an aortic valve replacement to deal with her aortic stenosis. Most likely she is going to wind up with a trapped lung from the empyema/chest infection that she has. She will eventually require a VATS procedure. But at this time with her critical aortic stenosis pulmonary hypertension and multifocal pneumonia, I do not think she would survive anesthesia. Once we have the sepsis resolved given her severe aortic stenosis/pulmonary hypertension I do not think she would even be a good candidate for anesthesia at that point. Certainly not at [facility]. And it would be discussion for her cardiac team, pulmonary team, and anesthesia to have as to which she needs to have first they aortic valve surgery or the VATS procedure. I did personally review all her films and labs I did discuss the case with Dr. Holt and with anesthesia. 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 Aortic calcification (Acute) History of heart artery stent (Chronic) 09/10/24 Severe aortic stenosis (Acute) Moderate mitral stenosis (Acute) Hyponatremia (Acute) Oral ulceration (Acute) Abscess of lung with pneumonia (Acute) Multifocal pneumonia (Acute) Pleural effusion associated with pulmonary infection (Acute) Hypomagnesemia (Acute) Hyperbilirubinemia (Acute) DVT prophylaxis (Acute) Staphylococcus aureus bacteremia (Acute) Acute on chronic respiratory failure with hypoxia (Acute) Right upper lobe pneumonia (Acute) Dyspnea (Acute) Severe pulmonary hypertension (Acute) Prediabetes (Acute) Severe asthma (Acute) Pulmonary nodules (Acute) Unspecified slipped upper femoral epiphysis (nontraumatic), right hip (Acute 07/25/15) Obstructive sleep apnea syndrome (Chronic 07/25/15) Metabolic syndrome (Acute 07/25/15) Hx of Hodgkins lymphoma (Acute 07/25/15) BMI 40.0-44.9, adult (Acute 07/25/15) Acquired hypothyroidism (Acute 07/25/15) Abnormal uterine bleeding (Acute 07/25/15) Trochanteric bursitis of right hip (Acute) Left leg swelling (Acute) Encounter for screening for COVID-19 (Acute) Medical History (Updated 09/24/24 @ 14:41 by Anni Vang DO) Abscess of lung without pneumonia Pneumonia Abnormal chest CT Mild persistent asthma without complication (07/25/15) Abnormal uterine bleeding Rx with DepoProvera x9yrs. Resumed after stopping Depo in 2003. Worsening in 2013. 10/2015 Mirena IUD. Unspecified slipped upper femoral epiphysis (nontraumatic), right hip Metabolic syndrome Asthma, mild persistent Hx of Hodgkins lymphoma BMI 40.0-44.9, adult Obstructive sleep apnea Surgical History (Updated 09/24/24 @ 14:24 by Anni Vang DO) History of hip surgery pin placement History of removal of Port-a-Cath placement and removal History of cholecystectomy Family History Mother Heart disease heart beats too fast Asthma Allergies Son Personal history of malignant neoplasm Father COPD (chronic obstructive pulmonary disease) Social History Smoking/Tobacco Use Status: Never Smoking risk assessment performed?: Yes Alcohol Intake: never Drug use: Never Substance use type: does not use Housing: house Do you feel safe at home: Yes (unable to assess privately) Do you feel safe in your relationship?: Yes Results Last Vital Signs Temp 36.5 C 01/23/25 11:19 Pulse 76 09/22/24 11:19 Resp 21 09/22/24 11:19 BP 102/54 L 09/22/24 11:19 Pulse Ox 92 09/22/24 11:19 Labs 09/24/24 06:27 09/24/24 06:27 Labs: Laboratory Results - last 24 hr 09/22/24 06:40 WBC 20.20 H RBC 3.45 L Hgb 9.6 L Hct 30.5 L MCV 88 MCH 27.8 MCHC 31.5 L RDW 14.6 Plt Count 410 H MPV 10.3 Immature Gran % 0.0 Neutrophils % 80.0 Band Neutrophils % 0 Lymphocytes % 10.0 Atypical Lymphs % 0 Monocytes % 10.0 Eosinophils % 0.0 Basophils % 0.0 Nucleated RBC % 0.0 Absolute Neutrophils 16.16 H Absolute Lymphocytes 2.02 Absolute Monocytes 2.02 H Absolute Eosinophils 0.00 Absolute Basophils 0.00 Sodium 144 D Potassium 3.4 L Chloride 98 Carbon Dioxide 29.4 Anion Gap 16.6 H BUN 13 Creatinine 1.0 Est GFR (CKD-EPI 2020) 66.95 Glucose 100 Calcium 7.6 L Magnesium 1.5 L
--- NOTE | 2024-09-22 16:50 | PDOC.CMPRO ---
Date of service: 09/22/24 Time of Service: 12:30 Care Management Progress Note Progress Note Text Progress Note Text: Miranda was sitting up in the chair when CM met with her today. Her , Ranjit, was present. Miranda looked very down today. She stated feeling very discouraged, and she barely raised her head out of her hands while conversing. There is some concern over Miranda's medical status. Per Progress note, US yesterday showed a LLL infiltrate and effusion. Provider is concerned for developing empyema. Provider has been in contact with [facility]. Miranda will require long-term antibiotics, and a PICC line was placed today. Discharge Potential Discharge Needs: PCP F/U Appt and Other (scheduled for aortic valve replacement on 10/12) Anticipated Barriers to Discharge: Medical Status Patient/Family Education Needs: Review discharge instructions, discuss Ask Me Three Transportation: Private vehicle Plan: Anticipate that Miranda will be discharged home with new services of PT for [facility]. She will f/u with her community providers and continue per her plan of care. CM will continue to follow and to update the plan as needed. Social Determinants of Health Screening Social Determinants of Health last assessed: 09/22/24 Will the Patient Participate in the Screening?: Yes Do you worry about having a steady place to live?: no Problems where you live: no known problems In the past 12 months, have you had to go without electric, gas, oil or water in your home?: no Have you or anyone in your house had to go without enough food to eat?: no Has lack of transportation kept you from medical appointments or from doing things needed for daily living?: no Has anyone in your life made you feel unsafe or unsupported?: no How hard is it for you to pay for the very basics like food, housing, medical care, and heating? Would you say it is:: Not hard at all Do you want help finding or keeping work or a job?: I do not need or want help If for any reason you need help with day-to-day activities such as bathing, preparing meals, shopping, managing finances, etc., do you get the help you need?: I don?t need any help How often do you feel lonely or isolated from those around you?: Never Do you speak a language other than Lebanese at home?: No Does the patient want assistance with any of the above?: No
--- NOTE | 2024-09-22 16:55 | W.PM.PROGNOT ---
Date of Service Date of service: 09/22/24 Time of Service: 16:55 Assessment and Plan Assessment and plan (1) Staphylococcus aureus bacteremia: Status: Acute Assessment and plan: -Started on ceftriaxone azithromycin in the emergency department -Switched to vancomycin and cefepime upon admission as patient appeared clinically worse -Admission blood cultures growing MSSA, will narrow to oxacillin -Repeat blood cultures ordered on the morning 09/19/2024, 48 hours negative 09/21 at 48 hours. -Will need prolonged therapy, with abnormal valves and empyema at least 4 weeks. Midline placed today. -I talked to Dr. Dozier from [facility] CT surgery about plan. Recommended 3rd set of blood cultures given elevated WBC. Discussed managing complicating pneumonia with effusion. (2) Pleural effusion associated with pulmonary infection: Status: Acute Assessment and plan: A/w staph aureus pneumonia. D/w [facility] CT surgery and Dr. Vang. CT to further characterize confirms. Concern this is developing emyema. WBC trending up. She will need this drained. Chest tube vs pleural drain (would be down/back from ). Transfer to not an option now due to beds. She is a higher risk patient and would like to go to for the procedure. Calling IR to to see if catheter is an option. If worsens clinically and no options, she will have to consider doing chest tube here or transfer elsewhere. (3) Multifocal pneumonia: Status: Acute Assessment and plan: Pneumonia is source of infection. Sputum also growing staph. Multifocal, but no clear embolization per radiology. CXR shows RUL pneumonia, but more sensitive POCUS clearly shows a LLL infiltrate and effusion. CT confirms multifocal with severe left loculated effusion/empyema (4) Septic shock: Status: Acute Assessment and plan: Resolved. Initially met criteria for severe sepsis with temperature of 102 ?F, heart rate in the 130s, lactic acid of 2.7, and presumed source of infection of right upper lobe pneumonia, required norepinephrine drip. (5) Aortic stenosis, severe: Status: Acute Assessment and plan: - Recently diagnosed that [facility] with aortic valve area of 0.9 cm? and mean gradient of 35 mmHg -Patient had recently increased her diuresis and was found to have collapsible IVC on POCUS, diuresis held on admission. -Edema noted AM 09/18, has increased despite 10mg-20mg doses 09/18 and 09/19 -She tolerated lower doses, but not much diuresis, 40mg IV dose (equivalent to her outpatient 40mg oral torsemide) given 09/20 and not clearly improved and Cr up, POCUS with Dr. Trujillo 09/21 confirmed her IVC is collaspable c/w dry status. No further duriresis for now, continue to monitor clinically. -D/w Dr. Dozier from CT surgery, TAVR will have to be postponed. (6) Hypomagnesemia: Status: Acute Assessment and plan: supplemented, recheck in AM improved. Monitor. (7) DVT prophylaxis: Status: Acute Assessment and plan: enoxaparin Subjective Subjective Patient reports: no new complaints and tolerating a regular diet; denies voiding w/o difficulty, diarrhea, nausea, vomiting or fever Interval history since last seen: Events: POCUS concerning for parapneumonic effusion Feels about the same today. She is tired. No chest pain. Still not eating much. SOB about the same. Exam Narrative Exam Narrative: Fatigued appearing female sitting up in chair, speaking in full sentences with mild increased WOB with moving around, rests forward on a table at times. 1L nasal cannula in place, heart rate regular, 3/6 systolic murmur, lungs with breath sounds audible throughout except diminished and dull to percussion left base. no wheeze or rales, abdomen soft, nontender, nondistended, +1 pitting edema bilateral lower extremities so just proximal to the ankles, not tender Objective Last Vital Signs Temp 36.5 C 09/22/24 11:19 Pulse 76 09/22/24 11:19 Resp 21 09/22/24 11:19 BP 102/54 L 09/22/24 11:19 Pulse Ox 92 09/22/24 11:19 Laboratory Results - last 24 hr 09/22/24 06:40 WBC 20.20 H RBC 3.45 L Hgb 9.6 L Hct 30.5 L MCV 88 MCH 27.8 MCHC 31.5 L RDW 14.6 Plt Count 410 H MPV 10.3 Immature Gran % 0.0 Neutrophils % 80.0 Band Neutrophils % 0 Lymphocytes % 10.0 Atypical Lymphs % 0 Monocytes % 10.0 Eosinophils % 0.0 Basophils % 0.0 Nucleated RBC % 0.0 Absolute Neutrophils 16.16 H Absolute Lymphocytes 2.02 Absolute Monocytes 2.02 H Absolute Eosinophils 0.00 Absolute Basophils 0.00 Sodium 144 D Potassium 3.4 L Chloride 98 Carbon Dioxide 29.4 Anion Gap 16.6 H BUN 13 Creatinine 1.0 Est GFR (CKD-EPI 2020) 66.95 Glucose 100 Calcium 7.6 L Magnesium 1.5 L Time Spent with Patient Time Spent with Patient: >50 minutes Time was spent: preparing to see the patient(eg.review tests), obtaining and/or reviewing separately otained hiistory, ordering medications,tests, procedures, referring, communicating with other health date night caregiver, indepentently interpreting results, counseling the patient and care coordination
[2024-09-22] MEDS: Omnipaque 350 MG/ML 100 ML BTL 70 ML IJ (17:42)
[2024-09-22] MEDS: Normal Saline - Diluent 50 ML VIAL IJ (17:42)
[2024-09-22] MEDS: Normal Saline Flush 10 ML SYR IVP (22:08)
[2024-09-22] MEDS: Lactated Ringers 1,000 ML 75 ML IV (23:45)
[2024-09-23 03:15] VITALS: BP 124/57; PULSE 82; RESP 20; TEMP 36.4; O2SAT 92
[2024-09-23] MEDS: Levothyroxine 150 MCG TAB PO (05:11)
[2024-09-23 06:47] LABS: HCT 33.6 % (36.0-46.0); MCH 28.1 pg (27.0-33.0); MCHC 32.7 % (32.0-36.0); MCV 86 fL (80-95); MPV 10.4 fL (8.0-11.0); Platelet Count 515 10^3/uL (130-400); RBC 3.92 10^6/uL (3.93-5.22); RDW 14.6 % (11.7-14.6); RDW-SD 46.2 fL; WBC 24.72 10^3/uL (4.4-10.8)
[2024-09-23 06:58] LABS: BUN 14 mg/dL (7-18); CO2 31.7 mmol/L (21.0-32.0); CREATININE 1.1 mg/dL (0.55-1.02); Calcium 9.2 mg/dL (8.5-10.1); Estimated GFR 59.71 (mL/min/1.73m2); Glucose 95 mg/dL (74-106)
[2024-09-23 06:59] LABS: Magnesium 2.2 mg/dL (1.8-2.4)
[2024-09-23 07:06] LABS: Anion Gap 3.3 mmol/L (3-11); Chloride 93 mmol/L (98-107); Potassium 4.3 mmol/L (3.5-5.1)
[2024-09-23 07:14] LABS: Sodium 128 mmol/L (136-145)
[2024-09-23 07:16] LABS: Absolute Lymphocyte Count 0.99 10^3/uL (1.2-3.4); Absolute Monocyte Count 0.99 10^3/uL (0.1-0.8); Absolute Neutrophil Count 22.25 10^3/uL (1.2-6.7); Bands % 2 %; Metamyelocytes % 1; Myelocytes % 1
[2024-09-23 07:17] LABS: Diff Comment Manual Differential; RBC Morphology Normal
[2024-09-23 07:51] VITALS: BP 124/54; PULSE 88; RESP 18; TEMP 36.5; O2SAT 94
[2024-09-23 08:34] VITALS: O2SAT 92
[2024-09-23] MEDS: Budesonide/Formoterol 160/4.5 6 GM 60 PUFF INH IH ×2 (08:34→21:22)
[2024-09-23] MEDS: Normal Saline 1,000 ML 80 ML IV (08:37)
--- NOTE | 2024-09-23 09:30 | DI.US_ITS ---
APPROVED REPORT EXAM: Comprehensive 2D, Doppler, and color-flow Echocardiogram Patient Location: In-Patient Room/Bed: [address]: Aric Choudhary RDCS (AE) Indications: Known severe , MSSA bacteremia, ? vegetation Other Information Study Quality: Technically Limited. Technically limited study due to body habitus, inability to posit ion patient. Conclusion Technically limited study Left ventricle appears grossly normal in size wall thickness and systolic function. EF is estimated to be 55 to 65%. No segmental wall motion abnormalities are appreciated Right ventricle is not well-seen Both atria are normal in size Aortic valve is calcified. Number of leaflets cannot be determined. No vegetation is seen. Doppler was not performed Thickened mitral leaflets, calcified mitral annulus. Estimated right ventricular systolic pressure is 33 mmHg Would consider transesophageal echocardiogram if endocarditis is strong consideration Wall motion Left Ventricle The left ventricle is normal size. The left ventricular systolic function is normal. The left ventric ular ejection fraction is within the normal range. There is normal left ventricular wall thickness. T here is normal LV segmental wall motion. LVEF is 50-55%. Aortic Valve Aortic valve is calcified. Number of aortic valve leaflets could not be assessed. Mitral Valve Mitral valve leaflets are calcified. Tricuspid Valve The tricuspid valve is normal in structure. Mild to moderate tricuspid regurgitation. The RVSP is 32. 6 mmHg. Pulmonic Valve The pulmonary valve is normal in structure. Great Vessels The IVC is normal in size. The IVC collapses <50% with inspiration. 2D Dimensions IVSD d PLAX 1.20 cm F: 0.6-1.0 IVC Diam exp d SLAX 2.3 cm LVPW d PLAX 1.15 cm F: 0.6 - 1.0 LVID d PLAX 3.80 cm F: 3.8 - 5.2 LVDs 2.85 cm F: 2.2 - 3.5 LV EF Teichholz 49.9 % FS 24.82 % LV EDV (Teich) 61.8 mL LV ESV (Teich) 31.0 mL Stroke Vol Index (Teich) 14.82 Auto EF LV EDV A4C 103.5 mL LV EDV A2C LV EDV BP LV ESV A4C 46.3 mL LV ESV A2C LV ESV BP LVEF(%) A4C 55.2 % LVEF(%) A2C LVEF(%) BP LV SV A4C 57.1 ml LV SV A2C LV SV BP LV CO A4C 5.4 L/min LV CO A2C LV CO BP HR A4C 94.25 BPM HR A2C LV EDV Index (BP) LV Volumes - Method of Disks (Alonzo's) Single Plane 2D LV Volumes Biplane 2D LV Volumes LV EDV A2C 50.0 mL LV EDV BP Index LV ESV A2C 24.2 mL SV BP LVEF(%) A2C 51.6 % SV Index Tricuspid Valve RA Pressure 8.00 mmHg TR Vmax 2.66 m/s TR Peak Grad 28.2 mmHg RVSP (TR) 36.2 mmHg
[2024-09-23] MEDS: Aspirin E.C. 81 MG TABEC PO (09:41)
[2024-09-23] MEDS: Montelukast 10 MG TAB PO (09:42)
[2024-09-23] MEDS: Atorvastatin 40 MG TAB 80 MG PO (09:42)
[2024-09-23] MEDS: Metoprolol 25 MG TAB 37.5 MG PO ×2 (09:42→20:49)
[2024-09-23] MEDS: Spironolactone 25 MG TAB PO (09:42)
[2024-09-23] MEDS: Normal Saline Flush 10 ML SYR IVP (09:45)
--- NOTE | 2024-09-23 14:43 | W.PC.ACHO ---
Registration Status: Primary Language: Preferred Language: ED Information & Data Chief Complaint SOB 09/16/24 07:53 Chief Complaint SOB 09/16/24 07:15 Triage Note pt called ems with c/o 09/16/24 07:15 difficulty breathing. has not felt well pat 3-4 days. uses home oxygen but usually only at night. has needed oxygen during the day. intermittent chest pain. significant cardiac history. Medical / Surgical History (Last Reviewed 09/16/24 @ 09:14 by Blas Trujillo MD) Abnormal chest CT Mild persistent asthma without complication (07/25/15) Abnormal uterine bleeding Unspecified slipped upper femoral epiphysis (nontraumatic), right hip Metabolic syndrome Asthma, mild persistent Hx of Hodgkins lymphoma BMI 40.0-44.9, adult Obstructive sleep apnea (Last Reviewed 09/16/24 @ 09:14 by Blas Trujillo MD) History of hip surgery History of removal of Port-a-Cath History of cholecystectomy Most Recent Vital Signs Temperature 36.5 C 09/23/24 07:51 Temperature Source Temporal Artery Scan 09/23/24 07:51 Pulse 88 09/23/24 07:51 Pulse 98 H 09/19/24 10:01 Respiratory Rate 18 09/23/24 07:51 Respiratory Effort Short of Breath, Labored, Accessory Muscle Use 09/16/24 10:50 Respiratory Depth Normal 09/16/24 10:50 Respiratory Pattern Tachypnea 09/16/24 10:50 Blood Pressure 124/54 L 09/23/24 07:51 Blood Pressure Mean 76 09/19/24 10:01 Blood Pressure Position Sitting 09/16/24 10:50 Pulse Oximetry 92 09/23/24 08:34 Oxygen Delivery Method Nasal Cannula 09/23/24 08:34 Oxygen Flow Rate 0.5 09/23/24 08:34 Fraction of Inspired Oxygen (FIO2) 24 09/21/24 00:40 Pain Level 3 09/22/24 08:03 Comment Pt was complaining of new left sided chest pain, i took vitals, o2 low, nurse notified and pt put back on oxygen 09/21/24 11:52 Arterial Systolic 125 09/18/24 04:30 Arterial Diastolic 52 09/18/24 04:30 Arterial Mean 75 09/18/24 04:30 Allergies Sulfa (Sulfonamide Antibiotics) Adverse Reaction (Intermediate, Unverified 09/16/24 07:45) upset stomach Precautions Isolation Standard precaution 09/16/24 07:53 Active Medications Generic Name Dose Route Start Last Admin Trade Name Freq PRN Reason Stop Dose Admin Acetaminophen 0 mg 09/16/24 13:57 09/22/24 20:02 Acetaminophen 325 Mg Tab PO 650 mg Q4H PRN PRN Administration Aspirin 81 mg 09/17/24 08:30 09/23/24 09:41 Aspirin E.C. 81 Mg Tabec PO 81 mg DAILY LIN Administration Atorvastatin Calcium 80 mg 09/17/24 08:30 09/23/24 09:42 Atorvastatin 40 Mg Tab PO 80 mg DAILY LIN Administration Budesonide/Formoterol Fumarate 2 puff 09/16/24 20:00 09/23/24 08:34 Budesonide/Formoterol 160/4.5 6 Gm 60 Puff Inh IH 2 puffs BID LIN Administration Clopidogrel Bisulfate 75 mg 09/17/24 08:30 09/22/24 08:53 Clopidogrel 75 Mg Tab PO 75 mg DAILY LIN Administration Docusate Sodium 100 mg 09/16/24 13:57 09/19/24 13:38 Docusate Sodium 100 Mg Cap PO 100 mg TID PRN PRN Administration Enoxaparin Sodium 40 mg 09/17/24 08:30 09/23/24 08:20 Enoxaparin 40 Mg/0.4 Ml Syr SC Not Given DAILY LNI Oxacillin Sodium 2,000 mg/ 50 mls @ 100 mls/hr 09/22/24 22:00 09/23/24 06:05 Sodium Chloride IVPB Infused Q4H LIN Infusion Sodium Chloride 1,000 mls @ 80 mls/hr 09/23/24 08:15 09/23/24 08:37 Saline 1000ml Bag IV 80 mls/hr INFUSION LIN Administration Levalbuterol HCl 1.25 mg 09/16/24 12:25 09/19/24 17:22 Levalbuterol 1.25 Mg/3 Ml Upd Vial UPD 1.25 mg Q4H PRN PRN Administration Levothyroxine Sodium 150 mcg 09/17/24 06:00 09/23/24 05:11 Levothyroxine 150 Mcg Tab PO 150 mcg DAILY@0600 LIN Administration Lidocaine HCl 15 ml 09/19/24 17:28 09/19/24 18:14 Lidocaine 2% Viscous 15 Ml Cup PO 15 ml BID PRN PRN Administration Lorazepam 0.5 mg 09/16/24 10:50 09/18/24 10:52 Lorazepam 2 Mg/Ml Vial IVP 0.5 mg Q4H PRN PRN Administration Metoprolol Tartrate 37.5 mg 09/16/24 20:00 09/23/24 09:42 Metoprolol 25 Mg Tab PO 37.5 mg BID LIN Administration Miconazole Nitrate 0 gm 09/16/24 23:05 09/17/24 06:19 Miconazole 2% Topical Powder 85 Gm Btl TP 09/30/24 23:59 1 applic PRN PRN Administration Montelukast Sodium 10 mg 09/17/24 08:30 09/23/24 09:42 Montelukast 10 Mg Tab PO 10 mg DAILY LIN Administration Sodium Chloride 0 ml 09/16/24 13:57 09/21/24 18:11 Normal Saline Flush 10 Ml Syr IVP 10 ml PRN PRN Administration Sodium Chloride 0 ml 09/16/24 20:00 09/23/24 09:45 Normal Saline Flush 10 Ml Syr IVP 10 ml BID LIN Administration Spironolactone 25 mg 09/17/24 08:30 09/23/24 09:42 Spironolactone 25 Mg Tab PO 25 mg DAILY LIN Administration IV IV Catheter Type [Left midline Mid-line Peripheral Line ] IV Catheter Type [Left Wrist] Saline Lock IV Catheter Type [Right Peripheral IV Forearm] IV Catheter Type [Left Forearm Saline Lock ] IV Catheter Type [Right Saline Lock Antecubital] IV Catheter Type [Right Hand] Saline Lock IV Catheter Gauge [Left Wrist] 22 IV Catheter Gauge [Right 20 Forearm] IV Catheter Gauge [Left 22 Forearm] IV Catheter Gauge [Right 20 Antecubital] IV Catheter Gauge [Right Hand] 20 Diet Orders Category Date Time Status DIET [Nothing Per Oral] [DIET] Nutrition 09/23/24 Breakfast Active Diagnostics 09/23/24 Range/Units 06:20 WBC 24.72 H (4.4-10.8) 10^3/uL RBC 3.92 L (3.93-5.22) 10^6/uL Hgb 11.0 L (11.2-15.7) g/dL Hct 33.6 L (36.0-46.0) % MCV 86 (80-95) fL MCH 28.1 (27.0-33.0) pg MCHC 32.7 (32.0-36.0) % RDW 14.6 (11.7-14.6) % Plt Count 515 H (130-400) 10^3/uL MPV 10.4 (8.0-11.0) fL Immature Gran % 0.0 % Neutrophils % 88.0 % Band Neutrophils % 2 % Lymphocytes % 4.0 % Monocytes % 4.0 % Eosinophils % 0.0 % Basophils % 0.0 % Metamyelocytes % 1 Myelocytes % 1 Nucleated RBC % 0.0 (0.0-0.3) % Absolute Neutrophils 22.25 H (1.2-6.7) 10^3/uL Absolute Lymphocytes 0.99 L (1.2-3.4) 10^3/uL Absolute Monocytes 0.99 H (0.1-0.8) 10^3/uL Absolute Eosinophils 0.00 (0.0-0.7) 10^3/uL Absolute Basophils 0.00 (0.0-0.2) 10^3/uL RBC Morphology Normal Sodium 128 L D (136-145) mmol/L Potassium 4.3 (3.5-5.1) mmol/L Chloride 93 L (98-107) mmol/L Carbon Dioxide 31.7 (21.0-32.0) mmol/L Anion Gap 3.3 (3-11) mmol/L BUN 14 (7-18) mg/dL Creatinine 1.1 H (0.55-1.02) mg/dL Est GFR (CKD-EPI 2020) 59.71 (mL/min/1.73m2) Glucose 95 (74-106) mg/dL Calcium 9.2 (8.5-10.1) mg/dL Magnesium 2.2 (1.8-2.4) mg/dL 09/19/24 07:17 Blood Culture - Preliminary Blood NO GROWTH 96 HOURS 09/19/24 07:08 Blood Culture - Preliminary Blood NO GROWTH 96 HOURS 09/22/24 14:45 Blood Culture - Pending Blood 09/22/24 13:40 Blood Culture - Pending Blood [id number] Documentation Fingerstick Glucose Start: 09/16/24 09:30 Freq: Status: Complete Protocol: Activity Type Activity Date Activity User E-sign Co-sign Detail Recorded Client Recorded Date Recorded By Document 09/16/24 09:29 BKG DAEMON(7) [id number] 09/16/24 09:30 BKG DAEMON(8) Fingerstick Glucose Start: 09/17/24 02:20 Freq: Status: Complete Protocol: Activity Type Activity Date Activity User E-sign Co-sign Detail Recorded Client Recorded Date Recorded By Document 09/17/24 02:19 BKG DAEMON(9) [id number] 09/17/24 02:20 BKG DAEMON(10) Fingerstick Glucose Start: 09/19/24 11:52 Freq: Status: Complete Protocol: Activity Type Activity Date Activity User E-sign Co-sign Detail Recorded Client Recorded Date Recorded By Document 09/21/24 23:16 BKG DAEMON(10) NVT-BG05 09/21/24 23:17 BKG DAEMON(10) Intake and Output - 24 Hour Total 09/16/24 07:07 thru 09/23/24 11:20 Intake Total 19323.783 Output Total 8090 Balance 8422.783 Weight 110.4 kg [place]: [place] [address].783 Oral 5680 Output: Urine 8090 Other: Urine Color Light Mandi Urine Appearance Clear Urine Odor None Comment pt voided Stool Size Small Stool Characteristics Soft Falls Risk Assessment History of Falls No History 09/16/24 10:50 Contributing Factors No Factors 09/16/24 10:50 Ambulatory Aids Independent 09/16/24 10:50 Tubes/Lines W/no contributing factors 09/16/24 10:50 Gait Evaluation No gait disturbance 09/16/24 10:50 Cognition No cognitive impairment 09/16/24 10:50 Fall Total Score 10 09/16/24 10:50 Level of Risk Standard/Low Risk 09/16/24 10:50 Problems (Last Reviewed 09/16/24 @ 09:14 by Blas Trujillo MD) Abscess of lung with pneumonia (Acute) Multifocal pneumonia (Acute) Pleural effusion associated with pulmonary infection (Acute) Hypomagnesemia (Acute) Hyperbilirubinemia (Acute) DVT prophylaxis (Acute) Staphylococcus aureus bacteremia (Acute) Septic shock (Acute) Acute on chronic respiratory failure with hypoxia (Acute) Right upper lobe pneumonia (Acute) Severe sepsis (Acute) Aortic stenosis, severe (Acute) Severe pulmonary hypertension (Acute) Severe asthma (Acute) Hypothyroidism (Chronic) Obstructive sleep apnea syndrome (Chronic 07/25/15) Metabolic syndrome (Acute 07/25/15) Hx of Hodgkins lymphoma (Acute 07/25/15) BMI 40.0-44.9, adult (Acute 07/25/15) v v v v v v v v v Sending and/or Receiving Nurses: Please use comment section below to note any information pertinent to the patient hand-off not included above. Information / Comments: New chest tube 12fr (left side) draining bright yellow fluid. Sample taken of fluid and sent to lab. Received fentnyl 75mcg. 2LPM O2 94%. Vitals are WNL. Patient will remain on water seal during transport but will need to be on -20 wall suction when back in room at [facility]. Report received from: HONG Prery ([facility] 14:35
--- NOTE | 2024-09-23 14:57 | PT.INNT ---
PT Notes Visit Reasons: Severe Sepsis RUL CAP pt not available due to further testing. Will check in with her in am.
--- NOTE | 2024-09-23 16:48 | CMPROGNOTE_ITS ---
Date of service: 09/23/24 Time of Service: 16:48 Care Management Progress Note Progress Note Text Progress Note Text: Miranda went for a down and back procedure at [facility] [place]. She had a left sided chest tube placed. The tube was noted to be draining thick yellow fluid. Miranda is c/o some pain at the insertion site, but feels her breathing is a bit easier since the tube was placed. Miranda and Ranjit feel that they do not have a good understanding of what Miranda's pl an is. CM spoke with the provider who plans to speak with the couple. Discharge Potential Discharge Needs: PCP F/U Appt and Other (4 weeks of IV antibiotics, cardiology f/u - will need to reschedule valve replacement, pulmonology f/u) Anticipated Barriers to Discharge: Medical Status Patient/Family Education Needs: Review discharge instructions, discuss Ask Me Three Transportation: Private vehicle (with Ranjit) Plan: Anticipate that Miranda will be discharged home with new services of PT for the [facility]. She will require at least 4 weeks of IV antibiotics that she will receive at home with support of , or at the [facility] infusion center. She will f/u with her community providers and continue per her plan of care. CM will continue to follow and to update the plan as needed. Social Determinants of Health Screening Social Determinants of Health last assessed: 09/23/24 Will the Patient Participate in the Screening?: Yes Do you worry about having a steady place to live?: no Problems where you live: no known problems In the past 12 months, have you had to go without electric, gas, oil or water in your home?: no Have you or anyone in your house had to go without enough food to eat?: no Has lack of transportation kept you from medical appointments or from doing things needed for daily living?: no Has anyone in your life made you feel unsafe or unsupported?: no How hard is it for you to pay for the very basics like food, housing, medical care, and heating? Would you say it is:: Not hard at all Do you want help finding or keeping work or a job?: I do not need or want help If for any reason you need help with day-to-day activities such as bathing, preparing meals, shopping, managing finances, etc., do you get the help you need?: I don?t need any help How often do you feel lonely or isolated from those around you?: Never Do you speak a language other than [place] at home?: No Does the patient want assistance with any of the above?: No Anticipated HH Services Anticipated HH Services at Discharge [facility] Needed, PT (better breathing) and RN (medical status and IV antibiotics.) Following Provider:
[2024-09-23] MEDS: Acetaminophen 325 MG TAB PO ×2 (17:05→21:10)
--- NOTE | 2024-09-23 17:40 | W.PM.PROGNOT ---
Date of Service Date of service: 09/23/24 Time of Service: 17:40 Assessment and Plan Assessment and plan (1) Staphylococcus aureus bacteremia: Status: Acute Assessment and plan: -Started on ceftriaxone azithromycin in the emergency department -Switched to vancomycin and cefepime upon admission as patient appeared clinically worse -Admission blood cultures growing MSSA, narrowed to oxacillin 09/21 -Repeat blood cultures (#2) ordered on the morning 09/19/2024 negative, repeat 09/22 (#3) -Will need prolonged therapy, with abnormal valves and effusion at least 4 weeks. Midline placed today. -Talked to Dr. Dozier from [facility] CT surgery about plan 09/22, needs drained, see below. -TTE negative for vegetations 09/23 (2) Pleural effusion associated with pulmonary infection: Status: Acute Assessment and plan: A/w staph aureus pneumonia. D/w [facility] CT surgery Jacoby and Dr. Vang. CT to further characterize confirms. Concern this is developing empyema, [facility] IR successfully performed pleural catheter placement, will ask for surgery to help manage. (3) Multifocal pneumonia: Status: Acute Assessment and plan: Pneumonia is source of infection. Sputum also growing staph. Multifocal, but no clear embolization per radiology. CXR shows RUL pneumonia, but more sensitive POCUS clearly shows a LLL infiltrate and effusion. CT confirms multifocal with severe left loculated effusion/empyema. See above. Continue oxacillin. (4) Septic shock: Status: Acute Assessment and plan: Resolved. Initially met criteria for severe sepsis with temperature of 102 ?F, heart rate in the 130s, lactic acid of 2.7, and presumed source of infection of right upper lobe pneumonia, required norepinephrine drip. (5) Aortic stenosis, severe: Status: Acute Assessment and plan: - Recently diagnosed that [facility] with aortic valve area of 0.9 cm? and mean gradient of 35 mmHg -Patient had recently increased her diuresis and was found to have collapsible IVC on POCUS, diuresis held on admission. -Edema noted AM 09/18, has increased despite 10mg-20mg doses 09/18 and 09/19 -She tolerated lower doses, but not much diuresis, 40mg IV dose (equivalent to her outpatient 40mg oral torsemide) given 09/20 and not clearly improved and Cr up, POCUS with Dr. Trujillo 09/21 confirmed her IVC is collaspable c/w dry status. No further duriresis for now, continue to monitor clinically. -D/w Dr. Dozier from CT surgery, TAVR will have to be postponed. -Not dry or too fluid overloaded on echo this am, no fluids/diuresis for now. (6) Hypomagnesemia: Status: Acute Assessment and plan: supplemented, recheck in AM improved. Monitor. (7) Oral ulceration: Status: Acute Assessment and plan: several on tongue, look aphthous vs allergic vs viral. Get HCV pcr swab. Sore on lower lip dry. (8) DVT prophylaxis: Status: Acute Assessment and plan: enoxaparin (9) Hyponatremia: Status: Acute Assessment and plan: worse in setting of growing lung infusion. Fluid restriction. Follow. Subjective Subjective Patient reports: voiding w/o difficulty; denies diarrhea, nausea, vomiting or fever Interval history since last seen: Events: Limited echo this morning Went down/back for plural drain with IR at [facility] She is feeling like she can breath better since drain placed. Drain hurts some, though other areas hurt less when breathing. She is thirsty. Exam Narrative Exam Narrative: LEss fatigued appearing female, sitting up in chair, speaking in short sentences with mild increased WOB with moving around. 1L nasal cannula in place, heart rate regular, 3/6 systolic murmur, lungs with breath sounds audible throughout with better air movement left base. no wheeze or rales, abdomen soft, nontender, nondistended, trace pitting edema bilateral lower extremities so just proximal to the ankles, not tender Objective Last Vital Signs Temp 36.5 C 09/23/24 07:51 Pulse 88 09/23/24 07:51 Resp 18 09/23/24 07:51 BP 124/54 L 09/23/24 07:51 Pulse Ox 92 09/23/24 08:34 Laboratory Results - last 24 hr 09/23/24 06:20 WBC 24.72 H RBC 3.92 L Hgb 11.0 L Hct 33.6 L MCV 86 MCH 28.1 MCHC 32.7 RDW 14.6 Plt Count 515 H MPV 10.4 Immature Gran % 0.0 Neutrophils % 88.0 Band Neutrophils % 2 Lymphocytes % 4.0 Monocytes % 4.0 Eosinophils % 0.0 Basophils % 0.0 Metamyelocytes % 1 Myelocytes % 1 Nucleated RBC % 0.0 Absolute Neutrophils 22.25 H Absolute Lymphocytes 0.99 L Absolute Monocytes 0.99 H Absolute Eosinophils 0.00 Absolute Basophils 0.00 RBC Morphology Normal Sodium 128 L D Potassium 4.3 Chloride 93 L Carbon Dioxide 31.7 Anion Gap 3.3 BUN 14 Creatinine 1.1 H Est GFR (CKD-EPI 2020) 59.71 Glucose 95 Calcium 9.2 Magnesium 2.2 Time Spent with Patient Time Spent with Patient: >50 minutes Time was spent: preparing to see the patient(eg.review tests), obtaining and/or reviewing separately otained hiistory, ordering medications,tests, procedures, referring, communicating with other health tree care foreman, indepentently interpreting results, counseling the patient and care coordination
[2024-09-23] MEDS: Methocarbamol 500 MG TAB PO (18:54)
[2024-09-23 20:22] VITALS: BP 112/46; PULSE 85; RESP 18; TEMP 35.9; O2SAT 94
[2024-09-23 21:24] VITALS: O2SAT 94
[2024-09-23 23:03] VITALS: BP 109/46; PULSE 73; RESP 18; TEMP 36.4; O2SAT 94
[2024-09-24] VITALS (9 sets, daily range): BP systolic 101–128; BP diastolic 48–59; PULSE 70–89; RESP 14–32; TEMP 36–36.8; O2SAT 90–97
[2024-09-24] MEDS: Acetaminophen 325 MG TAB PO ×3 (01:13→16:49)
[2024-09-24] MEDS: Levothyroxine 150 MCG TAB PO (05:08)
[2024-09-24 07:03] LABS: Abs Immature Grans 1.76 10^3/uL (0.0-0.06); HCT 34.1 % (36.0-46.0); HGB 10.9 g/dL (11.2-15.7); MCH 28.1 pg (27.0-33.0); MCV 88 fL (80-95); MPV 10.3 fL (8.0-11.0); Platelet Count 515 10^3/uL (130-400); RBC 3.88 10^6/uL (3.93-5.22); RDW 14.9 % (11.7-14.6); RDW-SD 47.9 fL; WBC 23.79 10^3/uL (4.4-10.8)
[2024-09-24 07:11] LABS: Absolute Lymphocyte Count 1.19 10^3/uL (1.2-3.4); Absolute Neutrophil Count 19.51 10^3/uL (1.2-6.7); Bands % 1 %
[2024-09-24 07:12] LABS: Diff Comment Manual Differential; Metamyelocytes % 3; Myelocytes % 2; RBC Morphology Normal
[2024-09-24 07:17] LABS: Anion Gap 4.3 mmol/L (3-11); BUN 20 mg/dL (7-18); CO2 29.7 mmol/L (21.0-32.0); CREATININE 1.2 mg/dL (0.55-1.02); Calcium 8.9 mg/dL (8.5-10.1); Chloride 93 mmol/L (98-107); Estimated GFR 53.79 (mL/min/1.73m2); Glucose 98 mg/dL (74-106); Magnesium 2.2 mg/dL (1.8-2.4); Potassium 4.3 mmol/L (3.5-5.1); Sodium 127 mmol/L (136-145)
--- NOTE | 2024-09-24 08:36 | NUR.NOTE ---
Nursing Note: Dr. Vang ok'd portable CXR d/t CT being hooked up to -20 wall sxn.
--- NOTE | 2024-09-24 08:54 | DI.RAD_ITS ---
Exam(s) XR PORTABLE CHEST AP EXAM: XR PORTABLE CHEST AP CLINICAL HISTORY: drain placemnt. TECHNIQUE: 2D digital imaging was performed. COMPARISON: CR XR PORTABLE CHEST AP from 09/16/[address] CHEST W from 09/22/2024 FINDINGS: Single AP portable view. Since the CT scan of 09/22/2024 there has been interval placement of a pigtail drainage catheter in t he lateral left pleural space. Recent CT scan revealed significant volume loss of the left lung and large partially loculated left pleural effusion. On the present portable chest x-ray there is still prominent infiltrate throughout the left lung. De nsity difficult to differentiate pleural effusion from infiltrate. There is no infiltrate in the opp osite-right lung. Small amount of right pleural fluid is noted, as evident on the recent CT scan. Left anterior lung upper lobe calcifications, as evident on recent CT scan. Heart size is mildly prominent. There is no mediastinal shift. IMPRESSION: Persistent almost complete opacification of the left hemithorax. There has been interval placement o f a pigtail drainage catheter in the lateral left pleural space. There is no pneumothorax. If clinically indicated repeat CT scan can be performed to determine position of the drainage cathete r relative to the loculated pleural effusion and to compare to the CT scan of 09/22/[address]. [address] s can also revealed prominent subcarinal adenopathy as well as significantly narrowed left mainstem bro nchus. DATA REPOSITORY: RADIATION DOSE DELIVERED:
--- NOTE | 2024-09-24 08:59 | DI.VRAD_ITS ---
PROCEDURE INFORMATION: Exam: XR Chest Exam date and time: 09/24/2024 8:53 AM Age: 53 years old Clinical indication: Condition or disease; Lung condition and disease and non-vascular catheter/shunt placement or management; Other: Sepsis TECHNIQUE: Imaging protocol: Radiologic exam of the chest. Views: 1 view. COMPARISON: No relevant prior studies are available for comparison. FINDINGS: Tubes, catheters and devices: Left pleural catheter. Lungs: Complete opacification of the left hemithorax. Calcifications projecting over the left lung. Pleural spaces: See above. Heart/Mediastinum: No cardiomegaly. Bones/joints: No acute abnormality. IMPRESSION: Complete opacification of the left hemithorax status post placement of left pleural catheter. Dictated and Authenticated by: Norma Christian MD. Ordering:YEMI Hutton MD
[2024-09-24] MEDS: Metoprolol 25 MG TAB 37.5 MG PO ×2 (09:23→21:06)
[2024-09-24] MEDS: Atorvastatin 40 MG TAB 80 MG PO (09:23)
[2024-09-24] MEDS: Aspirin E.C. 81 MG TABEC PO (09:23)
[2024-09-24] MEDS: Montelukast 10 MG TAB PO (09:24)
[2024-09-24] MEDS: Spironolactone 25 MG TAB PO (09:24)
[2024-09-24] MEDS: Enoxaparin 40 MG/0.4 ML SYR SC (09:24)
[2024-09-24] MEDS: Normal Saline Flush 10 ML SYR IVP ×3 (09:25→23:59)
--- NOTE | 2024-09-24 09:59 | W.PM.PROGNOT ---
Date of Service Date of service: 09/24/24 Time of Service: 09:59 Assessment and Plan Assessment and plan (1) Abscess of lung with pneumonia: Status: Acute Assessment and plan: Gram stain on the pleural fluid from [facility] only showed neutrophils and no white blood cells. However she had been on antibiotics for several days prior to culture so more than likely the fluid will be sterile at this point -Oxalacillin -Lactobacillus (2) Severe pulmonary hypertension: Status: Acute (3) BMI 40.0-44.9, adult: (4) Metabolic syndrome: (5) Acquired hypothyroidism: Status: Acute (6) BMI 40.0-44.9, adult: Status: Acute (7) Hx of Hodgkins lymphoma: Status: Acute Assessment and plan: This has unfortunately caused chronic fibrosis/bronchiectasis/pulmonary scarring which appears as mild COPD type pattern on her CT scan. (8) Staphylococcus aureus bacteremia: Status: Acute Assessment and plan: She had blood cultures on 09/16 that were positive for staph. She is going to need 4 weeks of IV antibiotics to ensure that it is cleared from her bloodstream. Repeat cultures were negative Unfortunately this is going to delay her TAVR She may require HUGO prior to TAVR (9) Severe asthma: Status: Acute (10) Pleural effusion associated with pulmonary infection: Status: Acute Assessment and plan: - I discussed with the patient and her today that there are multiple loculated effusions. The drain [facility] placed is not seem to be draining the amount of fluid I would expect. We will continue drainage for another 24 hours. We will repeat a noncontrasted CT and see what fluid collections are left. We are probably going to end up placing repeated drainage catheters. Patient stated it was too hard on her to go by ambulance down to [facility] and she do not think she can make the trip again. Again until we get her pneumonia treated and these fluid collections resolved, she is not going to be a candidate for having a r TAVR. Which is going to exacerbate her cardiac condition. Which is going to exacerbate her lung condition. I did review this with Dr. Tovar as well I do feel that she does belong down at [facility] because of her combined cardiopulmonary conditions. However [facility] has no beds and she is currently stable, albeit very ill, but not immediate life-threatening. [facility] is on bypass currently even to critical in trauma patients. And her condition is not significantly improving, but also not deteriorating. 40 minutes spent with the patient and her today An additional 40 minutes is spent reviewing her [facility] chart [facility] chart, talking to other physicians and talking to nursing (11) Obstructive sleep apnea syndrome: Status: Chronic (12) Moderate mitral stenosis: Status: Acute (13) Severe aortic stenosis: Status: Acute Assessment and plan: She was scheduled to have a TAVR on 10/12. [facility] has canceled this due to her lung issues and positive blood cultures. She did CV surgeon regarding valve replacement. He did not think she was a good candidate for surgery secondary to the degree of calcification on her aorta, her pulmonary disease, obesity and deconditioning. I did discuss with her and the patient about having to cancel the TAVR. (14) Hypothyroidism: Status: Deleted (15) History of heart artery stent: Status: Chronic Assessment and plan: Placed on 09/10/2024 She is on aspirin and Plavix (16) Aortic calcification: Status: Acute (17) Metabolic syndrome: Status: Acute (18) Prediabetes: Status: Acute (19) Pulmonary fibrosis: Status: Acute (20) Dyspnea: Status: Acute (21) Pulmonary nodules: Status: Acute (22) Bronchiectasis: Status: Acute (23) Lung disease, restrictive: Status: Acute Assessment and plan: - I did review her notes from pulmonary. Her FEV1 is 1.1%. They contributed this to a combination of restrictive lung disease/scarring from her radiation, asthma(they feel her asthma symptoms are actually mild per consult from 1118/24) her valvular heart disease, obesity, and deconditioning Subjective Subjective Interval history since last seen: Patient is seen and examined: they are doing OK . THey have : no headaches. No CP no dysuria. severe LE edema. Patient notes she does have a productive cough. She is coughing up benavides secretions though minimal. No diarrhea She did go down to [facility] on Thursday and had a left chest drain placed. Unfortunately its only drained about 200 cc out. Chest x-ray today shows minimal improvement. Patient complains of severe shortness of breath. She also has significant lower extremity edema and swelling. Unfortunately between her shortness of breath, the lower extremity edema, and having the chest drainage and she is not able to get up and walk around. Exam Narrative Exam Narrative: PHYSICAL EXAM GENERAL APPEARANCE: Alert, healthy appearance, oriented, x 3,? in no acute distress HYDRATION: Well hydrated HEAD, EYES, EARS, NECK, THROAT: Head is normocephalic, pupils equal, round, reactive to light and accommodation, ocular movement intact, sclera clear and no jaundice. ?Dentition intact. No thrush LUNGS: normal respiration/normal chest excursion. Right side is clear. There is pretty much no breath sounds on the left side. Drain site is clean dry and intact. She has had 200 cc of clear drainage out since the drain was placed. ?HEART: Regular rate and rhythm. no murmurs EXTREMITY: No edema or cyanosis.? no leg pain, redness, swelling.? ABDOMEN: soft and non-tender to palpation.? Normal bowel sounds.? Objective Last Vital Signs Temp 36.6 C 09/24/24 07:43 Pulse 83 09/24/24 07:43 Resp 15 09/24/24 07:43 BP 125/59 L 09/24/24 07:43 Pulse Ox 94 09/24/24 07:43 Laboratory Results - last 24 hr 09/24/24 06:27 WBC 23.79 H RBC 3.88 L Hgb 10.9 L Hct 34.1 L MCV 88 MCH 28.1 MCHC 32.0 RDW 14.9 H Plt Count 515 H MPV 10.3 Immature Gran % 0.0 Neutrophils % 81.0 Band Neutrophils % 1 Lymphocytes % 5.0 Monocytes % 8.0 Eosinophils % 0.0 Basophils % 0.0 Metamyelocytes % 3 Myelocytes % 2 Nucleated RBC % 0.0 Absolute Neutrophils 19.51 H Absolute Lymphocytes 1.19 L Absolute Monocytes 1.90 H Absolute Eosinophils 0.00 Absolute Basophils 0.00 RBC Morphology Normal Sodium 127 L Potassium 4.3 Chloride 93 L Carbon Dioxide 29.7 Anion Gap 4.3 BUN 20 H Creatinine 1.2 H Est GFR (CKD-EPI 2020) 53.79 Glucose 98 Calcium 8.9 Magnesium 2.2 Time Spent with Patient Time Spent with Patient: >50 minutes Time was spent: preparing to see the patient(eg.review tests), obtaining and/or reviewing separately otained hiistory, ordering medications,tests, procedures, referring, communicating with other health director of career services, indepentently interpreting results, counseling the patient, care coordination and other
[2024-09-24 11:29] LABS: Lab Add On Test DONE
[2024-09-24 12:09] LABS: C-Reactive Protein 14.95 mg/dL (<or=0.5); Ferritin 533 ng/mL (8-252); Folate 4.9 ng/mL (8.6-20.0); Vitamin B12 1064 pg/mL (193-986)
[2024-09-24] MEDS: Budesonide/Formoterol 160/4.5 6 GM 60 PUFF INH IH ×2 (12:37→20:32)
--- NOTE | 2024-09-24 14:20 | PTTR_ITS ---
PT Notes Visit Reasons: Severe Sepsis RUL CAP Inpatient Physical Therapy Treatment Note [facility] Date: 09/24/2024 PRECAUTIONS: Activity as tolerated. Pleural catheter in place as of 09/24/23, advised by surgeon not to detach from wall--may walk distance allowed by tube and by p tressa's tolerance. PICC through L UE. SUBJECTIVE: Refused to walk. Very fatigued. Was however agreeable to seated exercises. Perked up when asked about her grandkids. OBJECTIVE: Seated on bedside recliner. Pleural catheter in place on L lateral midback. present in room. Appeared exhausted. Swelling to B LE noted. CHAIR MOBILITY: Able to independently scoot back and forward using B UE for support. THERAPEUTIC EXERCISES: Direct one-on-one supervision provided while performing seated exercises x 10, 1 set: Seated marches DBE x 3 LAQs DBE x 3 Ankle DF/PF DBE x 3 Clam shell exercises ? ? DBE x 3 ? ASSESSMENT:? Activity tolerance significantly limited by ongoing admitting cardiopulmonary diagnoses. Requires frequent rests in between activity. Newly placed pleural catheter (at [facility] [place]) to minimize pleural effusion associated with pulmonary infection is seen. Hoping to still push through with TAVR on 10/12/2024 by managing ongoing medical issues. PLAN: Progress functional mobility level as tolerated. Coordinate sessions with premedication for pain. DISCHARGE RECOMMENDATION: Home with PT and then cardiac rehab after scheduled TAVR on 10/12/2024 at [facility] [place]. TREATMENT CODE/TIME: 12032 x 19 minutes for 1 unit (14:20-14:39).
--- NOTE | 2024-09-24 17:58 | W.PM.PROGNOT ---
Date of Service Date of service: 09/24/24 Time of Service: 18:07 Assessment and Plan Assessment and plan (1) Staphylococcus aureus bacteremia: Status: Acute Assessment and plan: -Started on ceftriaxone azithromycin in the emergency department -Switched to vancomycin and cefepime upon admission as patient appeared clinically worse -Admission blood cultures growing MSSA, narrowed to oxacillin 09/21 -Repeat blood cultures (#2) ordered on the morning 09/19/2024 negative, repeat 09/22 (#3) -Will need prolonged therapy, with abnormal valves and effusion at least 4 weeks. Midline placed 09/22 -Talked to Dr. Dozier from [facility] CT surgery about plan 09/22, drain placed 09/23. see below. -TTE negative for vegetations 09/23, but likely should have HUGO before antibiotics stopped. (2) Pleural effusion associated with pulmonary infection: Status: Acute Assessment and plan: A/w staph aureus pneumonia. D/w [facility] CT surgery Jacoby and Dr. Vang. CT to further characterize confirms. s/p pleaural catheter placement at [facility] on 09/23. Draining but not much Appreciated surgical help, repeat CT wo 09/25. She may need VATS procedure for definitive management, would not be done here. (3) Multifocal pneumonia: Status: Acute Assessment and plan: Pneumonia is source of infection. Sputum also growing staph. Multifocal, but not priscila embolization per radiology. CXR showed RUL pneumonia, but more sensitive POCUS clearly shows a LLL infiltrate and effusion. CT confirms multifocal with severe left loculated effusion/empyema. See above. Continue oxacillin. (4) Septic shock: Status: Resolved Assessment and plan: Resolved. Initially met criteria for severe sepsis with temperature of 102 ?F, heart rate in the 130s, lactic acid of 2.7, and presumed source of infection of right upper lobe pneumonia, required norepinephrine drip. (5) Aortic stenosis, severe: Status: Deleted Assessment and plan: - Recently diagnosed that [facility] with aortic valve area of 0.9 cm? and mean gradient of 35 mmHg -Patient had recently increased her diuresis and was found to have collapsible IVC on POCUS, diuresis held on admission. -Edema noted AM 09/18, has increased despite 10mg-20mg doses 09/18 and 09/19 -She tolerated lower doses, but not much diuresis, 40mg IV dose (equivalent to her outpatient 40mg oral torsemide) given 09/20 and not clearly improved and Cr up, POCUS with Dr. Trujillo 09/21 confirmed her IVC is collaspable c/w dry status. No further duriresis for now, continue to monitor clinically. -D/w Dr. Dozier from CT surgery, TAVR will have to be postponed. -Not dry or too fluid overloaded on echo 09/23, but edema increasing, resume with dose 09/24 furosemide 20mg (6) Hypomagnesemia: Status: Acute Assessment and plan: supplemented, recheck in AM improved. Monitor. (7) Oral ulceration: Status: Acute Assessment and plan: several on tongue, look aphthous vs allergic vs viral. HSV pcr swab pending 09/23. Improving 09/24 without therapy. (8) DVT prophylaxis: Status: Acute Assessment and plan: enoxaparin (9) Hyponatremia: Status: Acute Assessment and plan: worse in setting of growing lung infusion. Fluid restriction. Follow. Subjective Subjective Patient reports: tolerating a regular diet and voiding w/o difficulty; denies nausea, vomiting or fever Interval history since last seen: Events: Down/Back from for pleural catheter 09/23 Seen in follow up by surgery today She was feeling down and fatigued this morning, but better this afternoon. Ate more than she has for a week for lunch. Her breathing is okay but she still feels like she is retaining too much fluid. Retaining more fluid in her legs Exam Narrative Exam Narrative: LEss fatigued appearing female, sitting up in chair, speaking in full sentences, off O2. tongue lesion look less ulcerated, more like papules today. Heart rate regular, 3/6 systolic murmur, lungs with breath sounds audible throughout with better air movement left base. no wheeze or rales, abdomen soft, nontender, nondistended, 1-2+ edema bilateral lower extremities, not tender Objective Last Vital Signs Temp 36.3 C L 09/24/24 15:23 Pulse 83 09/24/24 15:23 Resp 15 09/24/24 15:23 BP 128/58 L 09/24/24 15:23 Pulse Ox 90 L 09/24/24 15:23 Laboratory Results - last 24 hr 09/24/24 09/24/24 09/24/24 06:27 10:17 11:03 WBC 23.79 H RBC 3.88 L Hgb 10.9 L Hct 34.1 L MCV 88 MCH 28.1 MCHC 32.0 RDW 14.9 H Plt Count 515 H MPV 10.3 Immature Gran % 0.0 Neutrophils % 81.0 Band Neutrophils % 1 Lymphocytes % 5.0 Monocytes % 8.0 Eosinophils % 0.0 Basophils % 0.0 Metamyelocytes % 3 Myelocytes % 2 Nucleated RBC % 0.0 Absolute Neutrophils 19.51 H Absolute Lymphocytes 1.19 L Absolute Monocytes 1.90 H Absolute Eosinophils 0.00 Absolute Basophils 0.00 RBC Morphology Normal Sodium 127 L Potassium 4.3 Chloride 93 L Carbon Dioxide 29.7 Anion Gap 4.3 BUN 20 H Creatinine 1.2 H Est GFR (CKD-EPI 2020) 53.79 Glucose 98 Calcium 8.9 Magnesium 2.2 Ferritin 533 H C-Reactive Protein 14.95 H Vitamin B12 1064 H Folate 4.9 L Add-On Test Request DONE Time Spent with Patient Time Spent with Patient: 35-49 minutes Time was spent: preparing to see the patient(eg.review tests), obtaining and/or reviewing separately otained hiistory, ordering medications,tests, procedures, referring, communicating with other health transitional care manager, indepentently interpreting results, counseling the patient and care coordination
[2024-09-24] MEDS: Furosemide 20 MG/2 ML VIAL IVP (23:58)
[2024-09-25] VITALS (12 sets, daily range): BP systolic 99–115; BP diastolic 46–58; PULSE 74–89; RESP 2–20; TEMP 35.9–36.8; O2SAT 90–98
[2024-09-25] MEDS: Levalbuterol 1.25 MG/3 ML UPD VIAL UPD ×3 (00:05→20:35)
[2024-09-25] MEDS: Acetylcysteine 20% *ORAL/INHALED* 6000 MG/30 ML VIAL 600 MG UPD ×2 (00:15→20:33)
[2024-09-25] MEDS: Levothyroxine 150 MCG TAB PO (05:00)
[2024-09-25] MEDS: Ipratropium 0.5 MG/2.5 ML UPD VIAL UPD (05:27)
[2024-09-25 06:53] LABS: Anion Gap 3.1 mmol/L (3-11); BUN 21 mg/dL (7-18); CO2 32.9 mmol/L (21.0-32.0); CREATININE 1.2 mg/dL (0.55-1.02); Calcium 9.2 mg/dL (8.5-10.1); Chloride 94 mmol/L (98-107); Estimated GFR 53.79 (mL/min/1.73m2); Glucose 93 mg/dL (74-106); Sodium 130 mmol/L (136-145)
[2024-09-25 07:06] LABS: NT-proBNP 4484 pg/mL (<300)
--- NOTE | 2024-09-25 09:36 | PGE_ITS ---
Date of Service Date of service: 09/25/24 Time of Service: 09:36 Assessment and Plan Assessment and plan (1) Abscess of lung with pneumonia: Status: Acute Assessment and plan: Repeat CT tomorrow and see if there are any further collections that we can drain percutaneously Continue gentle diuresis. She is not on any fluids Antibiotics are oxacillin She did recently have a cardiac stent on 09/10. She is on aspirin and Plavix I did review her care with Dr. Tovar today. (2) Pleural effusion associated with pulmonary infection: Status: Acute (3) Severe asthma: Status: Acute (4) Left leg swelling: Status: Acute (5) Severe pulmonary hypertension: Status: Acute (6) Moderate mitral stenosis: Status: Acute (7) Severe aortic stenosis: Status: Acute (8) History of heart artery stent: Status: Chronic (9) Aortic calcification: Status: Acute (10) Metabolic syndrome: Status: Acute (11) Prediabetes: Status: Acute (12) Lung disease, restrictive: Status: Acute (13) Obstructive sleep apnea syndrome: Status: Chronic (14) Obstructive sleep apnea: Subjective Subjective Interval history since last seen: Patient is seen and examined: they are doing well. THey have : no headaches. No CP or SOB. no productive cough. no dysuria. no leg pain or swelling. Patient's had minimal output of her drain in the past 24 hours. She did receive some Lasix and was placed on daily Aldactone and has not made much change in her lower extremity edema. She has urinated quite a bit, although this was not captured on the I/O. Patient is having loose but formed stools. Exam Narrative Exam Narrative: PHYSICAL EXAM GENERAL APPEARANCE: Alert, healthy appearance, oriented, x 3,? in no acute distress HYDRATION: Well hydrated HEAD, EYES, EARS, NECK, THROAT: Head is normocephalic, pupils equal, round, reactive to light and accommodation, ocular movement intact, sclera clear and no jaundice. ?Dentition intact. LUNGS: normal respiration/normal chest excursion. ?Minimal sounds on right side drain site is clean dry and intact. ?HEART: Regular rate and rhythm. no murmurs EXTREMITY: Severe lower extremity edema. ankles are taut ABDOMEN: soft and non-tender to palpation.? Normal bowel sounds.? Objective Last Vital Signs Temp 36.4 C 09/25/24 08:10 Pulse 88 09/25/24 08:10 Resp 19 09/25/24 08:10 BP 115/55 L 09/25/24 08:10 Pulse Ox 90 L 09/25/24 08:10 Laboratory Results - last 24 hr 09/24/24 09/24/24 09/25/24 10:17 11:03 06:30 Sodium 130 L Potassium 4.0 Chloride 94 L Carbon Dioxide 32.9 H Anion Gap 3.1 BUN 21 H Creatinine 1.2 H Est GFR (CKD-EPI 2020) 53.79 Glucose 93 Calcium 9.2 Magnesium 2.0 Ferritin 533 H C-Reactive Protein 14.95 H NT-Pro-B Natriuret Pep 4484 H Vitamin B12 1064 H Folate 4.9 L Add-On Test Request DONE Time Spent with Patient Time Spent with Patient: 35-49 minutes Time was spent: preparing to see the patient(eg.review tests), obtaining and/or reviewing separately otained hiistory, ordering medications,tests, procedures, referring, communicating with other health post acute care nurse practitioner, indepentently interpreting results, counseling the patient, care coordination and other
[2024-09-25] MEDS: Budesonide/Formoterol 160/4.5 6 GM 60 PUFF INH IH ×2 (09:38→20:38)
[2024-09-25] MEDS: Metoprolol 25 MG TAB 37.5 MG PO ×2 (09:40→20:46)
[2024-09-25] MEDS: Atorvastatin 40 MG TAB 80 MG PO (09:41)
[2024-09-25] MEDS: Furosemide 20 MG/2 ML VIAL IVP (09:41)
[2024-09-25] MEDS: Aspirin E.C. 81 MG TABEC PO (09:42)
[2024-09-25] MEDS: Senna TAB 1 TAB PO (09:42)
[2024-09-25] MEDS: Spironolactone 25 MG TAB PO (09:42)
[2024-09-25] MEDS: Methocarbamol 500 MG TAB PO (09:42)
[2024-09-25] MEDS: Normal Saline Flush 10 ML SYR IVP ×4 (09:43→20:46)
[2024-09-25] MEDS: Clopidogrel 75 MG TAB PO (09:43)
[2024-09-25] MEDS: Montelukast 10 MG TAB PO (09:43)
[2024-09-25] MEDS: Enoxaparin 40 MG/0.4 ML SYR SC (10:51)
[2024-09-25] MEDS: Folic Acid 1 MG TAB PO (10:52)
[2024-09-25 11:20] LABS: HSV 1 DNA Result Positive (Negative); HSV 2 DNA Result Negative (Negative)
--- NOTE | 2024-09-25 15:29 | PTTR_ITS ---
PT Notes Visit Reasons: Severe Sepsis RUL CAP Inpatient Physical Therapy Treatment Note [facility] Date: 09/25/2024 PRECAUTIONS: Activity as tolerated. Pleural catheter in place as of 09/24/23, advised by surgeon not to detach from wall--may walk distance allowed by tube and by p tressa's tolerance. PICC through L UE. SUBJECTIVE: Added that she has not slept in bed since she came, has been sleeping on the recliner since admission. Continues to be assisted by nursing staff with transfer from bedside recliner to bedside commode. Agreeable to seated and stansing level balance exerrcises. Perked up when asked about her grandkids. Hoping to talk with MD to ask her questions about B LE swelling and diuretic use. OBJECTIVE: Seated on bedside recliner. Pleural catheter in place on L lateral midback. present in room. Appeared exhausted. Swelling to B LE noted. CHAIR MOBILITY: Able to independently scoot back and forward using B UE for support on chair. THERAPEUTIC EXERCISES: Direct one-on-one supervision provided while performing seated exercises x 10, 1 set: Seated marches DBE x 3 Bilateral hel raises in standing x 10 DBE x 3 Ankle DF/PF Partial knee bends x 10 DBE x 3 Standing marches x 10 ? ASSESSMENT:? Activity tolerance significantly limited by ongoing admitting cardiopulmonary diagnoses. Requires frequent rests in between activity. Newly placed pleural catheter (at [facility] [place]) to minimize pleural effusion associated with pulmonary infection is seen. Hoping to still push through with TAVR on 10/12/2024 by managing ongoing medical issues. PLAN: Progress functional mobility level as tolerated. Coordinate sessions with premedication for pain. DISCHARGE RECOMMENDATION: Home with PT and then cardiac rehab after scheduled TAVR on 10/12/2024 at [facility] [place]. TREATMENT CODE/TIME: 96935 x 26 minutes for 1 unit (15:29-15:55).
--- NOTE | 2024-09-25 16:20 | PGE_ITS ---
Date of Service Date of service: 09/25/24 Time of Service: 16:21 Assessment and Plan Assessment and plan (1) Staphylococcus aureus bacteremia: Status: Acute Assessment and plan: -Started on ceftriaxone azithromycin in the emergency department -Switched to vancomycin and cefepime upon admission as patient appeared clinically worse -Admission blood cultures growing MSSA, narrowed to oxacillin 09/21 -Repeat blood cultures (#2) ordered on the morning 09/19/2024 negative, repeat 09/22 (#3) -Will need prolonged therapy, with abnormal valves and effusion at least 4 weeks. Midline placed 09/22 -Talked to Dr. Dozier from [facility] CT surgery about plan 09/22, drain placed 09/23. see below. -TTE negative for vegetations 09/23, but likely should have HUGO before antibiotics stopped. -continue oxacilin (2) Pleural effusion associated with pulmonary infection: Status: Acute Assessment and plan: A/w staph aureus pneumonia. D/w [facility] CT surgery Jacoby and Dr. Vang. CT to further characterize confirms. s/p pleaural catheter placement at [facility] on 09/23. Draining but not much, which either means it has drained or there are loculations that are not draining. Appreciated surgical help, plan is repeat CT wo 09/26 (not today). She may need VATS procedure for definitive management, if CT shows that pockes of effusion not drained, she will need transfer. (3) Multifocal pneumonia: Status: Acute Assessment and plan: Pneumonia is source of infection. Sputum also growing staph. Multifocal, but not priscila embolization per radiology. CXR showed RUL pneumonia, but more sensitive POCUS clearly shows a LLL infiltrate and effusion. CT confirms multifocal with severe left loculated effusion/empyema. See above. Continue oxacillin. (4) Septic shock: Status: Resolved Assessment and plan: Resolved. Initially met criteria for severe sepsis with temperature of 102 ?F, heart rate in the 130s, lactic acid of 2.7, and presumed source of infection of right upper lobe pneumonia, required norepinephrine drip. (5) Aortic stenosis, severe: Status: Deleted Assessment and plan: - Recently diagnosed that [facility] with aortic valve area of 0.9 cm? and mean gradient of 35 mmHg -Patient had recently increased her diuresis and was found to have collapsible IVC on POCUS, diuresis held on admission. -Edema noted AM 09/18, has increased despite 10mg-20mg doses 09/18 and 09/19 -She tolerated lower doses, but not much diuresis, 40mg IV dose (equivalent to her outpatient 40mg oral torsemide) given 09/20 and not clearly improved and Cr up, POCUS with Dr. Trujillo 09/21 confirmed her IVC is collaspable c/w dry status. No further duriresis for now, continue to monitor clinically. -D/w Dr. Dozier from CT surgery, TAVR will have to be postponed. -Not dry or too fluid overloaded on echo 09/23, but edema increasing, resumed with 20mg IV furosemide 09/23 and 09/24. -I agree she has a lot of edema, but she is very preload dependant, we still need to diurese very carefully. Resume per outpatient torsemide 09/26 am. (6) Hypomagnesemia: Status: Acute Assessment and plan: supplemented, recheck in AM improved. Monitor. (7) Oral ulceration: Status: Acute Assessment and plan: several on tongue, look aphthous vs allergic vs viral. HSV pcr swab positive HSV 1, will give acyclovir to help heal faster as her system is under a lot of stress. (8) DVT prophylaxis: Status: Acute Assessment and plan: enoxaparin (9) Hyponatremia: Status: Acute Assessment and plan: worse in setting of growing lung infusion and some fluid overload. Fluid restriction, resuming diuresis, improving slowly. Subjective Subjective Patient reports: voiding w/o difficulty; denies diarrhea, nausea, vomiting or fever Interval history since last seen: She got furosemide last night and dose this morning. She feels a little better but still feels swollen. She is discouraged about her overall course. Exam Narrative Exam Narrative: LEss fatigued appearing female, sitting up in chair, speaking in full sentences, off O2. Heart rate regular, 3/6 systolic murmur, lungs with breath sounds audible throughout with better air movement left base. no wheeze or rales, abdomen soft, nontender, nondistended, 2-3+ edema bilateral lower extremities, not tender Objective Last Vital Signs Temp 35.9 C L 09/25/24 11:30 Pulse 77 09/25/24 11:30 Resp 19 09/25/24 11:30 BP 99/49 L 09/25/24 11:30 Pulse Ox 91 L 09/25/24 11:30 Laboratory Results - last 24 hr 09/23/24 09/25/24 18:00 06:30 Sodium 130 L Potassium 4.0 Chloride 94 L Carbon Dioxide 32.9 H Anion Gap 3.1 BUN 21 H Creatinine 1.2 H Est GFR (CKD-EPI 2020) 53.79 Glucose 93 Calcium 9.2 Magnesium 2.0 NT-Pro-B Natriuret Pep 4484 H HSV Source Description Not Applicable HSV I DNA PCR Positive A HSV II DNA PCR Negative Time Spent with Patient Time Spent with Patient: 35-49 minutes Time was spent: preparing to see the patient(eg.review tests), obtaining and/or reviewing separately otained hiistory, ordering medications,tests, procedures, r eferring, communicating with other health care program director, indepentently interpreting results, counseling the patient and care coordination
[2024-09-25] MEDS: Acyclovir 400 MG TAB PO (20:47)
[2024-09-26] VITALS (7 sets, daily range): BP systolic 104–123; BP diastolic 51–63; PULSE 81–92; RESP 5–40; TEMP 36.3–36.9; O2SAT 90–97
[2024-09-26] MEDS: Levothyroxine 150 MCG TAB PO (04:52)
[2024-09-26] MEDS: Normal Saline Flush 10 ML SYR IVP ×6 (04:59→20:14)
[2024-09-26 07:29] LABS: Anion Gap 6.8 mmol/L (3-11); BUN 17 mg/dL (7-18); CO2 33.2 mmol/L (21.0-32.0); CREATININE 1.2 mg/dL (0.55-1.02); Calcium 8.6 mg/dL (8.5-10.1); Chloride 92 mmol/L (98-107); Estimated GFR 53.79 (mL/min/1.73m2); Glucose 111 mg/dL (74-106); Magnesium 1.9 mg/dL (1.8-2.4); Potassium 3.5 mmol/L (3.5-5.1); Sodium 132 mmol/L (136-145)
[2024-09-26 07:34] LABS: C-Reactive Protein 10.55 mg/dL (<or=0.5)
--- NOTE | 2024-09-26 08:00 | DI.CT_ITS ---
Exam(s) CT CHEST WO EXAM: CT CHEST WO CLINICAL HISTORY: loculated fluid collections. TECHNIQUE: Imaging protocol: Axial computed tomography images were obtained and coronal and sagittal reformatted images were created and reviewed. Lung Computer Aided Detection (CAD) was utilized. COMPARISON: CT,PT NM PET CT STANDARD SKULL BASE TO MID-THIGH from 06/30/[address] CHEST W from 09/22/2024 CR,XR XR PORTABLE CHEST AP from 09/24/2024 FINDINGS: Tracheobronchial tree: There has been some opening of the airways to the left upper and left lower lo be since the prior examination. No bronchiectasis is present. Pulmonary parenchyma: Since the prior examination there has been interval placement of a left chest t ube. The pigtail is seen in the left pleural space. There has been significant decrease in size of the loculated left pleural effusion. There is a tiny amount of pleural air likely reflecting the devin cement of the tube. There has been moderate re-expansion of the left lower lobe. There are still ar eas of consolidation involving the left upper lobe, lingula and left lower lobe. This has improved c ompared to the prior examination. There is a persistent small right pleural effusion and subjacent i nfiltrate which may represent atelectasis or pneumonia. There is been improvement of the opacities i n the right lung. No new infiltrates are seen on the right. There is no evidence of a right pneumot horax. Mediastinum and Olimpia: There again seen enlarged mediastinal lymph nodes. The esophagus is unremarkab le.There calcifications again seen in the anterior and superior mediastinum. This may represent calc ified lymph nodes. Pleura: Please see the above discussion under pulmonary parenchyma. Heart: The heart is not dilated. Coronary artery calcifications are present. There is a stable small pericardial effusion. Aorta: Thoracic aorta non-dilated. Atherosclerotic calcification is present. Upper abdomen: Status post cholecystectomy. Lymph nodes: No significant axillary adenopathy. Tubes, Catheters, and Lines: There has been interval placement of a left chest tube. Soft tissues: Unremarkable. Bones:Within normal limits for the patient's age. IMPRESSION: 1. Interval placement of a left chest tube. There has been a significant decrease in size of the lef t loculated pleural effusion. There is also been moderate re-expansion of the left lower lobe. 2. There are persistent areas of consolidation in the left upper lobe, lingula and left lower lobe. 3. The right lung infiltrates have improved compared to the prior examination. There is persistent r ight pleural effusion. RADIATION DOSE DELIVERED: 526.36mGy.cm Total DLP 526.36mGy.cm Total DLP DATA REPOSITORY: All CT scans at this facility are submitted to the National Radiology Data Registry (NRDR) Dose Index Registry (DIR) with the [employer] (A[employer]). RADIATION OPTIMIZATION: All CT scans at this facility use at least one of these dose optimization te chniques: automated exposure control; mA and/or kV adjustment per patient size (includes targeted exa ms where dose is matched to clinical indication); or iterative reconstruction.
[2024-09-26] MEDS: Levalbuterol 1.25 MG/3 ML UPD VIAL UPD (08:33)
[2024-09-26] MEDS: Acetylcysteine 20% *ORAL/INHALED* 6000 MG/30 ML VIAL 600 MG UPD (08:41)
[2024-09-26] MEDS: Budesonide/Formoterol 160/4.5 6 GM 60 PUFF INH IH ×2 (08:41→20:42)
[2024-09-26] MEDS: Senna TAB 1 TAB PO (09:45)
[2024-09-26] MEDS: Atorvastatin 40 MG TAB 80 MG PO (09:45)
[2024-09-26] MEDS: Aspirin E.C. 81 MG TABEC PO (09:45)
[2024-09-26] MEDS: Enoxaparin 40 MG/0.4 ML SYR SC (09:45)
[2024-09-26] MEDS: Acyclovir 400 MG TAB PO ×3 (09:46→20:15)
[2024-09-26] MEDS: Montelukast 10 MG TAB PO (09:46)
[2024-09-26] MEDS: Torsemide 20 MG TAB 40 MG PO (09:46)
[2024-09-26] MEDS: Clopidogrel 75 MG TAB PO (09:46)
[2024-09-26] MEDS: Folic Acid 1 MG TAB PO (09:46)
[2024-09-26] MEDS: Spironolactone 25 MG TAB PO (09:46)
[2024-09-26] MEDS: Metoprolol 25 MG TAB 37.5 MG PO ×2 (09:47→20:14)
--- NOTE | 2024-09-26 15:54 | CMPROGNOTE_ITS ---
Date of service: 09/26/24 Time of Service: 12:00 Care Management Progress Note Progress Note Text Progress Note Text: Michelle was sitting up in the bedside chair, her Ranjit was sitting on the bed, when CM met with them today. Michelle looked brighter today, but stated that she was really feeling no better. Her thought she was better yesterday, but then not today. They both feel that this whole illness has been up and down, and neither of them has a good understanding of what is going on. They are now on the third hospitalist since admission, and they feel that no one has a real handle on her care. Discussing the schedule with them did not help. Michelle still had her chest tube in when CM met with her. She will require 4 weeks of IV abx, at least, and her valve replacement has been post poned. Michelle is understandably discouraged. She continued to express the desire to be transferred to [facility], where her specialists are. She is aware that the providers here have been in contact with [facility] and there are no beds available. Discharge Potential Discharge Needs: PCP F/U Appt and Other (4 weeks of IV antibiotics, cardiology f/u - will need to reschedule valve replacement, pulmonology f/u) Anticipated Barriers to Discharge: Medical Status Patient/Family Education Needs: Review discharge instructions, discuss Ask Me Three Transportation: Private vehicle (Anticipate that Miranda will be discharged home with new services of PT for [facility]. She will require at least 4 weeks of IV antibiotics that she will receive at home with support of , or at the [facility] infusion center. She will f/u with her community providers and continue per he) Social Determinants of Health Screening Social Determinants of Health last assessed: 09/26/24 Will the Patient Participate in the Screening?: Yes Do you worry about having a steady place to live?: no Problems where you live: no known problems In the past 12 months, have you had to go without electric, gas, oil or water in your home?: no Have you or anyone in your house had to go without enough food to eat?: no Has lack of transportation kept you from medical appointments or from doing things needed for daily living?: no Has anyone in your life made you feel unsafe or unsupported?: no How hard is it for you to pay for the very basics like food, housing, medical care, and heating? Would you say it is:: Not hard at all Do you want help finding or keeping work or a job?: I do not need or want help If for any reason you need help with day-to-day activities such as bathing, preparing meals, shopping, managing finances, etc., do you get the help you need?: I don?t need any help How often do you feel lonely or isolated from those around you?: Never Do you speak a language other than Mongolian at home?: No Does the patient want assistance with any of the above?: No
--- NOTE | 2024-09-26 16:26 | PT.INNT ---
PT Notes Visit Reasons: Severe Sepsis RUL CAP Patient declined to participate in skilled PT in the morning despite education on benefits of performing functional transfers and short distance ambulation to keep strength up. Patient reports she has been doing leg exercises while seated in the chair throughout the day. Patient described and demonstrated ankle pumps long arc quads and marching. Bilateral lower extremity dependent edema present. Patient educated on benefits of elevating lower extremities while seated in chair. Patient reported she is unable to cough in a reclined position therefore she keeps her feet down. Time spent with patient 12 minutes no charge then in afternoon patient meeting with MD with present.
--- NOTE | 2024-09-26 17:54 | DSE_ITS ---
Date of service: 09/26/24 Time of Service: 17:54 DS: Diagnosis Discharge Diagnosis (1) Staphylococcus aureus bacteremia: Status: Acute (2) Pleural effusion associated with pulmonary infection: Status: Acute (3) Multifocal pneumonia: Status: Acute (4) Septic shock: Status: Resolved (5) Aortic stenosis, severe: Status: Deleted (6) Hypomagnesemia: Status: Acute (7) Oral ulceration: Status: Acute (8) DVT prophylaxis: Status: Acute (9) Hyponatremia: Status: Acute Discharge Plan Disposition Patient Disposition: Transfer-Acute Inpatient Care Specific Acute Inpt Facility: [facility] Condition: Stable Discharge Details Reason For Visit: Severe Sepsis RUL CAP Admit Date/Time: 09/16/24 09:09 Admit Provider: Yonatan Salgado Attending Provider: Yonatan Salgado Primary Care Provider: [facility] Course Hospital Course: This is a 53-year-old female who was admitted on 09/16/2024 for pneumonia. Patient also carries a diagnosis of aortic stenosis which is severe as well as pulmonary fibrosis coronary artery disease with recent stent placement mitral stenosis as well as severe asthma. The plan on admission was to treat with antibiotics but while she was here she continued to have respiratory distress. Eventually a CT was performed which showed a multiloculated left pleural effusion versus empyema with complete atelectasis consolidation of the left lower lobe as well as mild right lobe consolidation. The patient was transferred down to [facility] for a chest tube placement. Patient did receive a repeat CT scan today which interval placement of the left chest to a decrease in the left loculated pleural effusion as well as moderate reexpansion of the left lower lobe I did discuss the case with CT [facility] did not have any [facility] available. I believe the surgeon's name was Dr. Culver. Considering the patient's presentation I reached out to the [facility] for possible transfer she was accepted by Dr. Torres is a hospitalist as well as Dr. Royal who is in cardiothoracic surgeon. I have discussed the case with the patient. Trying to decide whether or not they want to leave. My recommendation is for transfer with the idea of coming back here after her lungs improve Home Meds and New Rx's Prescriptions: New acyclovir 400 mg Tablet 400 mg PO TID Qty: 14 0RF Continued albuterol sulfate 2.5 mg /3 mL (0.083 %) solution for nebulization 2.5 mg UPD Q6H PRN PRN (Reason: shortness of breath or wheezing) Qty: 90 6RF ketoconazole 2 % cream 1 applic topical BID PRN albuterol sulfate [Proventil HFA] 90 mcg/actuation HFA aerosol inhaler 2 puff inhalation Q6H PRN (Reason: shortness of breath or wheezing) Qty: 8.5 12RF fluticasone propion-salmeterol [Advair HFA] 230-21 mcg/actuation HFA aerosol inhaler 2 puff inhalation BID Qty: 12 12RF Rx Instructions: administer with spacer montelukast 10 mg tablet 10 mg PO DAILY Qty: 60 6RF Tezspire 210 mg/1.91 mL (110 mg/mL) pen injector 210 mg subcut Q4W Qty: 1.91 6RF ipratropium-albuterol 0.5 mg-3 mg(2.5 mg base)/3 mL solution for nebulization 3 ml IH Q6H Qty: 180 0RF metoprolol tartrate 37.5 mg tablet 37.5 mg PO BID atorvastatin 80 mg tablet 80 mg PO DAILY spironolactone 25 mg tablet 25 mg PO DAILY Patient Comments: TAKE 1 TABLET BY MOUTH DAILY aspirin 81 mg tablet,delayed release (DR/EC) 81 mg PO DAILY clopidogrel 75 mg tablet 75 mg PO DAILY levothyroxine 150 mcg tablet 150 mcg PO DAILY isosorbide mononitrate 30 mg tablet extended release 24 hr 30 mg PO DAILY torsemide 20 mg tablet 20 mg PO DAILY Patient Comments: TAKE 1 TO 2 TABLETS BY MOUTH DAILY Discharge Instructions Activity:: Activity as Tolerated Equipment/Supplies:: No Equipment Needed Diet:: As Tolerated Discharge Orders Discharge Orders: Discharge Order (Routine); Ordered 09/26/24 Ordered By: Mario Moya Discharge Data Discharge Date/Time-TO BE ENTERED AT DEPARTURE: 09/26/24 22:40 DS: Summary Time Spent with Patient providing and/or coordinating discharge services: Greater than 30 minutes Status at Discharge Functional status at discharge: uses cane/walker Overall status at discharge: patient is back to baseline Mental Status: mental status grossly normal Speech and Movement: speech and movement normal Mood: congruent mood Affect: normal affect Quality:SDOH Health Related Social Needs: No Data to Display Exam Narrative Exam Narrative: LEss fatigued appearing female, sitting up in chair, speaking in full sentences, off O2. Heart rate regular, 3/6 systolic murmur, lungs with breath sounds audible throughout with better air movement left base. no wheeze or rales, abdomen soft, nontender, nondistended, 2-3+ edema bilateral lower extremities, not tender Psych Mental Status: mental status grossly normal Speech and Movement: speech and movement normal Mood: congruent mood Affect: normal affect DS: Data Vitals/I&O Vitals and I&O: Vital Signs Temperature 36.9 C 09/26/24 15:24 Temperature Source Tympanic 09/26/24 15:24 Pulse 87 09/26/24 15:24 Pulse 98 H 09/19/24 10:01 Respiratory Rate 18 09/26/24 15:24 Respiratory Effort Short of Breath, Labored, Accessory Muscle Use 09/16/24 10:50 Respiratory Depth Normal 09/16/24 10:50 Respiratory Pattern Tachypnea 09/16/24 10:50 Blood Pressure 115/59 L 09/26/24 15:24 Blood Pressure Mean 76 09/19/24 10:01 Blood Pressure Position Sitting 09/16/24 10:50 Pulse Oximetry 90 L 09/26/24 15:24 Oxygen Delivery Method Nasal Cannula 09/26/24 15:24 Oxygen Flow Rate 1 09/26/24 15:24 Fraction of Inspired Oxygen (FIO2) 1 09/24/24 15:23 Pain Level 0 09/25/24 23:34 Comment RN Notified 09/25/24 03:35 Arterial Systolic 125 09/18/24 04:30 Arterial Diastolic 52 09/18/24 04:30 Arterial Mean 75 09/18/24 04:30 Intake & Output 09/25/24 09/26/24 09/26/24 23:59 11:59 23:59 Intake Total 140 / 290 830 / 830 Output Total 300 / 1050 700 / 1300 600 / 1300 Balance -160 / -760 130 / -470 -600 / -470 Weight 110.1 kg Intake: IV 140 / 290 240 / 240 Oral 590 / 590 Output: Chest Tube Drainage 0 / 0 0 / 0 Urine 300 / 1050 700 / 1300 600 / 1300 Other: Urine Color Yellow Yellow Yellow Urine Appearance Clear Clear Urine Odor Normal Comment moderate amount Data Completed and Pending Labs on day of discharge: Labs from last 24 hours 09/26/24 06:08 Sodium 132 L Potassium 3.5 Chloride 92 L Carbon Dioxide 33.2 H Anion Gap 6.8 BUN 17 Creatinine 1.2 H Est GFR (CKD-EPI 2020) 53.79 Glucose 111 H Calcium 8.6 Magnesium 1.9 C-Reactive Protein 10.55 H Preliminary micro results at discharge 09/22/24 14:45 Blood Culture - Preliminary Blood NO GROWTH 96 HOURS 09/22/24 13:40 Blood Culture - Preliminary Blood NO GROWTH 96 HOURS PFSH All Active Problems (Updated 09/27/24 @ 00:03 by [employer]) Lung disease, restrictive (Acute) 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% Bronchiectasis (Acute) 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 Aortic calcification (Acute) History of heart artery stent (Chronic) 09/10/24 Severe aortic stenosis (Acute) Moderate mitral stenosis (Acute) Hyponatremia (Acute) Oral ulceration (Acute) Abscess of lung with pneumonia (Acute) Multifocal pneumonia (Acute) Pleural effusion associated with pulmonary infection (Acute) Hypomagnesemia (Acute) Hyperbilirubinemia (Acute) DVT prophylaxis (Acute) Staphylococcus aureus bacteremia (Acute) Acute on chronic respiratory failure with hypoxia (Acute) Right upper lobe pneumonia (Acute) Dyspnea (Acute) Severe pulmonary hypertension (Acute) Prediabetes (Acute) Severe asthma (Acute) Pulmonary nodules (Acute) Unspecified slipped upper femoral epiphysis (nontraumatic), right hip (Acute 07/25/15) Obstructive sleep apnea syndrome (Chronic 07/25/15) Metabolic syndrome (Acute 07/25/15) Hx of Hodgkins lymphoma (Acute 07/25/15) BMI 40.0-44.9, adult (Acute 07/25/15) Acquired hypothyroidism (Acute 07/25/15) Abnormal uterine bleeding (Acute 07/25/15) Trochanteric bursitis of right hip (Acute) Left leg swelling (Acute) Encounter for screening for COVID-19 (Acute) Medical History (Updated 09/27/24 @ 00:03 by [employer]) Abscess of lung without pneumonia Pneumonia Abnormal chest CT Mild persistent asthma without complication (07/25/15) Abnormal uterine bleeding Rx with DepoProvera x9yrs. Resumed after stopping Depo in 2003. Worsening in 2013. 10/2015 Mirena IUD. Unspecified slipped upper femoral epiphysis (nontraumatic), right hip Metabolic syndrome Asthma, mild persistent Hx of Hodgkins lymphoma BMI 40.0-44.9, adult Obstructive sleep apnea Surgical History (Updated 09/27/24 @ 00:03 by MIGUEL ANGEL OLIVAS) History of hip surgery pin placement History of removal of Port-a-Cath placement and removal History of cholecystectomy Family History Mother Heart disease heart beats too fast Asthma Allergies Son Personal history of malignant neoplasm Father COPD (chronic obstructive pulmonary disease) Social History Smoking/Tobacco Use Status: Never Smoking risk assessment performed?: Yes Alcohol Intake: never Drug use: Never Substance use type: does not use Housing: house Do you feel safe at home: Yes (unable to assess privately) Do you feel safe in your relationship?: Yes Time Spent with Patient Time Spent with Patient: 45-69 minutes Time was spent: preparing to see the patient(eg.review tests), obtaining and/or reviewing separately otained hiistory, ordering medications,tests, procedures, referring, communicating with other health child care assistant, indepentently interpreting results, counseling the patient and care coordination
--- NOTE | 2024-09-26 17:57 | W.PM.DS.N ---
Date of service: 09/26/24 Time of Service: 17:57 DS: Diagnosis Discharge Diagnosis (1) Staphylococcus aureus bacteremia: Status: Acute (2) Pleural effusion associated with pulmonary infection: Status: Acute (3) Multifocal pneumonia: Status: Acute (4) Septic shock: Status: Resolved (5) Aortic stenosis, severe: Status: Deleted (6) Hypomagnesemia: Status: Acute (7) Oral ulceration: Status: Acute (8) DVT prophylaxis: Status: Acute (9) Hyponatremia: Status: Acute Discharge Plan Disposition Patient Disposition: Transfer-Acute Inpatient Care Specific Acute Inpt Facility: [facility] Condition: Stable Discharge Details Reason For Visit: Severe Sepsis RUL CAP Admit Date/Time: 09/16/24 09:09 Admit Provider: Yonatan Salgado Attending Provider: Yonatan Salgado Primary Care Provider: [facility] Hospital Course: This is a 53-year-old female who was admitted on 09/16/2024 for pneumonia. Patient also carries a diagnosis of aortic stenosis which is severe as well as pulmonary fibrosis coronary artery disease with recent stent placement mitral stenosis as well as severe asthma. The plan on admission was to treat with antibiotics but while she was here she continued to have respiratory distress. Eventually a CT was performed which showed a multiloculated left pleural effusion versus empyema with complete atelectasis consolidation of the left lower lobe as well as mild right lobe consolidation. The patient was transferred down to [facility] for a chest tube placement. Patient did receive a repeat CT scan today which interval placement of the left chest to a decrease in the left loculated pleural effusion as well as moderate reexpansion of the left lower lobe I did discuss the case with CT surgery down the department who recommended TNKase but unfortunately they did not have any rooms available. I believe the surgeon's name was Dr. Culver. Considering the patient's presentation I reached out to the [facility] for possible transfer she was accepted by Dr. Torres is a hospitalist as well as Dr. Royal who is in cardiothoracic surgeon. I have discussed the case with the patient. Trying to decide whether or not they want to leave. My recommendation is for transfer with the idea of coming back here after her lungs improve Home Meds and New Rx's Prescriptions: New acyclovir 400 mg Tablet 400 mg PO TID Qty: 14 0RF Continued albuterol sulfate 2.5 mg /3 mL (0.083 %) solution for nebulization 2.5 mg UPD Q6H PRN PRN (Reason: shortness of breath or wheezing) Qty: 90 6RF ketoconazole 2 % cream 1 applic topical BID PRN albuterol sulfate [Proventil HFA] 90 mcg/actuation HFA aerosol inhaler 2 puff inhalation Q6H PRN (Reason: shortness of breath or wheezing) Qty: 8.5 12RF fluticasone propion-salmeterol [Advair HFA] 230-21 mcg/actuation HFA aerosol inhaler 2 puff inhalation BID Qty: 12 12RF Rx Instructions: administer with spacer montelukast 10 mg tablet 10 mg PO DAILY Qty: 60 6RF Tezspire 210 mg/1.91 mL (110 mg/mL) pen injector 210 mg subcut Q4W Qty: 1.91 6RF ipratropium-albuterol 0.5 mg-3 mg(2.5 mg base)/3 mL solution for nebulization 3 ml IH Q6H Qty: 180 0RF metoprolol tartrate 37.5 mg tablet 37.5 mg PO BID atorvastatin 80 mg tablet 80 mg PO DAILY spironolactone 25 mg tablet 25 mg PO DAILY Patient Comments: TAKE 1 TABLET BY MOUTH DAILY aspirin 81 mg tablet,delayed release (DR/EC) 81 mg PO DAILY clopidogrel 75 mg tablet 75 mg PO DAILY levothyroxine 150 mcg tablet 150 mcg PO DAILY isosorbide mononitrate 30 mg tablet extended release 24 hr 30 mg PO DAILY torsemide 20 mg tablet 20 mg PO DAILY Patient Comments: TAKE 1 TO 2 TABLETS BY MOUTH DAILY Discharge Instructions Activity:: Activity as Tolerated Equipment/Supplies:: No Equipment Needed Diet:: As Tolerated Discharge Orders Discharge Orders: Discharge Order (Routine); Ordered 09/26/24 Ordered By: Mario Moya DS: Summary Time Spent with Patient providing and/or coordinating discharge services: Greater than 30 minutes Status at Discharge Functional status at discharge: uses cane/walker Overall status at discharge: patient is back to baseline Mental Status: mental status grossly normal Speech and Movement: speech and movement normal Mood: congruent mood Affect: normal affect Quality:SDOH Health Related Social Needs: No Data to Display Exam Psych Mental Status: mental status grossly normal Speech and Movement: speech and movement normal Mood: congruent mood Affect: normal affect DS: Data Vitals/I&O Vitals and I&O: Vital Signs Temperature 36.9 C 09/26/24 15:24 Temperature Source Tympanic 09/26/24 15:24 Pulse 87 09/26/24 15:24 Pulse 98 H 09/19/24 10:01 Respiratory Rate 18 09/26/24 15:24 Respiratory Effort Short of Breath, Labored, Accessory Muscle Use 09/16/24 10:50 Respiratory Depth Normal 09/16/24 10:50 Respiratory Pattern Tachypnea 09/16/24 10:50 Blood Pressure 115/59 L 09/26/24 15:24 Blood Pressure Mean 76 09/19/24 10:01 Blood Pressure Position Sitting 09/16/24 10:50 Pulse Oximetry 90 L 09/26/24 15:24 Oxygen Delivery Method Nasal Cannula 09/26/24 15:24 Oxygen Flow Rate 1 09/26/24 15:24 Fraction of Inspired Oxygen (FIO2) 1 09/24/24 15:23 Pain Level 0 09/25/24 23:34 Comment RN Notified 09/25/24 03:35 Arterial Systolic 125 09/18/24 04:30 Arterial Diastolic 52 09/18/24 04:30 Arterial Mean 75 09/18/24 04:30 Intake & Output 09/25/24 09/26/24 09/26/24 23:59 11:59 23:59 Intake Total 140 / 290 830 / 830 Output Total 300 / 1050 700 / 1300 600 / 1300 Balance -160 / -760 130 / -470 -600 / -470 Weight 110.1 kg Intake: IV 140 / 290 240 / 240 Oral 590 / 590 Output: Chest Tube Drainage 0 / 0 0 / 0 Urine 300 / 1050 700 / 1300 600 / 1300 Other: Urine Color Yellow Yellow Yellow Urine Appearance Clear Clear Urine Odor Normal Comment moderate amount Data Completed and Pending Labs on day of discharge: Labs from last 24 hours 09/26/24 06:08 Sodium 132 L Potassium 3.5 Chloride 92 L Carbon Dioxide 33.2 H Anion Gap 6.8 BUN 17 Creatinine 1.2 H Est GFR (CKD-EPI 2020) 53.79 Glucose 111 H Calcium 8.6 Magnesium 1.9 C-Reactive Protein 10.55 H Preliminary micro results at discharge 09/22/24 14:45 Blood Culture - Preliminary Blood NO GROWTH 96 HOURS 09/22/24 13:40 Blood Culture - Preliminary Blood NO GROWTH 96 HOURS PFSH All Active Problems (Updated 09/24/24 @ 14:41 by Anni Vang DO) Lung disease, restrictive (Acute) 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% Bronchiectasis (Acute) 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 Aortic calcification (Acute) History of heart artery stent (Chronic) 09/10/24 Severe aortic stenosis (Acute) Moderate mitral stenosis (Acute) Hyponatremia (Acute) Oral ulceration (Acute) Abscess of lung with pneumonia (Acute) Multifocal pneumonia (Acute) Pleural effusion associated with pulmonary infection (Acute) Hypomagnesemia (Acute) Hyperbilirubinemia (Acute) DVT prophylaxis (Acute) Staphylococcus aureus bacteremia (Acute) Acute on chronic respiratory failure with hypoxia (Acute) Right upper lobe pneumonia (Acute) Dyspnea (Acute) Severe pulmonary hypertension (Acute) Prediabetes (Acute) Severe asthma (Acute) Pulmonary nodules (Acute) Unspecified slipped upper femoral epiphysis (nontraumatic), right hip (Acute 07/25/15) Obstructive sleep apnea syndrome (Chronic 07/25/15) Metabolic syndrome (Acute 07/25/15) Hx of Hodgkins lymphoma (Acute 07/25/15) BMI 40.0-44.9, adult (Acute 07/25/15) Acquired hypothyroidism (Acute 07/25/15) Abnormal uterine bleeding (Acute 07/25/15) Trochanteric bursitis of right hip (Acute) Left leg swelling (Acute) Encounter for screening for COVID-19 (Acute) Medical History (Updated 09/24/24 @ 14:41 by Anni Vang DO) Abscess of lung without pneumonia Pneumonia Abnormal chest CT Mild persistent asthma without complication (07/25/15) Abnormal uterine bleeding Rx with DepoProvera x9yrs. Resumed after stopping Depo in 2003. Worsening in 2013. 10/2015 Mirena IUD. Unspecified slipped upper femoral epiphysis (nontraumatic), right hip Metabolic syndrome Asthma, mild persistent Hx of Hodgkins lymphoma BMI 40.0-44.9, adult Obstructive sleep apnea Surgical History (Updated 09/24/24 @ 14:24 by Anni Vang DO) History of hip surgery pin placement History of removal of Port-a-Cath placement and removal History of cholecystectomy Family History Mother Heart disease heart beats too fast Asthma Allergies Son Personal history of malignant neoplasm Father COPD (chronic obstructive pulmonary disease) Social History Smoking/Tobacco Use Status: Never Smoking risk assessment performed?: Yes Alcohol Intake: never Drug use: Never Substance use type: does not use Housing: house Do you feel safe at home: Yes (unable to assess privately) Do you feel safe in your relationship?: Yes Time Spent with Patient Time Spent with Patient: 45-69 minutes Time was spent: preparing to see the patient(eg.review tests), obtaining and/or reviewing separately otained hiistory, ordering medications,tests, procedures, referring, communicating with other health human services care specialist, indepentently interpreting results, counseling the patient and care coordination
--- NOTE | 2024-09-27 02:11 | NUR.NOTE ---
Nursing Note: Report called to [facility] medical surgical floor, Nurse Bouchra.
--- NOTE | 2024-11-16 14:19 | W.POCUS ---
[facility] Exam Limited Cardiac Exam DATE OF EXAM: 09/21/24 TIME OF EXAM: 15:20 PROVIDER THAT PERFORMED THE STUDY: Blas Trujillo IS THIS A REPEAT EXAM DURING THIS ENCOUNTER: no REASON FOR EXAM: Dyspnea VISUALIZED STRUCTURES: four chambers, left atrium, left ventricle, LVOT, right atrium, right ventricle, aortic valve, mitral valve, Interventricular septum and IVC VIEW OBTAINED: Apical 4-Chamber, Parasternal long-axis, Parasternal short-axis and Subxiphoid PERTINENT FINDINGS/IMPRESSION: IVC inspiratory collapsability DIFFERENTIAL DIAGNOSES: flat IVC INCIDENTAL FINDINGS: hyperdynamic LV Exam complete Limited Thoracic Lung Exam DATE OF EXAM: 09/21/24 TIME OF EXAM: 15:25 PROVIDER THAT PERFORMED THE STUDY: Blas Trjuillo IS THIS A REPEAT EXAM DURING THIS ENCOUNTER: No REASON FOR EXAM: Pneumonia and Shortness ofBreath VISUALIZED STRUCTURES: right anterior, left anterior, right lateral, left lateral, right posterior and left posterior PERTINENT FINDINGS/IMPRESSION: B-lines/left side and Left pleural effusion DIFFERENTIAL DIAGNOSES: pleural effusion, pneumonia, empyema Exam complete
== END 2024-09-26 22:40 | disposition short-term general hospital (02) | DRG 871 ==
LOC: ER 09:11 → ICU 14:32 → MS 09-19 11:37
PROVIDERS: Family Medicine; Surgery; Admitting Provider Family Medicine; Emergency Provider Emergency Medicine Emergency Medical Services; PCP Family Medicine; Visit Provider Family Medicine
DX: A41.01 Sepsis due to Methicillin susceptible Staphylococcus aureus (principal); J15.211 Pneumonia due to Methicillin susceptible Staphylococcus aureus; R65.21 Severe sepsis with septic shock; J96.21 Acute and chronic respiratory failure with hypoxia; J86.9 Pyothorax without fistula; E87.1 Hypo-osmolality and hyponatremia; J91.8 Pleural effusion in other conditions classified elsewhere; J70.1 Chronic and other pulmonary manifestations due to radiation; J98.11 Atelectasis; G47.33 Obstructive sleep apnea (adult) (pediatric); B95.61 Methicillin susceptible Staphylococcus aureus infection as the cause of diseases classified elsewhere; E80.6 Other disorders of bilirubin metabolism; E83.42 Hypomagnesemia; K12.1 Other forms of stomatitis; I27.20 Pulmonary hypertension, unspecified; Z85.71 Personal history of Hodgkin lymphoma; Z95.5 Presence of coronary angioplasty implant and graft; I70.0 Atherosclerosis of aorta; J47.9 Bronchiectasis, uncomplicated; I08.0 Rheumatic disorders of both mitral and aortic valves; Y84.2 Radiological procedure and radiotherapy as the cause of abnormal reaction of the patient, or of later complication, without mention of misadventure at the time of the procedure; E03.9 Hypothyroidism, unspecified; R73.03 Prediabetes; J45.30 Mild persistent asthma, uncomplicated; R60.0 Localized edema; I25.10 Atherosclerotic heart disease of native coronary artery without angina pectoris
CPT/HCPCS: 36620; 36410 ×2; 00123; 36415; 36416; 71250; 76604; 76942; 80048; 80053; 82805; 82962; 84145; 85027; 87040; 87077; 87529; 87635; 87637; 93005; 93308; 94640; 96365; 96367; 97110; 97162; 97530; 99291; J1650; 71045; 71260; 80202; 81003; 81015; 82607; 82728; 82746; 83605; 83735; 83880; 84484; 85025; 85610; 86140; 87070; 87086; 87186; 87205; 93010; 94664; 94667; 94668; 94760; 99223; 99233; 99239; J0456; J0692; J0696; J1940; J1941; J2060; J2270; J2700; J2704; J3370; J3372; J3475; J3480; J3490; J7608; J7614; J7644